=== PATIENT | female | born 1995 | race Caucasian/White ===

== ENCOUNTER 2023-08-04 14:22 | Emergency (ER) | payer BC, SELFPAY ==
[2023-08-04] VITALS (8 sets, daily range): BP systolic 110–169; BP diastolic 74–91; PULSE 83–109; RESP 14–23; TEMP 37.3; O2SAT 91–99; BMI 41.6
--- NOTE | 2023-08-04 14:41 | ECG_ITS ---
The [facility] Test Date: 2023-08-04 Pat Name: [facility] Department: Room: - Gender: Female [employer] Representative: : 1995 Requested By: Echo Conner Order Number: [id number] Reading MD: DEE GUTIERREZ Measurements Intervals [place] Rate: 95 P: 111 CA: 134 QRS: 38 QRSD: 76 T: 40 QT: 346 QTc: 398 Interpretive Statements 1100 Sinus rhythm 6220 Possible left atrial enlargement 9130 borderline ECG No previous ECG available for comparison Electronically Signed On 08-06-2023 11:28:54 EST by DEE GUTIERREZ
--- NOTE | 2023-08-04 15:31 | XR_ITS ---
The [address] [address] Patient Name: FRANKI HENRIQUEZ MRN: [id number] date: 1995 Sex: F Assigned Patient Location: ER Current Patient Location: ER Accession/Order Number: [id number] Exam Date: 08/04/2023 16:16 Report Date: 08/04/2023 17:02 At the request of: SUZY JUAN Procedure: XR chest 2V EXAM: CHEST 2 VIEWS HISTORY: pain TECHNIQUE: PA and lateral views chest. COMPARISON: None. FINDINGS: The lungs are clear. There is no focal lung consolidation, pleural effusion or pneumothorax. Pulmonary vasculature is within normal limits. The cardiomediastinal silhouette is normal. XR/XR chest 2V IMPRESSION: 1. No acute cardiopulmonary disease. Electronically authenticated by: TINY GARCIA Date: 08/04/2023 17:02
[2023-08-04 15:46] LABS: Basophils Absolute Auto 0.1 10^3/uL (0.0-0.1); Basophils Percent Auto 0.4 % (0.2-2.0); Eosinophils Absolute Auto 0.1 10^3/uL (0.0-0.7); Eosinophils Percent Auto 0.6 % (0.9-7.0); Hematocrit 43.7 % (36.0-48.0); Hemoglobin 13.9 g/dL (12.0-16.0); Immature Granulocytes Abs Auto 0.04 10^3/uL (0.00-0.03); Immature Granulocytes Pct Auto 0.3 % (0.0-0.5); Lymphocytes Absolute Auto 2.8 10^3/uL (1.2-3.8); Lymphocytes Percent Auto 20.4 % (20.5-60.0); Mean Corpuscular HGB Conc 31.8 g/dL (29.9-35.2); Mean Corpuscular Hemoglobin 30.3 pg (26.7-34.0); Mean Corpuscular Volume 95.4 fL (81.0-99.0); Mean Platelet Volume 10.1 fL (9.5-13.5); Monocytes Absolute Auto 0.9 10^3/uL (0.3-0.8); Monocytes Percent Auto 6.2 % (1.7-12.0); Neutrophils Percent Auto 72.1 % (43.0-75.0); Platelet Count 312 10^3/uL (150-450); Red Blood Count 4.58 10^6/uL (4.20-5.40); Red Cell Distribution Width 12.7 % (11.0-15.0); White Blood Count 13.9 10^3/uL (4.0-11.0)
[2023-08-04] MEDS: KETOROLAC TROMETHAMINE 30 MG/ML VIAL IVP (15:55)
[2023-08-04 15:58] LABS: Bilirubin Urine NEGATIVE (NEGATIVE); Blood Urine NEGATIVE (NEGATIVE); Clarity Urine CLEAR (CLEAR); Color Urine LT. YELLOW (YELLOW); Glucose Urine UA NEGATIVE (NEGATIVE); Ketones Urine NEGATIVE (NEGATIVE); Leukocyte Esterase Urine NEGATIVE (NEGATIVE); Nitrite Urine NEGATIVE (NEGATIVE); Protein Urine NEGATIVE (NEG/TRACE); Specific Gravity Urine <=1.005 (1.005-1.025); Urobilinogen Urine 0.2 EU/dL (0.2-1.0)
[2023-08-04 16:01] LABS: Anion Gap 12.8; Carbon Dioxide 27.4 mmol/L (21.0-32.0); Chloride 98 mmol/L (98-107); Glucose 107 mg/dL (74-106); Potassium 3.2 mmol/L (3.5-5.1); Sodium 135 mmol/L (136-145)
[2023-08-04 16:02] LABS: Alanine Aminotransferase 33 U/L (14-59); Albumin Globulin Ratio 0.8; Albumin Level 3.7 g/dL (3.4-5.0); Alkaline Phosphatase 88 U/L (46-116); Aspartate Amino Transferase 21 U/L (15-37); BUN Creatinine Ratio 13.3; Bilirubin Total 0.3 mg/dL (0.2-1.0); Estimated GFR (African America >60 (>=60); Estimated GFR (Non-African Ame >60 (>=60); Globulin 4.6 g/dL; Total Protein 8.3 g/dL (6.4-8.2); Troponin I High Sensitivity <4.0 pg/mL (4.0-51.3)
[2023-08-04] MEDS: IPRATROPIUM/ALBUTEROL SULFATE 3 ML AMPUL.NEB IH (16:02)
[2023-08-04 16:04] LABS: Bacteria Urine NONE SEEN #/HPF (NONE SEEN); Mucus Urine NONE SEEN (NONE SEEN); RBC Urine NONE SEEN #/HPF (0-2); Squamous Epithelial Cell Urine NONE SEEN #/LPF (NONE/RARE); WBC Urine NONE SEEN #/HPF (NONE SEEN)
[2023-08-04 16:05] LABS: Cast Seen? NONE SEEN #/LPF (NONE SEEN); Crystals Seen? None Seen #/HPF (None Seen)
[2023-08-04] MEDS: ONDANSETRON PF 4 MG/2 ML VIAL IV (16:05)
--- NOTE | 2023-08-04 16:48 | ED_ITS ---
Documented by User: Deb Juan 08/04/23 18:01 HPI - Chest Pain General Chief Complaint: Chest Pain Stated Complaint: CHEST PAIN Time Seen by Provider: 08/04/23 15:31 Source: patient Mode of arrival: walk-in Limitations: no limitations History of Present Illness HPI narrative: 27-year-old female presents with a chief complaint of chest pain. She states she developed chest pain with minimal radiation to left side while at work. She denies any nausea or vomiting.She denies any known history of coronary artery disease. She is generally healthy. She denies any shortness of breath. Denies any recent surgery travel or trauma. She denies any known history of [place] infection. She states she does have a history of asthma and anxiety. She states is does not feel like an anxiety attack. She describes it as a sharp stabbing pain. She denies anything making it worse or better. Related Data Home Medications Medication Instructions Recorded Confirmed albuterol sulfate 90 mcg/actuation 1 inh inhalation Q6H PRN shortness 08/04/23 08/04/23 aerosol inhaler of breath or wheezing bupropion HCl 100 mg tablet 300 mg PO BID 08/04/23 08/04/23 buspirone 15 mg tablet 15 mg PO TID 08/04/23 08/04/23 clonazepam 0.5 mg tablet 0.5 mg PO .QHS PRN sleep 08/04/23 08/04/23 phentermine 37.5 mg tablet 37.5 mg PO DAILY 08/04/23 08/04/23 prazosin 2 mg capsule 2 mg PO DAILY 08/04/23 08/04/23 sertraline 100 mg tablet (Zoloft) 200 mg PO Q24H 08/04/23 08/04/23 Previous Rx's Medication Instructions Recorded prednisone 50 mg tablet 50 mg PO DAILY 5 days #5 tabs 08/04/23 Allergies Allergy/AdvReac Type Severity Reaction Status Date / Time Sulfa (Sulfonamide AdvReac Intermediate Verified 08/04/23 14:31 Antibiotics) Review of Systems ROS Narrative All Systems are negative except as noted/marked.All systems reviewed and otherwise negative PFSH PFSH Social History Smoking status: Current every day smoker Exam Narrative Exam Narrative: Nurses note and vital signs reviewed and patient is not hypoxic. General: The patient appears well and in no apparent distress. Patient is resting comfortably on cart. Skin: Warm, dry, no pallor noted. There is no rash noted. Head: Normocephalic, atraumatic Eye: Normal conjunctiva, no drainage, EOMI. PERRL Ears, Nose, Mouth, and Throat: oral mucosa is moist. Nares patent. Mouth without vesicles. Ear canals patent. Tm's without Erythema Cardiovascular: Regular Rate and Rhythm Respiratory: Patient is in no distress, no accessory muscle use, lungs are syeda r to auscultation, no wheezing, rales or rhonchi Back: non-tender, no CVA tenderness bilaterally to percussion. GI: Normal bowel sounds, no tenderness to palpation, no masses appreciated. No rebound, guarding, or rigidity noted. Musculoskeletal: The patient has no evidence of calf tenderness, no pitting edema, symmetrical pulses noted bilaterally Neurological: A&O x4, normal speech Psychiatric: Cooperative Constitutional Vital Signs, click to edit/add: Last Vital Signs Temp 99.2 F 08/04/23 14:31 Pulse 100 H 08/04/23 17:00 Resp 23 08/04/23 17:00 BP 117/74 08/04/23 17:00 Pulse Ox 95 08/04/23 17:00 O2 Del Method Room Air 08/04/23 14:31 Course Vital Signs Vital signs: Vital Signs Temperature 99.2 F 08/04/23 14:31 Pulse Rate 109 H 08/04/23 14:31 Respiratory Rate 18 08/04/23 14:31 Blood Pressure 110/84 08/04/23 14:31 Pulse Oximetry 96 08/04/23 14:31 Oxygen Delivery Method Room Air 08/04/23 14:31 Temperature 99.2 F 08/04/23 14:31 Pulse Rate 100 H 08/04/23 17:00 Respiratory Rate 23 08/04/23 17:00 Blood Pressure 117/74 08/04/23 17:00 Pulse Oximetry 95 08/04/23 17:00 Oxygen Delivery Method Room Air 08/04/23 14:31 MDM - Chest Pain MDM Narrative Medical decision making narrative: She presents here with a chief complaint of chest pain. She states she's a sharp stabbing pain to the center chest radiates left. Denies any cardiac history. Upon arrival to the emergency room The was established and lab work was performed. CBC BMP and troponin are all negative. Patient's cardiac score is zero. Patient medicated here with Toradol and Norflex. Or flexing to help symptoms. I believe symptoms may be due to either costochondritis or stress related issues. EKG is normal here. Patient verbalized understanding agrees plan of care.. Patient does not have any cardiac history vital signs are stable. Differential Diagnosis Differential diagnosis: Likely atypical chest pain, costochondritis and chest pa in Medical Records Data Attestation: I reviewed the patient's medical records. Lab Data Attestation: I reviewed the patient's lab results. Labs: Lab Results 08/04/23 08/04/23 Range/Units 15:11 16:40 WBC 13.9 H (4.0-11.0) 10^3/uL RBC 4.58 (4.20-5.40) 10^6/uL Hgb 13.9 (12.0-16.0) g/dL Hct 43.7 (36.0-48.0) % MCV 95.4 (81.0-99.0) fL MCH 30.3 (26.7-34.0) pg MCHC 31.8 (29.9-35.2) g/dL RDW 12.7 (11.0-15.0) % Plt Count 312 (150-450) 10^3/uL MPV 10.1 (9.5-13.5) fL Neut % (Auto) 72.1 (43.0-75.0) % Lymph % (Auto) 20.4 L (20.5-60.0) % Moore % (Auto) 6.2 (1.7-12.0) % Eos % (Auto) 0.6 L (0.9-7.0) % Baso % (Auto) 0.4 (0.2-2.0) % Neut # (Auto) 10.0 H (1.4-6.5) 10^3/uL Lymph # (Auto) 2.8 (1.2-3.8) 10^3/uL Moore # (Auto) 0.9 H (0.3-0.8) 10^3/uL Eos # (Auto) 0.1 (0.0-0.7) 10^3/uL Baso # (Auto) 0.1 (0.0-0.1) 10^3/uL Abs Immat Gran (auto) 0.04 H (0.00-0.03) 10^3/uL Imm/Tot Granulo (auto) 0.3 (0.0-0.5) % Sodium 135 L (136-145) mmol/L Potassium 3.2 L (3.5-5.1) mmol/L Chloride 98 (98-107) mmol/L Carbon Dioxide 27.4 (21.0-32.0) mmol/L Anion Gap 12.8 BUN 13.0 (7.0-18.0) mg/dL Creatinine 0.98 (0.55-1.02) mg/dL Est GFR ( Amer) >60 (>=60) Est GFR (Non-Af Amer) >60 (>=60) BUN/Creatinine Ratio 13.3 Glucose 107 H (74-106) mg/dL Calcium 10.0 (8.5-10.1) mg/dL Total Bilirubin 0.3 (0.2-1.0) mg/dL AST 21 (15-37) U/L ALT 33 (14-59) U/L Alkaline Phosphatase 88 (46-116) U/L Troponin I High Sens <4.0 L (4.0-51.3) pg/mL Total Protein 8.3 H (6.4-8.2) g/dL Albumin 3.7 (3.4-5.0) g/dL Globulin 4.6 g/dL Albumin/Globulin Ratio 0.8 Urine Color Lt. yellow (YELLOW) Urine Clarity Clear (CLEAR) Urine pH 6.0 (5.0-9.0) Ur Specific [place] <=1.005 A (1.005-1.025) Urine Protein Negative (NEG/TRACE) mg/dL Urine Glucose (UA) Negative (NEGATIVE) mg/dL Urine Ketones Negative (NEGATIVE) mg/dL Urine Occult Blood Negative (NEGATIVE) Urine Nitrite Negative (NEGATIVE) Urine Bilirubin Negative (NEGATIVE) Urine Urobilinogen 0.2 (0.2-1.0) EU/dL Ur Leukocyte Esterase Negative (NEGATIVE) Urine RBC None seen (0-2) #/HPF Urine WBC None seen (NONE SEEN) #/HPF Ur Squamous Epith Cells None seen (NONE/RARE) #/LPF Urine Crystals None seen (None Seen) #/HPF Urine Bacteria None seen (NONE SEEN) #/HPF Urine Casts None seen (NONE SEEN) #/LPF Urine Mucus None seen (NONE SEEN) SARS-CoV-2 (PCR) Negative (NEGATIVE) Influenza Type A Ag Negative Influenza Type B Ag Negative Imaging Data Chest x-ray: Attestation: I have reviewed the pertinent imaging results. My impression: nad Radiologist's impression: FRANKI Womack HENRIQUEZ MRN: [facility]:[id number] date: 1995 Sex: F Assigned Patient Location: ER Current Patient Location: ER Accession/Order Number: [id number] Exam Date: 08/04/2023 16:16 Report Date: 08/04/2023 17:02 At the request of: DEB JUAN Procedure: XR chest 2V EXAM: CHEST 2 VIEWS HISTORY: pain TECHNIQUE: PA and lateral views chest. COMPARISON: None. FINDINGS: The lungs are clear. There is no focal lung consolidation, pleural effusion or pneumothorax. Pulmonary vasculature is within normal limits. The cardiomediastinal silhouette is normal. IMPRESSION: 1. No acute cardiopulmonary disease. Electronically authenticated by: TINY GARCIA Date: 08/04/2023 17:02 ECG Data Attestation: ?I have reviewed the pertinent ECG results. Interpretation: 1510 EKG shows normal sinus rhythm rate of 95 bpm, ND interval 134 ms, QR sure his 76 ms, no ST elevation or depression no STEMI Heart Score History: Slightly/Non-Suspicious ECG: Normal Age: <45 years Risk Factors: No Risk Factors Troponin: <Normal Limit Total Heart Score Recommendations & Risks:: 0 Discharge Plan Discharge Chief Complaint: Chest Pain Clinical Impression: Atypical chest pain Patient Disposition: Home, Self-Care Time of Disposition Decision: 17:18 Condition: Good Prescriptions / Home Meds: New prednisone 50 mg tablet 50 mg PO DAILY 5 Days Qty: 5 0RF No Action albuterol sulfate 90 mcg/actuation HFA aerosol inhaler 1 inh INHALATION Q6H PRN (Reason: shortness of breath or wheezing) clonazepam 0.5 mg tablet 0.5 mg PO .QHS PRN (Reason: sleep) phentermine 37.5 mg tablet 37.5 mg PO DAILY sertraline [Zoloft] 100 mg tablet 200 mg PO Q24H bupropion HCl 100 mg tablet 300 mg PO BID buspirone 15 mg tablet 15 mg PO TID prazosin 2 mg capsule 2 mg PO DAILY Instructions: Chest Wall Pain (ED) Stand Alone Forms: Portal Instructions Referrals: DINA KAUR [Primary Care Provider] - 1 week Discharge Date/Time: 08/04/23 17:31 Documented by User: David Deng MD 08/04/23 20:57 HPI - Chest Pain General Chief Complaint: Chest Pain Stated Complaint: CHEST PAIN Time Seen by Provider: 08/04/23 15:31 Related Data Home Medications Medication Instructions Recorded Confirmed albuterol sulfate 90 mcg/actuation 1 inh inhalation Q6H PRN shortness 08/04/23 08/04/23 aerosol inhaler of breath or wheezing bupropion HCl 100 mg tablet 300 mg PO BID 08/04/23 08/04/23 buspirone 15 mg tablet 15 mg PO TID 08/04/23 08/04/23 clonazepam 0.5 mg tablet 0.5 mg PO .QHS PRN sleep 08/04/23 08/04/23 phentermine 37.5 mg tablet 37.5 mg PO DAILY 08/04/23 08/04/23 prazosin 2 mg capsule 2 mg PO DAILY 08/04/23 08/04/23 sertraline 100 mg tablet (Zoloft) 200 mg PO Q24H 08/04/23 08/04/23 Previous Rx's Medication Instructions Recorded prednisone 50 mg tablet 50 mg PO DAILY 5 days #5 tabs 08/04/23 Allergies Allergy/AdvReac Type Severity Reaction Status Date / Time Sulfa (Sulfonamide AdvReac Intermediate Verified 08/04/23 14:31 Antibiotics) PFSH PFSH Social History Smoking status: Current every day smoker Exam Constitutional Vital Signs, click to edit/add: Last Vital Signs Temp 99.2 F 08/04/23 14:31 Pulse 100 H 08/04/23 17:00 Resp 23 08/04/23 17:00 BP 117/74 08/04/23 17:00 Pulse Ox 95 08/04/23 17:00 O2 Del Method Room Air 08/04/23 14:31 Course Vital Signs Vital signs: Vital Signs Temperature 99.2 F 08/04/23 14:31 Pulse Rate 109 H 08/04/23 14:31 Respiratory Rate 18 08/04/23 14:31 Blood Pressure 110/84 08/04/23 14:31 Pulse Oximetry 96 08/04/23 14:31 Oxygen Delivery Method Room Air 08/04/23 14:31 Temperature 99.2 F 08/04/23 14:31 Pulse Rate 100 H 08/04/23 17:00 Respiratory Rate 23 08/04/23 17:00 Blood Pressure 117/74 08/04/23 17:00 Pulse Oximetry 95 08/04/23 17:00 Oxygen Delivery Method Room Air 08/04/23 14:31 MDM - Chest Pain MDM Narrative Medical decision making narrative: She presents here with a chief complaint of chest pain. She states she's a sharp stabbing pain to the center chest radiates left. Denies any cardiac history. Upon arrival to the emergency room The was established and lab work was performed. CBC BMP and troponin are all negative. Patient's cardiac score is zero. Patient medicated here with Toradol and Norflex. Or flexing to help symptoms. I believe symptoms may be due to either costochondritis or stress related issues. EKG is normal here. Patient verbalized understanding agrees plan of care.. Patient does not have any cardiac history vital signs are stable. I, Dr Deng, have reviewed the above progress note and course of action in the ER; agree with the above. I have personally seen and evaluated this patient, gone over history and physical, and discussed disposition and treatment plan with the patient. Lab Data Labs: Lab Results 08/04/23 08/04/23 Range/Units 15:11 16:40 WBC 13.9 H (4.0-11.0) 10^3/uL RBC 4.58 (4.20-5.40) 10^6/uL Hgb 13.9 (12.0-16.0) g/dL Hct 43.7 (36.0-48.0) % MCV 95.4 (81.0-99.0) fL MCH 30.3 (26.7-34.0) pg MCHC 31.8 (29.9-35.2) g/dL RDW 12.7 (11.0-15.0) % Plt Count 312 (150-450) 10^3/uL MPV 10.1 (9.5-13.5) fL Neut % (Auto) 72.1 (43.0-75.0) % Lymph % (Auto) 20.4 L (20.5-60.0) % Moore % (Auto) 6.2 (1.7-12.0) % Eos % (Auto) 0.6 L (0.9-7.0) % Baso % (Auto) 0.4 (0.2-2.0) % Neut # (Auto) 10.0 H (1.4-6.5) 10^3/uL Lymph # (Auto) 2.8 (1.2-3.8) 10^3/uL Moore # (Auto) 0.9 H (0.3-0.8) 10^3/uL Eos # (Auto) 0.1 (0.0-0.7) 10^3/uL Baso # (Auto) 0.1 (0.0-0.1) 10^3/uL Abs Immat Gran (auto) 0.04 H (0.00-0.03) 10^3/uL Imm/Tot Granulo (auto) 0.3 (0.0-0.5) % Sodium 135 L (136-145) mmol/L Potassium 3.2 L (3.5-5.1) mmol/L Chloride 98 (98-107) mmol/L Carbon Dioxide 27.4 (21.0-32.0) mmol/L Anion Gap 12.8 BUN 13.0 (7.0-18.0) mg/dL Creatinine 0.98 (0.55-1.02) mg/dL Est GFR ( Amer) >60 (>=60) Est GFR (Non-Af Amer) >60 (>=60) BUN/Creatinine Ratio 13.3 Glucose 107 H (74-106) mg/dL Calcium 10.0 (8.5-10.1) mg/dL Total Bilirubin 0.3 (0.2-1.0) mg/dL AST 21 (15-37) U/L ALT 33 (14-59) U/L Alkaline Phosphatase 88 (46-116) U/L Troponin I High Sens <4.0 L (4.0-51.3) pg/mL Total Protein 8.3 H (6.4-8.2) g/dL Albumin 3.7 (3.4-5.0) g/dL Globulin 4.6 g/dL Albumin/Globulin Ratio 0.8 Urine Color Lt. yellow (YELLOW) Urine Clarity Clear (CLEAR) Urine pH 6.0 (5.0-9.0) Ur Specific [place] <=1.005 A (1.005-1.025) Urine Protein Negative (NEG/TRACE) mg/dL Urine Glucose (UA) Negative (NEGATIVE) mg/dL Urine Ketones Negative (NEGATIVE) mg/dL Urine Occult Blood Negative (NEGATIVE) Urine Nitrite Negative (NEGATIVE) Urine Bilirubin Negative (NEGATIVE) Urine Urobilinogen 0.2 (0.2-1.0) EU/dL Ur Leukocyte Esterase Negative (NEGATIVE) Urine RBC None seen (0-2) #/HPF Urine WBC None seen (NONE SEEN) #/HPF Ur Squamous Epith Cells None seen (NONE/RARE) #/LPF Urine Crystals None seen (None Seen) #/HPF Urine Bacteria None seen (NONE SEEN) #/HPF Urine Casts None seen (NONE SEEN) #/LPF Urine Mucus None seen (NONE SEEN) SARS-CoV-2 (PCR) Negative (NEGATIVE) Influenza Type A Ag Negative Influenza Type B Ag Negative Heart Score Total Heart Score Recommendations & Risks:: 0 Discharge Plan Discharge Chief Complaint: Chest Pain Clinical Impression: Atypical chest pain Patient Disposition: Home, Self-Care Time of Disposition Decision: 17:18 Condition: Good Prescriptions / Home Meds: New prednisone 50 mg tablet 50 mg PO DAILY 5 Days Qty: 5 0RF No Action albuterol sulfate 90 mcg/actuation HFA aerosol inhaler 1 inh INHALATION Q6H PRN (Reason: shortness of breath or wheezing) clonazepam 0.5 mg tablet 0.5 mg PO .QHS PRN (Reason: sleep) phentermine 37.5 mg tablet 37.5 mg PO DAILY sertraline [Zoloft] 100 mg tablet 200 mg PO Q24H bupropion HCl 100 mg tablet 300 mg PO BID buspirone 15 mg tablet 15 mg PO TID prazosin 2 mg capsule 2 mg PO DAILY Instructions: Chest Wall Pain (ED) Stand Alone Forms: Portal Instructions Referrals: DINA KAUR [Primary Care Provider] - 1 week Discharge Date/Time: 08/04/23 17:31
[2023-08-04] MEDS: ORPHENADRINE 60 MG/ 2 ML VIAL IV (16:58)
[2023-08-04 17:18] LABS: Influenza Virus A Antigen Negative; Influenza Virus B Antigen Negative; Internal Control Within Normal Limits; SARS-CoV-2 Ag NEGATIVE (NEGATIVE)
[2023-08-05 16:05] LABS: SARS-CoV-2 NAA NOT DETECTED (NOT DETECTE)
== END 2023-08-04 17:31 | disposition home or self-care (01) ==
PROVIDERS: Physician Assistant; Emergency Provider Emergency Medicine; PCP Nurse Practitioner
DX: R07.89 Other chest pain (principal); F41.9 Anxiety disorder, unspecified; J45.909 Unspecified asthma, uncomplicated; Z79.899 Other long term (current) drug therapy; F17.210 Nicotine dependence, cigarettes, uncomplicated; Z20.822 Contact with and (suspected) exposure to COVID-19
CPT/HCPCS: 36415; 71046; 80053; 81001; 84484; 85025; 87635; 87804; 87811; 93005; 94640; 96374; 96375; 99285; J1885; J2360; J2405

== ENCOUNTER 2023-10-24 08:53 | Outpatient (OUT) | payer BC, SELFPAY ==
--- NOTE | 2023-10-24 08:58 | US_ITS ---
[address] [address] Patient Name: FRANKI HENRIQUEZ MRN: [id number] date: 1995 Sex: F Assigned Patient Location: [facility] Current Patient Location: LAB Accession/Order Number: [id number] Exam Date: 10/24/2023 08:58 Report Date: 10/24/2023 10:51 At the request of: MARIA E MORALES Procedure: US pelvis transvaginal EXAMINATION: US pelvis transvaginal HISTORY: IUD POSITION COMPARISON: No relevant comparison available. FINDINGS: Transabdominal and transvaginal images The uterus is normal in size, contour and echotexture measuring 8.9 x 3.6 x 5.6 cm. No focal myometrial mass. Linear hyperechogenicity within the endometrial cavity consistent with a normally positioned IUD. The endometrium measures 6 mm, normal. The right ovary is normal measuring 4.2 x 2.4 x 2.5 cm. Normal color Doppler flow. The left ovary measures 2.9 0.6 x 2.7 cm. Normal color flow. Doppler flow could not be obtained No ascites US/US pelvis transvaginal IMPRESSION: Normal position of IUD Electronically authenticated by: FELICIANO SERRANO Date: 10/24/2023 10:51
--- OUTSIDE RECORDS SUMMARY | 2023-10-24 09:13 | XMS_ITS | CCD ---
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 [Mass/Vol] 13.2 g/dL Normal 12.0-16.0 [facility] Comment on above: Performed By: #### C BC #### [facility] [address] [place] [address] Dr. Umm Banuelos IG # 0.06 10e3/ul Critically high 0.00-0.03 [facility] Comment on above: Performed By: #### C BC #### [facility] [address] [place] [address] Dr. Umm Banuelos IG % 0.6 % Critically high 0.0-0.5 [facility] Comment on above: Performed By: #### C BC #### [facility] [address] [place] [address] Dr. Umm Banuelos LYMPH # 2.3 103/ul Normal 1.2-3.8 [facility] Comment on above: Performed By: #### C BC #### [facility] [address] [place] [address] Dr. Umm Banuelos Lymphocytes/100 WBC (Bld) 22.5 % Normal 20.5-60.0 [facility] Comment on above: Performed By: #### C BC #### [facility] [address] [place] [address] Dr. Umm Banuelos MANUAL DIFF REQ NO Normal [facility] Comment on above: Performed By: #### C BC #### [facility] [address] [place] [address] Dr. Umm Banuelos MCH (RBC) [Entitic mass] 31.1 pg Normal 26.7-34.0 [facility] Comment on above: Performed By: #### C BC #### [facility] [address] [place] [address] Dr. Umm Banuelos MCHC (RBC) [Mass/Vol] 31.9 g/dL Normal 29.9-35.2 [facility] Comment on above: Performed By: #### C BC #### [facility] [address] [place] [address] Dr. Umm Banuelos MCV (RBC) [Entitic vol] 97.6 fL Normal 81.0-99.0 [facility] Comment on above: Performed By: #### C BC #### [facility] [address] [place] [address] Dr. Umm Banuelos MONO # 0.6 103/ul Normal 0.3-0.8 [facility] Comment on above: Performed By: #### C BC #### [facility] [address] [place] [address] Dr. Umm Banuelos Monocytes/100 WBC (Bld) 5.9 % Normal 1.7-12.0 [facility] Comment on above: Performed By: #### C BC #### [facility] [address] [address] [address] Umm Banuelos NEUT # 7.2 103/ul Critically high 1.4-6.5 [facility] Comment on above: Performed By: #### C BC #### [facility] [address] [address] [address] Umm Banuelos Neutrophils/100 WBC (Bld) 69.4 % Normal 43.0-75.0 [facility] Comment on above: Performed By: #### C BC #### [facility] [address] [address] [address] Umm Banuelos Platelet mean volume (Bld) [Entitic vol] 10.0 fL Normal 9.5-13.5 [facility] Comment on above: Performed By: #### C BC #### [facility] [address] [place] [address] Dr. Umm Banuelos PLT 274 103/ul Normal 150-450 [facility] Comment on above: Performed By: #### C BC #### [facility] [address] [address] [address] Umm Banuelos RBC 4.24 106/ul Normal 4.20-5.40 [facility] Comment on above: Performed By: #### C BC #### [facility] [address] [place] [address] Dr. Umm Banuelos WBC 10.4 103/ul Normal 4.0-11.0 [facility] Comment on above: Performed By: #### C BC #### [facility] [address] [place] [address] ABD/PELVIS WO CONon 01-01 CT ABD/PELVIS WO CON EXAM: CT SCAN OF E ABDOMEN AND PELVIS WITHOUT INTRAVENOUS CONTRAST DATE OF EXAM: 01/01/2022 3:57 PM EDT HISTORY: UNSPECIFIED ABDOMINAL PAIN in a 26-year-old female. Patient is complaining of left upper quadrant pain just for today. Patient's history is a . COMPARISON: Ultrasound pelvis dated 11/12/2020 TECHNIQUE: CT examination of the abdomen and pelvis with sagittal and coronal reformations was performed without intravenous contrast. CT dose lowering techniques were used, to include: automated exposure control, adjustment for patient size, and/or use of iterative reconstruction. CONTRAST: None. Note: The exam is limited because some types of pathology may not be adequately demonstrated due to lack of contrast enhancement. FINDINGS: Lower Chest: Normal Free Air: None. Liver: Right lobe is enlarged on coronal imaging. 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 Right Ureter: Portions of the right ureter which are visualized measure within normal. Left Kidney: Normal. Left Ureter: Portions of the left ureter which are visualized measure within normal limits. GI Tract: Stomach: Normal Small Bowel: Normal Appendix: Normal on coronal image 32 Large Bowel: Normal Mesentery/Peritoneum: Subcentimeter lymph nodes are seen in the mesentery. Vasculature: Normal Lymph Nodes: Normal Abdominal Wall: Normal Bladder: Normal Reproductive: The uterus is anteflexed with an IUD. Ovaries measure upper limits of normal. Musculoskeletal: Normal Free Fluid: None. IMPRESSION: 1. Hepatosplenomegaly. Please correlate with patient's LFTs. 2. IUD demonstrated appears to be in adequate location. 3. Decompressed gallbladder. Please correlate with patient's nothing by mouth status.. 4. Mesenteric lymph nodes measure upper limits of normal. Please correlate for mesenteric adenitis. Electronically authenticated by: ALISSA JOHN Date: 2022-01-01 18:26 Normal [facility] ER URINE PROFILEon 2 Bilirubin Ql (U) Negative Normal NEGATIVE [facility] Comment on above: Performed By: #### E TH #### [facility] [address] [address] [address] Umm Banuelos Clarity (U) CLEAR Normal CLEAR [facility] Comment on above: Performed By: #### E TH #### [facility] [address] [address] [address] Umm Banuelos Color (U) YELLOW Normal YELLOW [facility] Comment on above: Performed By: #### E TH #### [facility] [address] [address] [address] Umm MUSE A micrscopic examination will be performed if indicated. Normal [facility] Comment on above: Performed By: #### E TH #### [facility] [address] [place] [address] Dr. Umm Banuelos Glucose Ql (U) Negative Normal NEGATIVE [facility] Comment on above: Performed By: #### E TH #### [facility] [address] [place] [address] Dr. Umm Banuelos Hemoglobin Ql (U) Negative Normal NEGATIVE [facility] Comment on above: Performed By: #### E #### [facility] [address] [place] [address] Dr. Umm Banuelos Ketones Ql (U) Negative Normal NEGATIVE [facility] Comment on above: Performed By: #### E #### [facility] [address] [place] [address] Dr. Umm Banuelos LEUKOCYTES Negative Normal NEGATIVE [facility] Comment on above: Performed By: #### E #### [facility] [address] [place] [address] Dr. Umm Banuelos Nitrite Ql (U) Negative Normal NEGATIVE [facility] Comment on above: Performed By: #### E #### [facility] [address] [place] [address] Dr. Umm Banuelos pH (U) 7.0 [pH] Normal 5-9 [facility] Comment on above: Performed By: #### E #### [facility] [address] [place] [address] Dr. Umm Banuelos SPEC GRAVITY 1.015 Normal 1.005-<=1.02 5 [facility] Comment on above: Performed By: #### E #### [facility] [address] [place] [address] Dr. Umm Banuelos UA PROTEIN Negative Normal NEGATIVE/ TRACE [facility] Comment on above: Performed By: #### E TH #### [facility] [address] [place] [address] Dr. Umm Banuelos UR MICRO IND NOT INDICATED Normal [facility] Comment on above: Performed By: #### E TH #### [facility] [address] [place] [address] Dr. Umm Banuelos Urobilinogen Qn (U) 0.2 {Dajuan'U}/dL Normal 0.2 - 1. 0 [facility] Comment on above: Performed By: #### E TH #### [facility] [address] [place] [address] Dr. Umm Banuelos LIPASEon 01-01-2022 Lipase [Catalytic activity/Vol] 62.0 U/L Critically low 73.0-393.0 [facility] Comment on above: Performed By: #### A LATOYA LIPA, CMP #### [facility] [address] [place] [address] Dr. Umm Banuelos URon 01-01-2022 , QUAL Negative Normal NEGATIVE [facility] Comment on above: Performed By: #### E TH #### [facility] [address] [place] [address] Dr. Umm Banuelos PROF 14(COMP METB)on 022 Albumin [Mass/Vol] 3.5 g/dL Normal 3.4-5.0 [facility] Comment on above: Performed By: #### A LATOYA LIPA, CMP #### [facility] [address] [place] [address] Dr. Umm Banuelos Albumin/Globulin [Mass ratio] 0.9 {ratio} Normal [facility] Comment on above: Performed By: #### A MY LIPA, CMP #### [facility] [address] [place] [address] Dr. Umm Banuelos ALP [Catalytic activity/Vol] 84 U/L Normal 46-116 [facility] Comment on above: Performed By: #### A MY LIPA, CMP #### [facility] [address] [place] [address] Dr. Umm Banuelos ALT [Catalytic activity/Vol] 39 U/L Normal 14-59 [facility] Comment on above: Performed By: #### A LATOYA LIPA, CMP #### [facility] [address] [address] [address] Umm Banuelos Anion gap [Moles/Vol] 12.7 mmol/L Normal [facility] Comment on above: Performed By: #### A MY LIPA, CMP #### [facility] [address] [place] [address] Dr. Umm Banuelos AST [Catalytic activity/Vol] 31 U/L Normal 15-37 [facility] Comment on above: Performed By: #### A MY LIPA, CMP #### [facility] [address] [place] [address] Dr. Umm Banuelos Calcium [Mass/Vol] 8.8 mg/dL Normal 8.5-10.1 [facility] Comment on above: Performed By: #### A MY LIPA, CMP #### [facility] [address] [place] [address] Dr. Umm Banuelos Chloride [Moles/Vol] 103 mmol/L Normal 98-107 [facility] Comment on above: Performed By: #### A MY LIPA, CMP #### [facility] [address] [place] [address] Dr. Umm Banuelos CO2 [Moles/Vol] 27.4 mmol/L Normal 21.0-32.0 [facility] Comment on above: Performed By: #### A MY LIPA, CMP #### [facility] [address] [place] [address] Dr. Umm Banuelos Creatinine [Mass/Vol] 1.02 mg/dL Normal 0.55-1.02 [facility] Comment on above: Performed By: #### A MY LIPA, CMP #### [facility] [address] [place] [address] Dr. Umm Banuelos EGFR-AF EMIRATI >60 Normal >=60 [facility] Comment on above: Performed By: #### A MY LIPA, CMP #### [facility] [address] [place] [address] Dr. Umm Banuelos EGFR-NON AF EMIRATI >60 Normal >=60 [facility] Comment on above: Performed By: #### A MY, LIPA, CMP #### [facility] [address] [address] [address] Umm Banuelos Globulin (S) [Mass/Vol] 3.9 g/dL Normal [facility] Comment on above: Performed By: #### A MY, LIPA, CMP #### [facility] [address] [address] [address] Umm Banuelos Glucose [Mass/Vol] 111 mg/dL Critically high 74-106 [facility] Comment on above: Performed By: #### A MY, LIPA, CMP #### [facility] [address] [address] [address] Umm Banuelos Potassium [Moles/Vol] 4.1 mmol/L Normal 3.5-5.1 [facility] Comment on above: Performed By: #### A MY, LIPA, CMP #### [facility] [address] [address] [address] Umm Banuelos Protein [Mass/Vol] 7.4 g/dL Normal 6.4-8.2 [facility] Comment on above: Performed By: #### A MY, LIPA, CMP #### [facility] [address] [address] [address] Umm Banuelos Sodium [Moles/Vol] 139 mmol/L Normal 136-145 [facility] [place] Comment on above: Performed By: #### A MY, LIPA, CMP #### [facility] [address] [address] [address] Umm Banuelos Urea nitrogen [Mass/Vol] 10.0 mg/dL Normal 7.0-18.0 [facility] Comment on above: Performed By: #### A MY, LIPA, CMP #### [facility] [address] [address] [address] Umm Banuelos Urea nitrogen/Creatinine [Mass ratio] 9.8 mg/mg Normal [facility] Comment on above: Performed By: #### A MY, LIPA, CMP #### [facility] [address] [address] [address] Umm Banuelos Cholesterol [Mass/volume] in Serum or PlasmaOrdered By: Hank Lerma on 11-14-2021 Cholesterol [Mass/Vol] 216 mg/dL 140-200 [facility] Comment on above: Chol less than 200 m g/dl low riskChol 201-239 mg/dl borderline riskChol 240 mg/dl and greater high risk Cholesterol in LDL Calc [Mas s/Vol]Ordered By: Hank Lerma on 11-14-2021 Cholesterol in LDL [Mass/Vol] 122 mg/dL 0-100 [facility] Comment on above: LDL ATP III CLASSIFI CATIONLDL less than 100 mg/dL OptimalLDL 100-129 mg/dL Near or above optimalLDL 130-159 mg/dL Borderline highLDL 160-189 mg/dL HighLDL greater than 189 mg/dL Very high Cholesterol in VLDL Calc [Ma ss/Vol]Ordered By: Hank Lerma on 11-14-2021 Cholesterol in VLDL [Mass/Vol] 45 mg/dL [facility] ECG 12 lead ECGon 11-14-2021 ECG 12 lead ECG [facility] [place] [address] Electrocardiograph Report Signed Patient: Franki Quiroz MR#: [id number] 7 : 1995 Acct:[id number] Age/Sex: 26 / F ADM Date: 11/13/21 Loc: Room: [address] [place] [address] Type: DIS IN Attending Dr: Dione Lerma MD Ordering Provider: Hank Lerma MD Date of Service: 11/14/21 ECG/ECG 12 lead ECG: antipsychotics Copies to: Test Reason : Blood Pressure : / mmHG Vent. Rate : 082 BPM Atrial Rate : 082 BPM P-R Int : 132 ms QRS Dur : 080 ms QT Int : 366 ms P-R-T Axes : 045 036 014 degrees QTc Int : 427 ms Normal sinus rhythm Normal ECG No previous ECGs available Confirmed by JUN BO DO ([id number]) on 11/16/2021 6:30:02 PM Referred By: Electronically Signed By:JUN BO DO Transcribed By: MUS Signed By Jun Bo DO 11/16 1830 Normal [facility] Lipid Panelon 11-14-2021 Cholesterol [Mass/Vol] 216 mg/dL High 140-200 [facility] Comment on above: Result Comment: Chol less than 200 mg/dl low risk Chol 201-239 mg/dl borderline risk Chol 240 mg/dl and greater high risk Performed By: #### L IPID, TSH3 wRFLX, [id number] #### [facility] [address] [id number] [place] Cholesterol in HDL [Mass/Vol] 48 mg/dL Normal 35-85 [facility] Comment on above: Result Comment: HDL CHOL ATP-III CLASSIFICATION Cardiovascular Risk HDL > or equal to 60 mg/dL LOW HDL < 40 mg/dL HIGH Performed By: #### L IPID, TSH3 wRFLX, [id number] #### [facility] [address] [place] [address] [place] Cholesterol.total/Cho lesterol in HDL [Mass ratio] 4.5 {ratio} Normal <5.0 [facility] Comment on above: Performed By: #### L IPID, TSH3 wRFLX, [id number] #### [facility] [address] [id number] [place] LDL Cholesterol,Calculate d 122 mg/dL High 0-100 [facility] Comment on above: Result Comment: LDL ATP III CLASSIFICATION LDL less than 100 mg/dL Optimal LDL 100-129 mg/dL Near or above optimal LDL 130-159 mg/dL Borderline high LDL 160-189 mg/dL High LDL greater than 189 mg/dL Very high Performed By: #### L IPID, TSH3 wRFLX, [id number] #### [facility] [address] [place] [address] [place] Triglyceride w/Reflex 229 mg/dL High 35-149 [facility] Comment on above: Result Comment: TRIG ATP III CLASSIFICATION TRIG less than 150 mg/dL Normal TRIG 150-199 mg/dL Borderline high TRIG 200-500 mg/dL High TRIG greater than 500 mg/dL Very high Standard traceable to the Center for Disease Conrtrol and Prevention (CDC) test method. Performed By: #### L IPID, TSH3 wRFLX, [id number] #### [facility] [address] VLDL CHOLESTEROL 45 mg/dL Normal [facility] Comment on above: Performed By: #### L IPID, TSH3 wRFLX, [id number] #### [facility] [address] No Panel InformationOrdered By: Hank Lerma on 11-14-2021 25-Hydroxy Vitamin D Total 25.8 ng/mL 30-100 [facility] Comment on above: VITAMIN D STATUS 25( [place])VITAMIN D RANGE (ng/mL) Deficient <20 Insufficient 20 to <30Sufficient 30 to 100Reference: Lakisha MF,Chuckie MAI, Malcolm WILCOX, et al. Evaluation,treatment, and prevention of vitamin D deficiency; an Endocrine Society clinical practice guideline. JCEM. 2010; 96(7):1911-30. Serum or plasma high density lipoprotein (HDL) cholesterol measurementOrdered By: Hank Lerma on 11-14-2021 Cholesterol in HDL [Mass/Vol] 48 mg/dL 35-85 [facility] Comment on above: HDL CHOL ATP-III CLA SSIFICATION Cardiovascular RiskHDL > or equal to 60 mg/dL LOWHDL < 40 mg/dL HIGH Serum or plasma total choles terol/high density lipoprotein (HDL) cholesterol mass ratOrdered By: Hank Lerma on 11-14-2021 Cholesterol.total/Cho lesterol in HDL [Mass ratio] 4.5 {ratio} [facility] TSH DL <= 0.005 mIU/L QnOrde red By: Hank Lerma on 11-14-2021 TSH Qn 0.98 m[IU]/L 0.45-5.33 [facility] Thyroid Stim Hormone w/Rflxo n 11-14-2021 Thyroid Stim Hormone w/Rflx 0.98 u[iU]/mL Normal 0.45-5.33 [facility] Comment on above: Performed By: #### L IPID, TSH3 wRFLX, [id number] #### [facility] [address] [place] [address] [facility] Triglyceride [Mass/volume] i n Serum or PlasmaOrdered By: Hank Lerma on 11-14-2021 Triglyceride [Mass/Vol] 229 mg/dL 35-149 [facility] Comment on above: TRIG ATP III CLASSIF ICATIONTRIG less than 150 mg/dL NormalTRIG 150-199 mg/dL Borderline highTRIG 200-500 mg/dL High TRIG greater than 500 mg/dL Very highStandard traceable to the Center for Disease Conrtrol and Prevention (CDC) test method. Vitamin D 25 Hydroxy Totalon 11-14-2021 Vitamin D 25 Hydroxy Total 25.8 ng/mL Low 30-100 [facility] Comment on above: Result Comment: GENE MIN D STATUS 25([place])VITAMIN D RANGE (ng/mL) Deficient <20 Insufficient 20 to <30 Sufficient 30 to 100 Reference: Lakisha MF,Chuckie NC, Malcolm WILCOX, et al. Evaluation,treatment, and prevention of vitamin D deficiency; an Endocrine Society clinical practice guideline. JCEM. 2010; 96(7):1911-30. PERFORMED BY: [place] [id number] PATHOLOGIST GUNNERY/ORDNANCE OFFICER ANA JENKINS M.D. Performed By: #### L IPID, TSH3 wRFLX, [id number] #### [id number] [facility] ACETAMINOPHENon 11-13-2021 Acetaminophen [Mass/Vol] ug/mL Normal 10.0-30.0 [facility] Comment on above: Performed By: #### E TH #### [facility] [address] [place] [address] Dr. Umm Banuelos CBC AUTO DIFFon 11-13-2021 BASO # 0.1 103/ul Normal 0.0-0.1 [facility] Comment on above: Performed By: #### C BC #### [facility] [address] [place] [address] Dr. Umm Banuelos Basophils/100 WBC (Bld) 0.3 % Normal 0.2-2.0 [facility] Comment on above: Performed By: #### C BC #### [facility] [address] [place] [address] Dr. Umm Baunelos EO # 0.1 103/ul Normal 0.0-0.7 [facility] Comment on above: Performed By: #### C BC #### [facility] [address] [place] [address] Dr. Umm Banuelos Eosinophils/100 WBC (Bld) 0.7 % Critically low 0.9-7.0 [facility] Comment on above: Performed By: #### C BC #### [facility] [address] [place] [address] Dr. Umm Banuelos Erythrocyte distribution width (RBC) [Ratio] 12.7 % Normal 11.0-15.0 [facility] Comment on above: Performed By: #### C BC #### [facility] [address] [place] [address] Dr. Umm Banuelos Hematocrit (Bld) [Volume fraction] 39.5 % Normal 36.0-48.0 [facility] Comment on above: Performed By: #### C BC #### [facility] [address] [place] [address] Dr. Umm Banuelos Hemoglobin (Bld) [Mass/Vol] 12.9 g/dL Normal 12.0-16.0 [facility] Comment on above: Performed By: #### C BC #### [facility] [address] [place] [address] Dr. Umm Banuelos IG # 0.06 10e3/ul Critically high 0.00-0.03 [facility] Comment on above: Performed By: #### C BC #### [facility] [address] [place] [address] Dr. Umm Banuelos IG % 0.4 % Normal 0.0-0.5 [facility] Comment on above: Performed By: #### C BC #### [facility] [address] [place] [address] Dr. Umm Banuelos LYMPH # 3.2 103/ul Normal 1.2-3.8 [facility] Comment on above: Performed By: #### C BC #### [facility] [address] [address] [address] Umm Banuelos Lymphocytes/100 WBC (Bld) 21.1 % Normal 20.5-60.0 [facility] Comment on above: Performed By: #### C BC #### [facility] [address] [address] [address] Umm Banuelos MANUAL DIFF REQ NO Normal [facility] Comment on above: Performed By: #### C BC #### [facility] [address] [address] [address] Umm Banuelos MCH (RBC) [Entitic mass] 31.5 pg Normal 26.7-34.0 [facility] Comment on above: Performed By: #### C BC #### [facility] [address] [place] [address] Dr. Umm Banuelos MCHC (RBC) [Mass/Vol] 32.7 g/dL Normal 29.9-35.2 [facility] Comment on above: Performed By: #### C BC #### [facility] [address] [place] [address] Dr. Umm Banuelos MCV (RBC) [Entitic vol] 96.3 fL Normal 81.0-99.0 [facility] Comment on above: Performed By: #### C BC #### [facility] [address] [place] [address] Dr. Umm Banuelos MONO # 1.0 103/ul Critically high 0.3-0.8 [facility] Comment on above: Performed By: #### C BC #### [facility] [address] [place] [address] Dr. Umm Banuelos Monocytes/100 WBC (Bld) 6.3 % Normal 1.7-12.0 [facility] Comment on above: Performed By: #### C BC #### [facility] [address] [place] [address] Dr. Umm Banuelos NEUT # 10.8 103/ul Critically high 1.4-6.5 [facility] Comment on above: Performed By: #### C BC #### [facility] [address] [address] [address] Umm Banuelos Neutrophils/100 WBC (Bld) 71.2 % Normal 43.0-75.0 [facility] Comment on above: Performed By: #### C BC #### [facility] [address] [address] [address] Umm Banuelos Platelet mean volume (Bld) [Entitic vol] 10.1 fL Normal 9.5-13.5 [facility] Comment on above: Performed By: #### C BC #### [facility] [address] [address] [address] Umm Banuelos PLT 280 103/ul Normal 150-450 [facility] Comment on above: Performed By: #### C BC #### [facility] [address] [place] [address] Dr. Umm Banuelos RBC 4.10 106/ul Critically low 4.20-5.40 [facility] Comment on above: Performed By: #### C BC #### [facility] [address] [address] [address] Umm Banuelos WBC 15.2 103/ul Critically high 4.0-11.0 [facility] Comment on above: Performed By: #### C BC #### [facility] [address] [place] [address] Dr. Umm Banuelos Covid-19 PCR ([facility])on 10-29 SARS-CoV-2 (COVID-19) RNA SANDIE+probe Ql (Unsp spec) Not detected Normal NOT DETECTED [facility] Comment on above: Result Comment: When diagnostic testing is negative, the possibility of a false negative should be considered in the context of a patient's recent exposures and the presence of clinical signs and symptoms consistent with SARS-CoV-2. This test is not yet approved or cleared by the [place] FDA. When there are no FDA-approved or cleared tests available, and other criteria are met, FDA can make tests available under an emergency access mechanism called an Emergency Use Authorization (EUA). The EUA for this test is supported by the [place] of Health and Human Service's declaration that circumstances exist to justify the emergency use of in vitro diagnostics for the detection and/or diagnosis of the virus that causes COVID-19. This EUA will remain in effect for the duration of the COVID-19 declaration justifying emergency of IVDs, unless it is terminated or revoked by the FDA (after which the test may no longer be used). Performed By: #### C VDTB #### [facility] [address] [place] [address] Dr. Umm Banuelos DRUG SCREEN RAPID (URINE)on 11-13-2021 AMP Negative Normal NEGATIVE [facility] Comment on above: Performed By: #### E TH #### [facility] [address] [place] [address] Dr. Umm Banuelos BAR Negative Normal NEGATIVE [facility] Comment on above: Performed By: #### E TH #### [facility] [address] [place] [address] Dr. Umm Banuelos BUP Negative Normal NEGATIVE [facility] Comment on above: Performed By: #### E TH #### [facility] [address] [place] [address] Dr. Umm Banuelos BZO Negative Normal NEGATIVE [facility] Comment on above: Performed By: #### E TH #### [facility] [address] [place] [address] Dr. Umm Banuelos KAYLA Negative Normal NEGATIVE [facility] Comment on above: Performed By: #### E TH #### [facility] [address] [place] [address] Dr. Umm Banuelos CUT-OFFS SEE BELOW Normal [facility] Comment on above: Result Comment: AMP (Amphetamine): 500ng/mL, BAR (Barbituates): 200 ng/mL, BZO (Benzodiazepines): 150 ng/mL, BUP (Buprenorphine): 10 ng/mL, KAYLA (Cocaine): 150 ng/mL, mAMP (Methamphetamine): 500 ng/mL, MTD (Methadone): 200 ng/mL, OPI (Opiates): 100 ng/mL, OXY (Oxycodone): 100 ng/mL, PCP (Phencyclidine): 25 ng/mL, PPX (Propoxyphene): 300 ng/mL, THC (Cannabinoids): 50 ng/mL, TCA (Trycyclic Antidepressants): 300 ng/mL Performed By: #### E #### [facility] [address] [place] [address] Dr. Umm Banuelos DRUG CUT HEADER DRUG CLASS TEST SYSTEM CUT-OFF CONCENTRATIONS ARE FOLLOWS: Normal [facility] Comment on above: Performed By: #### E #### [facility] [address] [place] [address] Dr. Umm Banuelos mAMP Negative Normal NEGATIVE [facility] Comment on above: Performed By: #### E #### [facility] [address] [place] [address] Dr. Umm Banuelos MTD Negative Normal NEGATIVE [facility] Comment on above: Performed By: #### E #### [facility] [address] [place] [address] Dr. Umm Banuelos OPI Negative Normal NEGATIVE [facility] Comment on above: Performed By: #### E #### [facility] [address] [place] [address] Dr. Umm Banuelos OXY Negative Normal NEGATIVE [facility] Comment on above: Performed By: #### E #### [facility] [address] [place] [address] Dr. Umm Banuelos PCP Negative Normal NEGATIVE [facility] Comment on above: Performed By: #### E #### [facility] [address] [place] [address] Dr. Umm Banuelos PPX Negative Normal NEGATIVE [facility] Comment on above: Performed By: #### E #### [facility] [address] [place] [address] Dr. Umm Banuelos TCA Negative Normal NEGATIVE [facility] Comment on above: Performed By: #### E #### [facility] [address] [place] [address] Dr. Umm Banuelos THC Negative Normal NEGATIVE [facility] Comment on above: Performed By: #### E #### [facility] [address] [place] [address] Dr. Umm Banuelos ETHANOL (BLD ALC)on 11-14-19 22 ALC NOTE NOTE: 80 mg/dl is th e legal limit for a blood alcohol level Normal [facility] Comment on above: Performed By: #### E TH #### [facility] [address] [place] [address] Dr. Umm Banuelos Ethanol [Mass/Vol] mg/dL Normal [facility] Comment on above: Performed By: #### E TH #### [facility] [address] [place] [address] Dr. Umm Banuelos ALC NOTE NOTE: 80 mg/dl is th e legal limit for a blood alcohol level Normal [facility] Comment on above: Performed By: #### E TH #### [facility] [address] [place] [address] Dr. Umm Banuelos Ethanol [Mass/Vol] mg/dL Normal [facility] Comment on above: Performed By: #### E TH #### [facility] [address] [place] [address] Dr. Umm Banuelos PREG HCG QUALon 11-13-2021 , QUAL Negative Normal NEGATIVE [facility] Comment on above: Performed By: #### E TH #### [facility] [address] [place] [address] Dr. Umm Banuelos URon 11-13-2021 , QUAL Negative Normal NEGATIVE [facility] Comment on above: Performed By: #### E TH #### [facility] [address] [place] [address] Dr. Umm Banuelos PROF 14(COMP METB)on 022 Albumin [Mass/Vol] 3.6 g/dL Normal 3.4-5.0 [facility] Comment on above: Performed By: #### C MP #### [facility] [address] [place] [address] Dr. Umm Banuelos Albumin/Globulin [Mass ratio] 0.9 {ratio} Normal [facility] Comment on above: Performed By: #### C MP #### [facility] [address] [place] [address] Dr. Umm Banuelos ALP [Catalytic activity/Vol] 102 U/L Normal 46-116 [facility] Comment on above: Performed By: #### C MP #### [facility] [address] [address] [address] Umm Banuelos ALT [Catalytic activity/Vol] 22 U/L Normal 14-59 [facility] Comment on above: Performed By: #### C MP #### [facility] [address] [address] [address] Umm Banuelos Anion gap [Moles/Vol] 12.5 mmol/L Normal [facility] Comment on above: Performed By: #### C MP #### [facility] [address] [address] [address] Umm Banuelos AST [Catalytic activity/Vol] 14 U/L Critically low 15-37 [facility] Comment on above: Performed By: #### C MP #### [facility] [address] [address] [address] Umm Banuelos Bilirubin [Mass/Vol] 0.1 mg/dL Critically low 0.2-1.3 [facility] Comment on above: Performed By: #### C MP #### [facility] [address] [address] [address] Umm Banuelos Calcium [Mass/Vol] 8.6 mg/dL Normal 8.5-10.1 [facility] [place] Comment on above: Performed By: #### C MP #### [facility] [address] [address] [address] Umm Banuelos Chloride [Moles/Vol] 103 mmol/L Normal 98-107 [facility] Comment on above: Performed By: #### C MP #### [facility] [address] [address] [address] Umm Banuelos CO2 [Moles/Vol] 25.2 mmol/L Normal 22.0-30.0 [facility] Comment on above: Performed By: #### C MP #### [facility] [address] [address] [address] Umm Banuelos Creatinine [Mass/Vol] 1.15 mg/dL Critically high 0.52-1.04 [facility] Comment on above: Performed By: #### C MP #### [facility] [address] [address] [address] Umm Banuelos EGFR-AF EMIRATI >60 Normal >=60 [facility] Comment on above: Performed By: #### C MP #### [facility] [address] [address] [address] Umm Banuelos EGFR-NON AF EMIRATI 57 mL/min/1.73m2 Critically low >=60 [facility] Comment on above: Performed By: #### C MP #### [facility] [address] [address] [address] Umm Banuelos Globulin (S) [Mass/Vol] 4.0 g/dL Normal [facility] Comment on above: Performed By: #### C MP #### [facility] [address] [address] [address] Umm Banuelos Glucose [Mass/Vol] 94 mg/dL Normal 74-106 [facility] Comment on above: Performed By: #### C MP #### [facility] [address] [address] [address] Umm Banuelos Potassium [Moles/Vol] 3.7 mmol/L Normal 3.4-5.0 [facility] Comment on above: Performed By: #### C MP #### [facility] [address] [address] [address] Umm Banuelos Protein [Mass/Vol] 7.6 g/dL Normal 6.1-8.2 [facility] Comment on above: Performed By: #### C MP #### [facility] [address] [address] [address] Umm Banuelos Sodium [Moles/Vol] 137 mmol/L Normal 137-145 [facility] Comment on above: Performed By: #### C MP #### [facility] [address] [address] [address] Umm Banuelos Urea nitrogen [Mass/Vol] 11.0 mg/dL Normal 7.0-18.0 [facility] Comment on above: Performed By: #### C MP #### [facility] [address] [address] [address] Umm Banuelos Urea nitrogen/Creatinine [Mass ratio] 9.6 mg/mg Normal [facility] Comment on above: Performed By: #### C MP #### [facility] [address] [address] [address] Umm Banuelos SALICYLATEon 11-13-2021 SALICYLATE 2.1 mg/dL Normal <=20.0 [facility] Comment on above: Performed By: #### S ALYC #### [facility] [address] [address] [address] Umm Banuelos Vital Signs Date Time Vital Sign Value Performing Clinician Facility 03-06-2023 17:20-0400 Body height 162.56 cm Anitha Grande Other [facility] Other 03-06-2023 17:20-0400 Body mass index (BMI) [Ratio] 49.7 kg/m2 Anitha Grande Other [facility] Other 03-06-2023 17:20-0400 Body temperature 98.4 [degF] Anitha Grande Other [facility] Other 03-06-2023 17:20-0400 Body weight 131.36 kg Anitha Grande Other [facility] Other 03-06-2023 17:20-0400 Diastolic blood pressure 65 mm[Hg] Anitha Grande Other [facility] Other 03-06-2023 17:20-0400 Respiratory rate 18 /min Anitha Grande Other [facility] Other 03-06-2023 17:20-0400 SaO2% (BldA) [Mass fraction] 98 % Anitha Grande Other [facility] Other 03-06-2023 17:20-0400 Systolic blood pressure 106 mm[Hg] Anitha Grande Other [facility] Other 09-28-2022 16:00-0500 Body height 162.56 cm Reshma Vitale Other [facility] Other 09-28-2022 16:00-0500 Body mass index (BMI) [Ratio] 47.54 kg/m2 Reshma Vitale Other [facility] Other 09-28-2022 16:00-0500 Body temperature 96.2 [degF] Reshma Guevaraault Other [facility] Other 09-28-2022 16:00-0500 Body weight 125.65 kg Reshma Vitale Other [facility] Other 09-28-2022 16:00-0500 Respiratory rate 18 /min Reshma Vitale Other [facility] Other 09-28-2022 16:00-0500 SaO2% (BldA) [Mass fraction] 95 % Reshma Vitale Other [facility] Other 07-05-2022 14:15-0500 Body height 162.56 cm Brunilda Jacky Other [facility] Other 07-05-2022 14:15-0500 Body mass index (BMI) [Ratio] 48.91 kg/m2 Brunilda Rico Other [facility] Other 07-05-2022 14:15-0500 Body temperature 97.1 [degF] Brunilda Rico Other [facility] Other 07-05-2022 14:15-0500 Body weight 129.28 kg Brunilda Rico Other [facility] Other 07-05-2022 14:15-0500 Respiratory rate 18 /min Brunilda Rico Other [facility] Other 07-05-2022 14:15-0500 SaO2% (BldA) [Mass fraction] 97 % Brunilda Rico Other [facility] Other 11-18-2021 09:03-0400 Body temperature 97.6 [degF] MD Ted Pisano Work Phone: [facility] 11-18-2021 09:03-0400 Diastolic blood pressure 84 mm[Hg] MD Ted Pisano Work Phone: [facility] 11-18-2021 09:03-0400 Heart rate 69 /min MD Ted Pisano Work Phone: [facility] 11-18-2021 09:03-0400 Respiratory rate 16 /min MD Ted Pisano Work Phone: [facility] 11-18-2021 09:03-0400 SaO2% (BldA) [Mass fraction] 98 % MD Ted Pisano Work Phone: [facility] 11-18-2021 09:03-0400 Systolic blood pressure 148 mm[Hg] MD Ted Pisano Work Phone: [facility] 11-15-2021 14:55-0400 Body height 162.56 cm MD Ted Pisano Work Phone: [facility] 11-15-2021 08:58-0400 Body weight 128.36 kg MD Ted Pisano Work Phone: [facility] 11-13-2021 07:180400 Body mass index (BMI) [Ratio] 48 kg/m2 MD Ted Pisano Work Phone: [facility] Encounters Encounter Date Encounter Type Care Provider Facility Start: 10-04-2023 End: 10-04-2023 ambulatory [facility] Start: 10-04-2023 End: 10-04-2023 [facility] OPERATOR-HEARING STENOGRAPHER Work Phone: [facility] Comment on above: COVID-19 (Primary Dx ); Nausea Start: 09-27-2023 Chart abstracting Scanning Pro vider External [facility] Start: 09-05-2023 End: 09-05-2023 ambulatory [facility] Start: 08-23-2023 End: 08-23-2023 ambulatory [facility] Start: 08-22-2023 End: 08-22-2023 ambulatory [facility] Start: 08-21-2023 Refill [facility] ALODIZE MACHINE OPERATOR-HEARING STENOGRAPHER Work Phone: [facility] Comment on above: Upper respiratory tr act infection, unspecified type Start: 07-25-2023 End: 07-25-2023 ambulatory [facility] Start: 03-06-2023 End: 03-06-2023 ambulatory Anitha Grande Other [facility] Other Start: 03-06-2023 Office outpatient vi sit 15 minutes Anitha Grande [facility] Start: 09-28-2022 End: 09-28-2022 ambulatory Reshma Vitale Other [facility] Other Start: 09-28-2022 Office outpatient vi sit 15 minutes Reshma Vitale [facility] Start: 08-12-2022 End: 08-12-2022 Emergency department patient visit QASIM PEDRO DO Facility:[id number] Start: 07-05-2022 End: 07-05-2022 ambulatory Brunilda Rico Other [place] [facility] Other Start: 07-05-2022 Office outpatient vi sit 25 minutes Brunilda Rico [facility] Start: 01-01-2022 End: 01-01-2022 ambulatory JEANNIE JIMÉNEZ Facility:[facility] Start: 11-13-2021 End: 11-18-2021 Evaluation and management of inpatient Abdelrahma Maria Guadalupe Facility:[facility] Start: 11-13-2021 End: 11-18-2021 Evaluation and management of inpatient MD Ted Pisano Work Phone: [facility] Start: 11-13-2021 End: 11-13-[address] PRICILA NELSON Facility:[facility] Start: 11-04-2021 End: 11-05-[address] TED PISANO Facility:[facility] Procedures Date Procedure Procedure Detail Performing Clinician Start: 08-22-2023 Adult depression screening assessment [facility] Start: 07-25-2023 Adult depression screening assessment Dina STEVENS Work Phone: Plan of Treatment Date Care Activity Detail Author Start: 08-24-2024 Tobacco Screening Tobacco Screening [facility] Start: 08-22-2024 Adult BMI Follow Up Plan Adult BMI Follow Up Plan [facility] Start: 08-22-2024 Adult BMI Screening Adult BMI Screening [facility] Start: 08-22-2024 Depression Screening Depression Screening [facility] Start: 07-25-2024 Adult BMI Follow Up Plan Adult BMI Follow Up Plan [facility] Start: 07-25-2024 Adult BMI Screening Adult BMI Screening [facility] Start: 07-25-2024 Depression Screening Depression Screening [facility] Start: 07-25-2024 Tobacco Screening Tobacco Screening [facility] Start: 01-02-2024 End: 01-02-2024 Patient encounter procedure 01/02/2024 10:00 AM EDT Office Visit [facility] [address] [place] [address] Dina Conner, ALODIZE MACHINE OPERATOR-HEARING STENOGRAPHER [address] [place] [address] [facility] - [facility] Start: 12-18-2023 End: 12-18-2023 Patient encounter procedure 12/18/2023 4:30 PM EDT Office Visit [facility] [address] [place] [address] Dina Conner, ALODIZE MACHINE OPERATOR-HEARING STENOGRAPHER [address] [place] [phone] [facility] - [facility] Start: 10-10-2023 End: 10-10-2023 Patient encounter procedure 10/10/2023 9:00 AM EDT Office Visit [facility] [address] [place] [address] Mary Dhillon MD [address] [place] [address] [facility] Start: 08-22-2023 End: 08-22-2023 Patient encounter procedure 08/22/2023 2:45 PM EST Office Visit [facility] - [facility] [address] [place] [address] Dina Conner, ALODIZE MACHINE OPERATOR-HEARING STENOGRAPHER [address] [place] [phone] [facility] Start: 03-31-2023 COVID-19 Vaccine ( season) COVID-19 Vaccine ( season) [facility] Start: 03-31-2023 Influenza vaccination Influenza Vaccine [facility] Start: 09-30-2019 DTaP,Tdap and Td Vaccines (7 - Td or Tdap) DTaP,Tdap and Td Vaccines (7 - Td or Tdap) [facility] Start: 2017 Screening for malignant neoplasm of cervix Pap Smear [facility] Start: 1996 Tobacco Counseling Tobacco Counseling [facility] Patient Education Depression, Ad ult (DC) [facility] [place] Instructions [facility] Work Phone: Patient referral [facility] Work Phone: Immunizations Immunization Date Immunization Notes Care Provider Fa [facility] 05-19-2022 influenza virus vacc ine, unspecified formulation Dina Conner ALODIZE MACHINE OPERATOR-HEARING STENOGRAPHER Work Phone: [facility] 07-27-2021 Hepatitis B vaccine (recombinant), CpG adjuvanted Dina Conner ALODIZE MACHINE OPERATOR-HEARING STENOGRAPHER Work Phone: [facility] 05-27-2021 influenza virus vacc ine, unspecified formulation Dina Conner ALODIZE MACHINE OPERATOR-HEARING STENOGRAPHER Work Phone: [facility] 10-07-2020 COVID-19 Vaccine, vector-nr, [id number], PF, 0.5mL Dina Conner ALODIZE MACHINE OPERATOR-HEARING STENOGRAPHER Work Phone: [facility] 08-12-2020 influenza, injectabl e, quadrivalent, preservative free Dina Conner ALODIZE MACHINE OPERATOR-HEARING STENOGRAPHER Work Phone: [facility] 04-20-2018 influenza, injectabl e, quadrivalent, preservative free Dina Conner ALODIZE MACHINE OPERATOR-HEARING STENOGRAPHER Work Phone: [facility] 04-21-2017 influenza, injectabl e, quadrivalent, preservative free Dina Conner ALODIZE MACHINE OPERATOR-HEARING STENOGRAPHER Work Phone: [facility] 01-07-2010 human papilloma viru s vaccine, quadrivalent Dina Conner ALODIZE MACHINE OPERATOR-HEARING STENOGRAPHER Work Phone: [facility] 01-07-2010 varicella virus vaccine [place] jess Conner ALODIZE MACHINE OPERATOR-[facility] Work Phone: [facility] 09-29-2009 human papilloma viru s vaccine, quadrivalent Dina Conner ALODIZE MACHINE OPERATOR-[facility] Work Phone: [facility] 09-29-2009 tetanus toxoid, redu alem diphtheria toxoid, and acellular pertussis vaccine, adsorbed Dina Ubaldo ALODIZE MACHINE OPERATOR-[facility] Work Phone: [facility] 06-24-2009 human papilloma viru s vaccine, quadrivalent Dina Conner ALODIZE MACHINE OPERATOR-[facility] Work Phone: [facility] 06-24-2009 meningococcal polysaccharide (groups A, C, Y and W-135) diphtheria toxoid conjugate vaccine (MCV4P) Dina Conner [facility] Work Phone: [facility] 09-05-2001 diphtheria, tetanus toxoids and acellular pertussis vaccine, unspecified formulation Dina Ubaldo ALODIZE MACHINE OPERATOR-[facility] Work Phone: [facility] 09-05-2001 poliovirus vaccine, inactivated Dina Conner ALODIZE MACHINE OPERATOR[facility] Work Phone: [facility] 07-18-2000 measles, mumps and rubella virus vaccine Dina Ubaldo ALODIZE MACHINE OPERATOR-[facility] Work Phone: [facility] 02-06-1998 diphtheria, tetanus toxoids and acellular pertussis vaccine, unspecified formulation Dinasaeed Conner ALODIZE MACHINE OPERATOR-[facility] Work Phone: [facility] 11-06-1997 measles, mumps and rubella virus vaccine Dina Ubaldo ALODIZE MACHINE OPERATOR-[facility] Work Phone: [facility] 11-06-1997 varicella virus vaccine Lilianasaeed Conner ALODIZE MACHINE OPERATOR[facility] Work Phone: [facility] 08-07-1997 haemophilus influenz ae type b vaccine, PRP-T conjugate Dina Conner [facility] Work Phone: [facility] 08-07-1997 poliovirus vaccine, inactivated Dina Conner ALODIZE MACHINE OPERATOR-HEARING STENOGRAPHER Work Phone: [facility] 06-03-1997 hepatitis B vaccine, pediatric or pediatric/adolescent dosage Dina Conner ALODIZE MACHINE OPERATOR-HEARING STENOGRAPHER Work Phone: [facility] 02-27-1997 diphtheria, tetanus toxoids and acellular pertussis vaccine, unspecified formulation Dina Conner ALODIZE MACHINE OPERATOR-HEARING STENOGRAPHER Work Phone: [facility] 02-27-1997 haemophilus influenz ae type b vaccine, conjugate unspecified formulation Dina Conner ALODIZE MACHINE OPERATOR-HEARING STENOGRAPHER Work Phone: [facility] 1996 diphtheria, tetanus toxoids and acellular pertussis vaccine, unspecified formulation Dina Conner ALODIZE MACHINE OPERATOR-HEARING STENOGRAPHER Work Phone: [facility] 1996 haemophilus influenz ae type b vaccine, conjugate unspecified formulation Dina Conner ALODIZE MACHINE OPERATOR-HEARING STENOGRAPHER Work Phone: [facility] 1996 poliovirus vaccine, unspecified formulation Dina Conner ALODIZE MACHINE OPERATOR-HEARING STENOGRAPHER Work Phone: [facility] 1996 diphtheria, tetanus toxoids and acellular pertussis vaccine, unspecified formulation Dina Conner ALODIZE MACHINE OPERATOR-HEARING STENOGRAPHER Work Phone: [facility] 1995 haemophilus influenz ae type b vaccine, conjugate unspecified formulation Dina Conner ALODIZE MACHINE OPERATOR-HEARING STENOGRAPHER Work Phone: [facility] 1995 poliovirus vaccine, unspecified formulation Dina Conner ALODIZE MACHINE OPERATOR-HEARING STENOGRAPHER Work Phone: [facility] 1995 hepatitis B vaccine, pediatric or pediatric/adolescent dosage Dina Conner ALODIZE MACHINE OPERATOR-HEARING STENOGRAPHER Work Phone: [facility] 1995 hepatitis B vaccine, pediatric or pediatric/adolescent dosage Dina Conner ALODIZE MACHINE OPERATOR-HEARING STENOGRAPHER Work Phone: [facility] Payers Date Payer Category Payer Unknown [id number] 2021 Self-pay [id number] 2008 Unknown 1996 Unknown [id number] 2.16.84 [id number] 1996 Unknown [id number] 2.16.84 [id number] 1996 Unknown [id number] 2.16.84 [id number] 1996 Unknown [id number] 2.16.8 [id number] 1996 Unknown [id number] 2.16.8 [id number] 1996 Unknown [id number] 2.16.8 40.1.108584.3.579.2.1286 1996 Unknown [id number] 2.16.8 [id number] 1996 Unknown [id number] 2.16.8 40.1.152881.3.579.2.1286 1996 Unknown [id number] 2.16.84 0.1.239082.3.579.2.1286 1959 Unknown [id number] 1959 Unknown [id number] 1959 Unknown [id number] Unknown Self Pay [id number] Unknown [id number] 2.16.8 [id number] Social History Date Type Detail Facility Start: 11-13-2021 Tobacco smoking stat [facility] Smoker (finding) [facility] Start: 1995 Sex Assigned At Female F [facility] Start: 08-28-2020 End: 07-25-2023 Sex Assigned At [facility] Start: 12-15-2022 Tobacco smoking stat [facility] Smokes tobacco daily [facility] History of tobacco use Cigarette Smoker P [facility] Start: 08-28-2020 End: 12-15-2022 Cigarettes smoked current (pack per day) - Reported 0.5 [facility] Start: 12-15-2022 Tobacco use and exposure Smokeless tobacco non-user [facility] Start: 07-25-2023 End: 10-04-2023 Alcohol intake Lifetime non-drinker (finding) [facility] How hard is it for y ou to pay for the very basics like food, housing, medical care, and heating Not hard at all [facility] Start: 05-10-2021 Alcohol Comment Socially. [facility] Start: 1995 Sex Assigned At Not on file P [facility] Functional Status Date Assessment Result Facility 11-18-2021 Functional status Patient at Baseline [facility] Work Phone: Mental Status Date Assessment Result Facility 11-18-2021 Cognitive function Cognitive Sta tus Patient at Baseline [facility] Work Phone: Clinical Notes 11-13-2021 to 10-04-2023 Dina Conner APRN-HEARING STENOGRAPHER - 10/04/2023 10:20 AM EST Note Date & Type Note Facility 10-04-2023 History of Present illness Narrative Images from the original note were not included. [address] [place] [address] SUBJECTIVE: Video Visit via Real-time Synchronous Audiovisual Provider Location: [facility] [address] [place] [id number] Patient Location: Patient's home Video Visit Consent Statement: I discussed risks, benefits, and alternatives of a real-time synchronous audiovisual consultation with the patient (and any accompanying persons) including the risks that the patient's personal health details and medical records will be discussed over real-time, synchronous, interactive video/audio/telecommunication technology, the visit will not be recorded without the express consent of both the provider and the patient, and that there are some limitations compared to [id number] evaluations. The patient consented to the presence of additional virtual and/or in-person participants. We elected to proceed. Patient ID: Franki Quiroz is a 28 y.o. female. States onset of symptoms started on Monday October 02, 2023. Symptoms include sore throat, cough, congestion, headache, body aches, fever, nausea. Highest fever recorded was on Monday, 101.4 oral. URI This is a new problem. The current episode started in the past 7 days. The problem has been waxing and waning. The maximum temperature recorded prior to her arrival was 100.4 - 100.9 F. The fever has been present for Less than 1 day. Associated symptoms include congestion, coughing, headaches, joint pain, nausea, rhinorrhea, sinus pain and a sore throat. She has tried sleep for the symptoms. The treatment provided mild relief. The following portions of the patient's history were reviewed and updated as appropriate: allergies, current medications, past family history, past medical history, past social history, past surgical history and problem list. Past Surgical History: Procedure Laterality Date SECTION 2014 Past Medical History: Diagnosis Date Allergy Anxiety Depression Migraines Immunization History Administered Date(s) Administered COVID-19 Vaccine, vector-nr, rS-Ad26, PF, 0.5mL 10/07/2020 DTaP, Unspecified 1996, 1996, 02/27/1997, 02/06/1998, 09/05/2001 HPV Quadrivalent 06/24/2009, 09/29/2009, 01/07/2010 Hep B, Adjuvanted 07/27/2021 Hep B, Adolescent or Pediatric 1996, 1996, 06/03/1997 HiB 1996, 1996, 02/27/1997 Hib (PRP-T) 08/07/1997 IPV 08/07/1997, 09/05/2001 Influenza, Injectable, quadrivalent (PF) 04/21/2017, 04/20/2018, 08/12/2020 Influenza, Unspecified 05/27/2021 MMR 11/06/1997, 07/18/2000 Meningococcal MCV4P 06/24/2009 Polio, Unspecified 1996, 1996 Tdap 09/29/2009 Varicella 11/06/1997, 01/07/2010 REVIEW OF SYSTEMS: Review of Systems Constitutional: Positive for activity change, appetite change and fatigue. HENT: Positive for congestion, postnasal drip, rhinorrhea, sinus pain, sore throat and voice change. Eyes: Negative. Respiratory: Positive for cough. Gastrointestinal: Positive for nausea. Endocrine: Negative. Genitourinary: Negative. Musculoskeletal: Positive for joint pain and myalgias. Skin: Negative. Allergic/Immunologic: Negative. Neurological: Positive for headaches. Hematological: Negative. Psychiatric/Behavioral: Negative. PHYSICAL EXAMINATION: There were no vitals filed for this visit. Deferred, Telehealth Video Visit Patient noted to have elevated BMI and the following intervention(s) were applied: encouragement to exercise. Physical Exam Deferred, Telehealth Video Visit ASSESSMENT/PLAN: Franki was seen today for covid 19. Diagnoses and all orders for this visit: COVID-19 - benzonatate (TESSALON PERLES) 100 mg capsule; Take 1 capsule (100 mg total) by mouth 3 (three) times a day as needed for cough. - dexAMETHasone (DECADRON) 2 mg tablet; Take 1 tablet (2 mg total) by mouth in the morning and 1 tablet (2 mg total) in the evening. Take with meals. Do all this for 4 days. Nausea - ondansetron ODT (ZOFRAN ODT) 4 mg disintegrating tablet; Dissolve 1 tablet (4 mg total) on tongue every 8 (eight) hours as needed for nausea or vomiting. Note off work through Monday. May return to work on Saturday October 07, 2023 if symptoms have improved AND no fever above 99.8 oral. CDC recommends quarantine for 5 days, may return to work with masking days 6-10 or per company policy. Cool mist humidification for congestion, warm salt water gargles as needed for sore throat. Motrin or Tylenol as needed per lead care manager guidelines for fever or pain. ALL QUESTIONS ANSWERED Total time spent was 25 minutes: Preparing to see the patient (e.g., review of tests) Obtaining and/or reviewing separately obtained history Performing a medically appropriate examination and/or evaluation Counseling and educating the patient/family/caregiver Ordering medications, tests, or procedures Follow-up: Next scheduled Sooner if needed RODNEY Mayers 10/04/23 1055 documented in this encounter [facility] 03-06-2023 Evaluation note Encounter Date Diagnosis Assessment Notes Feb, Migraine without status migrainosus, not intractable, unspecified migraine type (ICD-10 - G43.909) We will treat with IM Toradol and Phenergan in office. Discussed may resume NSAIDs tomorrow morning. May use Tylenol tonight. Push fluids. Rest in dark quiet room encouraged. Avoid use of electronics. May try ice or heat to head to help with migraine. Patient is advised to go to the ER if she has severe worsening migraine or worst migraine of her life. Discussed given she has frequent recurrent migraine she should follow-up with PCP to discuss further treatment or referral to neurology again. Was referred over a year ago but did not end up going. Patient verbalized understanding of treatment plan. [facility] 03-01-2023 Evaluation note* Encounter Date Diagnosis Assessment Notes Treatment Notes Treatment Clinical Notes Sep, Intractable migraine with aura without status migrainosus (ICD-10 - G43.119) Take medication as directed. Stay away from known triggers. Follow up with primary care provider or neurology if symptoms persist as new treatment option may need to be discussed. [facility] Other 01-13-2023 NoteED Nursing Discharge Summary Entered On: 08/12/2022 15:18 EST Performed On: 08/12/2022 15:15 EST by Marcia Moralez RN, DC Information [id number] ED IV's : No IV ED IV Site Assessment : No IV ED Vitals Completed : N/A ED Final Assessment Completed : Yes ED Progress Note Completed : Yes Complete all PRN/Pain response forms? : N/A ED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 patient. The patient verbalized understanding. Documented By: Hank Lerma MD 2 0916 Signed By: <Electronically signed by Hank Lerma MD> 11/13/21 0919 [facility] Work Phone: Evaluation note* Diagnosis Onset Date Resolution Status Major depressive disorder, recurrent, moderate acute PTSD (post-traumatic stress disorder) acute [facility] Work Phone: Evaluation note* Diagnosis Upper respiratory tract infection, unspecified type [facility] COVID-19- Primary Nausea Nausea alone [facility] - [facility]orted* Type Description Date Medical History migraines Medical History asthma Medical History depression and anxity Medical History meningitis Surgical History C section Hospitalization History meningitis [facility] Other Hospital Discharge instructions Additional Instructions Regular diet. No activity restrictions.[facility] Work Phone: InstructionsNot on filedocumented in this encounter [facility] Attachments The following attachments cannot be sent through Care Everywhere. * COVID-19 [place] [facility] [facility] Complaint and Reason for Visit Chief Complaint MDD,ORQUIDEA Reason for Visit Major depressive dis order, recurrent, moderate PTSD (post-traumatic stress disorder) Advance Directives No Advanced Directives Records Found Advance Directive Response Recorded Date/ Time Advance Directives No November 13, 2 022 5:30am Summary Purpose Family History No Family History Records FoundNo Family History Records FoundNo Family History Records FoundNo Family History Records FoundNo Family History Records FoundNo Family History Records Found Additional Source Comments Care Teams (unrecognized sec tion and content) Team Status: Inactive Member Role Status Dates Ted Pisano MD Primary Care Provider Active Dione Lerma MD Admit Provider, Attending Pr tamara Active Team Status: Active Member Role Status Dates Ted Pisano MD Primary Care Provider Active Housing Liaison Relationship Specialty Start Date End Date Dina Conner APRN-[facility] [address] [place] [phone] PCP - General Family Medicine 06/01/21 Housing Liaison Relationship Specialty Start Date End Date Dina Conner APRN-[facility] [address] [place] [phone] PCP - General Family Medicine 06/01/21 Housing Liaison Relationship Specialty Start Date End Date [facility] [address] [place] [phone] PCP - General Family Medicine 06/01/21 Goals (unrecognized section and content) Goals may be documented in a n alternate sectionNo InformationNo InformationNo InformationNot on filedocumented as of this encounterNot on filedocumented as of this encounterNot on filedocumented as of this encounter INFORMATION SOURCE (unrecogn ized section and content) DATE CREATED AUTHOR 04/27/2022 [facility] DATE CREATED AUTHOR AUTHOR'S ORGANIZ ATION 08/15/2022 [facility] DATE CREATED AUTHOR AUTHOR'S ORGANIZ ATION 09/03/2022 [facility] DATE CREATED AUTHOR AUTHOR'S ORGANIZ ATION 08/26/2023 [facility] DATE CREATED AUTHOR AUTHOR'S ORGANIZ ATION 09/10/2023 [facility] DATE CREATED AUTHOR AUTHOR'S ORGANIZ ATION 10/05/2023 [facility] REASON FOR VISIT (unrecogniz ed section and content) Reason Comments Med Refill Reason Comments covid 19 FOR RECORDS PERTAINING TO PATIENTS WHO ARE OR HAVE BEEN ENROLLED IN A CHEMICAL DEPENDENCY/SUBSTANCEABUSE PROGRAM, SOME INFORMATION MAY BE OMITTED. This clinical summary was aggregated from multiple sources. Caution should be exercised in using it in the provision of clinical care. This summary normalizes information from multiple sources, and as a consequence, information in this document may materially change the coding, format and clinical context of patient data. In addition, data may be omitted in some cases. CLINICAL DECISIONS SHOULD BE BASED ON THE PRIMARY CLINICAL RECORDS. [employer] provides no warranty or guarantee of the accuracy or completeness of information in this document.
== END 2023-10-24 08:54 | disposition home or self-care (01) ==
LOC: NOMS 08:54
PROVIDERS: PCP Nurse Practitioner; Visit Provider Obstetrics & Gynecology
DX: Z30.431 Encounter for routine checking of intrauterine contraceptive device (principal)
CPT/HCPCS: 76830

== ENCOUNTER 2023-10-24 10:16 | Outpatient (OUT) | payer BC, SELFPAY ==
--- OUTSIDE RECORDS SUMMARY | 2023-10-24 10:30 | XMS_ITS | CCD ---
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 Attending Dr: Dione Lerma [...] By Jun Bo DO 11/16 1830 Normal [facility] Lipid Panelon 11-14-2021 Cholesterol [Mass/Vol] 216 mg/dL High 140-200 [facility] Comment on above: Result Comment: Chol less than 200 mg/dl low risk Chol 201-239 mg/dl borderline risk Chol 240 mg/dl and greater high risk Performed By: #### L IPID, TSH3 wRFLX, [id number] #### [facility] [address] [id number] [place] Cholesterol in HDL [Mass/Vol] 48 mg/dL Normal 35-85 [facility] Comment on above: Result Comment: HDL CHOL ATP-III CLASSIFICATION Cardiovascular Risk HDL > or equal to 60 mg/dL LOW HDL < 40 mg/dL HIGH Performed By: #### L IPID, TSH3 wRFLX, [id number] #### [facility] [address] [place] [address] [place] Cholesterol.total/Cho lesterol in HDL [Mass ratio] 4.5 {ratio} Normal <5.0 [facility] Comment on above: Performed By: #### L IPID, TSH3 wRFLX, [id number] #### [facility] [address] [id number] [place] LDL Cholesterol,Calculate d 122 mg/dL High 0-100 [facility] Comment on above: Result Comment: LDL ATP III CLASSIFICATION LDL less than 100 mg/dL Optimal LDL 100-129 mg/dL Near or above optimal LDL 130-159 mg/dL Borderline high LDL 160-189 mg/dL High LDL greater than 189 mg/dL Very high Performed By: #### L IPID, TSH3 wRFLX, [id number] #### [facility] [address] [place] [address] [place] Triglyceride w/Reflex 229 mg/dL High 35-149 [facility] Comment on above: Result Comment: TRIG ATP III CLASSIFICATION TRIG less than 150 mg/dL Normal TRIG 150-199 mg/dL Borderline high TRIG 200-500 mg/dL High TRIG greater than 500 mg/dL Very high Standard traceable to the Center for Disease Conrtrol and Prevention (CDC) test method. Performed By: #### L IPID, TSH3 wRFLX, [id number] #### [facility] [address] VLDL CHOLESTEROL 45 mg/dL Normal [facility] Comment on above: Performed By: #### L IPID, TSH3 wRFLX, [id number] #### [facility] [address] No Panel InformationOrdered By: Hank Lerma on 11-14-2021 25-Hydroxy Vitamin D Total 25.8 ng/mL 30-100 [facility] Comment on above: VITAMIN D STATUS 25( [...] Cholesterol in HDL [Mass/Vol] 48 mg/dL 35-85 [facility] Comment on above: HDL CHOL ATP-III CLA SSIFICATION Cardiovascular RiskHDL > or equal to 60 mg/dL LOWHDL < 40 mg/dL HIGH Serum or plasma total choles terol/high density lipoprotein (HDL) cholesterol mass ratOrdered By: Hank Lerma on 11-14-2021 Cholesterol.total/Cho lesterol in HDL [Mass ratio] 4.5 {ratio} [facility] TSH DL <= 0.005 mIU/L QnOrde red By: Hank Lerma on 11-14-2021 TSH Qn 0.98 m[IU]/L 0.45-5.33 [facility] Thyroid Stim Hormone w/Rflxo n 11-14-2021 Thyroid Stim Hormone w/Rflx 0.98 u[iU]/mL Normal 0.45-5.33 [facility] Comment on above: Performed By: #### L IPID, TSH3 wRFLX, [id number] #### [facility] [address] [place] [address] [facility] Triglyceride [Mass/volume] i n Serum or PlasmaOrdered By: Hank Lerma on 11-14-2021 Triglyceride [Mass/Vol] 229 mg/dL 35-149 [facility] Comment on above: TRIG ATP III CLASSIF ICATIONTRIG less than 150 mg/dL NormalTRIG 150-199 mg/dL Borderline highTRIG 200-500 mg/dL High TRIG greater than 500 mg/dL Very highStandard traceable to the Center for Disease Conrtrol and Prevention (CDC) test method. Vitamin D 25 Hydroxy Totalon 11-14-2021 Vitamin D 25 Hydroxy Total 25.8 ng/mL Low 30-100 [facility] Comment on above: Result Comment: GENE MIN D STATUS 25(OH)VITAMIN D RANGE (ng/mL) Deficient <20 Insufficient 20 to <30 Sufficient 30 to 100 Reference: Lakisha MF,Chuckie NC, Malcolm WILCOX, et al. Evaluation,treatment, and prevention of vitamin D deficiency; an Endocrine Society clinical practice guideline. JCEM. 2010; 96(7):1911-30. PERFORMED BY: [place] [address] PATHOLOGIST [employer]ARM[employer]ICAL [employer]ANT OPERATOR ANA JENKINS M.D. Performed By: #### L IPID, TSH3 wRFLX, [id number] #### [address] [id number] [facility] ACETAMINOPHENon 11-13-2021 Acetaminophen [Mass/Vol] ug/mL Normal 10.0-30.0 [facility] Comment on above: Performed By: #### E TH #### [facility] [address] [place] [address] Dr. Umm Banuelos CBC AUTO DIFFon 11-13-2021 BASO # 0.1 103/ul Normal 0.0-0.1 [facility] Comment on above: Performed By: #### C BC #### [facility] [address] [place] [address] Dr. Umm Banuelos Basophils/100 WBC (Bld) 0.3 % Normal 0.2-2.0 [facility] Comment on above: Performed By: #### C BC #### [facility] [address] [place] [address] Dr. Umm Banuelos EO # 0.1 103/ul Normal 0.0-0.7 [facility] Comment on above: Performed By: #### C BC #### [facility] [address] [place] [address] Dr. Umm Banuelos Eosinophils/100 WBC (Bld) 0.7 % Critically low 0.9-7.0 [facility] Comment on above: Performed By: #### C BC #### [facility] [address] [place] [address] Dr. Umm Banuelos Erythrocyte distribution width (RBC) [Ratio] 12.7 % Normal 11.0-15.0 [facility] Comment on above: Performed By: #### C BC #### [facility] [address] [place] [address] Dr. Umm Banuelos Hematocrit (Bld) [Volume fraction] 39.5 % Normal 36.0-48.0 [facility] Comment on above: Performed By: #### C BC #### [facility] [address] [place] [address] Dr. Umm Banuelos Hemoglobin (Bld) [Mass/Vol] 12.9 g/dL Normal 12.0-16.0 [facility] Comment on above: Performed By: #### C BC #### [facility] [address] [place] [address] Dr. Umm Banuelos IG # 0.06 10e3/ul Critically high 0.00-0.03 [facility] Comment on above: Performed By: #### C BC #### [facility] [address] [place] [address] Dr. Umm Banuelos IG % 0.4 % Normal 0.0-0.5 [facility] Comment on above: Performed By: #### C BC #### [facility] [address] [place] [address] Dr. Umm Banuelos LYMPH # 3.2 103/ul Normal 1.2-3.8 [facility] Comment on above: Performed By: #### C BC #### [facility] [address] [address] [address] Umm Banuelos Lymphocytes/100 WBC (Bld) 21.1 % Normal 20.5-60.0 [facility] Comment on above: Performed By: #### C BC #### [facility] [address] [address] [address] Umm Banuelos MANUAL DIFF REQ NO Normal [facility] Comment on above: Performed By: #### C BC #### [facility] [address] [address] [address] Umm Banuelos MCH (RBC) [Entitic mass] 31.5 pg Normal 26.7-34.0 [facility] Comment on above: Performed By: #### C BC #### [facility] [address] [place] [address] Dr. Umm Banuelos MCHC (RBC) [Mass/Vol] 32.7 g/dL Normal 29.9-35.2 [facility] Comment on above: Performed By: #### C BC #### [facility] [address] [place] [address] Dr. Umm Banuelos MCV (RBC) [Entitic vol] 96.3 fL Normal 81.0-99.0 [facility] Comment on above: Performed By: #### C BC #### [facility] [address] [place] [address] Dr. Umm Banuelos MONO # 1.0 103/ul Critically high 0.3-0.8 [facility] Comment on above: Performed By: #### C BC #### [facility] [address] [place] [address] Dr. Umm Banuelos Monocytes/100 WBC (Bld) 6.3 % Normal 1.7-12.0 [facility] Comment on above: Performed By: #### C BC #### [facility] [address] [place] [address] Dr. Umm Banuelos NEUT # 10.8 103/ul Critically high 1.4-6.5 [facility] Comment on above: Performed By: #### C BC #### [facility] [address] [address] [address] Umm Banuelos Neutrophils/100 WBC (Bld) 71.2 % Normal 43.0-75.0 [facility] Comment on above: Performed By: #### C BC #### [facility] [address] [address] [address] Umm Banuelos Platelet mean volume (Bld) [Entitic vol] 10.1 fL Normal 9.5-13.5 [facility] Comment on above: Performed By: #### C BC #### [facility] [address] [address] [address] Umm Banuelos PLT 280 103/ul Normal 150-450 [facility] Comment on above: Performed By: #### C BC #### [facility] [address] [place] [address] Dr. Umm Banuelos RBC 4.10 106/ul Critically low 4.20-5.40 [facility] Comment on above: Performed By: #### C BC #### [facility] [address] [address] [address] Umm Banuelos WBC 15.2 103/ul Critically high 4.0-11.0 [facility] Comment on above: Performed By: #### C BC #### [facility] [address] [place] [address] Dr. Umm Banuelos [facility]29 SARS-CoV-2 (COVID-19) RNA SANDIE+probe Ql (Unsp spec) Not detected Normal NOT DETECTED [facility] Comment on above: Result Comment: When [...] for this test is supported by the [place] of Health and Human Service's declaration that [...] used). Performed By: #### C VDTB #### [facility] [address] [place] [address] Dr. Umm Banuelos DRUG SCREEN RAPID (URINE)on 11-13-2021 AMP Negative Normal NEGATIVE [facility] Comment on above: Performed By: #### E TH #### [facility] [address] [place] [address] Dr. Umm Banuelos BAR Negative Normal NEGATIVE [facility] Comment on above: Performed By: #### E TH #### [facility] [address] [place] [address] Dr. Umm Banuelos BUP Negative Normal NEGATIVE [facility] Comment on above: Performed By: #### E TH #### [facility] [address] [place] [address] Dr. Umm Banuelos BZO Negative Normal NEGATIVE [facility] Comment on above: Performed By: #### E TH #### [facility] [address] [place] [address] Dr. Umm Banuelos KAYLA Negative Normal NEGATIVE [facility] Comment on above: Performed By: #### E TH #### [facility] [address] [place] [address] Dr. Umm Banuelos CUT-OFFS SEE BELOW Normal [facility] Comment on above: Result Comment: AMP (Amphetamine): 500ng/mL, BAR (Barbituates): 200 ng/mL, BZO (Benzodiazepines): 150 ng/mL, BUP (Buprenorphine): 10 ng/mL, KAYLA (Cocaine): 150 ng/mL, mAMP (Methamphetamine): 500 ng/mL, MTD (Methadone): 200 ng/mL, OPI (Opiates): 100 ng/mL, OXY (Oxycodone): 100 ng/mL, PCP (Phencyclidine): 25 ng/mL, PPX (Propoxyphene): 300 ng/mL, THC (Cannabinoids): 50 ng/mL, TCA (Trycyclic Antidepressants): 300 ng/mL Performed By: #### E #### [facility] [address] [place] [address] Dr. Umm Banuelos DRUG CUT HEADER DRUG CLASS TEST SYSTEM CUT-OFF CONCENTRATIONS ARE FOLLOWS: Normal [facility] Comment on above: Performed By: #### E #### [facility] [address] [place] [address] Dr. Umm Banuelos mAMP Negative Normal NEGATIVE [facility] Comment on above: Performed By: #### E #### [facility] [address] [place] [address] Dr. Umm Banuelos MTD Negative Normal NEGATIVE [facility] Comment on above: Performed By: #### E #### [facility] [address] [place] [address] Dr. Umm Banuelos OPI Negative Normal NEGATIVE [facility] Comment on above: Performed By: #### E #### [facility] [address] [place] [address] Dr. Umm Banuelos OXY Negative Normal NEGATIVE [facility] Comment on above: Performed By: #### E #### [facility] [address] [place] [address] Dr. Umm Banuelos PCP Negative Normal NEGATIVE [facility] Comment on above: Performed By: #### E #### [facility] [address] [place] [address] Dr. Umm Banuelos PPX Negative Normal NEGATIVE [facility] Comment on above: Performed By: #### E #### [facility] [address] [place] [address] Dr. Umm Banuelos TCA Negative Normal NEGATIVE [facility] Comment on above: Performed By: #### E #### [facility] [address] [place] [address] Dr. Umm Banuelos THC Negative Normal NEGATIVE [facility] Comment on above: Performed By: #### E #### [facility] [address] [place] [address] Dr. Umm Banuelos ETHANOL (BLD ALC)on 11-14-19 22 ALC NOTE NOTE: 80 mg/dl is th e legal limit for a blood alcohol level Normal [facility] Comment on above: Performed By: #### E TH #### [facility] [address] [place] [address] Dr. Umm Banuelos Ethanol [Mass/Vol] mg/dL Normal [facility] Comment on above: Performed By: #### E TH #### [facility] [address] [place] [address] Dr. Umm Banuelos ALC NOTE NOTE: 80 mg/dl is th e legal limit for a blood alcohol level Normal [facility] Comment on above: Performed By: #### E TH #### [facility] [address] [place] [address] Dr. Umm Banuelos Ethanol [Mass/Vol] mg/dL Normal [facility] Comment on above: Performed By: #### E TH #### [facility] [address] [place] [address] Dr. Umm Banuelos PREG HCG QUALon 11-13-2021 , QUAL Negative Normal NEGATIVE [facility] Comment on above: Performed By: #### E TH #### [facility] [address] [place] [address] Dr. Umm Banuelos URon 11-13-2021 , QUAL Negative Normal NEGATIVE [facility] Comment on above: Performed By: #### E TH #### [facility] [address] [place] [address] Dr. Umm Banuelos PROF 14(COMP METB)on 022 Albumin [Mass/Vol] 3.6 g/dL Normal 3.4-5.0 [facility] Comment on above: Performed By: #### C MP #### [facility] [address] [place] [address] Dr. Umm Banuelos Albumin/Globulin [Mass ratio] 0.9 {ratio} Normal [facility] Comment on above: Performed By: #### C MP #### [facility] [address] [place] [address] Dr. Umm Banuelos ALP [Catalytic activity/Vol] 102 U/L Normal 46-116 [facility] Comment on above: Performed By: #### C MP #### [facility] [address] [address] [address] Umm Banuelos ALT [Catalytic activity/Vol] 22 U/L Normal 14-59 [facility] Comment on above: Performed By: #### C MP #### [facility] [address] [address] [address] Umm Banuelos Anion gap [Moles/Vol] 12.5 mmol/L Normal [facility] Comment on above: Performed By: #### C MP #### [facility] [address] [address] [address] Umm Banuelos AST [Catalytic activity/Vol] 14 U/L Critically low 15-37 [facility] Comment on above: Performed By: #### C MP #### [facility] [address] [address] [address] Umm Banuelos Bilirubin [Mass/Vol] 0.1 mg/dL Critically low 0.2-1.3 [facility] Comment on above: Performed By: #### C MP #### [facility] [address] [address] [address] Umm Banuelos Calcium [Mass/Vol] 8.6 mg/dL Normal 8.5-10.1 [facility] Comment on above: Performed By: #### C MP #### [facility] [address] [address] [address] Umm Banuelos Chloride [Moles/Vol] 103 mmol/L Normal 98-107 [facility] Comment on above: Performed By: #### C MP #### [facility] [address] [address] [address] Umm Banuelos CO2 [Moles/Vol] 25.2 mmol/L Normal 22.0-30.0 [facility] Comment on above: Performed By: #### C MP #### [facility] [address] [address] [address] Umm Banuelos Creatinine [Mass/Vol] 1.15 mg/dL Critically high 0.52-1.04 [facility] Comment on above: Performed By: #### C MP #### [facility] [address] [address] [address] Umm Banuelos EGFR-AF NORWEGIAN >60 Normal >=60 [facility] Comment on above: Performed By: #### C MP #### [facility] [address] [address] [address] Umm Banuelos EGFR-NON AF NORWEGIAN 57 mL/min/1.73m2 Critically low >=60 [facility] Comment on above: Performed By: #### C MP #### [facility] [address] [address] [address] Umm Banuelos Globulin (S) [Mass/Vol] 4.0 g/dL Normal [facility] Comment on above: Performed By: #### C MP #### [facility] [address] [address] [address] Umm Banuelos Glucose [Mass/Vol] 94 mg/dL Normal 74-106 [facility] Comment on above: Performed By: #### C MP #### [facility] [address] [address] [address] Umm Banuelos Potassium [Moles/Vol] 3.7 mmol/L Normal 3.4-5.0 [facility] Comment on above: Performed By: #### C MP #### [facility] [address] [address] [address] Umm Banuelos Protein [Mass/Vol] 7.6 g/dL Normal 6.1-8.2 [facility] Comment on above: Performed By: #### C MP #### [facility] [address] [address] [address] Umm Banuelos Sodium [Moles/Vol] 137 mmol/L Normal 137-145 [facility] Comment on above: Performed By: #### C MP #### [facility] [address] [address] [address] Umm Banuelos Urea nitrogen [Mass/Vol] 11.0 mg/dL Normal 7.0-18.0 [facility] Comment on above: Performed By: #### C MP #### [facility] [address] [address] [address] Umm Banuelos Urea nitrogen/Creatinine [Mass ratio] 9.6 mg/mg Normal [facility] Comment on above: Performed By: #### C MP #### [facility] [address] [address] [address] mUm Banuelos SALICYLATEon 11-13-2021 SALICYLATE 2.1 mg/dL Normal <=20.0 [facility] Comment on above: Performed By: #### S ALYC #### [facility] [address] [address] [address] Umm Banuelos Vital Signs Date Time Vital Sign Value Performing Clinician Facility 03-06-2023 17:20-0400 Body height 162.56 cm Anitha Grande Other [facility] Other 03-06-2023 17:20-0400 Body mass index (BMI) [Ratio] 49.7 kg/m2 Anitha Grande Other [facility] Other 03-06-2023 17:20-0400 Body temperature 98.4 [degF] Anitha Grande Other [facility] Other 03-06-2023 17:20-0400 Body weight 131.36 kg Anitha Grande Other [facility] Other 03-06-2023 17:20-0400 Diastolic blood pressure 65 mm[Hg] Anitha Grande Other [facility] Other 03-06-2023 17:20-0400 Respiratory rate 18 /min Anitha Grande Other [facility] Other 03-06-2023 17:20-0400 SaO2% (BldA) [Mass fraction] 98 % Anitha Grande Other [facility] Other 03-06-2023 17:20-0400 Systolic blood pressure 106 mm[Hg] Anitha Grande Other [facility] Other 09-28-2022 16:00-0500 Body height 162.56 cm Reshma Vitale Other [facility] Other 09-28-2022 16:00-0500 Body mass index (BMI) [Ratio] 47.54 kg/m2 Reshma Vitale Other [facility] Other 09-28-2022 16:00-0500 Body temperature 96.2 [degF] Reshma Guevaraault Other [facility] Other 09-28-2022 16:00-0500 Body weight 125.65 kg Reshma Vitale Other [facility] Other 09-28-2022 16:00-0500 Respiratory rate 18 /min Reshma Vitale Other [facility] Other 09-28-2022 16:00-0500 SaO2% (BldA) [Mass fraction] 95 % Reshma Vitale Other [facility] Other 07-05-2022 14:15-0500 Body height 162.56 cm Brunilda Jacky Other [facility] [facility] Other 07-05-2022 14:15-0500 Body mass index (BMI) [Ratio] 48.91 kg/m2 Brunilda Rico Other [employer] Other 07-05-2022 14:15-0500 Body temperature 97.1 [degF] Brunilda Rico Other [employer] Other 07-05-2022 14:15-0500 Body weight 129.28 kg Brunilda Rico Other [employer] Other 07-05-2022 14:15-0500 Respiratory rate 18 /min Brunilda Rico Other [employer] Other 07-05-2022 14:15-0500 SaO2% (BldA) [Mass fraction] 97 % Brunilda Rico Other [employer] Other 11-18-2021 09:03-0400 Body temperature 97.6 [degF] MD Ted Pisano Work Phone: [facility] 11-18-2021 09:03-0400 Diastolic blood pressure 84 mm[Hg] MD Ted Pisano Work Phone: [facility] 11-18-2021 09:03-0400 Heart rate 69 /min MD Ted Pisano Work Phone: [facility] 11-18-2021 09:03-0400 Respiratory rate 16 /min MD Ted Pisano Work Phone: [facility] 11-18-2021 09:03-0400 SaO2% (BldA) [Mass fraction] 98 % MD Ted Pisano Work Phone: [facility] 11-18-2021 09:03-0400 Systolic blood pressure 148 mm[Hg] MD Ted Pisano Work Phone: [facility] 11-15-2021 14:55-0400 Body height 162.56 cm MD Ted Pisano Work Phone: [facility] 11-15-2021 08:58-0400 Body weight 128.36 kg MD eTd Pisano Work Phone: [facility] 11-13-2021 07:180400 Body mass index (BMI) [Ratio] 48 kg/m2 MD Ted Pisano Work Phone: [facility] Encounters Encounter Date Encounter Type Care Provider Facility Start: 10-04-2023 End: 10-04-2023 ambulatory [facility] Start: 10-04-2023 End: 10-04-2023 [facility] [address]-PROFILING MACHINE SET UP OPERATOR TOOL [facility] Comment on above: COVID-19 (Primary Dx ); Nausea Start: 09-27-2023 Chart abstracting Scanning Pro vider External [facility] Start: 09-05-2023 End: 09-05-2023 ambulatory [facility] Start: 08-23-2023 End: 08-23-2023 ambulatory [facility] Start: 08-22-2023 End: 08-22-2023 ambulatory [facility] Start: 08-21-2023 Refill [facility] AIRCREWMAN-PROFILING MACHINE SET UP OPERATOR TOOL [facility] Comment on above: Upper respiratory tr act infection, unspecified type Start: 07-25-2023 End: 07-25-2023 ambulatory [facility] Start: 03-06-2023 End: 03-06-2023 ambulatory Anitha Grande Other [employer] Other Start: 03-06-2023 Office outpatient vi sit 15 minutes Anitha Grande [facility] Start: 09-28-2022 End: 09-28-2022 ambulatory Reshma Vitale Other [employer] Other Start: 09-28-2022 Office outpatient vi sit 15 minutes Reshma Vitale [facility] Start: 08-12-2022 End: 08-12-2022 Emergency department patient visit QASIM PEDRO DO Facility:[id number] Start: 07-05-2022 End: 07-05-2022 ambulatory Brunilda Rico Other [place] [employer] Other Start: 07-05-2022 Office outpatient vi sit 25 minutes Brunilda Rico [facility] Start: 01-01-2022 End: 01-01-2022 ambulatory JEANNIE JIMÉNEZ Facility:[facility] Start: 11-13-2021 End: 11-18-2021 Evaluation and management of inpatient Abdelrahma Maria Guadalupe Facility:[facility] Start: 11-13-2021 End: 11-18-2021 Evaluation and management of inpatient MD Ted Pisano Work Phone: [facility] Start: 11-13-2021 End: 11-13-[address] PRICILA NELSON Facility:[facility] Start: 11-04-2021 End: 11-05-[address] TED PISANO Facility:[facility] Procedures Date Procedure Procedure Detail Performing Clinician Start: 08-22-2023 Adult depression screening assessment Scanning External Start: 07-25-2023 Adult depression screening assessment Dina STEVENS Work Phone: Plan of Treatment Date Care Activity Detail Author Start: 08-24-2024 Tobacco Screening Tobacco Screening [facility] Start: 08-22-2024 Adult BMI Follow Up Plan Adult BMI Follow Up Plan [facility] Start: 08-22-2024 Adult BMI Screening Adult BMI Screening [facility] Start: 08-22-2024 Depression Screening Depression Screening [facility] Start: 07-25-2024 Adult BMI Follow Up Plan Adult BMI Follow Up Plan [facility] Start: 07-25-2024 Adult BMI Screening Adult BMI Screening [facility] Start: 07-25-2024 Depression Screening Depression Screening [facility] Start: 07-25-2024 Tobacco Screening Tobacco Screening [facility] Start: 01-02-2024 End: 01-02-2024 Patient encounter procedure 01/02/2024 10:00 AM EDT [facility] [address] [place] [address] Dina Conner, AIRCREWMAN-PROFILING MACHINE SET UP OPERATOR TOOL [address] [place] [address] [facility] Start: 12-18-2023 End: 12-18-2023 Patient encounter procedure 12/18/2023 4:30 PM EDT Office Visit [facility] [address] [place] [address] Dina Conner, AIRCREWMAN-PROFILING MACHINE SET UP OPERATOR TOOL [address] [place] [phone] [facility] - [facility] Start: 10-10-2023 End: 10-10-2023 Patient encounter procedure 10/10/2023 9:00 AM EDT Office Visit [facility] [address] [place] [address] Mary Dhillon MD [address] [place] [address] [facility] Start: 08-22-2023 End: 08-22-2023 Patient encounter procedure 08/22/2023 2:45 PM EST Office Visit [facility] [address] [place] [address] Dina Conner, AIRCREWMAN-PROFILING MACHINE SET UP OPERATOR TOOL [address] [place] [phone] [facility] Start: 03-31-2023 COVID-19 Vaccine ( season) COVID-19 Vaccine ( season) [facility] Start: 03-31-2023 Influenza vaccination Influenza Vaccine [facility] Start: 09-30-2019 DTaP,Tdap and Td Vaccines (7 - Td or Tdap) DTaP,Tdap and Td Vaccines (7 - Td or Tdap) [facility] Start: 2017 Screening for malignant neoplasm of cervix Pap Smear [facility] Start: 1996 Tobacco Counseling Tobacco Counseling [facility] Patient Education Depression, Ad ult (DC) [facility] DC Instructions [facility] Work Phone: Patient referral [facility] Work Phone: Immunizations Immunization Date Immunization Notes Care Provider [facility] 05-19-2022 influenza virus vacc ine, unspecified formulation Dina Conner AIRCREWMAN-PROFILING MACHINE SET UP OPERATOR TOOL Work Phone: [facility] 07-27-2021 Hepatitis B vaccine (recombinant), CpG adjuvanted Dina Conner AIRCREWMAN-PROFILING MACHINE SET UP OPERATOR TOOL Work Phone: [facility] 05-27-2021 influenza virus vacc ine, unspecified formulation Dina Conner AIRCREWMAN-PROFILING MACHINE SET UP OPERATOR TOOL Work Phone: [facility] 10-07-2020 COVID-19 Vaccine, vector-nr, rS-Ad26, PF, 0.5mL Dina Conner AIRCREWMAN-PROFILING MACHINE SET UP OPERATOR TOOL Work Phone: [facility] 08-12-2020 influenza, injectabl e, quadrivalent, preservative free Dina Conner AIRCREWMAN-PROFILING MACHINE SET UP OPERATOR TOOL Work Phone: [facility] 04-20-2018 influenza, injectabl e, quadrivalent, preservative free Dina Conner AIRCREWMAN-PROFILING MACHINE SET UP OPERATOR TOOL Work Phone: [facility] 04-21-2017 influenza, injectabl e, quadrivalent, preservative free Dina Conner AIRCREWMAN-PROFILING MACHINE SET UP OPERATOR TOOL Work Phone: [facility] 01-07-2010 human papilloma viru s vaccine, quadrivalent Dina Conner AIRCREWMAN-PROFILING MACHINE SET UP OPERATOR TOOL Work Phone: [facility] 01-07-2010 varicella virus vaccine [place] jess Conner AIRCREWMAN-[facility] Work Phone: [facility] 09-29-2009 human papilloma viru s vaccine, quadrivalent Dina Conner AIRCREWMAN-[facility] Work Phone: [facility] 09-29-2009 tetanus toxoid, redu alem diphtheria toxoid, and acellular pertussis vaccine, adsorbed Dina Ubaldo AIRCREWMAN-[facility] Work Phone: [facility] 06-24-2009 human papilloma viru s vaccine, quadrivalent Dina Conner AIRCREWMAN-[facility] Work Phone: [facility] 06-24-2009 meningococcal polysaccharide (groups A, C, Y and W-135) diphtheria toxoid conjugate vaccine (MCV4P) Dina Conner [facility] Work Phone: [facility] 09-05-2001 diphtheria, tetanus toxoids and acellular pertussis vaccine, unspecified formulation Dina Ubaldo [employer]CRE[employer]-[facility] Work Phone: [facility] 09-05-2001 poliovirus vaccine, inactivated Dina Conner [employer]CRE[employer]MAN-[facility] Work Phone: [facility] 07-18-2000 measles, mumps and rubella virus vaccine Dina Ubaldo [employer]CRE[employer]MAN-[facility] Work Phone: [facility] 02-06-1998 diphtheria, tetanus toxoids and acellular pertussis vaccine, unspecified formulation Dinasaeed Conner AIRCREWMAN-[facility] Work Phone: [facility] 11-06-1997 measles, mumps and rubella virus vaccine Dina Ubaldo [employer]CREWMAN-[facility] Work Phone: [facility] 11-06-1997 varicella virus vaccine Lilianasaeed Conner AIRCREWMAN-[facility] Work Phone: [facility] 08-07-1997 haemophilus influenz ae type b vaccine, PRP-T conjugate Dina Conner [facility] Work Phone: [facility] 08-07-1997 poliovirus vaccine, inactivated Dina Conner AIRCREWMAN-PROFILING MACHINE SET UP OPERATOR TOOL Work Phone: [facility] 06-03-1997 hepatitis B vaccine, pediatric or pediatric/adolescent dosage Dina Conner AIRCREWMAN-PROFILING MACHINE SET UP OPERATOR TOOL Work Phone: [facility] 02-27-1997 diphtheria, tetanus toxoids and acellular pertussis vaccine, unspecified formulation Dina Conner AIRCREWMAN-PROFILING MACHINE SET UP OPERATOR TOOL Work Phone: [facility] 02-27-1997 haemophilus influenz ae type b vaccine, conjugate unspecified formulation Dina Conner AIRCREWMAN-PROFILING MACHINE SET UP OPERATOR TOOL Work Phone: [facility] 1996 diphtheria, tetanus toxoids and acellular pertussis vaccine, unspecified formulation Dina Conner AIRCREWMAN-PROFILING MACHINE SET UP OPERATOR TOOL Work Phone: [facility] 1996 haemophilus influenz ae type b vaccine, conjugate unspecified formulation Dina Conner AIRCREWMAN-PROFILING MACHINE SET UP OPERATOR TOOL Work Phone: [facility] 1996 poliovirus vaccine, unspecified formulation Dina Conner AIRCREWMAN-PROFILING MACHINE SET UP OPERATOR TOOL Work Phone: [facility] 1996 diphtheria, tetanus toxoids and acellular pertussis vaccine, unspecified formulation Dina Conner AIRCREWMAN-PROFILING MACHINE SET UP OPERATOR TOOL Work Phone: [facility] 1996 haemophilus influenz ae type b vaccine, conjugate unspecified formulation Dina Conner AIRCREWMAN-PROFILING MACHINE SET UP OPERATOR TOOL Work Phone: [facility] 1996 poliovirus vaccine, unspecified formulation Dina Conner AIRCREWMAN-PROFILING MACHINE SET UP OPERATOR TOOL Work Phone: [facility] 1996 hepatitis B vaccine, pediatric or pediatric/adolescent dosage Dina Conner AIRCREWMAN-PROFILING MACHINE SET UP OPERATOR TOOL Work Phone: [facility] 1996 hepatitis B vaccine, pediatric or pediatric/adolescent dosage Dina Conner AIRCREWMAN-PROFILING MACHINE SET UP OPERATOR TOOL Work Phone: [facility] Payers Date Payer Category Payer Unknown [id number] 2021 Self-pay [id number] 2008 Unknown 1996 Unknown [id number] 2.16.84 [id number] 1996 Unknown [id number] 2.16.84 [id number] 1996 Unknown [id number] 2.16.84 [id number] 1996 Unknown [id number] 2.16.8 [id number] 1996 Unknown [id number] 2.16.8 [id number] 1996 Unknown [id number] 2.16.8 [id number] 1996 Unknown [id number] 2.16.8 [id number] 1996 Unknown [id number] 2.16.8 [id number] 1996 Unknown [id number] 2.16.84 [id number] 1959 Unknown [id number] 1959 Unknown [id number] 1959 Unknown [id number] Unknown Self Pay [id number] Unknown [id number] 2.16.8 [id number] Social History Date Type Detail Facility Start: 11-13-2021 Tobacco smoking stat [facility] Smoker (finding) [facility] Start: 1995 Sex Assigned At Female [facility] Start: 08-28-2020 End: 07-25-2023 Sex Assigned At [facility] Start: 12-15-2022 Tobacco smoking stat [facility] Smokes tobacco daily [facility] History of tobacco use Cigarette Smoker P [facility] Start: 08-28-2020 End: 12-15-2022 Cigarettes smoked current (pack per day) - Reported 0.5 [facility] Start: 12-15-2022 Tobacco use and exposure Smokeless tobacco non-user [facility] Start: 07-25-2023 End: 10-04-2023 Alcohol intake Lifetime non-drinker (finding) [facility] How hard is it for y ou to pay for the very basics like food, housing, medical care, and heating Not hard at all [facility] Start: 05-10-2021 Alcohol Comment Socially. [facility] Start: 1996 Sex Assigned At Not on file P [facility] Functional Status Date Assessment Result Facility 11-18-2021 Functional status Patient at Baseline [facility] Work Phone: Mental Status Date Assessment Result Facility 11-18-2021 Cognitive function Cognitive Sta tus Patient at Baseline [facility] Work Phone: Clinical Notes 11-13-2021 to 10-04-2023 Dina Conner APRN-PROFILING MACHINE SET UP OPERATOR TOOL - 10/04/2023 10:20 AM EST Note Date & Type Note Facility 10-04-2023 History of Present illness Narrative Images from the original note were not included. [address] [place] [address] SUBJECTIVE: Video Visit via Real-time Synchronous Audiovisual Provider Location: [facility]IC[facility] [address] [facility] [address] Patient Location: Patient's home Video Visit Consent [...] that there are some limitations compared to ahtl-fk-mdeq evaluations. The patient consented to the presence [...] throat. Motrin or Tylenol as needed per ball rolling machine operator guidelines for fever or pain. ALL QUESTIONS ANSWERED Total time spent was 25 minutes: Preparing to see the patient (e.g., review of tests) Obtaining and/or reviewing separately obtained history Performing a medically appropriate examination and/or evaluation Counseling and educating the patient/family/caregiver Ordering medications, tests, or procedures Follow-up: Next scheduled Sooner if needed RODNEY Mayers 10/04/23 1055 documented in this encounter [facility] 03-06-2023 Evaluation note Encounter Date Diagnosis Assessment [...] going. Patient verbalized understanding of treatment plan. [employer] Other 03-01-2023 Evaluation note* Encounter Date Diagnosis Assessment Notes Treatment Notes Treatment Clinical Notes Sep, Intractable migraine with aura without status migrainosus (ICD-10 - G43.119) Take medication as directed. Stay away from known triggers. Follow up with primary care provider or neurology if symptoms persist as new treatment option may need to be discussed. [employer] Other 01-13-2023 NoteED Nursing Discharge Summary Entered On: 08/12/2022 15:18 EST Performed On: 08/12/2022 15:15 EST by Marcia Moralez RN, DC Information [id number] ED IV's : No IV ED IV Site Assessment : No IV ED Vitals Completed : N/A ED Final Assessment Completed : Yes ED Progress Note Completed : Yes Complete all PRN/Pain response forms? : N/A ED Disassociate Patient from Monitor : N/A Updated Depart Time : Yes ED Belongings sent w patient [id number] : Not applicable Marcia Moralez RN - [...] Marcia Moralez RN - 08/12/2022 15:18 EST [facility]12-06-2022 Evaluation note * Encounter Date Diagnosis Assessment [...] treatment plan. Patient left in stable condition [employer] Other 04-21-2022 Discharge summary Author Hank ellison [facility] November 18, 2021 8:13am Note Date/Time November 18, 2021 8:1 1am [facility] [address] [place] [address] Discharge Summary Signed Patient: Franki Quiroz MR#: [id number] : 1995 Acct:[id number] Age/Sex: 26 / F Adm Date: 2 Loc: 1S Room: [address] [place] [address]: Dione Lerma MD Copies to: [...] She felt better than before coming to [facility] and feels hopeful regarding her future. She [...] signed by Hank Lerma MD> 11/18/21 0813 [facility] Work Phone: 1(340) 662-836504-20-2022 Progress note Author Hank ellison [facility] November 17, 2021 7:39am Note Date/Time November 17, 2021 7:3 9am [facility] [address] [place] [address] Psychiatry Progress Note Signed Patient: Franki Quiroz MR#: [id number] : 1995 Acct:[id number] Age/Sex: 26 / F Adm Date: 2 Loc: Room: [address] [place] [address] Type : ADM IN Attending Dr: Dione [...] understanding. Documented By: Hank Lerma MD 2 0788 Signed By: <Electronically signed by Hank Lerma MD> 11/17/21 0739 [facility] Work Phone: 1(545) 483-818004-19-2022 Progress note Author Hank ellison [facility] November 16, 2021 8:14am Note Date/Time November 16, 2021 8:1 4am [facility] [address] [place] [address] Psychiatry Progress Note Signed Patient: Franki Quiroz MR#: [id number] : 1995 Acct:[id number] Age/Sex: 26 / F Adm Date: 2 Loc: Room: [address] [place] [address] Type : ADM IN Attending Dr: Dione [...] signed by Hank Lerma MD> 11/16/21 0814 [facility] Work Phone: 1(874) 984-188004-18-2022 Progress note Author Hank ellison [facility] November 15, 2021 8:56am Note Date/Time November 15, 2021 8:5 6am [facility] [address] [place] [address] Psychiatry Progress Note Signed Patient: Franki Quiroz MR#: [id number] : 1995 Acct:[id number] Age/Sex: 26 / F Adm Date: 2 Loc: Room: 5Y1212-3 Type : ADM IN Attending Dr: Dione [...] understanding. Documented By: Hank Lerma MD 2 0874 Signed By: <Electronically signed by Hank Lerma MD> 11/15/21 0856 [facility] Work Phone: 1(305) 982-425704-17-2022 Progress note Author Hank ellison [facility] November 14, 2021 8:11am Note Date/Time November 14, 2021 8:1 0am [facility] [address] [place] [address] Psychiatry Progress Note Signed Patient: Franki Quiroz MR#: [id number] : 1995 Acct:[id number] Age/Sex: 26 / F Adm Date: 2 Loc: Room: [address] [place] [address] Type : ADM IN Attending Dr: Dione [...] signed by Hank Lerma MD> 11/14/21 0811 [facility] Work Phone: 1(792) 434-963804-16-2022 History and physical note Author Hank ellison [facility] November 13, 2021 9:19am Note Date/Time November 13, 2021 9:1 8am [facility] [address] [place] [address] Psychiatry H&P Signed Patient: Franki Quiroz MR#: [id number] : 1995 Acct:[id number] Age/Sex: 26 / F Adm Date: 2 Loc: Room: [address] [place] [address] Type : ADM IN Attending Dr: Dione [...] signed by Hank Lerma MD> 11/13/21 0919 [facility] Work Phone: Evaluation note* Diagnosis Onset Date Resolution Status Major depressive disorder, recurrent, moderate acute PTSD (post-traumatic stress disorder) acute [facility] Work Phone: Evaluation note* Diagnosis Upper respiratory tract infection, unspecified type [facility] Diagnosis COVID-19- Primary Nausea Nausea alone documented [facility] this [facility] - Reported* Type Description Date Medical History migraines Medical History asthma Medical History depression and anxity Medical History meningitis Surgical History C section Hospitalization History meningitis [employer] Other Hospital Discharge instructions Additional Instructions Regular diet. No activity restrictions.[facility] Work Phone: InstructionsNot on filedocumented in this encounter [facility] on filedocumented in this encounter [facility]* Attachments The following attachments cannot be sent through Care Everywhere. * COVID-19 overview (Kiswahili) [facility] Chief Complaint and Reason for Visit [...] Ted Pisano MD Primary Care Provider Active Warehouse Helper Relationship Specialty Start Date End Date Dina Conner APRN-[facility] [address] [place] [address] PCP - General Family Medicine 06/01/21 Warehouse Helper Relationship Specialty Start Date End Date Dina Conner APRN-[facility] [address] [place] [phone] PCP - General Family Medicine 06/01/21 Warehouse Helper Relationship Specialty Start Date End Date [facility] [address] [place] [phone] PCP - General Family Medicine 06/01/21 Goals (unrecognized section and content) Goals may be documented in a n alternate sectionNo InformationNo InformationNo InformationNot on filedocumented as of this encounterNot on filedocumented as of this encounterNot on filedocumented as of this encounter INFORMATION SOURCE (unrecogn ized section and content) DATE CREATED AUTHOR 04/27/2022 [facility] DATE CREATED AUTHOR AUTHOR'S ORGANIZ ATION 08/15/2022 [facility] DATE CREATED AUTHOR AUTHOR'S ORGANIZ ATION 09/03/2022 [facility] DATE CREATED AUTHOR AUTHOR'S ORGANIZ ATION 08/26/2023 [facility] DATE CREATED AUTHOR AUTHOR'S ORGANIZ ATION 09/10/2023 [facility] DATE CREATED AUTHOR AUTHOR'S ORGANIZ ATION 10/05/2023 [facility] REASON FOR VISIT (unrecogniz ed [...] BE BASED ON THE PRIMARY CLINICAL RECORDS. [employer] provides no warranty or guarantee of the accuracy or completeness of information in this document.
[2023-10-24 11:04] LABS: HCG Quantitative <1 mIU/mL; Thyroid Stimulating Hormone 1.164 uIU/mL (0.358-3.740)
[2023-10-24 11:14] LABS: Estimated Average Glucose 105 mg/dL; Glycohemoglobin A1C 5.3 % (4.5-6.2)
[2023-10-24 11:37] LABS: Free T4 0.89 ng/dL (0.76-1.46)
[2023-10-24 11:46] LABS: Basophils Absolute Auto 0.1 10^3/uL (0.0-0.1); Basophils Percent Auto 0.6 % (0.2-2.0); Eosinophils Absolute Auto 0.1 10^3/uL (0.0-0.7); Eosinophils Percent Auto 1.1 % (0.9-7.0); Hematocrit 39.5 % (36.0-48.0); Hemoglobin 12.6 g/dL (12.0-16.0); Immature Granulocytes Abs Auto 0.01 10^3/uL (0.00-0.03); Immature Granulocytes Pct Auto 0.1 % (0.0-0.5); Lymphocytes Absolute Auto 1.8 10^3/uL (1.2-3.8); Lymphocytes Percent Auto 23.1 % (20.5-60.0); Mean Corpuscular HGB Conc 31.9 g/dL (29.9-35.2); Mean Corpuscular Hemoglobin 30.4 pg (26.7-34.0); Mean Corpuscular Volume 95.4 fL (81.0-99.0); Mean Platelet Volume 10.8 fL (9.5-13.5); Monocytes Absolute Auto 0.5 10^3/uL (0.3-0.8); Monocytes Percent Auto 6.2 % (1.7-12.0); Neutrophils Absolute Auto 5.4 10^3/uL (1.4-6.5); Neutrophils Percent Auto 68.9 % (43.0-75.0); Platelet Count 282 10^3/uL (150-450); Red Blood Count 4.14 10^6/uL (4.20-5.40); Red Cell Distribution Width 12.8 % (11.0-15.0); White Blood Count 7.9 10^3/uL (4.0-11.0)
[2023-10-25 04:08] LABS: FSH 2.9 mIU/mL (.); Luteinizing Hormone(LH) 6.3 mIU/mL (.)
[2023-10-28 00:08] LABS: DHEA, Serum 812 ng/dL (31-701)
== END 2023-10-24 10:17 | disposition home or self-care (01) ==
LOC: LAB 10:18
PROVIDERS: PCP Nurse Practitioner; Visit Provider Obstetrics & Gynecology
DX: Z30.431 Encounter for routine checking of intrauterine contraceptive device (principal); E28.2 Polycystic ovarian syndrome
CPT/HCPCS: 36415; 76830; 82626; 82627; 83001; 83002; 83036; 84439; 84443; 84702; 85025

== ENCOUNTER 2023-12-05 20:29 | Outpatient (REF) | payer BC, SELFPAY ==
--- OUTSIDE RECORDS SUMMARY | 2023-12-05 20:41 | XMS_ITS | CCD ---
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 {Dajuan'U}/dL Normal 0.2 - 1. 0 [facility] Comment on above: Performed By: #### E TH #### [facility] [address] [place] [address] Dr. Umm Banuelos LIPASEon 01-01-2022 Lipase [Catalytic activity/Vol] 62.0 U/L Critically low 73.0-393.0 [facility] Comment on above: Performed By: #### A MY, LIPA, CMP #### [facility] [address] [place] [address] Dr. Umm Banuelos URon 01-01-2022 , QUAL Negative Normal NEGATIVE [facility] Comment on above: Performed By: #### E TH #### [facility] [address] [place] [address] Dr. Umm Banuelos PROF 14(COMP METB)on 022 Albumin [Mass/Vol] 3.5 g/dL Normal 3.4-5.0 [facility] Comment on above: Performed By: #### A MY, LIPA, CMP #### [facility] [address] [place] [address] Dr. Umm Banuelos Albumin/Globulin [Mass ratio] 0.9 {ratio} Normal [facility] Comment on above: Performed By: #### A MY LIPA, CMP #### [facility] [address] [place] [address] Dr. Umm Banuelos ALP [Catalytic activity/Vol] 84 U/L Normal 46-116 [facility] Comment on above: Performed By: #### A MY, LIPA, CMP #### [facility] [address] [address] [address] Umm Banuelos ALT [Catalytic activity/Vol] 39 U/L Normal 14-59 [facility] Comment on above: Performed By: #### A MY, LIPA, CMP #### [facility] [address] [place] [address] Dr. Umm Banuelos Anion gap [Moles/Vol] 12.7 mmol/L Normal [facility] Comment on above: Performed By: #### A MY, LIPA, CMP #### [facility] [address] [place] [address] Dr. Umm Banuelos AST [Catalytic activity/Vol] 31 U/L Normal 15-37 [facility] Comment on above: Performed By: #### A MY, LIPA, CMP #### [facility] [address] [place] [address] Dr. Umm Banuelos Calcium [Mass/Vol] 8.8 mg/dL Normal 8.5-10.1 [facility] Comment on above: Performed By: #### A MY, LIPA, CMP #### [facility] [address] [place] [address] Dr. Umm Banuelos Chloride [Moles/Vol] 103 mmol/L Normal 98-107 [facility] Comment on above: Performed By: #### A MY, LIPA, CMP #### [facility] [address] [place] [address] Dr. Umm Banuelos CO2 [Moles/Vol] 27.4 mmol/L Normal 21.0-32.0 [facility] Comment on above: Performed By: #### A MY, LIPA, CMP #### [facility] [address] [place] [address] Dr. Umm Banuelos Creatinine [Mass/Vol] 1.02 mg/dL Normal 0.55-1.02 [facility] Comment on above: Performed By: #### A MY, LIPA, CMP #### [facility] [address] [place], [place] [id number] Dr. Umm Banuelos EGFR-AF CYMRAES >60 Normal >=60 [facility] Comment on above: Performed By: #### A MARCELLUS KLEIN, CMP #### [facility] [address] [address] [address] Umm Banuelos EGFR-NON AF CYMRAES >60 Normal >=60 [facility] Comment on above: Performed By: #### A MARCELLUS KLEIN, CMP #### [facility] [address] [address] [address] Umm Banuelos Globulin (S) [Mass/Vol] 3.9 g/dL Normal [facility] Comment on above: Performed By: #### A MARCELLUS KLEIN, CMP #### [facility] [address] [place] [address] Dr. Umm Banuelos Glucose [Mass/Vol] 111 mg/dL Critically high 74-106 [facility] Comment on above: Performed By: #### A MARCELLUS KLEIN, CMP #### [facility] [address] [place] [address] Dr. Umm Banuelos Potassium [Moles/Vol] 4.1 mmol/L Normal 3.5-5.1 [facility] Comment on above: Performed By: #### A MARCELLUS KLEIN, CMP #### [facility] [address] [place] [address] Dr. Umm Banuelos Protein [Mass/Vol] 7.4 g/dL Normal 6.4-8.2 [facility] Comment on above: Performed By: #### A MARCELLUS KLEIN, CMP #### [facility] [address] [place] [address] Dr. Umm Banuelos Sodium [Moles/Vol] 139 mmol/L Normal 136-145 [facility] Comment on above: Performed By: #### A MARCELLUS KLEIN, CMP #### [facility] [address] [place] [address] Dr. Umm Banuelos Urea nitrogen [Mass/Vol] 10.0 mg/dL Normal 7.0-18.0 [facility] Comment on above: Performed By: #### A MARCELLUS KLEIN, CMP #### [facility] [address] [address] [address] Umm Banuelos Urea nitrogen/Creatinine [Mass ratio] 9.8 mg/mg Normal [facility] Comment on above: Performed By: #### A MY, LIPA, CMP #### [facility] [address] [address] [address] Umm Banuelos Cholesterol [Mass/volume] in Serum or PlasmaOrdered By: Hank Lerma on 11-14-2021 Cholesterol [Mass/Vol] 216 mg/dL 140-200 [facility] Comment on above: Chol less than 200 m g/dl low riskChol 201-239 mg/dl borderline riskChol 240 mg/dl and greater high risk Cholesterol in LDL Calc [Mas s/Vol]Ordered By: Hank Lerma on 11-14-2021 Cholesterol in LDL [Mass/Vol] 122 mg/dL 0-100 [facility] Comment on above: LDL ATP III CLASSIFI CATIONLDL less than 100 mg/dL OptimalLDL 100-129 mg/dL Near or above optimalLDL 130-159 mg/dL Borderline highLDL 160-189 mg/dL HighLDL greater than 189 mg/dL Very high Cholesterol in VLDL Calc [Ma ss/Vol]Ordered By: Hank Lerma on 11-14-2021 Cholesterol in VLDL [Mass/Vol] 45 mg/dL [facility] ECG 12 lead ECGon 11-14-2021 ECG 12 lead ECG [facility] [address] Electrocardiograph Report Signed Patient: Franki Quiroz MR#: [id number] 7 : 1995 Acct:[id number] Age/Sex: 26 / F ADM Date: 11/13/21 Loc: Room: [address] [place] [address] Type: DIS IN Attending Dr: Dione Lerma MD Ordering Provider: Hank Lemra MD Date of Service: 11/14/21 ECG/ECG 12 [...] By Jun Bo DO 11/16 1830 Normal [facility] Lipid Panelon 11-14-2021 Cholesterol [Mass/Vol] 216 mg/dL High 140-200 [facility] Comment on above: Result Comment: Chol less than 200 mg/dl low risk Chol 201-239 mg/dl borderline risk Chol 240 mg/dl and greater high risk Performed By: #### L IPID, TSH3 wRFLX, [id number] #### [facility] [address] [id number] [place] Cholesterol in HDL [Mass/Vol] 48 mg/dL Normal 35-85 [facility] Comment on above: Result Comment: HDL CHOL ATP-III CLASSIFICATION Cardiovascular Risk HDL > or equal to 60 mg/dL LOW HDL < 40 mg/dL HIGH Performed By: #### L IPID, TSH3 wRFLX, [id number] #### [facility] [address] [place] [address] [place] Cholesterol.total/Cho lesterol in HDL [Mass ratio] 4.5 {ratio} Normal <5.0 [facility] Comment on above: Performed By: #### L IPID, TSH3 wRFLX, [id number] #### [facility] [address] [place] [address] [place] LDL Cholesterol,Calculate d 122 mg/dL High 0-100 [facility] Comment on above: Result Comment: LDL ATP III CLASSIFICATION LDL less than 100 mg/dL Optimal LDL 100-129 mg/dL Near or above optimal LDL 130-159 mg/dL Borderline high LDL 160-189 mg/dL High LDL greater than 189 mg/dL Very high Performed By: #### L IPID, TSH3 wRFLX, [id number] #### [facility] [address] Triglyceride w/Reflex 229 mg/dL High 35-149 [facility] Comment on above: Result Comment: TRIG ATP III CLASSIFICATION TRIG less than 150 mg/dL Normal TRIG 150-199 mg/dL Borderline high TRIG 200-500 mg/dL High TRIG greater than 500 mg/dL Very high Standard traceable to the Center for Disease Conrtrol and Prevention (CDC) test method. Performed By: #### L IPID, TSH3 wRFLX, [id number] #### [facility] [address] VLDL CHOLESTEROL 45 mg/dL Normal [facility] Comment on above: Performed By: #### L IPID, TSH3 wRFLX, [id number] #### [facility] [address] No Panel InformationOrdered By: Hank Lerma on 11-14-2021 25-Hydroxy Vitamin D Total 25.8 ng/mL 30-100 [facility] Comment on above: VITAMIN D STATUS 25( [place])VITAMIN D RANGE (ng/mL) Deficient <20 Insufficient 20 to <30Sufficient 30 to 100Reference: Lakisha MF,Chuckie NC, Malcolm WILCOX, et al. Evaluation,treatment, and prevention of vitamin D deficiency; an Endocrine Society clinical practice guideline. JCEM. 2010; 96(7):1911-30. Serum or plasma high density lipoprotein (HDL) cholesterol measurementOrdered By: Hank Lerma on 11-14-2021 Cholesterol in HDL [Mass/Vol] 48 mg/dL 35-85 [facility] Comment on above: HDL CHOL ATP-III CLA SSIFICATION Cardiovascular RiskHDL > or equal to 60 mg/dL LOWHDL < 40 mg/dL HIGH Serum or plasma total choles terol/high density lipoprotein (HDL) cholesterol mass ratOrdered By: Hank Lerma on 11-14-2021 Cholesterol.total/Cho lesterol in HDL [Mass ratio] 4.5 {ratio} [facility] TSH DL <= 0.005 mIU/L QnOrde red By: Hank Lerma on 11-14-2021 TSH Qn 0.98 m[IU]/L 0.45-5.33 [facility] Thyroid Stim Hormone w/Rflxo n 11-14-2021 Thyroid Stim Hormone w/Rflx 0.98 u[iU]/mL Normal 0.45-5.33 [facility] Comment on above: Performed By: #### L IPID, TSH3 wRFLX, [id number] #### [facility] [address] [id number] [place] Triglyceride [Mass/volume] i n Serum or PlasmaOrdered By: Hank Lerma on 11-14-2021 Triglyceride [Mass/Vol] 229 mg/dL 35-149 [facility] Comment on above: TRIG ATP III CLASSIF ICATIONTRIG less than 150 mg/dL NormalTRIG 150-199 mg/dL Borderline highTRIG 200-500 mg/dL High TRIG greater than 500 mg/dL Very highStandard traceable to the Center for Disease Conrtrol and Prevention (CDC) test method. Vitamin D 25 Hydroxy Totalon 11-14-2021 Vitamin D 25 Hydroxy Total 25.8 ng/mL Low 30-100 [facility] Comment on above: Result Comment: GENE MIN D STATUS 25([place])VITAMIN D RANGE (ng/mL) Deficient <20 Insufficient 20 to <30 Sufficient 30 to 100 Reference: Lakisha MF,Chuckie NC, Malcolm WILCOX, et al. Evaluation,treatment, and prevention of vitamin D deficiency; an Endocrine Society clinical practice guideline. JCEM. 2010; 96(7):1911-30. PERFORMED BY: [address] [id number] PATHOLOGIST [employer] ANA JENKINS M.D. Performed By: #### L IPID, TSH3 wRFLX, [id number] #### [facility] [address] [id number] [place] ACETAMINOPHENon 11-13-2021 Acetaminophen [Mass/Vol] ug/mL Normal 10.0-30.0 [facility] Comment on above: Performed By: #### E #### [facility] [address] [place] [address] Dr. Umm Banuelos CBC AUTO DIFFon 11-13-2021 BASO # 0.1 103/ul Normal 0.0-0.1 [facility] Comment on above: Performed By: #### C BC #### [facility] [address] [address] [address] Umm Banuelos Basophils/100 WBC (Bld) 0.3 % Normal 0.2-2.0 [facility] Comment on above: Performed By: #### C BC #### [facility] [address] [address] [address] Umm Banuelos EO # 0.1 103/ul Normal 0.0-0.7 [facility] Comment on above: Performed By: #### C BC #### [facility] [address] [place] [address] Dr. Umm Banuelos Eosinophils/100 WBC (Bld) 0.7 % Critically low 0.9-7.0 [facility] Comment on above: Performed By: #### C BC #### [facility] [address] [place] [address] Dr. Umm Banuelos Erythrocyte distribution width (RBC) [Ratio] 12.7 % Normal 11.0-15.0 [facility] Comment on above: Performed By: #### C BC #### [facility] [address] [place] [address] Dr. Umm Banuelos Hematocrit (Bld) [Volume fraction] 39.5 % Normal 36.0-48.0 [facility] Comment on above: Performed By: #### C BC #### [facility] [address] [place] [address] Dr. Umm Banuelos Hemoglobin (Bld) [Mass/Vol] 12.9 g/dL Normal 12.0-16.0 [facility] Comment on above: Performed By: #### C BC #### [facility] [address] [place] [address] Dr. Umm Banuelos IG # 0.06 10e3/ul Critically high 0.00-0.03 [facility] Comment on above: Performed By: #### C BC #### [facility] [address] [place] [address] Dr. Umm Banuelos IG % 0.4 % Normal 0.0-0.5 [facility] Comment on above: Performed By: #### C BC #### [facility] [address] [place] [address] Dr. Umm Banuelos LYMPH # 3.2 103/ul Normal 1.2-3.8 [facility] Comment on above: Performed By: #### C BC #### [facility] [address] [place] [address] Dr. Umm Banuelos Lymphocytes/100 WBC (Bld) 21.1 % Normal 20.5-60.0 [facility] Comment on above: Performed By: #### C BC #### [facility] [address] [place] [address] Dr. Umm Banuelos MANUAL DIFF REQ NO Normal [facility] Comment on above: Performed By: #### C BC #### [facility] [address] [place] [address] Dr. Umm Banuelos MCH (RBC) [Entitic mass] 31.5 pg Normal 26.7-34.0 [facility] Comment on above: Performed By: #### C BC #### [facility] [address] [place] [address] Dr. Umm Banuelos MCHC (RBC) [Mass/Vol] 32.7 g/dL Normal 29.9-35.2 [facility] Comment on above: Performed By: #### C BC #### [facility] [address] [place] [address] Dr. Umm Banuelos MCV (RBC) [Entitic vol] 96.3 fL Normal 81.0-99.0 [facility] Comment on above: Performed By: #### C BC #### [facility] [address] [place] [address] Dr. Umm Banuelos MONO # 1.0 103/ul Critically high 0.3-0.8 [facility] Comment on above: Performed By: #### C BC #### [facility] [address] [place] [address] Dr. Umm Banuelos Monocytes/100 WBC (Bld) 6.3 % Normal 1.7-12.0 [facility] Comment on above: Performed By: #### C BC #### [facility] [address] [place] [address] Dr. Umm Baunelos NEUT # 10.8 103/ul Critically high 1.4-6.5 [facility] Comment on above: Performed By: #### C BC #### [facility] [address] [place] [address] Dr. Umm Banuelos Neutrophils/100 WBC (Bld) 71.2 % Normal 43.0-75.0 [facility] Comment on above: Performed By: #### C BC #### [facility] [address] [place] [address] Dr. Umm Banuelos Platelet mean volume (Bld) [Entitic vol] 10.1 fL Normal 9.5-13.5 [facility] Comment on above: Performed By: #### C BC #### [facility] [address] [place] [address] Dr. Umm Banuelos PLT 280 103/ul Normal 150-450 [facility] Comment on above: Performed By: #### C BC #### [facility] [address] [place] [address] Dr. Umm Banuelos RBC 4.10 106/ul Critically low 4.20-5.40 [facility] Comment on above: Performed By: #### C BC #### [facility] [address] [place] [address] Dr. Umm Banuelos WBC 15.2 103/ul Critically high 4.0-11.0 [facility] Comment on above: Performed By: #### C BC #### [facility] [address] [place] [address] Dr. Umm Banuelos Covid-19 PCR ([facility])on 10-29 SARS-CoV-2 (COVID-19) RNA SANDIE+probe Ql (Unsp spec) Not detected Normal NOT DETECTED [facility] Comment on above: Result Comment: When diagnostic [...] for this test is supported by the Card Player of Health and Human Service's declaration that [...] used). Performed By: #### C VDTB #### [facility] [address] [place] [address] Dr. Umm Banuelos DRUG SCREEN RAPID (URINE)on 11-13-2021 AMP Negative Normal NEGATIVE [facility] Comment on above: Performed By: #### E TH #### [facility] [address] [place] [address] Dr. Umm Banuelos BAR Negative Normal NEGATIVE [facility] Comment on above: Performed By: #### E TH #### [facility] [address] [place] [address] Dr. Umm Banuelos BUP Negative Normal NEGATIVE [facility] Comment on above: Performed By: #### E TH #### [facility] [address] [place] [address] Dr. Umm Banuelos BZO Negative Normal NEGATIVE [facility] Comment on above: Performed By: #### E TH #### [facility] [address] [place] [address] Dr. Umm Banuelos KAYLA Negative Normal NEGATIVE [facility] Comment on above: Performed By: #### E TH #### [facility] [address] [place] [address] Dr. Umm Banuelos CUT-OFFS SEE BELOW Normal [facility] Comment on above: Result Comment: AMP (Amphetamine): 500ng/mL, BAR (Barbituates): 200 ng/mL, BZO (Benzodiazepines): 150 ng/mL, BUP (Buprenorphine): 10 ng/mL, KAYLA (Cocaine): 150 ng/mL, mAMP (Methamphetamine): 500 ng/mL, MTD (Methadone): 200 ng/mL, OPI (Opiates): 100 ng/mL, OXY (Oxycodone): 100 ng/mL, PCP (Phencyclidine): 25 ng/mL, PPX (Propoxyphene): 300 ng/mL, THC (Cannabinoids): 50 ng/mL, TCA (Trycyclic Antidepressants): 300 ng/mL Performed By: #### E TH #### [facility] [address] [place] [address] Dr. Umm Banuelos DRUG CUT HEADER DRUG CLASS TEST SYSTEM CUT-OFF CONCENTRATIONS ARE FOLLOWS: Normal [facility] Comment on above: Performed By: #### E #### [facility] [address] [place] [address] Dr. Umm Banuelos mAMP Negative Normal NEGATIVE [facility] Comment on above: Performed By: #### E #### [facility] [address] [place] [address] Dr. Umm Banuelos MTD Negative Normal NEGATIVE [facility] Comment on above: Performed By: #### E #### [facility] [address] [place] [address] Dr. Umm Banuelos OPI Negative Normal NEGATIVE [facility] Comment on above: Performed By: #### E #### [facility] [address] [place] [address] Dr. Umm Banuelos OXY Negative Normal NEGATIVE [facility] Comment on above: Performed By: #### E #### [facility] [address] [place] [address] Dr. Umm Banuelos PCP Negative Normal NEGATIVE [facility] Comment on above: Performed By: #### E #### [facility] [address] [place] [address] Dr. Umm Banuelos PPX Negative Normal NEGATIVE [facility] Comment on above: Performed By: #### E #### [facility] [address] [place] [address] Dr. Umm Banuelos TCA Negative Normal NEGATIVE [facility] Comment on above: Performed By: #### E TH #### [facility] [address] [address] [address] Umm Banuelos THC Negative Normal NEGATIVE [facility] Comment on above: Performed By: #### E TH #### [facility] [address] [place] [address] Dr. Umm Banuelos ETHANOL (BLD ALC)on 11-14-19 22 ALC NOTE NOTE: 80 mg/dl is th e legal limit for a blood alcohol level Normal [facility] Comment on above: Performed By: #### E TH #### [facility] [address] [place] [address] Dr. Umm Banuelos Ethanol [Mass/Vol] mg/dL Normal [facility] Comment on above: Performed By: #### E TH #### [facility] [address] [place] [address] Dr. Umm Banuelos ALC NOTE NOTE: 80 mg/dl is th e legal limit for a blood alcohol level Normal [facility] Comment on above: Performed By: #### E TH #### [facility] [address] [place] [address] Dr. Umm Banuelos Ethanol [Mass/Vol] mg/dL Normal [facility] Comment on above: Performed By: #### E TH #### [facility] [address] [place] [address] Dr. Umm Banuelos PREG HCG QUALon 11-13-2021 , QUAL Negative Normal NEGATIVE [facility] Comment on above: Performed By: #### E TH #### [facility] [address] [place] [address] Dr. Umm Banuelos URon 11-13-2021 , QUAL Negative Normal NEGATIVE [facility] Comment on above: Performed By: #### E TH #### [facility] [address] [place] [address] Dr. Umm Banuelos PROF 14(COMP METB)on 022 Albumin [Mass/Vol] 3.6 g/dL Normal 3.4-5.0 [facility] Comment on above: Performed By: #### C MP #### [facility] [address] [place] [address] Dr. Umm Banuelos Albumin/Globulin [Mass ratio] 0.9 {ratio} Normal [facility] Comment on above: Performed By: #### C MP #### [facility] [address] [address] [address] Umm Banuelos ALP [Catalytic activity/Vol] 102 U/L Normal 46-116 [facility] Comment on above: Performed By: #### C MP #### [facility] [address] [place] [address] Dr. Umm Banuelos ALT [Catalytic activity/Vol] 22 U/L Normal 14-59 [facility] Comment on above: Performed By: #### C MP #### [facility] [address] [place] [address] Dr. Umm Banuelos Anion gap [Moles/Vol] 12.5 mmol/L Normal [facility] Comment on above: Performed By: #### C MP #### [facility] [address] [place] [address] Dr. Umm Banuelos AST [Catalytic activity/Vol] 14 U/L Critically low 15-37 [facility] Comment on above: Performed By: #### C MP #### [facility] [address] [place] [address] Dr. Umm Banuelos Bilirubin [Mass/Vol] 0.1 mg/dL Critically low 0.2-1.3 [facility] Comment on above: Performed By: #### C MP #### [facility] [address] [place] [address] Dr. Umm Banuelos Calcium [Mass/Vol] 8.6 mg/dL Normal 8.5-10.1 [facility] Comment on above: Performed By: #### C MP #### [facility] [address] [place] [address] Dr. Umm Banuelos Chloride [Moles/Vol] 103 mmol/L Normal 98-107 [facility] Comment on above: Performed By: #### C MP #### [facility] [address] [place] [address] Dr. Umm Banuelos CO2 [Moles/Vol] 25.2 mmol/L Normal 22.0-30.0 [facility] Comment on above: Performed By: #### C MP #### [facility] [address] [address] [address] Umm Banuelos Creatinine [Mass/Vol] 1.15 mg/dL Critically high 0.52-1.04 [facility] Comment on above: Performed By: #### C MP #### [facility] [address] [address] [address] Umm Banuelos EGFR-AF CYMRAES >60 Normal >=60 [facility] Comment on above: Performed By: #### C MP #### [facility] [address] [address] [address] Umm Banuelos EGFR-NON AF CYMRAES 57 mL/min/1.73m2 Critically low >=60 [facility] Comment on above: Performed By: #### C MP #### [facility] [address] [address] [address] Umm Banuelos Globulin (S) [Mass/Vol] 4.0 g/dL Normal [facility] Comment on above: Performed By: #### C MP #### [facility] [address] [address] [address] Umm Banuelos Glucose [Mass/Vol] 94 mg/dL Normal 74-106 [facility] Comment on above: Performed By: #### C MP #### [facility] [address] [address] [address] Umm Banuelos Potassium [Moles/Vol] 3.7 mmol/L Normal 3.4-5.0 [facility] Comment on above: Performed By: #### C MP #### [facility] [address] [address] [address] Umm Banuelos Protein [Mass/Vol] 7.6 g/dL Normal 6.1-8.2 [facility] Comment on above: Performed By: #### C MP #### [facility] [address] [address] [address] Umm Banuelos Sodium [Moles/Vol] 137 mmol/L Normal 137-145 [facility] Comment on above: Performed By: #### C MP #### [facility] [address] [address] [address] Umm Banuelos Urea nitrogen [Mass/Vol] 11.0 mg/dL Normal 7.0-18.0 [facility] Comment on above: Performed By: #### C MP #### [facility] [address] [address] [address] Umm Banuelos Urea nitrogen/Creatinine [Mass ratio] 9.6 mg/mg Normal [facility] Comment on above: Performed By: #### C MP #### [facility] [address] [place] [address] Dr. Umm Banuelos SALICYLATEon 11-13-2021 SALICYLATE 2.1 mg/dL Normal <=20.0 [facility] Comment on above: Performed By: #### S ALYC #### [facility] [address] [place] [address] Dr. Umm Banuelos Vital Signs Date Time Vital Sign Value Performing Clinician Facility 03-06-2023 17:20-0400 Body height 162.56 cm Anitha Grande Other [email or web address] Other 03-06-2023 17:20-0400 Body mass index (BMI) [Ratio] 49.7 kg/m2 Anitha Grande Other [facility] Other 03-06-2023 17:20-0400 Body temperature 98.4 [degF] Anitha Grande Other [facility] Other 03-06-2023 17:20-0400 Body weight 131.36 kg Anitha Grande Other [facility] Other 03-06-2023 17:20-0400 Diastolic blood pressure 65 mm[Hg] Anitha Grande Other [facility] Other 03-06-2023 17:20-0400 Respiratory rate 18 /min Anitha Grande Other [facility] Other 03-06-2023 17:20-0400 SaO2% (BldA) [Mass fraction] 98 % Anitha Grande Other [facility] Other 03-06-2023 17:20-0400 Systolic blood pressure 106 mm[Hg] Anitha Grande Other [facility] Other 09-28-2022 16:00-0500 Body height 162.56 cm Reshma Guevaraault Other [facility] Other 09-28-2022 16:00-0500 Body mass index (BMI) [Ratio] 47.54 kg/m2 Reshma Guevaraault Other [facility] Other 09-28-2022 16:00-0500 Body temperature 96.2 [degF] Reshma Winifred Other [facility] Other 09-28-2022 16:00-0500 Body weight 125.65 kg Reshma Winifred Other [facility] Other 09-28-2022 16:00-0500 Respiratory rate 18 /min Reshma Guevaraault Other [facility] Other 09-28-2022 16:00-0500 SaO2% (BldA) [Mass fraction] 95 % Reshma Winifred Other [facility] Other 07-05-2022 14:15-0500 Body height 162.56 cm Brunilda Rico Other [facility] Other 07-05-2022 14:15-0500 Body mass index (BMI) [Ratio] 48.91 kg/m2 Brunilda Rico Other [facility] Other 07-05-2022 14:15-0500 Body temperature 97.1 [degF] Brunilda Rioc Other [facility] Other 07-05-2022 14:15-0500 Body weight 129.28 kg Brunilda Rico Other [facility] Other 07-05-2022 14:15-0500 Respiratory rate 18 /min Brunilda Rico Other [facility] Other 07-05-2022 14:15-0500 SaO2% (BldA) [Mass fraction] 97 % Brunilda Rico Other [facility] Other 11-18-2021 09:03-0400 Body temperature 97.6 [degF] MD Ted Pisano Work Phone: [facility] 11-18-2021 09:03-0400 Diastolic blood pressure 84 mm[Hg] MD Ted Pisano Work Phone: [facility] 11-18-2021 09:03-0400 Heart rate 69 /min MD Ted Pisano Work Phone: [facility] 11-18-2021 09:03-0400 Respiratory rate 16 /min MD Ted Pisano Work Phone: [facility] 11-18-2021 09:03-0400 SaO2% (BldA) [Mass fraction] 98 % MD Ted Pisano Work Phone: [facility] 11-18-2021 09:03-0400 Systolic blood pressure 148 mm[Hg] MD Ted Pisano Work Phone: [facility] 11-15-2021 14:55-0400 Body height 162.56 cm MD Ted Pisano Work Phone: [facility] 11-15-2021 08:58-0400 Body weight 128.36 kg MD Ted Pisano Work Phone: [facility] 11-13-2021 07:18-0400 Body mass index (BMI) [Ratio] 48 kg/m2 MD Ted Pisano Work Phone: [facility] Encounters Encounter Date Encounter Type Care Provider Facility Start: 12-04-2023 End: 12-04-2023 [facility] Start: 12-01-2023 ambulatory [facility] Start: 10-24-2023 End: 10-24-2023 ambulatory MARIA E PHAMO Not Available Start: 10-04-2023 End: 10-04-[address] [facility] Start: 10-04-2023 End: 10-04-2023 Office outpatient visit 15 minutes Dinasaeed Conner POCKET SETTER LOCKSTITCH-SCREENING NURSE [facility] Comment on above: COVID-19 (Primary Dx ); Nausea Start: 09-27-2023 Chart abstracting Scanning Pro vider External [facility] Start: 09-05-2023 End: 09-05-2023 ambulatory [facility] Start: 08-23-2023 End: 08-23-2023 ambulatory [facility] Start: 08-22-2023 End: 08-22-[address] [facility] Start: 08-21-2023 Refill Dina miller POCKET SETTER LOCKSTITCH-SCREENING NURSE Work Phone: [facility] Comment on above: Upper respiratory tr act infection, unspecified type Start: 07-25-2023 End: 07-25-2023 ambulatory DINA CONNER [facility] Start: 03-06-2023 End: 03-06-2023 ambulatory Anitha Grande Other [email or web address] Other Start: 03-06-2023 Office outpatient vi sit 15 minutes Anitha Sandi [facility] Start: 09-28-2022 End: 09-28-2022 ambulatory Reshma Winifred Other [email or web address] Other Start: 09-28-2022 Office outpatient vi sit 15 minutes Reshma Winifred [facility] Start: 08-12-2022 End: 08-12-2022 Emergency department patient visit QASIM PEDRO DO Facility:[id number] Start: 07-05-2022 End: 07-05-2022 ambulatory Brunilda Rico Other [facility] Other Start: 07-05-2022 Office outpatient vi sit 25 minutes Brunilda Rico [facility] Start: 01-01-2022 End: 01-01-2022 ambulatory JEANNIE JIMÉNEZ Facility:[facility] Start: 11-13-2021 End: 11-18-2021 Evaluation and management of inpatient Dione Lerma Facility:[facility] Start: 11-13-2021 End: 11-18-2021 Evaluation and management of inpatient MD Ted Pisano Work Phone: [facility] Start: 11-13-2021 End: 11-13-[address] PRICILA NELSON Facility:[facility] Start: 11-04-2021 End: 11-05-[address] TED PISANO Facility:[facility] Procedures Date Procedure Procedure Detail Performing Clinician Start: 08-22-2023 Adult depression screening assessment [facility] External Start: 07-25-2023 Adult depression screening assessment Dina Conner POCKET SETTER LOCKSTITCH-SCREENING NURSE Work Phone: Plan of Treatment Date Care Activity Detail Author Start: 08-24-2024 Tobacco Screening Tobacco Screening [facility] Start: 08-22-2024 Adult BMI Follow Up Plan Adult BMI Follow Up Plan [facility] Start: 08-22-2024 Adult BMI Screening Adult BMI Screening [facility] Start: 08-22-2024 Depression Screening Depression Screening [facility] Start: 07-25-2024 Adult BMI Follow Up Plan Adult BMI Follow Up Plan [facility] Start: 07-25-2024 Adult BMI Screening Adult BMI Screening [facility] Start: 07-25-2024 Depression Screening Depression Screening [facility] Start: 07-25-2024 Tobacco Screening Tobacco Screening [facility] Start: 01-02-2024 End: 01-02-2024 Patient encounter procedure 01/02/2024 10:00 AM EDT Office Visit [facility] [address] [place] [address] Dina Conner, POCKET SETTER LOCKSTITCH-SCREENING NURSE [address] [place] [address] [facility] Start: 12-18-2023 End: 12-18-2023 Patient encounter procedure 12/18/2023 4:30 PM EDT Office Visit [facility] [address] [place] [address] Dina Conner, POCKET SETTER LOCKSTITCH-SCREENING NURSE [address] [place] [address] [facility] Start: 10-10-2023 End: 10-10-2023 Patient encounter procedure 10/10/2023 9:00 AM EDT [facility] [address] [place] [id number] Mary Dhillon MD [address] [place] [address] [facility] Start: 08-22-2023 End: 08-22-2023 Patient encounter procedure 08/22/2023 2:45 PM EST Office Visit [facility] [address] [place] [address] Dina Conner POCKET SETTER LOCKSTITCH-SCREENING NURSE [address] [place] [address] [facility] Start: 03-31-2023 COVID-19 Vaccine ( season) COVID-19 Vaccine () [facility] Start: 03-31-2023 Influenza vaccination Influenza Vaccine [facility] Start: 09-30-2019 DTaP,Tdap and Td Vaccines (7 - Td or Tdap) DTaP,Tdap and Td Vaccines (7 - Td or Tdap) [facility] Start: 2017 Screening for malignant neoplasm of cervix Pap Smear [facility] Start: 1996 Tobacco Counseling Tobacco Counseling [facility] Patient Education Depression, Ad ult (DC) [facility] [place] Instructions [facility] Work Phone: Patient referral [facility] Work Phone: Immunizations Immunization Date Immunization Notes Care Provider Fa cility 05-19-2022 influenza virus vacc ine, unspecified formulation Dina Conner POCKET SETTER LOCKSTITCH-SCREENING NURSE Work Phone: [facility] 07-27-2021 Hepatitis B vaccine (recombinant), CpG adjuvanted Dina Conner POCK[employer]TER LOCKSTITCH-SCREENING NURSE Work Phone: [facility] 05-27-2021 influenza virus vacc ine, unspecified formulation Dina Conner POCKET SETTER LOCKSTITCH-SCREENING NURSE Work Phone: [facility] 10-07-2020 COVID-19 Vaccine, vector-nr, rS-Ad26, PF, 0.5mL Dina Conner POCKET [employer]TER LOCKSTITCH-SCREENING NURSE Work Phone: [facility] 08-12-2020 influenza, injectabl e, quadrivalent, preservative free Dina Ubaldo [facility] Work Phone: [facility] 04-20-2018 influenza, injectabl e, quadrivalent, preservative free Dina Conner [facility] Work Phone: [facility] 04-21-2017 influenza, injectabl e, quadrivalent, preservative free Dina Conner [employer] Work Phone: [facility] 01-07-2010 human papilloma viru s vaccine, quadrivalent Dina Conner [employer] Work Phone: [facility] 01-07-2010 varicella virus vaccine Liliana Conner [employer] Work Phone: [facility] 09-29-2009 human papilloma viru s vaccine, quadrivalent Dina Conner [employer] Work Phone: [facility] 09-29-2009 tetanus toxoid, redu alem diphtheria toxoid, and acellular pertussis vaccine, adsorbed Dina Conner [facility] Work Phone: [facility] 06-24-2009 human papilloma viru s vaccine, quadrivalent Dina Conner [employer] Work Phone: [facility] 06-24-2009 meningococcal polysaccharide (groups A, C, Y and W-135) diphtheria toxoid conjugate vaccine (MCV4P) Dina Conner [employer] Work Phone: [facility] 09-05-2001 diphtheria, tetanus toxoids and acellular pertussis vaccine, unspecified formulation Dina Conner [employer] Work Phone: [facility] 09-05-2001 poliovirus vaccine, inactivated Dina Conner [employer] Work Phone: [facility] 07-18-2000 measles, mumps and rubella virus vaccine Dina Ubaldo [employer] Work Phone: [facility] 02-06-1998 diphtheria, tetanus toxoids and acellular pertussis vaccine, unspecified formulation Dina Conner [employer] Work Phone: [facility] 11-06-1997 measles, mumps and rubella virus vaccine Dina Conner [employer] Work Phone: [facility] 11-06-1997 varicella virus vaccine Liliana Conner [facility] Work Phone: [facility] 08-07-1997 haemophilus influenz ae type b vaccine, PRP-T conjugate Dina Conner [facility] Work Phone: [facility] 08-07-1997 poliovirus vaccine, inactivated Dina Conner [facility] Work Phone: [facility] 06-03-1997 hepatitis B vaccine, pediatric or pediatric/adolescent dosage [facility] Work [facility]: [facility] 02-27-1997 diphtheria, tetanus toxoids and acellular pertussis vaccine, unspecified formulation Dina Conner [facility] Work Phone: [facility] 02-27-1997 haemophilus influenz ae type b vaccine, conjugate unspecified formulation Dina Conner [facility] Work Phone: [facility] 1996 diphtheria, tetanus toxoids and acellular pertussis vaccine, unspecified formulation Dina Conner [facility] Work Phone: [facility] 1996 haemophilus influenz ae type b vaccine, conjugate unspecified formulation Dina Conner [facility] Work Phone: [facility] 1996 poliovirus vaccine, unspecified formulation Dina Conner [facility] Work Phone: [facility] 1996 diphtheria, tetanus toxoids and acellular pertussis vaccine, unspecified formulation [facility] Work Phone: [facility] 1996 haemophilus influenz ae type b vaccine, conjugate unspecified formulation [facility] Work Phone: [facility] 1996 poliovirus vaccine, unspecified formulation [facility]ed [facility] Work Phone: [facility] 1996 hepatitis B vaccine, pediatric or pediatric/adolescent dosage [facility] Work Phone: [facility] 1996 hepatitis B vaccine, pediatric or pediatric/adolescent dosage [facility] Work Phone: [facility] Payers Date Payer Category Payer Unknown [id number] 2021 Self-pay [id number] 2008 Unknown 1996 Unknown [id number] 2.16.84 [id number] 1996 Unknown [id number] 2.16.84 [id number] 1996 Unknown [id number] 2.16.84 [id number] 1996 Unknown [id number] 2.16.8 [id number] 1996 Unknown [id number] 2.16.8 [id number] 1996 Unknown [id number] 2.16.8 [id number] 1996 Unknown [id number] 2.16.84 [id number] 1996 Unknown [id number] 2.16.8 [id number] 1996 Unknown [id number] 2.16.8 [id number] 1996 Unknown [id number] 2.16.8 [id number] 1996 Unknown [id number] 2.16.8 [id number] 1996 Unknown [id number] 2.16.84 [id number] 1959 Unknown [id number] 1959 Unknown [id number] 1959 [id number] Unknown Self Pay [id number] Unknown [id number] 2.16.8 [id number] Social History Date Type Detail Facility Start: 11-13-2021 Tobacco smoking stat [facility] Smoker (finding) [facility] Start: 1995 Sex Assigned At Female [facility] Start: 08-28-2020 End: 07-25-2023 Sex Assigned At [facility] Start: 12-15-2022 Tobacco smoking stat [facility] Smokes tobacco daily [facility] History of tobacco use Cigarette Smoker P [facility] Start: 08-28-2020 End: 12-15-2022 Cigarettes smoked current (pack per day) - Reported 0.5 [facility] Start: 12-15-2022 Tobacco use and exposure Smokeless tobacco non-user [facility] Start: 07-25-2023 End: 10-04-2023 Alcohol intake Lifetime non-drinker (finding) [facility] How hard is it for y ou to pay for the very basics like food, housing, medical care, and heating Not hard at all [facility] Start: 05-10-2021 Alcohol Comment Socially. [facility] Start: 1996 Sex Assigned At Not on file P [facility] Functional Status Date Assessment Result Facility 11-18-2021 Functional status Patient at Baseline [facility] Work Phone: Mental Status Date Assessment Result Facility 11-18-2021 Cognitive function Cognitive Sta tus Patient at Baseline [facility] Work Phone: Clinical Notes 11-13-2021 to 10-04-2023 Dina Conner[facility] 10/04/2023 10:20 AM EST Note Date & Type Note Facility 10-04-2023 History of Present illness Narrative Images from the original note were not included. [address] [place] [address] SUBJECTIVE: Video Visit via Real-time Synchronous Audiovisual Provider Location: [facility] [address] [place] [address] Patient Location: Patient's home Video Visit Consent [...] that there are some limitations compared to [id number] evaluations. The patient consented to the presence [...] throat. Motrin or Tylenol as needed per plastic extruding machine operator guidelines for fever or pain. ALL QUESTIONS ANSWERED Total time spent was 25 minutes: Preparing to see the patient (e.g., review of tests) Obtaining and/or reviewing separately obtained history Performing a medically appropriate examination and/or evaluation Counseling and educating the patient/family/caregiver Ordering medications, tests, or procedures Follow-up: Next scheduled Sooner if needed RODNEY Mayers 10/04/23 1055 documented in this encounter [facility] 03-06-2023 Evaluation note Encounter Date Diagnosis Assessment [...] going. Patient verbalized understanding of treatment plan. [email or web address] Other 03-01-2023 Evaluation note* Encounter Date Diagnosis Assessment Notes Treatment Notes Treatment Clinical Notes Sep, Intractable migraine with aura without status migrainosus (ICD-10 - G43.119) Take medication as directed. Stay away from known triggers. Follow up with primary care provider or neurology if symptoms persist as new treatment option may need to be discussed. [email or web address] Other 01-13-2023 NoteED Nursing Discharge Summary Entered On: 08/12/2022 15:18 EST Performed On: 08/12/2022 15:15 EST by Marcia Moralez RN [place] Information [id number] ED IV's : No IV ED IV Site Assessment : No IV ED Vitals Completed : N/A ED Final Assessment Completed : Yes ED Progress Note Completed : Yes Complete all PRN/Pain response forms? : N/A ED Disassociate Patient from Monitor : N/A Updated Depart Time : Yes ED Belongings sent w patient [id number] : Not applicable Marcia Moralez RN - [...] RN - 08/12/2022 15:18 EST [facility]12-06-2022 Evaluation note * Encounter Date Diagnosis [...] treatment plan. Patient left in stable condition [email or web address] Other 04-21-2022 Discharge summary Author Hank ellison [facility] November 18, 2021 8:13am Note Date/Time November 18, 2021 8:1 1am [facility] [address] [place] [address] Discharge Summary Signed Patient: Franki Quiroz MR#: [id number] : 1995 Acct:[id number] Age/Sex: 26 / F Adm Date: 2 Loc: Room: [address] [place] [address]: Dione Lerma MD Copies to: [...] She felt better than before coming to [facility] and feels hopeful regarding her future. She [...] <Electronically signed by Hank Lerma MD> 11/18/21 08 [facility] Work Phone: 1(194) 969-374804-20-2022 Progress note Author Hank ellison [facility] November 17, 2021 7:39am Note Date/Time November 17, 2021 7:3 9am [facility] [address] [place] [address] Psychiatry Progress Note Signed Patient: Franki Quiroz MR#: [id number] : 1995 Acct:[id number] Age/Sex: 26 / F Adm Date: 2 Loc: Room: [address] [place] [address] Type : ADM IN Attending Dr: Dione [...] understanding. Documented By: Hank Lerma MD 2 0737 Signed By: <Electronically signed by Hank Lerma MD> 11/17/21 0739 [facility] Work Phone: 1(482) 821-143804-19-2022 Progress note Author Hank ellison [facility] November 16, 2021 8:14am Note Date/Time November 16, 2021 8:1 4am [facility] [address] [place] [address] Psychiatry Progress Note Signed Patient: Franki Quiroz MR#: [id number] : 1995 Acct:[id number] Age/Sex: 26 / F Adm Date: 2 Loc: Room: [address] [place] [address] Type : ADM IN Attending Dr: Dione [...] verbalized understanding. Documented By: Hank Lerma MD 0813 Signed By: <Electronically signed by Hnak Lerma MD> 11/16/21 0814 [facility] Work Phone: 1(784) 761-545004-18-2022 Progress note Author Hank ellison [facility] November 15, 2021 8:56am Note Date/Time November 15, 2021 8:5 6am [facility] [address] [place] [address] Psychiatry Progress Note Signed Patient: Franki Quiroz MR#: [id number] : 1995 Acct:[id number] Age/Sex: 26 / F Adm Date: 2 Loc: Room: [address] [place] [address] Type : ADM IN Attending Dr: Dione [...] understanding. Documented By: Hank Lerma MD 2 0855 Signed By: <Electronically signed by Hank Lerma MD> 11/15/21 0856 [facility] Work Phone: 1(941) 146-186404-17-2022 Progress note Author Hank ellison [facility] November 14, 2021 8:11am Note Date/Time November 14, 2021 8:1 0am [facility] [address] [place] [address] Psychiatry Progress Note Signed Patient: Franki Quiroz MR#: [id number] : 1995 Acct:[id number] Age/Sex: 26 / F Adm Date: 2 Loc: Room: 8O4995-3 Type : ADM IN Attending Dr: Dione [...] signed by Hank Lerma MD> 11/14/21 0811 [facility] Work Phone: 1(107) 771-840004-16-2022 History and physical note Author Hank ellison [facility] November 13, 2021 9:19am Note Date/Time November 13, 2021 9:1 8am [facility] [address] [place] [address] Psychiatry H&P Signed Patient: Franki Quiroz MR#: [id number] : 1995 Acct:[id number] Age/Sex: 26 / F Adm Date: 2 Loc: 1S Room: [address] [place] [address] Type : ADM IN Attending Dr: Dione [...] or mental status exam at this [facility]. [facility] Vacc[facility] for [facility]-19?: Yes Medical History (Updated [...] signed by Hank Lerma MD> 11/13/21 0919 [facility] Work Phone: Evaluation note* Diagnosis Onset Date Resolution Status Major depressive disorder, recurrent, moderate acute PTSD (post-traumatic stress disorder) acute [facility] Work Phone: Evaluation note* Diagnosis Upper respiratory tract infection, unspecified type documented in this encounter [facility] [employer] SystemEvaluation note* Diagnosis COVID-19- Primary Nausea Nausea alone documented in this encounter [facility] [employer] SystemHistory general Narrative - Reported* Type Description Date Medical History migraines Medical History asthma Medical History depression and anxity Medical History meningitis Surgical History C section Hospitalization History meningitis [facility] Other Hospital Discharge instructions Additional Instructions Regular diet. No activity restrictions.[facility] Work Phone: InstructionsNot on filedocumented in this encounter [employer] SystemInstructionsNot on filedocumented in this encounter [facility] SystemInstructions* Attachments The following attachments cannot be sent through Care Everywhere. * COVID-19 overview (Turkish) [facility] Chief Complaint and Reason for [...] Ted Pisano MD Primary Care Provider Active Director Of Content Marketing Relationship Specialty Start Date End Date Dina Conner, [facility] [address] [place] [address] PCP - General Family Medicine 06/01/21 Director Of Content Marketing Relationship Specialty Start Date End Date Dina Conner [facility] [address] [place] [address] PCP - General Family Medicine 06/01/21 Director Of Content Marketing Relationship Specialty Start Date End Date Dina Conner [facility] [address] [place] [address] PCP - General Family Medicine 06/01/21 Goals (unrecognized section and content) Goals may be documented in a n alternate sectionNo InformationNo InformationNo InformationNot on filedocumented as of this encounterNot on filedocumented as of this encounterNot on filedocumented as of this encounter INFORMATION SOURCE (unrecogn ized section and content) DATE CREATED AUTHOR 04/27/2022 [facility] DATE CREATED AUTHOR AUTHOR'S ORGANIZ ATION 08/15/2022 [facility] DATE CREATED AUTHOR AUTHOR'S ORGANIZ ATION 09/03/2022 [facility] DATE CREATED AUTHOR AUTHOR'S ORGANIZ ATION 08/26/2023 [facility] DATE CREATED AUTHOR AUTHOR'S ORGANIZ ATION 09/10/2023 [facility] DATE CREATED AUTHOR AUTHOR'S ORGANIZ ATION 10/25/2023 [facility] EPIC DATE CREATED AUTHOR AUTHOR'S ORGANIZ ATION 12/05/2023 [facility] REASON FOR VISIT (unrecogniz ed [...] BE BASED ON THE PRIMARY CLINICAL RECORDS. [facility]. provides no warranty or guarantee of the accuracy or completeness of information in this document.
== END 2023-12-05 20:30 | disposition home or self-care (01) ==
LOC: LAB 20:29
PROVIDERS: PCP Nurse Practitioner; Visit Provider Obstetrics & Gynecology
DX: Z01.419 Encounter for gynecological examination (general) (routine) without abnormal findings (principal)
CPT/HCPCS: G0145

== ENCOUNTER 2023-12-09 11:37 | Emergency (ER) | payer BC, SELFPAY ==
[2023-12-09 11:43] VITALS: BP 142/88; PULSE 84; TEMP 36.7; O2SAT 97; BMI 48.1
[2023-12-09 12:01] LABS: Basophils Absolute Auto 0.1 10^3/uL (0.0-0.1); Basophils Percent Auto 0.6 % (0.2-2.0); Eosinophils Absolute Auto 0.1 10^3/uL (0.0-0.7); Eosinophils Percent Auto 0.9 % (0.9-7.0); Hematocrit 39.6 % (36.0-48.0); Hemoglobin 12.6 g/dL (12.0-16.0); Immature Granulocytes Abs Auto 0.05 10^3/uL (0.00-0.03); Immature Granulocytes Pct Auto 0.5 % (0.0-0.5); Lymphocytes Absolute Auto 2.8 10^3/uL (1.2-3.8); Lymphocytes Percent Auto 25.6 % (20.5-60.0); Mean Corpuscular HGB Conc 31.8 g/dL (29.9-35.2); Mean Corpuscular Hemoglobin 30.1 pg (26.7-34.0); Mean Corpuscular Volume 94.5 fL (81.0-99.0); Mean Platelet Volume 9.7 fL (9.5-13.5); Monocytes Absolute Auto 0.7 10^3/uL (0.3-0.8); Monocytes Percent Auto 6.3 % (1.7-12.0); Neutrophils Absolute Auto 7.2 10^3/uL (1.4-6.5); Neutrophils Percent Auto 66.1 % (43.0-75.0); Platelet Count 305 10^3/uL (150-450); Red Blood Count 4.19 10^6/uL (4.20-5.40); Red Cell Distribution Width 12.5 % (11.0-15.0); White Blood Count 10.9 10^3/uL (4.0-11.0)
--- NOTE | 2023-12-09 12:08 | CT_ITS ---
[address] [address] Patient Name: FRANKI HENRIQUEZ MRN: [id number] date: 1995 Sex: F Assigned Patient Location: ER Current Patient Location: ER Accession/Order Number: [id number] Exam Date: 12/09/2023 13:15 Report Date: 12/09/2023 13:59 At the request of: MINERVA LAGOS Procedure: CT abdomen pelvis w con CT ABDOMEN AND PELVIS WITH CONTRAST: INDICATION: Lower abdominal pain. COMPARISON: 01/01/2022. TECHNIQUE: Helical CT images of the abdomen and pelvis were obtained after the administration of intravenous contrast. Dose reduction techniques were achieved by using automated exposure control and/or adjustment of mA and/or kV according to patient size and/or use of iterative reconstruction technique. FINDINGS: LOWER CHEST: There is a 3 mm pulmonary nodule in the left lower lobe (series 3, image 7). This appears unchanged since the prior study and likely benign. LIVER: Unremarkable. GALLBLADDER AND BILIARY SYSTEM: Unremarkable. SPLEEN: The spleen is mildly enlarged measuring 13.2 cm in craniocaudal dimension. PANCREAS: Unremarkable. ADRENAL GLANDS: Unremarkable. KIDNEYS AND URETERS: The kidneys enhance symmetrically. There is no hydronephrosis. No focal renal lesions. Duplicated right renal collecting system. BLADDER: Unremarkable. GASTROINTESTINAL TRACT: No evidence of bowel obstruction or colitis. Normal appendix. VASCULATURE: Unremarkable. RETROPERITONEUM AND LYMPH NODES: No lymphadenopathy or mass. PERITONEUM/MESENTERY: No abdominal ascites. No free air. PELVIS: There is an intrauterine device noted within the endometrial canal, in expected location. No pelvic ascites or lymphadenopathy. BODY WALL: Tiny fat-containing umbilical hernia. BONES: No acute abnormality. CT/CT abdomen pelvis w con IMPRESSION: 1. No acute process in the abdomen or pelvis. 2. Mild splenomegaly. 3. IUD in place. Electronically authenticated by: KENDAL DUDLEY Date: 12/09/2023 13:59
[2023-12-09] MEDS: KETOROLAC TROMETHAMINE 30 MG/ML VIAL 15 MG IVP (12:18)
[2023-12-09] MEDS: ONDANSETRON PF 4 MG/2 ML VIAL IV (12:18)
[2023-12-09 12:23] LABS: Alanine Aminotransferase 35 U/L (14-59); Albumin Globulin Ratio 0.8; Albumin Level 3.6 g/dL (3.4-5.0); Alkaline Phosphatase 111 U/L (46-116); Anion Gap 14.6; Aspartate Amino Transferase 16 U/L (15-37); BUN Creatinine Ratio 12.4; Bilirubin Total 0.2 mg/dL (0.2-1.0); Calcium 9.7 mg/dL (8.5-10.1); Carbon Dioxide 24.6 mmol/L (21.0-32.0); Chloride 103 mmol/L (98-107); Estimated GFR (African America >60 (>=60); Estimated GFR (Non-African Ame >60 (>=60); Globulin 4.3 g/dL; Glucose 100 mg/dL (74-106); Potassium 4.2 mmol/L (3.5-5.1); Sodium 138 mmol/L (136-145); Total Protein 7.9 g/dL (6.4-8.2)
--- OUTSIDE RECORDS SUMMARY | 2023-12-09 12:23 | XMS_ITS | CCD ---
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 riskChol 201-239 mg/dl borderline riskChol 240 mg/dl and greater high risk Cholesterol in LDL Calc [Mas s/Vol]Ordered By: Hank Lerma on 11-14-2021 Cholesterol in LDL [Mass/Vol] 122 mg/dL 0-100 [facility] Comment on above: LDL ATP III CLASSIFI CATIONLDL less than 100 mg/dL OptimalLDL 100-129 mg/dL Near or above optimalLDL 130-159 mg/dL Borderline highLDL 160-189 mg/dL HighLDL greater than 189 mg/dL Very high Cholesterol in VLDL Calc [Ma ss/Vol]Ordered By: Hank Lerma on 11-14-2021 Cholesterol in VLDL [Mass/Vol] 45 mg/dL [facility] ECG 12 lead ECGon 11-14-2021 ECG 12 lead ECG [facility] [place] [address] Electrocardiograph Report Signed Patient: Franki Quiroz MR#: [id number] 7 : 1995 Acct:[id number] Age/Sex: 26 / F ADM Date: 11/13/21 Loc: Room: [address] [place] [address] Type: DIS IN Attending Dr: Dione Lerma [...] By Jun Bo DO 11/16 1830 Normal [facility] Lipid Panelon 11-14-2021 Cholesterol [Mass/Vol] 216 mg/dL High 140-200 [facility] Comment on above: Result Comment: Chol less than 200 mg/dl low risk Chol 201-239 mg/dl borderline risk Chol 240 mg/dl and greater high risk Performed By: #### L IPID, TSH3 wRFLX, [id number] #### [facility] [address] Cholesterol in HDL [Mass/Vol] 48 mg/dL Normal 35-85 [facility] Comment on above: Result Comment: HDL CHOL ATP-III CLASSIFICATION Cardiovascular Risk HDL > or equal to 60 mg/dL LOW HDL < 40 mg/dL HIGH Performed By: #### L IPID, TSH3 wRFLX, [id number] #### [facility] [address] [place] [address] [place] Cholesterol.total/Cho lesterol in HDL [Mass ratio] 4.5 {ratio} Normal <5.0 [facility] Comment on above: Performed By: #### L IPID, TSH3 wRFLX, [id number] #### [facility] [address] [place] [address] [place] LDL Cholesterol,Calculate d 122 mg/dL High 0-100 [facility] Comment on above: Result Comment: LDL ATP III CLASSIFICATION LDL less than 100 mg/dL Optimal LDL 100-129 mg/dL Near or above optimal LDL 130-159 mg/dL Borderline high LDL 160-189 mg/dL High LDL greater than 189 mg/dL Very high Performed By: #### L IPID, TSH3 wRFLX, [id number] #### [facility] [address] Triglyceride w/Reflex 229 mg/dL High 35-149 [facility] Comment on above: Result Comment: TRIG ATP III CLASSIFICATION TRIG less than 150 mg/dL Normal TRIG 150-199 mg/dL Borderline high TRIG 200-500 mg/dL High TRIG greater than 500 mg/dL Very high Standard traceable to the Center for Disease Conrtrol and Prevention (CDC) test method. Performed By: #### L IPID, TSH3 wRFLX, [id number] #### [facility] [address] VLDL CHOLESTEROL 45 mg/dL Normal [facility] Comment on above: Performed By: #### L IPID, TSH3 wRFLX, [id number] #### [facility] [address] No Panel InformationOrdered By: Hank Lerma on 11-14-2021 25-Hydroxy Vitamin D Total 25.8 ng/mL 30-100 [facility] Comment on above: VITAMIN D [...] Cholesterol in HDL [Mass/Vol] 48 mg/dL 35-85 [facility] Comment on above: HDL CHOL ATP-III CLA SSIFICATION Cardiovascular RiskHDL > or equal to 60 mg/dL LOWHDL < 40 mg/dL HIGH Serum or plasma total choles terol/high density lipoprotein (HDL) cholesterol mass ratOrdered By: Hank Lerma on 11-14-2021 Cholesterol.total/Cho lesterol in HDL [Mass ratio] 4.5 {ratio} [facility] TSH DL <= 0.005 mIU/L QnOrde red By: Hank Lerma on 11-14-2021 TSH Qn 0.98 m[IU]/L 0.45-5.33 [facility] Thyroid Stim Hormone w/Rflxo n 11-14-2021 Thyroid Stim Hormone w/Rflx 0.98 u[iU]/mL Normal 0.45-5.33 [facility] Comment on above: Performed By: #### L IPID, TSH3 wRFLX, [id number] #### [facility] [address] [id number] [facility] Triglyceride [Mass/volume] i n Serum or PlasmaOrdered By: Hank Lerma on 11-14-2021 Triglyceride [Mass/Vol] 229 mg/dL 35-149 [facility] Comment on above: TRIG ATP III CLASSIF ICATIONTRIG less than 150 mg/dL NormalTRIG 150-199 mg/dL Borderline highTRIG 200-500 mg/dL High TRIG greater than 500 mg/dL Very highStandard traceable to the Center for Disease Conrtrol and Prevention (CDC) test method. Vitamin D 25 Hydroxy Totalon 11-14-2021 Vitamin D 25 Hydroxy Total 25.8 ng/mL Low 30-100 [facility] Comment on above: Result Comment: GENE MIN D STATUS 25(OH)VITAMIN D RANGE (ng/mL) Deficient <20 Insufficient 20 to <30 Sufficient 30 to 100 Reference: Lakisha MF,Chuckie NC, Malcolm WILCOX, et al. Evaluation,treatment, and prevention of vitamin D deficiency; an Endocrine Society clinical practice guideline. JCEM. 2010; 96(7):1911-30. PERFORMED BY: [place] [id number] PATHOLOGIST NUCLEAR STATION OPERATOR ANA JENKINS M.D. Performed By: #### L IPID, TSH3 wRFLX, [id number] #### [facility] [address] [id number] [facility] ACETAMINOPHENon 11-13-2021 Acetaminophen [Mass/Vol] ug/mL Normal 10.0-30.0 [facility] Comment on above: Performed By: #### E TH #### [facility] [address] [place] [address] Dr. Umm Banuelos CBC AUTO DIFFon 11-13-2021 BASO # 0.1 103/ul Normal 0.0-0.1 [facility] Comment on above: Performed By: #### C BC #### [facility] [address] [address] [address] Umm Banuelos Basophils/100 WBC (Bld) 0.3 % Normal 0.2-2.0 [facility] Comment on above: Performed By: #### C BC #### [facility] [address] [address] [address] Umm Banuelos EO # 0.1 103/ul Normal 0.0-0.7 [facility] Comment on above: Performed By: #### C BC #### [facility] [address] [place] [address] Dr. Umm Banuelos Eosinophils/100 WBC (Bld) 0.7 % Critically low 0.9-7.0 [facility] Comment on above: Performed By: #### C BC #### [facility] [address] [place] [address] Dr. Umm Banuelos Erythrocyte distribution width (RBC) [Ratio] 12.7 % Normal 11.0-15.0 [facility] Comment on above: Performed By: #### C BC #### [facility] [address] [place] [address] Dr. Umm Banuelos Hematocrit (Bld) [Volume fraction] 39.5 % Normal 36.0-48.0 [facility] Comment on above: Performed By: #### C BC #### [facility] [address] [place] [address] Dr. Umm Banuelos Hemoglobin (Bld) [Mass/Vol] 12.9 g/dL Normal 12.0-16.0 [facility] Comment on above: Performed By: #### C BC #### [facility] [address] [place] [address] Dr. Umm Banuelos IG # 0.06 10e3/ul Critically high 0.00-0.03 [facility] Comment on above: Performed By: #### C BC #### [facility] [address] [place] [address] Dr. Umm Banuelos IG % 0.4 % Normal 0.0-0.5 [facility] Comment on above: Performed By: #### C BC #### [facility] [address] [place] [address] Dr. Umm Banuelos LYMPH # 3.2 103/ul Normal 1.2-3.8 [facility] Comment on above: Performed By: #### C BC #### [facility] [address] [place] [address] Dr. Umm Banuelos Lymphocytes/100 WBC (Bld) 21.1 % Normal 20.5-60.0 [facility] Comment on above: Performed By: #### C BC #### [facility] [address] [place] [address] Dr. Umm Banuelos MANUAL DIFF REQ NO Normal [facility] Comment on above: Performed By: #### C BC #### [facility] [address] [place] [address] Dr. Umm Banuelos MCH (RBC) [Entitic mass] 31.5 pg Normal 26.7-34.0 [facility] Comment on above: Performed By: #### C BC #### [facility] [address] [place] [address] Dr. Umm Banuelos MCHC (RBC) [Mass/Vol] 32.7 g/dL Normal 29.9-35.2 [facility] Comment on above: Performed By: #### C BC #### [facility] [address] [place] [address] Dr. Umm Banuelos MCV (RBC) [Entitic vol] 96.3 fL Normal 81.0-99.0 [facility] Comment on above: Performed By: #### C BC #### [facility] [address] [place] [address] Dr. Umm Banuelos MONO # 1.0 103/ul Critically high 0.3-0.8 [facility] Comment on above: Performed By: #### C BC #### [facility] [address] [place] [address] Dr. Umm Banuelos Monocytes/100 WBC (Bld) 6.3 % Normal 1.7-12.0 [facility] Comment on above: Performed By: #### C BC #### [facility] [address] [place] [address] Dr. Umm Banuelos NEUT # 10.8 103/ul Critically high 1.4-6.5 [facility] Comment on above: Performed By: #### C BC #### [facility] [address] [place] [address] Dr. Umm Banuelos Neutrophils/100 WBC (Bld) 71.2 % Normal 43.0-75.0 [facility] Comment on above: Performed By: #### C BC #### [facility] [address] [place] [address] Dr. Umm Banuelos Platelet mean volume (Bld) [Entitic vol] 10.1 fL Normal 9.5-13.5 [facility] Comment on above: Performed By: #### C BC #### [facility] [address] [place] [address] Dr. Umm Banuelos PLT 280 103/ul Normal 150-450 [facility] Comment on above: Performed By: #### C BC #### [facility] [address] [place] [address] Dr. Umm Banuelos RBC 4.10 106/ul Critically low 4.20-5.40 [facility] Comment on above: Performed By: #### C BC #### [facility] [address] [place] [address] Dr. Umm Banuelos WBC 15.2 103/ul Critically high 4.0-11.0 [facility] Comment on above: Performed By: #### C BC #### [facility] [address] [place] [address] Dr. Umm Banuelos [facility] SARS-CoV-2 (COVID-19) RNA SANDIE+probe Ql (Unsp spec) Not detected Normal NOT DETECTED [facility] Comment on above: Result Comment: When [...] for this test is supported by the [place] of [employer] and Human Service's declaration that [...] used). Performed By: #### C VDTB #### [facility] [address] [place] [address] Dr. Umm Banuelos DRUG SCREEN RAPID (URINE)on 11-13-2021 AMP Negative Normal NEGATIVE [facility] Comment on above: Performed By: #### E TH #### [facility] [address] [place] [address] Dr. Umm Banuelos BAR Negative Normal NEGATIVE [facility] Comment on above: Performed By: #### E TH #### [facility] [address] [place] [address] Dr. Umm Banuelos BUP Negative Normal NEGATIVE [facility] Comment on above: Performed By: #### E TH #### [facility] [address] [place] [address] Dr. Umm Banuelos BZO Negative Normal NEGATIVE [facility] Comment on above: Performed By: #### E TH #### [facility] [address] [place] [address] Dr. Umm Banuelos KAYLA Negative Normal NEGATIVE [facility] Comment on above: Performed By: #### E TH #### [facility] [address] [place] [address] Dr. Umm Banuelos CUT-OFFS SEE BELOW Normal [facility] Comment on above: Result Comment: AMP (Amphetamine): 500ng/mL, BAR (Barbituates): 200 ng/mL, BZO (Benzodiazepines): 150 ng/mL, BUP (Buprenorphine): 10 ng/mL, KAYLA (Cocaine): 150 ng/mL, mAMP (Methamphetamine): 500 ng/mL, MTD (Methadone): 200 ng/mL, OPI (Opiates): 100 ng/mL, OXY (Oxycodone): 100 ng/mL, PCP (Phencyclidine): 25 ng/mL, PPX (Propoxyphene): 300 ng/mL, THC (Cannabinoids): 50 ng/mL, TCA (Trycyclic Antidepressants): 300 ng/mL Performed By: #### E #### [facility] [address] [place] [address] Dr. Umm Banuelos DRUG CUT HEADER DRUG CLASS TEST SYSTEM CUT-OFF CONCENTRATIONS ARE FOLLOWS: Normal [facility] Comment on above: Performed By: #### E #### [facility] [address] [place] [address] Dr. Umm Banuelos mAMP Negative Normal NEGATIVE [facility] Comment on above: Performed By: #### E #### [facility] [address] [place] [address] Dr. Umm Banuelos MTD Negative Normal NEGATIVE [facility] Comment on above: Performed By: #### E #### [facility] [address] [place] [address] Dr. Umm Banuelos OPI Negative Normal NEGATIVE [facility] Comment on above: Performed By: #### E #### [facility] [address] [place] [address] Dr. Umm Banuelos OXY Negative Normal NEGATIVE [facility] Comment on above: Performed By: #### E #### [facility] [address] [place] [address] Dr. Umm Banuelos PCP Negative Normal NEGATIVE [facility] Comment on above: Performed By: #### E #### [facility] [address] [place] [address] Dr. Umm Banuelos PPX Negative Normal NEGATIVE [facility] Comment on above: Performed By: #### E #### [facility] [address] [place] [address] Dr. Umm Banuelos TCA Negative Normal NEGATIVE [facility] Comment on above: Performed By: #### E TH #### [facility] [address] [address] [address] Umm Banuelos THC Negative Normal NEGATIVE [facility] Comment on above: Performed By: #### E TH #### [facility] [address] [place] [address] Dr. Umm Banuelos ETHANOL (BLD ALC)on 11-14-19 22 ALC NOTE NOTE: 80 mg/dl is th e legal limit for a blood alcohol level Normal [facility] Comment on above: Performed By: #### E TH #### [facility] [address] [place] [address] Dr. Umm Banuelos Ethanol [Mass/Vol] mg/dL Normal [facility] Comment on above: Performed By: #### E TH #### [facility] [address] [place] [address] Dr. Umm Banuelos ALC NOTE NOTE: 80 mg/dl is th e legal limit for a blood alcohol level Normal [facility] Comment on above: Performed By: #### E #### [facility] [address] [place] [address] Dr. Umm Banuelos Ethanol [Mass/Vol] mg/dL Normal [facility] Comment on above: Performed By: #### E #### [facility] [address] [place] [address] Dr. Umm Banuelos PREG HCG QUALon 11-13-2021 , QUAL Negative Normal NEGATIVE [facility] Comment on above: Performed By: #### E #### [facility] [address] [place] [address] Dr. Umm Banuelos URon 11-13-2021 , QUAL Negative Normal NEGATIVE [facility] Comment on above: Performed By: #### E TH #### [facility] [address] [place] [address] Dr. Umm Banuelos PROF 14(COMP METB)on 022 Albumin [Mass/Vol] 3.6 g/dL Normal 3.4-5.0 [facility] Comment on above: Performed By: #### C MP #### [facility] [address] [address] [address] Umm Banuelos Albumin/Globulin [Mass ratio] 0.9 {ratio} Normal [facility] Comment on above: Performed By: #### C MP #### [facility] [address] [address] [address] Umm Banuelos ALP [Catalytic activity/Vol] 102 U/L Normal 46-116 [facility] Comment on above: Performed By: #### C MP #### [facility] [address] [address] [address] Umm Banuelos ALT [Catalytic activity/Vol] 22 U/L Normal 14-59 [facility] Comment on above: Performed By: #### C MP #### [facility] [address] [place] [address] Dr. Umm Banuelos Anion gap [Moles/Vol] 12.5 mmol/L Normal [facility] Comment on above: Performed By: #### C MP #### [facility] [address] [place] [address] Dr. Umm Banuelos AST [Catalytic activity/Vol] 14 U/L Critically low 15-37 [facility] Comment on above: Performed By: #### C MP #### [facility] [address] [place] [address] Dr. Umm Banuelos Bilirubin [Mass/Vol] 0.1 mg/dL Critically low 0.2-1.3 [facility] Comment on above: Performed By: #### C MP #### [facility] [address] [place] [address] Dr. Umm Banuelos Calcium [Mass/Vol] 8.6 mg/dL Normal 8.5-10.1 [facility] Comment on above: Performed By: #### C MP #### [facility] [address] [place] [address] Dr. Umm Banuelos Chloride [Moles/Vol] 103 mmol/L Normal 98-107 [facility] Comment on above: Performed By: #### C MP #### [facility] [address] [address] [address] Umm Banuelos CO2 [Moles/Vol] 25.2 mmol/L Normal 22.0-30.0 [facility] Comment on above: Performed By: #### C MP #### [facility] [address] [address] [address] Umm Banuelos Creatinine [Mass/Vol] 1.15 mg/dL Critically high 0.52-1.04 [facility] Comment on above: Performed By: #### C MP #### [facility] [address] [address] [address] Umm Banuelos EGFR-AF FILIPINO >60 Normal >=60 [facility] Comment on above: Performed By: #### C MP #### [facility] [address] [address] [address] Umm Banuelos EGFR-NON AF FILIPINO 57 mL/min/1.73m2 Critically low >=60 [facility] Comment on above: Performed By: #### C MP #### [facility] [address] [address] [address] Umm Banuelos Globulin (S) [Mass/Vol] 4.0 g/dL Normal [facility] Comment on above: Performed By: #### C MP #### [facility] [address] [address] [address] Umm Banuelos Glucose [Mass/Vol] 94 mg/dL Normal 74-106 [facility] Comment on above: Performed By: #### C MP #### [facility] [address] [address] [address] Umm Banuelos Potassium [Moles/Vol] 3.7 mmol/L Normal 3.4-5.0 [facility] Comment on above: Performed By: #### C MP #### [facility] [address] [address] [address] Umm Banuelos Protein [Mass/Vol] 7.6 g/dL Normal 6.1-8.2 [facility] Comment on above: Performed By: #### C MP #### [facility] [address] [address] [address] Umm Banuelos Sodium [Moles/Vol] 137 mmol/L Normal 137-145 [facility] Comment on above: Performed By: #### C MP #### [facility] [address] [address] [address] Umm Banuelos Urea nitrogen [Mass/Vol] 11.0 mg/dL Normal 7.0-18.0 [facility] Comment on above: Performed By: #### C MP #### [facility] [address] [address] [address] Umm Banuelos Urea nitrogen/Creatinine [Mass ratio] 9.6 mg/mg Normal [facility] Comment on above: Performed By: #### C MP #### [facility] [address] [address] [address] Umm Banuelos SALICYLATEon 11-13-2021 SALICYLATE 2.1 mg/dL Normal <=20.0 [facility] Comment on above: Performed By: #### S ALYC #### [facility] [address] [address] [address] Umm Banuelos Vital Signs Date Time Vital Sign Value Performing Clinician Facility 03-06-2023 17:20-0400 Body height 162.56 cm Anitha Grande Other [facility] Other 03-06-2023 17:20-0400 Body mass index (BMI) [Ratio] 49.7 kg/m2 Anitha Grande Other [facility] Other 03-06-2023 17:20-0400 Body temperature 98.4 [degF] Anitha Grande Other [facility] Other 03-06-2023 17:20-0400 Body weight 131.36 kg Anitha Grande Other [facility] Other 03-06-2023 17:20-0400 Diastolic blood pressure 65 mm[Hg] Anitha Grande Other [facility] Other 03-06-2023 17:20-0400 Respiratory rate 18 /min Anitha Grande Other [facility] Other 03-06-2023 17:20-0400 SaO2% (BldA) [Mass fraction] 98 % Anitha Grande Other [facility] Other 03-06-2023 17:20-0400 Systolic blood pressure 106 mm[Hg] Anitha Grande Other [facility] Other 09-28-2022 16:00-0500 Body height 162.56 cm Reshma Winifred Other [facility] Other 09-28-2022 16:00-0500 Body mass index (BMI) [Ratio] 47.54 kg/m2 Reshma Winifred Other [facility] Other 09-28-2022 16:00-0500 Body temperature 96.2 [degF] Reshma Winifred Other [facility] Other 09-28-2022 16:00-0500 Body weight 125.65 kg Reshma Winifred Other [facility] Other 09-28-2022 16:00-0500 Respiratory rate 18 /min Reshma Winifred Other [facility] Other 09-28-2022 16:00-0500 SaO2% (BldA) [Mass fraction] 95 % Reshma Winifred Other [facility] Other 07-05-2022 14:15-0500 Body height 162.56 cm Brunilda Rico Other [facility] Other 07-05-2022 14:15-0500 Body mass index (BMI) [Ratio] 48.91 kg/m2 Brunilda Rico Other [facility] Other 07-05-2022 14:15-0500 Body temperature 97.1 [degF] Brunilda Rico Other [facility] Other 07-05-2022 14:15-0500 Body weight 129.28 kg Brunilda Rico Other [facility] Other 07-05-2022 14:15-0500 Respiratory rate 18 /min Brunilda Rico Other [facility] Other 07-05-2022 14:15-0500 SaO2% (BldA) [Mass fraction] 97 % Brunilda Rico Other [facility] Other 11-18-2021 09:03-0400 Body temperature 97.6 [degF] MD Ted Pisano Work Phone: [facility] 11-18-2021 09:03-0400 Diastolic blood pressure 84 mm[Hg] MD Ted Pisano Work Phone: [facility] 11-18-2021 09:03-0400 Heart rate 69 /min MD Ted Pisano Work Phone: [facility] 11-18-2021 09:03-0400 Respiratory rate 16 /min MD Ted Pisano Work Phone: [facility] 11-18-2021 09:03-0400 SaO2% (BldA) [Mass fraction] 98 % MD Ted Pisano Work Phone: [facility] 11-18-2021 09:03-0400 Systolic blood pressure 148 mm[Hg] MD Ted Pisano Work Phone: [facility] 11-15-2021 14:55-0400 Body height 162.56 cm MD Ted Pisano Work Phone: [facility] 11-15-2021 08:58-0400 Body weight 128.36 kg MD Ted Pisano Work Phone: [facility] 11-13-2021 07:18-0400 Body mass index (BMI) [Ratio] 48 kg/m2 MD Ted Pisano Work Phone: [facility] Encounters Encounter Date Encounter Type Care Provider Facility Start: 12-05-2023 End: 12-05-2023 ambulatory MARIA E CARMEN Not Available Start: 12-04-2023 End: 12-04-2023 ambulatory [facility] Start: 12-01-2023 ambulatory [facility]note 3[facility] Start: 10-24-2023 End: 10-24-2023 ambulatory MARIA E CARMEN Not Available Start: 10-04-2023 End: 10-04-2023 ambulatory [facility] Start: 10-04-2023 End: 10-04-2023 Office outpatient visit 15 minutes Dina Conner [employer] Work Phone: [facility] Comment on above: COVID-19 (Primary Dx ); Nausea Start: 09-27-2023 Chart abstracting Scanning Pro vider External [facility] Start: 09-05-2023 End: 09-05-2023 ambulatory [facility] Start: 08-23-2023 End: 08-23-2023 ambulatory [facility] Start: 08-22-2023 End: 08-22-2023 ambulatory [facility] Start: 08-21-2023 Refill Dina miller [employer] Work Phone: [facility] Comment on above: Upper respiratory tr act infection, unspecified type Start: 07-25-2023 End: 07-25-2023 ambulatory DINA CONNER [facility] Start: 03-06-2023 End: 03-06-2023 ambulatory Anitha Grande Other [facility] Other Start: 03-06-2023 Office outpatient vi sit 15 minutes Anitha Grande [facility] Start: 09-28-2022 End: 09-28-2022 ambulatory Reshma Winifred Other [facility] Other Start: 09-28-2022 Office outpatient vi sit 15 minutes Reshma Vitale [facility] Start: 08-12-2022 End: 08-12-2022 Emergency department patient visit QASIM PEDRO Facility:[id number] Start: 07-05-2022 End: 07-05-2022 ambulatory Brunilda Rico Other [facility] Other Start: 07-05-2022 Office outpatient vi sit 25 minutes Brunilda Rico [facility] Start: 01-01-2022 End: 01-01-2022 ambulatory JEANNIE JIMÉNEZ Facility:[facility] Start: 11-13-2021 End: 11-18-2021 Evaluation and management of inpatient Dione Lerma Facility:[facility] Start: 11-13-2021 End: 11-18-2021 Evaluation and management of inpatient MD Ted Pisano Work Phone: [facility] Start: 11-13-2021 End: 11-13-[address] PRICILA NELSON Facility:[facility] Start: 11-04-2021 End: 11-05-[address] TED PISANO Facility:[facility] Procedures Date Procedure Procedure Detail Performing Clinician Start: 08-22-2023 Adult depression screening assessment Scanning External Start: 07-25-2023 Adult depression screening assessment Dina Conner [employer] Work Phone: Plan of Treatment Date Care Activity Detail Author Start: 08-24-2024 Tobacco Screening Tobacco Screening [facility] Start: 08-22-2024 Adult BMI Follow Up Plan Adult BMI Follow Up Plan [facility] Start: 08-22-2024 Adult BMI Screening Adult BMI Screening [facility] Start: 08-22-2024 Depression Screening Depression Screening [facility] Start: 07-25-2024 Adult BMI Follow Up Plan Adult BMI Follow Up Plan [facility] Start: 07-25-2024 Adult BMI Screening Adult BMI Screening [facility] Start: 07-25-2024 Depression Screening Depression Screening [facility] Start: 07-25-2024 Tobacco Screening Tobacco Screening [facility] Start: 01-02-2024 End: 01-02-2024 Patient encounter procedure 01/02/2024 10:00 AM EDT Office Visit [facility] [address] [place] [address] Dina Conner, [employer] [address] [place] [address] [facility] Start: 12-18-2023 End: 12-18-2023 Patient encounter procedure 12/18/2023 4:30 PM EDT Office Visit [facility] [address] [place] [address] Dina Conner, [employer] [address] [place] [address] [facility] Start: 10-10-2023 End: 10-10-2023 Patient encounter procedure 10/10/2023 9:00 AM EDT Office Visit [facility] [address] [place] [id number] Mary Dhillon MD [address] [place] [address] [facility] Start: 08-22-2023 End: 08-22-2023 Patient encounter procedure 08/22/2023 2:45 PM EST Office Visit [facility] [address] [place] [address] Dina Conner [employer] [address] [place] [address] [facility] Start: 03-31-2023 COVID-19 Vaccine ( season) COVID-19 Vaccine () [facility] Start: 03-31-2023 Influenza vaccination Influenza Vaccine [facility] Start: 09-30-2019 DTaP,Tdap and Td Vaccines (7 - Td or Tdap) DTaP,Tdap and Td Vaccines (7 - Td or Tdap) [facility] Start: 2017 Screening for malignant neoplasm of cervix Pap Smear [facility] Start: 1996 Tobacco Counseling Tobacco Counseling [facility] Patient Education Depression, Ad ult (DC) [facility] DC Instructions [facility] Work Phone: Patient referral [facility] Work Phone: Immunizations Immunization Date Immunization Notes Care Provider Fa cili 05-19-2022 influenza virus vacc ine, unspecified formulation Dina Conner [employer] Work Phone: [facility] 07-27-2021 Hepatitis B vaccine (recombinant), CpG adjuvanted Dina Conner [employer] Work Phone: [facility] 05-27-2021 influenza virus vacc ine, unspecified formulation Dina Conner [employer] Work Phone: [facility] 10-07-2020 COVID-19 Vaccine, vector-nr, rS-Ad26, PF, 0.5mL Dina Conner [employer] Work Phone: [facility] 08-12-2020 influenza, injectabl e, quadrivalent, preservative free Dina Conner [employer] Work Phone: [facility] 04-20-2018 influenza, injectabl e, quadrivalent, preservative free Dina Conner [employer] Work Phone: [facility] 04-21-2017 influenza, injectabl e, quadrivalent, preservative free Dina Conner [employer] Work Phone: [facility] 01-07-2010 human papilloma viru s vaccine, quadrivalent Dina Conner [facility] [facility] [employer]-[facility] Work Phone: [facility] 01-07-2010 varicella virus vaccine [place] jess Conner [employer]-[facility] Work Phone: [facility] 09-29-2009 human papilloma viru s vaccine, quadrivalent Dina Conner [employer]-[facility] Work Phone: [facility] 09-29-2009 tetanus toxoid, redu alem diphtheria toxoid, and acellular pertussis vaccine, adsorbed Dina Conner [employer]-[facility] Work Phone: [facility] 06-24-2009 human papilloma viru s vaccine, quadrivalent Dina Conner [employer]-[facility] Work Phone: [facility] 06-24-2009 meningococcal polysaccharide (groups A, C, Y and W-135) diphtheria toxoid conjugate vaccine (MCV4P) Dina Conner [employer]-[facility] Work Phone: [facility] 09-05-2001 diphtheria, tetanus toxoids and acellular pertussis vaccine, unspecified formulation Dina Conner [employer]-[facility] Work Phone: [facility] 09-05-2001 poliovirus vaccine, inactivated Dina Conner [employer] Work Phone: [facility] 07-18-2000 measles, mumps and rubella virus vaccine Dina Ubaldo [employer]-[facility] Work Phone: [facility] 02-06-1998 diphtheria, tetanus toxoids and acellular pertussis vaccine, unspecified formulation Dina Conner [employer] Work Phone: [facility] 11-06-1997 measles, mumps and rubella virus vaccine Dina Ubaldo [employer]-[facility] Work Phone: [facility] 11-06-1997 varicella virus vaccine [place] jess Conner [employer]-[facility] Work Phone: [facility] 08-07-1997 haemophilus influenz ae type b vaccine, PRP-T conjugate Dina Conner [employer]-[facility] Work Phone: [facility] 08-07-1997 poliovirus vaccine, inactivated Dina Conner [employer] Work Phone: [facility] 06-03-1997 hepatitis B vaccine, pediatric or pediatric/adolescent dosage Dina Conner [employer]-[facility] Work Phone: [facility] 02-27-1997 diphtheria, tetanus toxoids and acellular pertussis vaccine, unspecified formulation Dina Conner [employer] Work Phone: [facility] 02-27-1997 haemophilus influenz ae type b vaccine, conjugate unspecified formulation Dina Conner [employer] Work Phone: [facility] 1996 diphtheria, tetanus toxoids and acellular pertussis vaccine, unspecified formulation Dina Conner [employer] Work Phone: [facility] 1996 haemophilus influenz ae type b vaccine, conjugate unspecified formulation Dina Conner [employer] Work Phone: [facility] 1996 poliovirus vaccine, unspecified formulation Dina Conner [employer] Work Phone: [facility] 1996 diphtheria, tetanus toxoids and acellular pertussis vaccine, unspecified formulation Dina Ubaldo [employer] Work Phone: [facility] 1996 haemophilus influenz ae type b vaccine, conjugate unspecified formulation Dina Ubaldo [employer] Work Phone: [facility] 1996 poliovirus vaccine, unspecified formulation Dina Conner [employer] Work Phone: [facility] 1996 hepatitis B vaccine, pediatric or pediatric/adolescent dosage Dina Conner [employer] Work Phone: [facility] 1996 hepatitis B vaccine, pediatric or pediatric/adolescent dosage Dina Conner [employer] Work Phone: [facility] Payers Date Payer Category Payer Unknown [id number] 2021 Self-pay [id number] 2008 Unknown 1996 Unknown [id number] 2.16.84 [id number] 1996 Unknown [id number] 2.16.84 [id number] 1996 Unknown [id number] 2.16.84 [id number] 1996 Unknown [id number] 2.16.8 [id number] 1996 Unknown [id number] 2.16.8 [id number] 1996 Unknown [id number] 2.16.8 [id number] 1996 Unknown [id number] 2.16.8 [id number] 1996 Unknown [id number] 2.16.8 [id number] 1996 Unknown [id number] 2.16.8 [id number] 1996 Unknown [id number] 2.16.8 40.1.838483.3.579.2.1286 1996 Unknown [id number] 2.16.84 0.1.924279.3.579.2.1286 1996 Unknown [id number] 2.16.84 0.1.275172.3.579.2.1259 1996 Unknown [id number] 2.16.84 [id number] 1959 Unknown [id number] 1959 Unknown [id number] 1959 Unknown [id number] Unknown Self Pay [id number] Unknown [id number] 2.16.8 [id number] Social History Date Type Detail Facility Start: 11-13-[address] [facility] Smoker (finding) [facility] Start: 1995 Sex Assigned At Female F [facility] Start: 08-28-2020 End: 07-25-2023 Sex Assigned At [facility] Start: 12-15-[address] [facility] Smokes tobacco daily [facility] History of tobacco use Cigarette Smoker P [facility] Start: 08-28-2020 End: 12-15-2022 Cigarettes smoked current (pack per day) - Reported 0.5 [facility] Start: 12-15-2022 Tobacco use and exposure Smokeless tobacco non-user [facility] Start: 07-25-2023 End: 10-04-2023 Alcohol intake Lifetime non-drinker (finding) [facility] How hard is it for y ou to pay for the very basics like food, housing, medical care, and heating Not hard at all [facility] Start: 05-10-2021 Alcohol Comment Socially. [facility] Start: 1996 Sex Assigned At Not on file P [facility] Functional Status Date Assessment Result Facility 11-18-2021 Functional status Patient at [facility] Work Phone: Mental Status Date Assessment Result Facility 11-18-2021 Cognitive function Cognitive Sta tus Patient at Baseline [facility] Work Phone: Clinical Notes 11-13-2021 to 10-04-2023 [facility] 10/04/2023 10:20 AM EST Note Date & Type Note Facility 10-04-2023 History of Present illness Narrative Images from the original note were not included. [address] [facility] [address] SUBJECTIVE: Video Visit via Real-time Synchronous Audiovisual Provider Location: [facility] [address] [facility] [address] Patient Location: Patient's home Video Visit Consent [...] that there are some limitations compared to [id number]-on-wqfu evaluations. The patient consented to the presence [...] throat. Motrin or Tylenol as needed per boat patcher plastic guidelines for fever or pain. ALL QUESTIONS ANSWERED Total time spent was 25 minutes: Preparing to see the patient (e.g., review of tests) Obtaining and/or reviewing separately obtained history Performing a medically appropriate examination and/or evaluation Counseling and educating the patient/family/caregiver Ordering medications, tests, or procedures Follow-up: Next scheduled Sooner if needed RODNEY Mayers 10/04/23 1055 documented in this encounter [facility] 03-06-2023 Evaluation note Encounter Date Diagnosis Assessment [...] going. Patient verbalized understanding of treatment plan. [facility] Other 03-01-2023 Evaluation note* Encounter Date Diagnosis Assessment Notes Treatment Notes Treatment Clinical Notes Sep, Intractable migraine with aura without status migrainosus (ICD-10 - G43.119) Take medication as directed. Stay away from known triggers. Follow up with primary care provider or neurology if symptoms persist as new treatment option may need to be discussed. [facility] Other 01-13-2023 NoteED Nursing Discharge Summary Entered On: 08/12/2022 15:18 EST Performed On: 08/12/2022 15:15 EST by Marcia Moralez RN [place] Information [id number] ED IV's : No IV ED IV Site Assessment : No IV ED Vitals Completed : N/A ED Final Assessment Completed : Yes ED Progress Note Completed : Yes Complete all PRN/Pain response forms? : N/A ED Disassociate Patient from Monitor : N/A Updated Depart Time : Yes ED Belongings sent w patient [id number] : Not applicable Marcia Moralez RN - [...] Marcia Moralez RN - 08/12/2022 15:18 EST [facility]12-06-2022 Evaluation note * Encounter Date Diagnosis Assessment [...] treatment plan. Patient left in stable condition [facility] Other 04-21-2022 Discharge summary Author Hank ellison [facility] November 18, 2021 8:13am Note Date/Time November 18, 2021 8:1 1am [facility] ENTER [address] [place] [address] Discharge Summary Signed Patient: Franki Quiroz MR#: [id number] : 1995 Acct:[id number] Age/Sex: 26 / F Adm Date: 2 Loc: Room: [address] [place] [address]: Dione Lerma MD Copies to: [...] felt better than before coming to [facility] and feels hopeful regarding her future. She [...] signed by Hank Lerma MD> 11/18/21 08 [facility] Work Phone: 1(960) 744-459604-20-2022 Progress note Author Hank ellison [facility] November 17, 2021 7:39am Note Date/Time November 17, 2021 7:3 9am [facility] ENTER [address] [place] [address] Psychiatry Progress Note Signed Patient: Franki Quiroz MR#: [id number] : 1995 Acct:[id number] Age/Sex: 26 / F Adm Date: 2 Loc: Room: [address] [place] [address] Type : ADM IN Attending Dr: Dione [...] signed by Hank Lerma MD> 11/17/21 0739 [facility] Work Phone: 1(120) 701-815004-19-2022 Progress note Author Hank ellison [facility] November 16, 2021 8:14am Note Date/Time November 16, 2021 8:1 4am [facility] ENTER [address] [place] [address] Psychiatry Progress Note Signed Patient: Franki Quiroz MR#: [id number] : 1995 Acct:[id number] Age/Sex: 26 / F Adm Date: 2 Loc: Room: [address] [place] [address] Type : ADM IN Attending Dr: Dione [...] signed by Hank Lerma MD> 11/16/[address] [facility] Work Phone: 1(421) 287-722304-18-2022 Progress note Author Hank ellison [facility] November 15, 2021 8:56am Note Date/Time November 15, 2021 8:5 6am [facility] ENTER [address] [place] [address] Psychiatry Progress Note Signed Patient: Franki Quiroz MR#: [id number] : 1995 Acct:[id number] Age/Sex: 26 / F Adm Date: 2 Loc: Room: [address] [place] [address] Type : ADM IN Attending Dr: Dione [...] signed by Hank Lerma MD> 11/15/[address] [facility] Work Phone: 1(145) 260-353304-17-2022 Progress note Author Hank ellison [facility] November 14, 2021 8:11am Note Date/Time November 14, 2021 8:1 0am [facility] ENTER [address] [place] [address] Psychiatry Progress Note Signed Patient: Franki Quiroz MR#: [id number] : 1995 Acct:[id number] Age/Sex: 26 / F Adm Date: 2 Loc: Room: [address] [place] [address] Type : ADM IN Attending Dr: Dione [...] signed by Hank Lerma MD> 11/14/21 0811 [facility] Work Phone: 1(401) 311-912604-16-2022 History and physical note Author Hank ellison [facility] November 13, 2021 9:19am Note Date/Time November 13, 2021 9:1 8am [facility] ENTER [address] [place] [address] Psychiatry H&P Signed Patient: Franki Quiroz MR#: [id number] : 1995 Acct:[id number] Age/Sex: 26 / F Adm Date: 2 Loc: Room: [address] [place] [address] Type : ADM IN Attending Dr: Dione [...] or mental status exam at this time. [facility] Vaccinated for COVID-19?: Yes Medical History (Updated [...] signed by Hank Lerma MD> 11/13/[address] [facility] Work Phone: Evaluation note* Diagnosis Onset Date Resolution Status Major depressive disorder, recurrent, moderate acute PTSD (post-traumatic stress disorder) acute [facility] Work Phone: Evaluation note* Diagnosis Upper respiratory tract infection, unspecified type [facility] Diagnosis COVID-19- Primary Nausea Nausea alone documented in this encounter [facility] N[facility] - Reported* Type Description Date Medical History migraines Medical History asthma Medical History depression and anxity Medical History meningitis Surgical History C section Hospitalization History meningitis [facility] Other Hospital Discharge instructions Additional Instructions Regular diet. No activity restrictions.[facility] Work Phone: InstructionsNot on filedocumented in this encounter [facility] System[facility]ructionsNot on filedocumented in this encounter [facility]* Attachments The following attachments cannot be sent through Care Everywhere. 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 Relationship Specialty Start Date End Date Dina Con[facility] [address] [place] [address] PCP - General Family Medicine 06/01/21 Loader Unloader Relationship Specialty Start Date End Date Dina Con[facility] [address] [place] [address] PCP - General Family Medicine 06/01/21 Goals (unrecognized section and content) Goals may be documented in a n alternate sectionNo InformationNo InformationNo InformationNot on filedocumented as of this encounterNot on filedocumented as of this encounterNot on filedocumented as of this encounter INFORMATION SOURCE (unrecogn ized section and content) DATE CREATED AUTHOR 04/27/2022 Alecia girard DATE CREATED AUTHOR AUTHOR'S ORGANIZ ATION 08/15/2022 [facility] DATE CREATED AUTHOR AUTHOR'S ORGANIZ ATION 09/03/2022 [facility] DATE CREATED AUTHOR AUTHOR'S ORGANIZ ATION 08/26/2023 [facility] DATE CREATED AUTHOR AUTHOR'S ORGANIZ ATION 09/10/2023 [facility] DATE CREATED AUTHOR AUTHOR'S ORGANIZ ATION 12/05/2023 [facility] DATE CREATED AUTHOR AUTHOR'S ORGANIZ ATION 12/07/2023 [facility] dical [facility] EPIC REASON FOR VISIT (unrecogniz ed section and [...] BE BASED ON THE PRIMARY CLINICAL RECORDS. [facility]. provides no warranty or guarantee of the accuracy or completeness of information in this document.
[2023-12-09 12:26] LABS: Bilirubin Urine NEGATIVE (NEGATIVE); Blood Urine NEGATIVE (NEGATIVE); Clarity Urine CLEAR (CLEAR); Color Urine LT. YELLOW (YELLOW); Glucose Urine UA NEGATIVE (NEGATIVE); Ketones Urine NEGATIVE (NEGATIVE); Leukocyte Esterase Urine NEGATIVE (NEGATIVE); Nitrite Urine NEGATIVE (NEGATIVE); Protein Urine NEGATIVE (NEG/TRACE); Specific Gravity Urine <=1.005 (1.005-1.025); Urobilinogen Urine 0.2 EU/dL (0.2-1.0)
[2023-12-09 12:29] LABS: HCG Qualitative Urine* NEGATIVE (NEGATIVE)
[2023-12-09 12:30] LABS: Urine Microscopic Indicated NO
[2023-12-09] MEDS: MORPHINE SULFATE 4 MG/ML VIAL IV ×2 (12:52→14:58)
[2023-12-09] MEDS: DICYCLOMINE HCL 20 MG/2 ML VIAL IM (12:53)
[2023-12-09 12:59] VITALS: BP 117/70; PULSE 76; O2SAT 96
--- NOTE | 2023-12-09 14:48 | US_ITS ---
[address] [address] Patient Name: FRANKI HENRIQUEZ MRN: [id number] date: 1995 Sex: F Assigned Patient Location: ER Current Patient Location: ER Accession/Order Number: [id number] Exam Date: 12/09/2023 15:40 Report Date: 12/09/2023 16:39 At the request of: MINERVA LAGOS Procedure: US pelvis transvaginal EXAM: US pelvis transvaginal HISTORY: pelvic pain, r/o torsion COMPARISON: CT scan 12/09/2023. Pelvic ultrasound 10/24/2023. TECHNIQUE: Pelvic ultrasound with internal transvaginal imaging grayscale and color Doppler FINDINGS: Anterior flow flexed uterus containing an IUD in appropriate position. No uterine mass, endometrial thickening or fluid noted. Uterus 8.4 x 3.3 x 4.7 cm. Endometrial 5 mm thickness. Prominent right ovary containing a hypoechoic area with internal echoes probable cyst with internal debris. Right ovary measures 4.6 x 2.4 x 3.5 cm, volume 20 mL. Normal blood flow. Hypoechoic area measures approximately 2 cm . Probable follicle or cyst with debris. Left ovary unremarkable with normal blood flow and no focal lesion or mass. Measures 2.2 x 1.7 x 1.7 cm, 5.4 mL. No free fluid the adnexa or cul-de-sac area. US/US pelvis transvaginal IMPRESSION: 1. Normal-appearing uterus containing an appropriately positioned IUD. No endometrial thickening or fluid. 2. Right ovary is prominent with a hypoechoic area with internal debris probable small cyst or follicle. Measures 2.0 cm. Not seen previously on ultrasound. No evidence of torsion. 3. Left adnexa unremarkable. No free fluid. Electronically authenticated by: CICI DAMON Date: 12/09/2023 16:39
[2023-12-09 14:58] VITALS: BP 128/84; PULSE 73; O2SAT 98
[2023-12-09 16:16] VITALS: BP 104/65; PULSE 68; O2SAT 99
--- NOTE | 2023-12-09 16:34 | ED_ITS ---
HPI HPI - General Adult General Chief complaint: Abdominal Pain Stated complaint: ABDOMINAL PAIN/NAUSEA Time Seen by Provider: 12/09/23 11:45 Source: patient Mode of arrival: walk-in Limitations: no limitations History of Present Illness HPI narrative: 28-year-old female to the emergency department to complain of lower abdominal pain. Patient reports that for several months she's had intermittent abdominal pain. She seen her [employer] for this and ultrasound which was unremarkable. She reports the most severe of the pain she is experiencing today. Dislocated across her lower abdomen. She cannot localize it. She denies any vaginal bleeding or discharge. She denies . She denies any diarrhea, nausea, vomiting. No aggravating or alleviating factors. He has been constant since onset. Related Data Home Medications ?Medication ?Instructions ?Recorded ?Confirmed albuterol sulfate 90 mcg/actuation 1 inh inhalation Q6H PRN shortness 08/04/23 08/04/23 aerosol inhaler of breath or wheezing bupropion HCl 100 mg tablet 300 mg PO BID 08/04/23 08/04/23 buspirone 15 mg tablet 15 mg PO TID 08/04/23 08/04/23 clonazepam 0.5 mg tablet 0.5 mg PO .QHS PRN sleep 08/04/23 08/04/23 phentermine 37.5 mg tablet 37.5 mg PO DAILY 08/04/23 08/04/23 prazosin 2 mg capsule 2 mg PO DAILY 08/04/23 08/04/23 sertraline 100 mg tablet (Zoloft) 200 mg PO Q24H 08/04/23 08/04/23 amoxicillin 500 mg capsule 500 mg PO BID 12/09/23 12/09/23 Previous Rx's ?Medication ?Instructions ?Recorded prednisone 50 mg tablet 50 mg PO DAILY 5 days #5 tabs 08/04/23 dicyclomine 10 mg capsule 10 mg PO QID PRN abdominal pain 12/09/23 #12 caps hydrocodone 5 mg-acetaminophen 325 1 tab PO Q6H PRN pain #4 tabs 12/09/23 mg tablet ondansetron 4 mg disintegrating 4 mg PO Q8H PRN nausea and 12/09/23 tablet vomiting 3 days #9 tabs Allergies Allergy/AdvReac Type Severity Reaction Status Date / Time Sulfa (Sulfonamide AdvReac Intermediate Verified 08/04/23 14:31 Antibiotics) Opioid HPI Opioid Management Most Recent Opioid Data: Last Pain Scale 6 12/09/23 16:57 Last ED Pain Assessment 12/09/23 15:50 Last MAR Pain Assessment 12/09/23 16:57 Review of Systems ROS Status of ROS 10 or more systems reviewed and unremark able except as noted in history and below [facility] Social History Smoking status: Current every day smoker Exam Narrative Exam Narrative: VITALS: I have reviewed the triage vital signs. GENERAL: Well developed, well appearing adult in no acute distress. NEURO: Alert and oriented. Moves all extremities. Face is symmetric and expressive. EYES: PERRL. No scleral icterus or conjunctival injection. No discharge. HENT: Normocephalic, atraumatic. Hearing is grossly intact. Nares grossly patent and without discharge. Mucous membranes moist. NECK: No JVD. Patient moves neck without restriction. CARDIO: Rhythm regular. Normal rate. No murmur, rub, or gallop. Pulses equal bilaterally in the upper and lower extremity. No lower extremity edema. PULM: Lungs clear to auscultation in all veras. No wheezes, rales, or rhonchi. No conversational dyspnea. No splinting, stridor, or accessory muscle use. GI/: Abdomen is soft and non-tender. Normoactive bowel sounds. EXTREMITIES: Symmetric muscle bulk. No joint swelling. No clubbing, cyanosis, or deformity. SKIN: Warm and dry. Normal turgor. No rash or lesions appreciated. PSYCH: Mood, affect, and interaction is appropriate to the setting. Constitutional Vital Signs, click to edit/add: Last Vital Signs Temp 98.1 F 12/09/23 11:43 Pulse 68 12/09/23 16:16 Resp 18 12/09/23 16:16 BP 104/65 12/09/23 16:16 Pulse Ox 99 12/09/23 16:16 O2 Del Method Room Air 12/09/23 16:16 Course Vital Signs Vital signs: Vital Signs Temperature 98.1 F 12/09/23 11:43 Pulse Rate 84 12/09/23 11:43 Respiratory Rate 20 12/09/23 11:43 Blood Pressure 142/88 H 12/09/23 11:43 Pulse Oximetry 97 12/09/23 11:43 Oxygen Delivery Method Room Air 12/09/23 11:43 Temperature 98.1 F 12/09/23 11:43 Pulse Rate 68 12/09/23 16:16 Respiratory Rate 18 12/09/23 16:16 Blood Pressure 104/65 12/09/23 16:16 Pulse Oximetry 99 12/09/23 16:16 Oxygen Delivery Method Room Air 12/09/23 16:16 Medical Decision Making MDM Narrative Medical decision making narrative: 28-year-old female with abdominal pain. Vital stable, patient is afebrile. Mild lower tenderness. She reports 10/10 pain, Medications were ordered. We'll obtain a CT scan and basic labs. Patient agrees with this plan. Reviewed and noted. There are no major abnormalities. HCG negative. Her urinalysis is negative.CT without acute findings. Patient reexamined. She reports the pain is worsening. I discussed reassuring results of CT imaging and labs. A pelvic ultrasound will be ordered to rule out torsion. Pelvic ultrasound is unremarkable except for a small cyst. Likely physiologic. Findings were discussed with the patient. Pain control for home. Follow up with her [employer]. Return precautions were discussed. All questions were answered. Patient was discharged home. Medical Records Medical records reviewed: Yes I reviewed the patient's medical records Lab Data Lab results reviewed: Yes I reviewed the patient's lab results Labs: Lab Results 12/09/23 12/09/23 Range/Units 11:50 12:10 WBC 10.9 (4.0-11.0) 10^3/uL RBC 4.19 L (4.20-5.40) 10^6/uL Hgb 12.6 (12.0-16.0) g/dL Hct 39.6 (36.0-48.0) % MCV 94.5 (81.0-99.0) fL MCH 30.1 (26.7-34.0) pg MCHC 31.8 (29.9-35.2) g/dL RDW 12.5 (11.0-15.0) % Plt Count 305 (150-450) 10^3/uL MPV 9.7 (9.5-13.5) fL Neut % (Auto) 66.1 (43.0-75.0) % Lymph % (Auto) 25.6 (20.5-60.0) % [place] % (Auto) 6.3 (1.7-12.0) % Eos % (Auto) 0.9 (0.9-7.0) % Baso % (Auto) 0.6 (0.2-2.0) % Neut # (Auto) 7.2 H (1.4-6.5) 10^3/uL Lymph # (Auto) 2.8 (1.2-3.8) 10^3/uL [place] # (Auto) 0.7 (0.3-0.8) 10^3/uL Eos # (Auto) 0.1 (0.0-0.7) 10^3/uL Baso # (Auto) 0.1 (0.0-0.1) 10^3/uL Abs Immat Gran (auto) 0.05 H (0.00-0.03) 10^3/uL Imm/Tot Granulo (auto) 0.5 (0.0-0.5) % Sodium 138 (136-145) mmol/L Potassium 4.2 (3.5-5.1) mmol/L Chloride 103 (98-107) mmol/L Carbon Dioxide 24.6 (21.0-32.0) mmol/L Anion Gap 14.6 BUN 12.0 (7.0-18.0) mg/dL Creatinine 0.97 (0.55-1.02) mg/dL Est GFR ( Amer) >60 (>=60) Est GFR (Non-Af Amer) >60 (>=60) BUN/Creatinine Ratio 12.4 Glucose 100 (74-106) mg/dL Calcium 9.7 (8.5-10.1) mg/dL Total Bilirubin 0.2 (0.2-1.0) mg/dL AST 16 (15-37) U/L ALT 35 (14-59) U/L Alkaline Phosphatase 111 (46-116) U/L Total Protein 7.9 (6.4-8.2) g/dL Albumin 3.6 (3.4-5.0) g/dL Globulin 4.3 g/dL Albumin/Globulin Ratio 0.8 Lipase 29.0 (16.0-77.0) U/L Urine Color Lt. yellow (YELLOW) Urine Clarity Clear (CLEAR) Urine pH 6.0 (5.0-9.0) Ur Specific [place] <=1.005 A (1.005-1.025) Urine Protein Negative (NEG/TRACE) mg/dL Urine Glucose (UA) Negative (NEGATIVE) mg/dL Urine Ketones Negative (NEGATIVE) mg/dL Urine Occult Blood Negative (NEGATIVE) Urine Nitrite Negative (NEGATIVE) Urine Bilirubin Negative (NEGATIVE) Urine Urobilinogen 0.2 (0.2-1.0) EU/dL Ur Leukocyte Esterase Negative (NEGATIVE) Urine HCG, Qual Negative (NEGATIVE) Imaging Data CT scan - abdomen: Radiologist's impression: ITS Impressions Abdomen/Pelvis CT 12/09/23 12:08 IMPRESSION: 1. No acute process in the abdomen or pelvis. 2. Mild splenomegaly. 3. IUD in place. Electronically authenticated by: KENDAL DUDLEY Date: 12/09/2023 13:59 Transvaginal US 12/09/23 14:48 IMPRESSION: 1. Normal-appearing uterus containing an appropriately positioned IUD. No endometrial thickening or fluid. 2. Right ovary is prominent with a hypoechoic area with internal debris probable small cyst or follicle. Measures 2.0 cm. Not seen previously on ultrasound. No evidence of torsion. 3. Left adnexa unremarkable. No free fluid. Electronically authenticated by: CICI DAMON Date: 12/09/2023 16:39 Discharge Plan Discharge Stand Alone Forms: Portal Instructions Chief Complaint: Abdominal Pain Clinical Impression: Abdominal pain Patient Disposition: Home, Self-Care Time of Disposition Decision: 16:49 Condition: Good Mode of Transportation: Private Vehicle Prescriptions / Home Meds: New hydrocodone-acetaminophen 5-325 mg tablet 1 tab PO Q6H PRN (Reason: pain) Qty: 4 0RF ondansetron 4 mg tablet,disintegrating 4 mg PO Q8H PRN (Reason: nausea and vomiting) 3 Days Qty: 9 0RF dicyclomine 10 mg capsule 10 mg PO QID PRN (Reason: abdominal pain) Qty: 12 0RF No Action albuterol sulfate 90 mcg/actuation HFA aerosol inhaler 1 inh INHALATION Q6H PRN (Reason: shortness of breath or wheezing) clonazepam 0.5 mg tablet 0.5 mg PO .QHS PRN (Reason: sleep) phentermine 37.5 mg tablet 37.5 mg PO DAILY sertraline [Zoloft] 100 mg tablet 200 mg PO Q24H bupropion HCl 100 mg tablet 300 mg PO BID buspirone 15 mg tablet 15 mg PO TID prazosin 2 mg capsule 2 mg PO DAILY prednisone 50 mg tablet 50 mg PO DAILY 5 Days Qty: 5 0RF amoxicillin 500 mg capsule 500 mg PO BID Print Language: German Instructions: Abdominal Pain (ED) Referrals: Edward Mendez DO [Physician] - 1 week DINA KAUR [Primary Care Provider] - 1 week Discharge Date/Time: 12/09/23 17:06
[2023-12-09] MEDS: HYDROCODONE/ACET 5-325 MG TABLET 1 TAB PO (16:57)
== END 2023-12-09 17:06 | disposition home or self-care (01) ==
PROVIDERS: Emergency Provider Student in an Organized Health Care Education/Training Program; PCP Nurse Practitioner
DX: R10.30 Lower abdominal pain, unspecified (principal); F17.200 Nicotine dependence, unspecified, uncomplicated
CPT/HCPCS: 36415; 74177; 76830; 80053; 81003; 83690; 84703; 85025; 96372; 96374; 96375; 96376; 99285; J0500; Q9967

== ENCOUNTER 2024-10-18 18:41 | Emergency (ER) | payer BC, SELFPAY ==
--- OUTSIDE RECORDS SUMMARY | 2024-10-18 18:56 | XMS_ITS | CCD ---
Author Organization [facility] Inform ion Partnership [facility] Care Team Providers Care Shellfish Checker Name Role Phone MD Ted Pisano Primary Care Provider [phone] MD Dione Lerma Admit Provider [phone] MD Dione Lerma Attending Provider [phone] JEANNIE JIMÉNEZ Admitting Unavailable NORRIS, DR TED [...] Unavailable QASIM PEDRO DO Attending Unavailable NO FAMILY PHYSICIAN, 837 Primary Care Unavail able Dione Lerma Attending UnavailDione Johnson Admitting UnavailTed Munoz Primary Care Unavailable Reshma Vitale Unavailable Anitha Grande Unavailable MARIA E MORALES Attending Unavailable MARIA E MORALES Attending Unavailable Pricila Ott MD Primary Care Provider ANTONIO JONES Attending Unavailable PRICILA OTT Primary Care Unavailable Dina Allen Primary Care Provid er ALEX LORA Attending Unavailable DINA CONNER Referring Unavailable DNIA CONNER Primary Care Unavailable ALEX LORA Attending Unavailable CONNER, DINA J Referring Unavailable CONNER, DINA J Primary Care Unavailable ALEX LORA Attending Unavailable CONNER, DINA J Referring Unavailable CONNER, DINA J Primary Care Unavailable ALEX LORA Attending Unavailable CONNER, DINA J Referring Unavailable CONNER, DINA J Primary Care Unavailable ALEX LORA Attending Unavailable CONNER, DINA J Referring Unavailable CONNER, DINA J Primary Care Unavailable CONNER, DINA J Referring Unavailable CONNER, DINA J Primary Care Unavailable SINDHU HANSEN Attending Unavailable CONNER, DINA J Attending Unavailable CONNER, DINA J Referring Unavailable CONNER, DINA J Primary Care Unavailable CONNER, DINA J Referring Unavailable CONNER, DINA J Primary Care Unavailable ALISON NELSON Attending Unavailable CONNER, DINA J Attending Unavailable CONNER, DINA J Referring Unavailable CONNER, DINA J Primary Care Unavailable CONNER, DINA J Primary Care Unavailable CONNER, DINA J Referring Unavailable CONNER, DINA J Primary Care Unavailable Allergies Allergy Classification Reported Allergen(s) Allergy Type Date of Onset Reaction(s) Facility (1 source) Sulfonamides (Antibiotic) Drug allergy (disorder) 12-04-[address] [facility] Repository (3 sources) Sulfonamides (Antibiotic) Propensity to adverse reactions swelling in hands/feet [place] Other (4 sources) Sulfonamides (Antibiotic); Translations: [SULFA (SULFONAMIDE ANTIBIOTICS)] Drug allergy (disorder) 02-07-20 17 [facility] Repository (9 sources) Sulfonamides (Antibiotic) Propensity to adverse reactions to drug 02-07-20 17 [facility] (3 sources) Aspirin; Translations: [ASPIRIN] Drug Allergy 09-14-19 25 Anxiety, Palpitations, Shortness Of Breath, Swelling [facility] Medications Current Medications Medication Drug Class(es) Dates Sig (Normalized) Sig (Original) amoxicillin 500 mg oral capsule (2 sources) Penicillin-class Antibacterial Start: 12-01-2023 End: 12-11-2023 take 1 capsule by mouth in the morning, then take 1 capsule by mouth at bedtime amoxicillin (AMOXIL) 500 mg capsule Indications: Pharyngitis, unspecified etiology Take 1 capsule (500 mg total) by mouth in the morning and 1 capsule (500 mg total) before bedtime. Do all this for 10 days. 20 capsule 12/01/2023 12/11/2023 Active ARIPiprazole 5 mg oral tablet (10 sources) Atypical Antipsychotic Start: 06-20-2024 take 1.5 tablets by mouth in the morning ARIPiprazole (ABILIFY) 5 mg tablet Indications: Major depressive disorder, recurrent episode, moderate (CMS-HCC) Take 1.5 tablets (7.5 mg total) by mouth in the morning. 45 tablet 5 06/20/2024 Active Start: 08-29-2023 take 1 tablet by femi th in [...] Every evening 15 November 18, 2021 8:09am azithromycin 250 mg oral tablet (1 source) Macrolide Antimicrobial Start: 07-25-2023 End: 07-30-2023 take 1 tablet by mouth in the morning, then take 2 tablets by mouth once daily, then take 1 tablet by mouth once daily azithromycin (ZITHROMAX) 250 mg tablet Indications: Upper respiratory tract infection, unspecified type Take 1 tablet (250 mg total) by mouth in the morning for 5 days. Take 2 tablets the first day, then 1 tablet daily for 4 days.. 6 tablet 0 07/25/2023 07/30/2023 Active brexpiprazole (1 source) Atypical Antipsychotic Rexulti Active brompheniramine maleate 0.4 mg/ml / dextromethorphan hydrobromide 2 mg/ml / pseudoephedrine hydrochloride 6 mg/ml oral solution (1 source) alpha-Adrenergic Agonist, Uncompetitive M-bsgjim-R-aspartat e Receptor Antagonist, Sigma-1 Agonist Start: 07-05-2022 take 10 mL by mouth every six hours Pseudoeph-Bromphe n-DM 30-2-10 MG/5ML 10 mL Orally every 6 hours for 5 days Jun, Active 24 hr buPROPion hydrochloride 300 mg extended release oral tablet (9 sources) Aminoketone Start: 08-25-2023 End: 10-15-2024 take 1 tablet by mouth once daily in the morning buPROPion XL (WELLBUTRIN XL) 300 mg 24 hr tablet Take 1 tablet (300 mg total) by mouth every morning. 90 tablet 3 08/23/2024 10/15/2024 Discontinued (Therapy completed) Start: 11-13-2021 take 1 tablet by femi th once daily Bupropion Hcl (Wellbutrin Xl) 300 mg Tablet Extended Release 24 Hr Active 300 MG PO Daily November 13, 2021 12:44pm Wellbutrin Activ e busPIRone hydrochloride 15 mg oral tablet (13 sources) Start: 08-23-2024 take 1 tablet by mouth three times daily busPIRone (BUSPAR) 15 mg tablet TAKE 1 TABLET BY MOUTH 3 TIMES DAILY 270 tablet 3 08/23/2024 Active Start: 08-25-2023 take 1 tablet by femi th three [...] BuSpar Active clonazePAM 0.5 mg oral tablet (8 sources) Benzodiazepine Start: 09-17-2024 End: 10-15-2024 take 1 tablet by mouth once daily as needed for anxiety clonazePAM (KlonoPIN) 0.5 mg tablet Indications: Generalized anxiety disorder Take 1 tablet (0.5 mg total) by mouth daily as needed for anxiety. TRANSITION TO HYDROXYZINE WHEN REFILL NEEDED. RT 09/17/24. 09/17/2024 10/15/2024 Discontinued (Therapy completed) Start: 08-29-2023 take 1 tablet by femi th once daily as needed for anxiety clonazePAM (KlonoPIN) 0.5 mg tablet Indications: Generalized anxiety disorder Take 1 tablet (0.5 mg total) by mouth daily as needed for anxiety. 90 tablet 08/29/2023 Active Start: 01-19-2023 take 1 tablet by femi th once daily as needed for anxiety clonazePAM (KlonoPIN) 0.5 mg tablet Indications: Generalized anxiety disorder Take 1 tablet (0.5 mg total) by mouth daily as needed for anxiety. 90 tablet 0 01/19/2023 Active cyclobenzaprine hydrochloride 10 mg oral tablet (3 sources) Muscle Relaxant Start: 09-04-2024 End: 09-14-2024 take 1 tablet by mouth three times daily as needed for muscle spasms cyclobenzaprine (FLEXERIL) 10 MG tablet Take 1 tablet by mouth 3 times daily as needed for Muscle spasms 21 tablet 09/04/2024 09/14/2024 Active Flexeril Not-Tim ing Flexeril Active dexamethasone 2 mg oral tablet (3 sources) Corticosteroid Start: 12-04-2023 End: 10-15-2024 take 1 tablet by mouth once daily at breakfast dexAMETHasone (DECADRON) 2 mg tablet Indications: Sore throat , Acute pharyngitis, unspecified etiology Take 1 tablet (2 mg total) by mouth daily with breakfast. 3 tablet 12/04/2023 10/15/2024 Discontinued (Therapy completed) Start: 10-04-2023 End: 10-08-2023 take 1 tablet [...] a day for 14 day(s) Jun, Active levonorgestrel 0.289762 mg/hr intrauterine system (5 sources) Progestin, Progestin-containin g Intrauterine Device levonorgestreL (MIRENA) 21 mcg/24 hours (8 yrs) 52 mg IUD 52 mcg by intrauterine route. Active Mirena 20 MCG/24 HR Intrauterine Active OLANZapine 2.5 mg oral tablet (1 source) Atypical Antipsychotic Start: 11-18-2021 take 2.5 mg by mouth every eight hours Olanzapine Active 2.5 MG PO Every 8 hours 45 15 November 18, 2021 8:09am ondansetron 4 mg disintegrating oral tablet (6 sources) Serotonin-3 Receptor Antagonist Start: 09-04-2024 take 1 tablet by mouth three times daily as needed for nausea ondansetron (ZOFRAN-ODT) 4 MG disintegrating tablet Take 1 tablet by mouth 3 times daily as needed for Nausea or Vomiting 21 tablet 09/04/2024 Active Start: 09-04-2024 End: 09-04-2024 take 1 dose by mouth once 4 mg, Oral, ONCE, 1 dose, On Mon09/04/24 at 0845 Start: 10-04-2023 take 1 tablet by femi th every eight hours as needed for nausea and vomiting and nausea and nausea ondansetron ODT (ZOFRAN ODT) 4 mg disintegrating tablet Indications: Nausea Dissolve 1 tablet (4 mg total) on tongue every 8 (eight) hours as needed for nausea or vomiting. 10 tablet 10/04/2023 Active prazosin 1 mg oral capsule (9 sources) alpha-Adrenergic Santy Start: 08-23-2024 take 1 capsule by mouth once daily prazosin (MINIPRESS) 1 mg capsule Indications: Major depressive disorder, recurrent episode, moderate (CMS-HCC) Take 1 capsule (1 mg total) by mouth nightly. 90 capsule 3 08/23/2024 Active Start: 08-29-2023 take 1 capsule by mo uth once daily prazosin (MINIPRESS) 1 mg capsule Indications: Major depressive disorder, recurrent episode, moderate (CMS-HCC) Take 1 capsule (1 mg total) by mouth nightly. 90 capsule 3 08/29/2023 Active Start: 03-30-2023 take 1 capsule by mo uth once daily prazosin (MINIPRESS) 1 mg capsule Indications: Major depressive disorder, recurrent episode, moderate (CMS-HCC) Take 1 capsule (1 mg total) by mouth nightly. 90 capsule 3 03/30/2023 Active Start: 11-18-2021 take 1 mg by mouth o nce daily at bedtime Prazosin Active 1 MG PO Daily at bedtime November 18, 2021 8:09am semaglutide, weight loss, (WEGOVY) 0.25 mg/0.5 mL pen injector (1 source) Start: 08-22-2023 semaglutide, w eight loss, (WEGOVY) 0.25 mg/0.5 mL pen injector Indications: Class 3 drug-induced obesity without serious comorbidity with body mass index (BMI) of 45.0 to 49.9 in adult (CMS-HCC) Inject 0.5 mL (0.25 mg total) under the skin every 7 days. 2 mL 0 08/22/2023 Active sertraline 100 mg oral tablet (13 sources) Serotonin Reuptake Inhibitor Start: 08-15-2024 take 2 tablets by mouth in the morning sertraline (ZOLOFT) 100 mg tablet Take 2 tablets (200 mg total) by mouth in the morning. 60 tablet 3 08/15/2024 Active Start: 08-25-2023 take 2 tablets by mo uth in [...] MG PO Daily November 13, 2021 12:44pm Sertraline HCl ( ZOLOFT PO) Take by mouth Active Zoloft 100 MG Or ally Active varenicline (1 source) Partial Cholinergic Nicotinic Agonist Start: 04-22-2024 End: 10-15-2024 varenicline (CHANTIX STARTING MONTH BOX) 0.5 mg (11)- 1 mg (42) tablet Indications: Encounter for smoking cessation counseling Take 0.5 mg one daily on days 1-3 and 0.5 mg twice daily on days 4-7. Then 1 mg twice daily for a total of 12 weeks. 53 tablet 04/22/2024 10/15/2024 Discontinued (Therapy completed) Completed/Discontinued Medications Medication Drug Class(es) Dates Sig (Normalized) Sig (Original) [id number] 200 actuat albuterol 0.09 mg/actuat metered dose inhaler (3 sources) beta2-Adrenergic Agonist Start: 07-25-2023 End: 08-24-2023 take 2 puff(s) by inhalation every six hours as needed for wheezing albuterol (PROVENTIL HFA;VENTOLIN HFA) 90 mcg/actuation inhaler Indications: Upper respiratory tract infection, unspecified type Inhale 2 puffs every 6 (six) hours as needed for wheezing for up to 30 days. 18 g 0 07/25/2023 08/22/2023 Discontinued (Therapy completed) benzonatate 100 mg oral capsule (2 sources) Non-narcotic Antitussive Start: 10-04-2023 End: 12-01-2023 take 1 capsule by mouth three times daily as needed for cough benzonatate (TESSALON PERLES) 100 mg capsule Indications: COVID-19 Take 1 capsule (100 mg total) by mouth 3 (three) times a day as needed for cough. 20 capsule 10/04/2023 12/01/2023 Discontinued (Therapy completed) ergocalciferol 1.25 mg oral capsule (6 sources) Provitamin D2 Compound Start: 11-18-2021 End: 10-04-2023 ergocalciferol (DRISDOL) 1,250 mcg (50,000 unit) capsule Start: 11-18-2021 take 1250 ug by mouth once Erg ocalciferol (Vitamin D2) Active 1250 MCG PO Mo@0900 5 30 November 182 8:09am Ketorolac (6 sources) Nonsteroidal Anti-inflammatory Drug, Cyclooxygenase Inhibitor Start: 12-08-2013 Toradol p er 15 mg November, 60 mg Start: 10-25-2013 Toradol per 15 mg Sep, 1 mg methylPREDNISolone (3 sources) Corticosteroid Start: 07-25-2023 End: 08-22-2023 methylPREDNISolone (MEDROL, ANILA,) 4 mg tablet Indications: Upper respiratory tract infection, unspecified type , Irritant contact dermatitis due to other chemical products follow package directions 21 tablet 0 07/25/2023 08/22/2023 Discontinued (Therapy completed) Start: 07-25-2023 methylPREDNISo lone (MEDROL, ANILA,) 4 mg tablet Indications: Upper respiratory tract infection, unspecified type , Irritant contact dermatitis due to other chemical products follow package directions 21 tablet 0 07/25/2023 Active phentermine hydrochloride 37.5 mg oral tablet (4 sources) Sympathomimetic Amine Anorectic Start: 06-30-2023 End: 08-22-2023 take 45-49.9 tablets by mouth once daily before breakfast phentermine (ADIPEX-P) 37.5 mg tablet Indications: Class 3 drug-induced obesity without serious comorbidity with body mass index (BMI) of 45.0 to 49.9 in adult ([facility]) Take 1 tablet (37.5 mg total) by mouth every morning before breakfast. 30 tablet 0 07/25/2023 08/22/2023 Discontinued (Therapy completed) 1 ml promethazine hydrochloride 25 mg/ml injection (6 sources) Phenothiazine Start: 03-06-2023 Promethazine HCl Feb, 25 mg Start: 09-28-2022 take 1 tablet by [facility] every eight hours Promethazine HCl 12.5 MG [...] Problem Classification Problem Date Documented Date Episodic/Chronic Abdominal pain (5 sources) Unspecified abdominal pain; Translations: [Pain in pelvis] Onset: 01-01-2022 Episodic Anxiety disorders (18 sources) Posttraumatic stress disorder; Translations: [Post-traumatic stress [...] exposure to other viral communicable diseases] Episodic Intracranial injury (2 sources) Concussion with no loss of consciousness; Translations: [Concussion without loss of consciousness, initial encounter] Onset: 09-04-2024 09-04-2024 Episodic Miscellaneous mental health disorders (9 sources) Primary insomnia; Translations: [Primary insomnia] Onset: 11-06-2019 11-06-2019 Chronic Mood disorders (14 sources) Recurrent major depressive episodes, moderate ; Translations: [Major depressive disorder, recurrent, moderate] Onset: 02-17-2017 11-13-2021 Chronic Other nutritional; endocrine; and metabolic disorders (2 sources) Drug-induced obesity; Translations: [Drug-induced obesity] 07-25-2023 Chronic Other nutritional; endocrine; and metabolic disorders (5 sources) Body mass index 40+ - severely obese; Translations: [Morbid (severe) obesity due to excess calories] Onset: 09-06-2023 09-06-2023 Chronic Sprains and strains (2 sources) Strain of neck muscle; Translations: [Strain of muscle, fascia and tendon at neck level, initial encounter] Onset: 09-04-2024 09-04-2024 Episodic Substance-related disorders (1 source) Nicotine dependence, cigarettes, uncomplicated; Translations: [NICOTINE DEPEND CIGARETTES UNCOMP] Onset: 01-04-2022 Chronic Unclassified (1 source) CONTACT W/AND (SUSP) EXPOS COVID-19; Translations: [CONTACT W/AND (SUSP) EXPOS COVID-19] Onset: 11-16-2021 Unclassified (1 source) Annual Exam Onset: 10-15-2024 Unclassified (1 source) Error Onset: 10-14-2024 Unclassified (1 source) sore throat 11/30 Onset: 12-04-2023 Past or Other Problems Problem Classification Problem Date Documented Da te Episodic/Chronic Allergic reactions (1 source) Irritant contact dermatitis caused by chemical; Translations: [Irritant contact dermatitis due to other chemical products] 07-25-2023 Episodic Fluid and electrolyte disorders (1 source) Hypokalemia; Translations: [Hypokalemia] 08-22-2023 Episodic Lymphadenitis (1 source) Nonspecific mesenteric lymphadenitis; Translations: [NONSPEC MESENTERIC LYMPHADENITIS] Onset: 01-04-2022 Episodic Mood disorders (8 sources) Mood disorders Onset: 07-25-2023 Resolved: 12-04-2023 07-25-2023 Nausea and vomiting (2 sources) Nausea; Translations: [Nausea] Onset: 11-08-2021 10-04-2023 Episodic Other aftercare (1 source) Other prison (current) drug therapy; Translations: [OTH HALF-WAY CURRENT DRUG THERAPY] Onset: 11-16-2021 Episodic Other upper respiratory disease (1 source) Pain in throat Onset: 12-01-2023 Episodic Other upper respiratory infections (8 sources) Acute upper respiratory infection, unspecified; Translations: [Sore throat symptom] Onset: 12-01-2023 Episodic Unclassified (8 sources) Onset: 07-25-2023 Resolved: 10-15-2024 07-25-2023 Viral infection (1 source) Disease caused by 2019-nCoV; Translations: [COVID-19] 10-04-2023 Episodic Results Test Name Value Interpretation Reference Range Facility CBC AND AUTO DIFFon 10-16-19 ABSOLUTE BASOPHIL 0.0 X10E9/L Normal 0.0-0.2 [facility] Comment on above: Performed By: #### Kristen JIM 97340-6, CBCA, HA1C #### [facility] ([id number]) [address], [address] [place] [address] ABSOLUTE NEUTROPHIL 4.3 X10E9/L Normal 1.5-6.6 [facility] Comment on above: Performed By: #### Kristen JIM 75945-4, CBCA, HA1C #### [facility] ([id number]) [address], [address] [place] [address] Basophils/100 WBC (Bld) 0.6 % Normal [facility] Comment on above: Performed By: #### Kristen JIM, 84899-0, CBCA, HA1C #### [facility] ([id number]) [address], [address] [place] [address] Eosinophils (Bld) [#/Vol] 0.1 10*3/uL Normal 0.0-0.4 [facility] Comment on above: Performed By: #### Kristen JIM 52541-1, CBCA, HA1C #### [facility] ([id number]) [address], [address] [place] [address] Eosinophils/100 WBC (Bld) 1.2 % Normal [facility] Comment on above: Performed By: #### Kristen JIM, 61002-7, CBCA, HA1C #### [facility] ([id number]) [address] [address] [place] [address] Erythrocyte distribution width (RBC) [Ratio] 13.3 % Normal 11.5-15.0 [facility] Comment on above: Performed By: #### C HERNÁN, 27890-4, CBCA, HA1C #### [facility] ([id number]) [address] [address] [place] [address] Hematocrit (Bld) [Volume fraction] 38.8 % Normal 35-47 [facility] Comment on above: Performed By: #### C HERNÁN, 23159-9, CBCA, HA1C #### [facility] ([id number]) [address] [address] [place] [address] Hemoglobin (Bld) [Mass/Vol] 13.1 g/dL Normal 11.7-15.5 [facility] Comment on above: Performed By: #### C HERNÁN, 99004-1, CBCA, HA1C #### [facility] ([id number]) [address] [address] Lymphocytes (Bld) [#/Vol] 1.9 10*3/uL Normal 1.0-3.5 [facility] Comment on above: Performed By: #### C HERNÁN, 07634-4, CBCA, HA1C #### [facility] ([id number]) [address] [address] Lymphocytes/100 WBC (Bld) 28.9 % Normal [facility] Comment on above: Performed By: #### C HERNÁN, 80553-7, CBCA, HA1C #### [facility] ([id number]) [address] [address] [place] [address] MCH (RBC) [Entitic mass] 31.5 pg Normal 27-34 [facility] Comment on above: Performed By: #### C HERNÁN, 78958-7, CBCA, HA1C #### [facility] ([id number]) [address], [address] [place] [address] MCHC (RBC) [Mass/Vol] 33.8 g/dL Normal 32-36 [facility] Comment on above: Performed By: #### C HERNÁN, 82149-7, CBCA, HA1C #### [facility] ([id number]) [address], [address] [place] [address] MCV (RBC) [Entitic vol] 93 fL Normal 80-100 [facility] Comment on above: Performed By: #### C HERNÁN, 90220-0, CBCA, HA1C #### [facility] ([id number]) [address], [address] [place] [address] Monocytes (Bld) [#/Vol] 0.3 10*3/uL Normal 0-0.9 [facility] Comment on above: Performed By: #### C HERNÁN, 16512-4, CBCA, HA1C #### [facility] ([id number]) [address], [address] [place] [address] Monocytes/100 WBC (Bld) 4.8 % Normal [facility] Comment on above: Performed By: #### C HERNÁN, 17882-4, CBCA, HA1C #### [facility] ([id number]) [address], [address] [place] [address] Neutrophils/100 WBC (Bld) 64.5 % Normal [facility] Comment on above: Performed By: #### C HERNÁN, 12856-9, CBCA, HA1C #### [facility] ([id number]) [address], [address] [place] [address] Platelet mean volume (Bld) [Entitic vol] 8.6 fL Normal 7-12 [facility] Comment on above: Performed By: #### C HERNÁN, 77561-6, CBCA, HA1C #### [facility] ([id number]) [address], [address] [place] [address] Platelets (Bld) [#/Vol] 247 10*3/uL Normal 150-450 [facility] Comment on above: Performed By: #### C HERNÁN, 39459-4, CBCA, HA1C #### [facility] ([id number]) [address] [place] [address] RBC COUNT 4.16 X10E12/L Normal 3.80-5.20 [facility] Comment on above: Performed By: #### C HERNÁN, 58034-7, CBCA, HA1C #### [facility] ([id number]) [address] [place] [address] WBC (Bld) [#/Vol] 6.7 10*3/uL Normal 4.0-11.0 [facility] Comment on above: Performed By: #### Kristen JIM, 09350-6, CBCA, HA1C #### [facility] ([id number]) [address], [address] [place] [address] COMPREHENSIVE METABOLIC PANE Sekou 10-15-2024 Albumin [Mass/Vol] 4.2 g/dL Normal 3.2-5.3 [facility] Comment on above: Performed By: #### C HERNÁN, 06306-0, CBCA, HA1C #### [facility] ([id number]) [address] [place] [address] ALP [Catalytic activity/Vol] 68 U/L Normal 39-130 [facility] Comment on above: Performed By: #### Kristen JIM, 93766-1, CBCA, HA1C #### [facility] ([id number]) [address] [place] [address] ALT [Catalytic activity/Vol] 23 U/L Normal 0-31 [facility] Comment on above: Performed By: #### C HERNÁN, 83321-5, CBCA, HA1C #### [facility] ([id number]) [address], [address] [place] [address] Anion gap [Moles/Vol] 7 mmol/L Normal 5-15 [facility] Comment on above: Performed By: #### C HERNÁN, 33931-4, CBCA, HA1C #### [facility] ([id number]) [address], [address] [place] [address] AST [Catalytic activity/Vol] 21 U/L Normal 0-41 [facility] Comment on above: Performed By: #### C HERNÁN, 45116-4, CBCA, HA1C #### [facility] ([id number]) [address], [address] [place] [address] Bilirubin [Mass/Vol] 0.2 mg/dL Low 0.3-1.2 [facility] Comment on above: Performed By: #### C HERNÁN, 00884-7, CBCA, HA1C #### [facility] ([id number]) [address] [place] [address] Calcium [Mass/Vol] 9.8 mg/dL Normal 8.5-10.5 [facility] Comment on above: Performed By: #### C HERNÁN, 05280-1, CBCA, HA1C #### [facility] ([id number]) [address] [place] [address] Chloride [Moles/Vol] 103 mmol/L Normal 98-109 [facility] Comment on above: Performed By: #### C HERNÁN, 11523-5, CBCA, HA1C #### [facility] ([id number]) [address] [place] [address] CO2 [Moles/Vol] 27 mmol/L Normal 22-32 [facility] [facility] Comment on above: Performed By: #### C HERNÁN, 39261-9, CBCA, HA1C #### [facility] ([id number]) [address] [address] [place] [address] Creatinine [Mass/Vol] 0.94 mg/dL Normal 0.40-1.00 [facility] Comment on above: Result Comment: METH OD TRACEABLE TO IDMS STANDARD Performed By: #### C HERNÁN, 22973-2, CBCPeyton, HA1C #### [facility] ([id number]) [address] [address] [place] [address] GFR/1.73 sq M.predicted among non-blacks MDRD (S/P/Bld) [Vol rate/Area] 85 mL/min/{1.73_m2} Normal >59 [facility] Comment on above: Result Comment: Reported eGFR is based on the CKD-EPI 2020 equation that does not use a race coefficient. Performed By: #### C HERNÁN, 89576-1, CBCPeyton, HA1C #### [facility] ([id number]) [address] [address] [place] [address] Glucose [Mass/Vol] 101 mg/dL High 65-99 [facility] Comment on above: Performed By: #### C HERNÁN, 28661-5, CBCPeyton, HA1C #### [facility] ([id number]) [address] [address] [place] [address] Potassium [Moles/Vol] 4.2 mmol/L Normal 3.5-5.0 [facility] Comment on above: Performed By: #### C HERNÁN, 65681-4, CBCA, HA1C #### [facility] ([id number]) [address] [address] [place] [address] Protein [Mass/Vol] 7.3 g/dL Normal 6.0-8.0 [facility] Comment on above: Performed By: #### C HERNÁN, 47001-0, CBCA, HA1C #### [facility] ([id number]) [address] [address] [place] [address] Sodium [Moles/Vol] 137 mmol/L Normal 134-146 [facility] Comment on above: Performed By: #### C HERNÁN, 96905-6, CBCA, HA1C #### [facility] ([id number]) [address] [address] Urea nitrogen [Mass/Vol] 9 mg/dL Normal 5-23 [facility] Comment on above: Performed By: #### Kristen JIM, 41907-3, CBCA, HA1C #### [facility] ([id number]) [address] [address] HGB A1C (GLYCO-HGB)on 2024 Glucose [Mass/Vol] 103 mg/dL Normal [facility] Comment on above: Performed By: #### Kristen JIM, 22348-0, CBCA, HA1C #### [facility] ([id number]) [address] [address] HbA1c (Bld) [Mass fraction] 5.2 % Normal 4.4-5.6 [facility] Comment on above: Result Comment: NOTE ADA Guidelines Result HgbA1c Normal : less than 5.7 % Prediabetes : 5.7 % to 6.4 % Diabetes : > 6.4 % Use with caution in patients with abnormal hemoglobin variants as the half-life of red blood cells and in vivo glycation rates are affected. Performed By: #### Kristen JIM, 85843-4, CBCA, HA1C #### [facility] ([id number]) [address] [address]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 10.0 fL Normal 9.5-13.[address] [facility] Comment on above: Performed By: #### C BC #### [facility] [address] [place] [address] Dr. Umm Banuelos PLT 274 103/ul Normal 150-450 [facility] Comment on above: Performed By: #### C BC #### [facility] [address] [place] [address] Dr. Umm Banuelos RBC 4.24 106/ul Normal 4.20-5.40 [facility] Comment on above: Performed By: #### C BC #### [facility] [address] [place] [address] Dr. Umm Banuelos WBC 10.4 103/ul Normal 4.0-11.0 [facility] Comment on above: Performed By: #### C BC #### [facility] [address] [place] [address] ABD/PELVIS WO CONon [...] ALISSA JOHN Date: 2022-01-01 18:26 Normal [facility] ER URINE PROFILEon 2 Bilirubin Ql (U) Negative Normal NEGATIVE [facility] Comment on above: Performed By: #### E TH #### [facility] [address] [address] [address] Umm Banuelos Clarity (U) CLEAR Normal CLEAR [facility] Comment on above: Performed By: #### E TH #### [facility] [address] [place] [address] Dr. Umm Banuelos Color (U) YELLOW Normal YELLOW [facility] Comment on above: Performed By: #### E #### [facility] [address] [place] [address] Dr. Umm MUSE A micrscopic examination will be performed if indicated. Normal [facility] Comment on above: Performed By: #### E #### [facility] [address] [place] [address] Dr. Umm Banuelos Glucose Ql (U) Negative Normal NEGATIVE [facility] Comment on above: Performed By: #### E #### [facility] [address] [place] [address] Dr. Umm Banuelos Hemoglobin Ql (U) Negative Normal NEGATIVE [facility] Comment on above: Performed By: #### E #### [facility] [address] [place] [address] Dr. Umm Banuelos Ketones Ql (U) Negative Normal NEGATIVE [facility] Comment on above: Performed By: #### E #### [facility] [address] [place] [address] Dr. Umm Banuelos LEUKOCYTES Negative Normal NEGATIVE [facility] Comment on above: Performed By: #### E #### [facility] [address] [place] [address] Dr. Umm Banuelos Nitrite Ql (U) Negative Normal NEGATIVE [facility] Comment on above: Performed By: #### E #### [facility] [address] [place] [address] Dr. Umm Banuelos pH (U) 7.0 [pH] Normal 5-[address] [facility] Comment on above: Performed By: #### E #### [facility] [address] [place] [address] Dr. Umm Banuelos SPEC GRAVITY 1.015 Normal 1.005-<=1.[address] [facility] Comment on above: Performed By: #### E #### [facility] [address] [place] [address] Dr. Umm Banuelos UA PROTEIN Negative Normal NEGATIVE/ TRACE [facility] Comment on above: Performed By: #### E TH #### [facility] [address] [place] [address] Dr. Umm Banuelos UR MICRO IND NOT INDICATED Normal [facility] Comment on above: Performed By: #### E TH #### [facility] [address] [place] [address] Dr. Umm Banuelos Urobilinogen Qn (U) 0.2 {Dajuan'U}/dL Normal 0.2 - 1. [address] [facility] Comment on above: Performed By: #### E TH #### [facility] [address] [place] [address] Dr. mUm Banuelos LIPASEon 01-01-2022 Lipase [Catalytic activity/Vol] 62.0 U/L Critically low 73.0-393.[address] [facility] Comment on above: Performed By: #### A LATOYA LIPA, CMP #### [facility] [address] [place] [address] Dr. Umm Banuelos URon 01-01-2022 , QUAL Negative Normal NEGATIVE [facility] Comment on above: Performed By: #### E TH #### [facility] [address] [place] [address] Dr. Umm Banuelos PROF 14(COMP METB)on 022 Albumin [Mass/Vol] 3.5 g/dL Normal 3.4-5.0 [facility] Comment on above: Performed By: #### A MY LIPA, CMP #### [facility] [address] [place] [address] Dr. Umm Banuelos Albumin/Globulin [Mass ratio] 0.9 {ratio} Normal [facility] Comment on above: Performed By: #### A MY LIPA, CMP #### [facility] [address] [place] [address] Dr. Umm Banuelos ALP [Catalytic activity/Vol] 84 U/L Normal 46-116 [facility] Comment on above: Performed By: #### A MY LIPA, CMP #### [facility] [address] [address] [address] Umm Banuelos ALT [Catalytic activity/Vol] 39 U/L Normal 14-[address] [facility] Comment on above: Performed By: #### A MY LIPA, CMP #### [facility] [address] [address] [address] Umm Banuelos Anion gap [Moles/Vol] 12.7 mmol/L Normal [facility] Comment on above: Performed By: #### A MY LIPA, CMP #### [facility] [address] [place] [address] Dr. Umm Banuelos AST [Catalytic activity/Vol] 31 U/L Normal 15-[address] [facility] Comment on above: Performed By: #### A MY LIPA, CMP #### [facility] [address] [place] [address] Dr. Umm Banuelos Calcium [Mass/Vol] 8.8 mg/dL Normal 8.5-10.1 [facility] Comment on above: Performed By: #### A MY, LIPA, CMP #### [facility] [address] [place] [address] Dr. Umm Banuelos Chloride [Moles/Vol] 103 mmol/L Normal 98-[address] [facility] Comment on above: Performed By: #### A MY LIPA, CMP #### [facility] [address] [place] [address] Dr. Umm Banuelos CO2 [Moles/Vol] 27.4 mmol/L Normal 21.0-32.0 [facility] Comment on above: Performed By: #### A MY, LIPA, CMP #### [facility] [address] [place] [address] Dr. Umm Banuelos Creatinine [Mass/Vol] 1.02 mg/dL Normal 0.55-1.[address] [facility] Comment on above: Performed By: #### A MY, LIPA, CMP #### [facility] [address] [place] [address] Dr. Umm Banuelos EGFR-AF WALLISIAN >60 Normal >=60 [facility] Comment on above: Performed By: #### A MY, LIPA, CMP #### [facility] [address] [address] [address] Umm Banuelos EGFR-NON AF WALLISIAN >60 Normal >=[address] [facility] Comment on above: Performed By: #### A MY, LIPA, CMP #### [facility] [address] [address] [address] Umm Banuelos Globulin (S) [Mass/Vol] 3.9 g/dL Normal [facility] Comment on above: Performed By: #### A MY, LIPA, CMP #### [facility] [address] [address] [address] Umm Banuelos Glucose [Mass/Vol] 111 mg/dL Critically high 74-106 [facility] Comment on above: Performed By: #### A MY, LIPA, CMP #### [facility] [address] [place] [address] Dr. Umm Banuelos Potassium [Moles/Vol] 4.1 mmol/L Normal 3.5-5.[address] [facility] Comment on above: Performed By: #### A MY, LIPA, CMP #### [facility] [address] [address] [address] Umm Banuelos Protein [Mass/Vol] 7.4 g/dL Normal 6.4-8.[address] [facility] Comment on above: Performed By: #### A MY, LIPA, CMP #### [facility] [address] [address] [address] Umm Banuelos Sodium [Moles/Vol] 139 mmol/L Normal 136-145 [facility] Comment on above: Performed By: #### A MY, LIPA, CMP #### [facility] [address] [address] [address] Umm Banuelos Urea nitrogen [Mass/Vol] 10.0 mg/dL Normal 7.0-18.[address] [facility] Comment on above: Performed By: #### A MY, LIPA, CMP #### [facility] [address] [address] [address] Umm Banuelos Urea nitrogen/Creatinine [Mass ratio] 9.8 mg/mg Normal [facility] Comment on above: Performed By: #### A MY, LIPA, CMP #### [facility] [address] [address] [address] Umm Banuelos Cholesterol [Mass/volume] in Serum or PlasmaOrdered By: Hank Lerma on 11-14-2021 Cholesterol [Mass/Vol] 216 mg/dL 140-200 [facility] Comment on above: Chol less than 200 m g/dl low riskChol 201-239 mg/dl borderline riskChol 240 mg/dl and greater high risk Cholesterol in LDL Calc [Mas s/Vol]Ordered By: Hank Lerma on 11-14-2021 Cholesterol in LDL [Mass/Vol] 122 mg/dL 0-100 [facility] Comment on above: LDL ATP III CLASSIFI CATIONLDL less than 100 mg/dL OptimalLDL 100-129 mg/dL Near or above optimalLDL 130-159 mg/dL Borderline highLDL 160-189 mg/dL HighLDL greater than 189 mg/dL Very high Cholesterol in VLDL Calc [Ma ss/Vol]Ordered By: Hank Lerma on 11-14-2021 Cholesterol in VLDL [Mass/Vol] 45 mg/dL [facility] ECG 12 lead ECGon 11-14-2021 ECG 12 lead ECG [facility] [place] [address] Electrocardiograph Report Signed Patient: Franki Quiroz MR#: [id number] 7 : 1995 Acct:[id number] Age/Sex: 26 / F ADM Date: 11/13/21 Loc: Room: [address] [place] [address] Type: DIS IN Attending Dr: Dione Lerma [...] By Jun Bo DO 11/16 1830 Normal [facility] Lipid Panelon 11-14-2021 Cholesterol [Mass/Vol] 216 mg/dL High 140-200 [facility] Comment on above: Result Comment: Chol less than 200 mg/dl low risk Chol 201-239 mg/dl borderline risk Chol 240 mg/dl and greater high risk Performed By: #### L IPID, TSH3 wRFLX, [id number] #### [facility] [address] Cholesterol in HDL [Mass/Vol] 48 mg/dL Normal 35-85 [facility] Comment on above: Result Comment: HDL CHOL ATP-III CLASSIFICATION Cardiovascular Risk HDL > or equal to 60 mg/dL LOW HDL < 40 mg/dL HIGH Performed By: #### L IPID, TSH3 wRFLX, [id number] #### [facility] [address] [place] [address] [place] Cholesterol.total/Cho lesterol in HDL [Mass ratio] 4.5 {ratio} Normal <5.0 [facility] Comment on above: Performed By: #### L IPID, TSH3 wRFLX, [id number] #### [facility] [address] [place] [address] [place] LDL Cholesterol,Calculate d 122 mg/dL High 0-100 [facility] Comment on above: Result Comment: LDL ATP III CLASSIFICATION LDL less than 100 mg/dL Optimal LDL 100-129 mg/dL Near or above optimal LDL 130-159 mg/dL Borderline high LDL 160-189 mg/dL High LDL greater than 189 mg/dL Very high Performed By: #### L IPID, TSH3 wRFLX, [id number] #### [facility] [address] [place] [address] [place] Triglyceride w/Reflex 229 mg/dL High 35-149 [facility] Comment on above: Result Comment: TRIG ATP III CLASSIFICATION TRIG less than 150 mg/dL Normal TRIG 150-199 mg/dL Borderline high TRIG 200-500 mg/dL High TRIG greater than 500 mg/dL Very high Standard traceable to the Center for Disease Conrtrol and Prevention (CDC) test method. Performed By: #### L IPID, TSH3 wRFLX, [id number] #### [facility] [address] [place] [address] [place] VLDL CHOLESTEROL 45 mg/dL Normal [facility] Comment on above: Performed By: #### L IPID, TSH3 wRFLX, [id number] #### [facility] [address] No Panel InformationOrdered By: Hank Lerma on 11-14-2021 25-Hydroxy Vitamin D Total 25.8 ng/mL 30-100 [facility] Comment on above: VITAMIN D STATUS 25( [...] Cholesterol in HDL [Mass/Vol] 48 mg/dL 35-85 [facility] Comment on above: HDL CHOL ATP-III CLA SSIFICATION Cardiovascular RiskHDL > or equal to 60 mg/dL LOWHDL < 40 mg/dL HIGH Serum or plasma total choles terol/high density lipoprotein (HDL) cholesterol mass ratOrdered By: Hank Lerma on 11-14-2021 Cholesterol.total/Cho lesterol in HDL [Mass ratio] 4.5 {ratio} [facility] TSH DL <= 0.005 mIU/L QnOrde red By: Hank Lerma on 11-14-2021 TSH Qn 0.98 m[IU]/L 0.45-5.33 [facility] Thyroid Stim Hormone w/Rflxo n 11-14-2021 Thyroid Stim Hormone w/Rflx 0.98 u[iU]/mL Normal 0.45-5.33 [facility] Comment on above: Performed By: #### L IPID, TSH3 wRFLX, [id number] #### [facility] [address] [id number] [facility] Triglyceride [Mass/volume] i n Serum or PlasmaOrdered By: Hank Lerma on 11-14-2021 Triglyceride [Mass/Vol] 229 mg/dL 35-149 [facility] Comment on above: TRIG ATP III CLASSIF ICATIONTRIG less than 150 mg/dL NormalTRIG 150-199 mg/dL Borderline highTRIG 200-500 mg/dL High TRIG greater than 500 mg/dL Very highStandard traceable to the Center for Disease Conrtrol and Prevention (CDC) test method. Vitamin D 25 Hydroxy Totalon 11-14-2021 Vitamin D 25 Hydroxy Total 25.8 ng/mL Low 30-100 [facility] Comment on above: Result Comment: GENE MIN D STATUS 25(OH)VITAMIN D RANGE (ng/mL) Deficient <20 Insufficient 20 to <30 Sufficient 30 to 100 Reference: Lakisha MF,Chuckie NC, Olga Lidia-Mando WILCOX, et al. Evaluation,treatment, and prevention of vitamin D deficiency; an Endocrine Society clinical practice guideline. JCEM. 2010; 96(7):1911-30. PERFORMED BY: [place] [address] PATHOLOGIST TRANSFORMATION LEAD ANA JENKINS M.D. Performed By: #### L IPID, TSH3 wRFLX, [id number] #### [facility] [address] [id number] [facility] ACETAMINOPHENon 11-13-2021 Acetaminophen [Mass/Vol] ug/mL Normal 10.0-30.[address] [facility] Comment on above: Performed By: #### E TH #### [facility] [address] [address] [address] Umm Banuelos CBC AUTO DIFFon 11-13-2021 BASO # 0.1 103/ul Normal 0.0-0.[address] [facility] Comment on above: Performed By: #### C BC #### [facility] [address] [address] [address] Umm Banuelos Basophils/100 WBC (Bld) 0.3 % Normal 0.2-2.[address] [facility] Comment on above: Performed By: #### C BC #### [facility] [address] [address] [address] Umm Banuelos EO # 0.1 103/ul Normal 0.0-0.7 [facility] Comment on above: Performed By: #### C BC #### [facility] [address] [address] [address] Umm Banuelos Eosinophils/100 WBC (Bld) 0.7 % Critically low 0.9-7.[address] [facility] Comment on above: Performed By: #### C BC #### [facility] [address] [place] [address] Dr. Umm Banuelos Erythrocyte distribution width (RBC) [Ratio] 12.7 % Normal 11.0-15.[address] [facility] Comment on above: Performed By: #### C BC #### [facility] [address] [address] [address] Umm Banuelos Hematocrit (Bld) [Volume fraction] 39.5 % Normal 36.0-48.[address] [facility] Comment on above: Performed By: #### C BC #### [facility] [address] [address] [address] Umm Banuelos Hemoglobin (Bld) [Mass/Vol] 12.9 g/dL Normal 12.0-16.[address] [facility] Comment on above: Performed By: #### C BC #### [facility] [address] [address] [address] Umm Banuelos IG # 0.06 10e3/ul Critically high 0.00-0.03 [facility] Comment on above: Performed By: #### C BC #### [facility] [address] [address] [address] Umm Banuelos IG % 0.4 % Normal 0.0-0.5 [facility] Comment on above: Performed By: #### C BC #### [facility] [address] [address] [address] Umm Banuelos LYMPH # 3.2 103/ul Normal 1.2-3.8 [facility] Comment on above: Performed By: #### C BC #### [facility] [address] [place] [address] Dr. Umm Banuelos Lymphocytes/100 WBC (Bld) 21.1 % Normal 20.5-60.[address] [facility] Comment on above: Performed By: #### C BC #### [facility] [address] [place] [address] Dr. Umm Banuelos MANUAL DIFF REQ NO Normal [facility] Comment on above: Performed By: #### C BC #### [facility] [address] [place] [address] Dr. Umm Banuelos MCH (RBC) [Entitic mass] 31.5 pg Normal 26.7-34.0 [facility] Comment on above: Performed By: #### C BC #### [facility] [address] [place] [address] Dr. Umm Banuelos MCHC (RBC) [Mass/Vol] 32.7 g/dL Normal 29.9-35.2 [facility] Comment on above: Performed By: #### C BC #### [facility] [address] [place] [address] Dr. Umm Banuelos MCV (RBC) [Entitic vol] 96.3 fL Normal 81.0-99.0 [facility] Comment on above: Performed By: #### C BC #### [facility] [address] [place] [address] Dr. Umm Banuelos MONO # 1.0 103/ul Critically high 0.3-0.8 [facility] Comment on above: Performed By: #### C BC #### [facility] [address] [place] [address] Dr. Umm Banuelos Monocytes/100 WBC (Bld) 6.3 % Normal 1.7-12.0 [facility] Comment on above: Performed By: #### C BC #### [facility] [address] [place] [address] Dr. Umm Banuelos NEUT # 10.8 103/ul Critically high 1.4-6.5 [facility] Comment on above: Performed By: #### C BC #### [facility] [address] [place] [address] Dr. Umm Banuelos Neutrophils/100 WBC (Bld) 71.2 % Normal 43.0-75.0 [facility] Comment on above: Performed By: #### C BC #### [facility] [address] [place] [address] Dr. Umm Banuelos Platelet mean volume (Bld) [Entitic vol] 10.1 fL Normal 9.5-13.[address] [facility] Comment on above: Performed By: #### C BC #### [facility] [address] [place] [address] Dr. Umm Banuelos PLT 280 103/ul Normal 150-450 [facility] Comment on above: Performed By: #### C BC #### [facility] [address] [place] [address] Dr. Umm Banuelos RBC 4.10 106/ul Critically low 4.20-5.40 [facility] Comment on above: Performed By: #### C BC #### [facility] [address] [place] [address] Dr. Umm Banuelos WBC 15.2 103/ul Critically high 4.0-11.0 [facility] Comment on above: Performed By: #### C BC #### [facility] [address] [place] [address] Dr. Umm Banuelos Covid-19 PCR ([facility])on 10-29 SARS-CoV-2 (COVID-19) RNA SANDIE+probe Ql (Unsp spec) Not detected Normal NOT DETECTED [facility] Comment on above: Result Comment: When diagnostic [...] for this test is supported by the [place] of Health and Human Service's declaration that [...] used). Performed By: #### C VDTB #### [facility] [address] [place] [address] Dr. Umm Banuelos DRUG SCREEN RAPID (URINE)on 11-13-2021 AMP Negative Normal NEGATIVE [facility] Comment on above: Performed By: #### E TH #### [facility] [address] [place] [address] Dr. Umm Banuelos BAR Negative Normal NEGATIVE [facility] Comment on above: Performed By: #### E TH #### [facility] [address] [place] [address] Dr. Umm Banuelos BUP Negative Normal NEGATIVE [facility] Comment on above: Performed By: #### E TH #### [facility] [address] [place] [address] Dr. Umm Banuelos BZO Negative Normal NEGATIVE [facility] Comment on above: Performed By: #### E TH #### [facility] [address] [place] [address] Dr. Umm Banuelos KAYLA Negative Normal NEGATIVE [facility] Comment on above: Performed By: #### E TH #### [facility] [address] [place] [address] Dr. Umm Banuelos CUT-OFFS SEE BELOW Normal [facility] Comment on above: Result Comment: AMP (Amphetamine): 500ng/mL, BAR (Barbituates): 200 ng/mL, BZO (Benzodiazepines): 150 ng/mL, BUP (Buprenorphine): 10 ng/mL, KAYLA (Cocaine): 150 ng/mL, mAMP (Methamphetamine): 500 ng/mL, MTD (Methadone): 200 ng/mL, OPI (Opiates): 100 ng/mL, OXY (Oxycodone): 100 ng/mL, PCP (Phencyclidine): 25 ng/mL, PPX (Propoxyphene): 300 ng/mL, THC (Cannabinoids): 50 ng/mL, TCA (Trycyclic Antidepressants): 300 ng/mL Performed By: #### E #### [facility] [address] [place] [address] Dr. Umm Banuelos DRUG CUT HEADER DRUG CLASS TEST SYSTEM CUT-OFF CONCENTRATIONS ARE FOLLOWS: Normal [facility] Comment on above: Performed By: #### E #### [facility] [address] [place] [address] Dr. Umm Banuelos mAMP Negative Normal NEGATIVE [facility] Comment on above: Performed By: #### E #### [facility] [address] [place] [address] Dr. Umm Banuelos MTD Negative Normal NEGATIVE [facility] Comment on above: Performed By: #### E #### [facility] [address] [place] [address] Dr. Umm Banuelos OPI Negative Normal NEGATIVE [facility] Comment on above: Performed By: #### E #### [facility] [address] [place] [address] Dr. Umm Banuelos OXY Negative Normal NEGATIVE [facility] Comment on above: Performed By: #### E #### [facility] [address] [place] [address] Dr. Umm Banuelos PCP Negative Normal NEGATIVE [facility] Comment on above: Performed By: #### E #### [facility] [address] [place] [address] Dr. Umm Banuelos PPX Negative Normal NEGATIVE [facility] Comment on above: Performed By: #### E #### [facility] [address] [place] [address] Dr. Umm Banuelos TCA Negative Normal NEGATIVE [facility] Comment on above: Performed By: #### E #### [facility] [address] [place] [address] Dr. Umm Banuelos THC Negative Normal NEGATIVE [facility] Comment on above: Performed By: #### E TH #### [facility] [address] [place] [address] Dr. Umm Banuelos ETHANOL (BLD ALC)on 11-14-19 22 ALC NOTE NOTE: 80 mg/dl is th e legal limit for a blood alcohol level Normal [facility] Comment on above: Performed By: #### E TH #### [facility] [address] [place] [address] Dr. Umm Banuelos Ethanol [Mass/Vol] mg/dL Normal [facility] Comment on above: Performed By: #### E TH #### [facility] [address] [place] [address] Dr. Umm Banuelos ALC NOTE NOTE: 80 mg/dl is th e legal limit for a blood alcohol level Normal [facility] Comment on above: Performed By: #### E TH #### [facility] [address] [place] [address] Dr. Umm Banuelos Ethanol [Mass/Vol] mg/dL Normal [facility] Comment on above: Performed By: #### E TH #### [facility] [address] [place] [address] Dr. Umm Banuelos PREG HCG QUALon 11-13-2021 , QUAL Negative Normal NEGATIVE [facility] Comment on above: Performed By: #### E TH #### [facility] [address] [place] [address] Dr. Umm Banuelos URon 11-13-2021 , QUAL Negative Normal NEGATIVE [facility] Comment on above: Performed By: #### E TH #### [facility] [address] [place] [address] Dr. Umm Banuelos PROF 14(COMP METB)on 022 Albumin [Mass/Vol] 3.6 g/dL Normal 3.4-5.0 [facility] Comment on above: Performed By: #### C MP #### [facility] [address] [place] [address] Dr. Umm Banuelos Albumin/Globulin [Mass ratio] 0.9 {ratio} Normal [facility] Comment on above: Performed By: #### C MP #### [facility] [address] [address] [address] Umm Banuelos ALP [Catalytic activity/Vol] 102 U/L Normal 46-[address] [facility] Comment on above: Performed By: #### C MP #### [facility] [address] [address] [address] Umm Banuelos ALT [Catalytic activity/Vol] 22 U/L Normal 14-[address] [facility] Comment on above: Performed By: #### C MP #### [facility] [address] [address] [address] Umm Banuelos Anion gap [Moles/Vol] 12.5 mmol/L Normal [facility] Comment on above: Performed By: #### C MP #### [facility] [address] [address] [address] Umm Banuelos AST [Catalytic activity/Vol] 14 U/L Critically low 15-[address] [facility] Comment on above: Performed By: #### C MP #### [facility] [address] [address] [address] Umm Banuelos Bilirubin [Mass/Vol] 0.1 mg/dL Critically low 0.2-1.[address] [facility] Comment on above: Performed By: #### C MP #### [facility] [address] [address] [address] Umm Banuelos Calcium [Mass/Vol] 8.6 mg/dL Normal 8.5-10.1 [facility] Comment on above: Performed By: #### C MP #### [facility] [address] [address] [address] Umm Banuelos Chloride [Moles/Vol] 103 mmol/L Normal 98-[address] [facility] Comment on above: Performed By: #### C MP #### [facility] [address] [address] [address] Umm Banuelos CO2 [Moles/Vol] 25.2 mmol/L Normal 22.0-30.0 [facility] Comment on above: Performed By: #### C MP #### [facility] [address] [address] [address] Umm Banuelos Creatinine [Mass/Vol] 1.15 mg/dL Critically high 0.52-1.[address] [facility] Comment on above: Performed By: #### C MP #### [facility] [address] [address] [address] Umm Banuelos EGFR-AF WALLISIAN >60 Normal >=60 [facility] Comment on above: Performed By: #### C MP #### [facility] [address] [address] [address] Umm Banuelos EGFR-NON AF WALLISIAN 57 mL/min/1.73m2 Critically low >=[address] [facility] Comment on above: Performed By: #### C MP #### [facility] [address] [address] [address] Umm Banuelos Globulin (S) [Mass/Vol] 4.0 g/dL Normal [facility] Comment on above: Performed By: #### C MP #### [facility] [address] [address] [address] Umm Banuelos Glucose [Mass/Vol] 94 mg/dL Normal 74-[address] [facility] Comment on above: Performed By: #### C MP #### [facility] [address] [address] [address] Umm Banuelos Potassium [Moles/Vol] 3.7 mmol/L Normal 3.4-5.0 [facility] Comment on above: Performed By: #### C MP #### [facility] [address] [address] [address] Umm Banuelos Protein [Mass/Vol] 7.6 g/dL Normal 6.1-8.[address] [facility] Comment on above: Performed By: #### C MP #### [facility] [address] [address] [address] Umm Banuelos Sodium [Moles/Vol] 137 mmol/L Normal 137-[address] [facility] Comment on above: Performed By: #### C MP #### [facility] [address] [address] [address] Umm Banuelos Urea nitrogen [Mass/Vol] 11.0 mg/dL Normal 7.0-18.[address] [facility] Comment on above: Performed By: #### C MP #### [facility] [address] [address] [address] Umm Banuelos Urea nitrogen/Creatinine [Mass ratio] 9.6 mg/mg Normal [facility] Comment on above: Performed By: #### C MP #### [facility] [address] [address] [address] Umm Banuelos SALICYLATEon 11-13-2021 SALICYLATE 2.1 mg/dL Normal <=20.[address] [facility] Comment on above: Performed By: #### S ALYC #### [facility] [address] [address] [address] Umm Banuelos Vital Signs Date Time Vital Sign Value Performing Clinician Facility 10-15-2024 07:31-0400 Body height 162.6 cm Dina STEVENS Work Phone: [facility] 10-15-2024 07:31-0400 Body mass index (BMI) [Ratio] 41.16 kg/m2 Dina Conner APRN-FAMILY NURSE PRACTITIONER Work Phone: [facility] 10-15-2024 07:31-0400 Body temperature 97 [degF] Dina STEVENS Work Phone: [facility] 10-15-2024 07:31-0400 Body weight 108.77 kg Dina Conner APRN-FAMILY NURSE PRACTITIONER Work Phone: [facility] 10-15-2024 07:31-0400 Diastolic blood pressure 70 mm[Hg] Dina Conner APRN-FAMILY NURSE PRACTITIONER Work Phone: [facility] 10-15-2024 07:31-0400 Heart rate 83 /min Dina STEVENS Work Phone: [facility] 10-15-2024 07:31-0400 Respiratory rate 16 /min Dina Conner APRN-FAMILY NURSE PRACTITIONER Work Phone: [facility] 10-15-2024 07:31-0400 SaO2% (BldA) [Mass fraction] 98 % Dina Conner APRN-FAMILY NURSE PRACTITIONER Work Phone: [facility] 10-15-2024 07:31-0400 Systolic blood pressure 110 mm[Hg] [facility] Work Phone: [facility] 09-04-2024 10:01-0500 Diastolic blood pressure 52 mm[Hg] Antonio Jones MD Work Phone: [facility] [employer] 09-04-2024 10:01-0500 Heart rate 78 /min Antonio Jones MD Work Phone: [facility] [employer] 09-04-2024 10:01-0500 Respiratory rate 18 /min Antonio Jones MD Work Phone: [facility] [employer] 09-04-2024 10:01-0500 SaO2% (BldA) [Mass fraction] 98 % Antonio Jones MD Work Phone: [facility] [employer] 09-04-2024 10:01-0500 Systolic blood pressure 102 mm[Hg] Antonio Jones MD Work Phone: [facility] [employer] 09-04-2024 08:25-0500 Body temperature 98.49 [degF] Antonio Jones MD Work Phone: [facility] [employer] 09-04-2024 08:25-0500 Body weight 107.05 kg Antonio Jones MD Work Phone: [facility] [employer] 12-04-2023 11:03-0400 Body height 162.6 cm Dinahermelindo Jaureguiillo MARKETING BUDGET [facility] Work Phone: [facility] 12-04-2023 11:03-0400 Body mass index (BMI) [Ratio] 49.23 kg/m2 Dina Conner APRN-FAMILY NURSE PRACTITIONER Work Phone: [facility] [employer] [facility] 12-04-2023 11:03-0400 Body temperature 98.29 [degF] Dina Conner APRN-FAMILY NURSE PRACTITIONER Work Phone: [facility] 12-04-2023 11:03-0400 Body weight 130.09 kg Dina Conner APRN-FAMILY NURSE PRACTITIONER Work Phone: [facility] 12-04-2023 11:03-0400 Diastolic blood pressure 80 mm[Hg] Dina Conner APRN-FAMILY NURSE PRACTITIONER Work Phone: [facility] 12-04-2023 11:03-0400 Heart rate 73 /min Dina Conner APRN-FAMILY NURSE PRACTITIONER Work Phone: [facility] 12-04-2023 11:03-0400 Respiratory rate 20 /min Dina Conner APRN-DAVID Work Phone: [facility] 12-04-2023 11:03-0400 SaO2% (BldA) [Mass fraction] 98 % Dina Conner APRN-DAVID Work Phone: [facility] 12-04-2023 11:03-0400 Systolic blood pressure 118 mm[Hg] Dina Conner APRN-FAMILY NURSE PRACTITIONER Work Phone: [facility] 08-22-2023 14:51-0500 Body height 162.6 cm Dina Conner APRN-FAMILY NURSE PRACTITIONER Work Phone: [facility] 08-22-2023 14:51-0500 Body mass index (BMI) [Ratio] 50.29 kg/m2 Dina Conner APRN-FAMILY NURSE PRACTITIONER Work Phone: [facility] [employer] [facility] 08-22-2023 14:51-0500 Body temperature 99.1 [degF] Dina Conner APRN-FAMILY NURSE PRACTITIONER Work Phone: [facility] 08-22-2023 14:51-0500 Body weight 132.9 kg Dina Conner APRN-FAMILY NURSE PRACTITIONER Work Phone: [facility] 08-22-2023 14:51-0500 Diastolic blood pressure 80 mm[Hg] Dina Conner APRN-FAMILY NURSE PRACTITIONER Work Phone: [facility] [employer] [facility] 08-22-2023 14:51-0500 Heart rate 96 /min Dina Conner APRN-FAMILY NURSE PRACTITIONER Work Phone: [facility] 08-22-2023 14:51-0500 SaO2% (BldA) [Mass fraction] 97 % Dina Conner APRN-FAMILY NURSE PRACTITIONER Work Phone: [facility] 08-22-2023 14:51-0500 Systolic blood pressure 118 mm[Hg] Dina Conner MARKETING BUDGET ANALYST-FAMILY NURSE PRACTITIONER Work Phone: [facility] 07-25-2023 09:48-0500 Body height 162.6 cm Dina Conner APRN-FAMILY NURSE PRACTITIONER Work Phone: [facility] 07-25-2023 09:48-0500 Body mass index (BMI) [Ratio] 48.51 kg/m2 Dina Conner APRN-FAMILY NURSE PRACTITIONER Work Phone: [facility] 07-25-2023 09:48-0500 Body temperature 98.4 [degF] Dina Conner APRN-FAMILY NURSE PRACTITIONER Work Phone: [facility] 07-25-2023 09:48-0500 Body weight 128.19 kg Dina Conner MARKETING BUDGET ANALYST-FAMILY NURSE PRACTITIONER Work Phone: [facility] 07-25-2023 09:48-0500 Diastolic blood pressure 78 mm[Hg] Dina Conner MARKETING BUDGET ANALYST-FAMILY NURSE PRACTITIONER Work Phone: [facility] 07-25-2023 09:48-0500 Heart rate 101 /min Dina Conner MARKETING BUDGET ANALYST-FAMILY NURSE PRACTITIONER Work Phone: [employer] 07-25-2023 09:48-0500 Respiratory rate 20 /min Dina Conner APRNTapomatDAVID Work Phone: [employer] 07-25-2023 09:48-0500 SaO2% (BldA) [Mass fraction] 97 % Dina Conner APRNTapomatFAMILY NURSE PRACTITIONER Work Phone: [employer] 07-25-2023 09:48-0500 Systolic blood pressure 112 mm[Hg] Dina Conner APRNTapomatFAMILY NURSE PRACTITIONER Work Phone: [employer] 03-06-2023 17:20-0400 Body height 162.56 cm Anitha Grande Other [employer] Other 03-06-2023 17:20-0400 Body mass index (BMI) [Ratio] 49.7 kg/m2 Anitha Grande Other [employer] Other 03-06-2023 17:20-0400 Body temperature 98.4 [degF] Anitha Grande Other [employer] Other 03-06-2023 17:20-0400 Body weight 131.36 kg Anitha Grande Other [employer] Other 03-06-2023 17:20-0400 Diastolic blood pressure 65 mm[Hg] Anitha Grande Other [employer] Other 03-06-2023 17:20-0400 Respiratory rate 18 /min Anitha Grande Other [employer] Other 03-06-2023 17:20-0400 SaO2% (BldA) [Mass fraction] 98 % Anitha Grande Other [employer] Other 03-06-2023 17:20-0400 Systolic blood pressure 106 mm[Hg] Anitha Grande Other [employer] Other 09-28-2022 16:00-0500 Body height 162.56 cm Reshma Vitale Other [employer] Other 09-28-2022 16:00-0500 Body mass index (BMI) [Ratio] 47.54 kg/m2 Reshma Vitale Other [employer] Other 09-28-2022 16:00-0500 Body temperature 96.2 [degF] Reshma Vitale Other [employer] Other 09-28-2022 16:00-0500 Body weight 125.65 kg Reshma Vitale Other [employer] Other 09-28-2022 16:00-0500 Respiratory rate 18 /min Reshma Vitale Other [employer] Other 09-28-2022 16:00-0500 SaO2% (BldA) [Mass fraction] 95 % Reshma Vitale Other [employer] Other 07-05-2022 14:15-0500 Body height 162.56 cm Brunilda Jacky Other [employer] Other 07-05-2022 14:15-0500 Body mass index (BMI) [Ratio] 48.91 kg/m2 Brunilda Rico Other [employer] Other 07-05-2022 14:15-0500 Body temperature 97.1 [degF] Brunilda Jacky Other [employer] Other 07-05-2022 14:15-0500 Body weight 129.28 kg Brunilda Rico Other [employer] Other 07-05-2022 14:15-0500 Respiratory rate 18 /min Brunilda Rico Other [employer] Other 07-05-2022 14:15-0500 SaO2% (BldA) [Mass fraction] 97 % Brunilda Rico Other [employer] Other 11-18-2021 09:03-0400 Body temperature 97.6 [degF] MD Ted Pisano Work Phone: [facility] 11-18-2021 09:03-0400 Diastolic blood pressure 84 mm[Hg] MD Ted Pisano Work Phone: [facility] 11-18-2021 09:03-0400 Heart rate 69 /min MD Ted Pisano Work Phone: [facility] 11-18-2021 09:03-0400 Respiratory rate 16 /min MD Ted Pisano Work Phone: [facility] 11-18-2021 09:03-0400 SaO2% (BldA) [Mass fraction] 98 % MD Ted Pisano Work Phone: [facility] 11-18-2021 09:03-0400 Systolic blood pressure 148 mm[Hg] MD Ted Pisano Work Phone: [facility] 11-15-2021 14:55-0400 Body height 162.56 cm MD Ted Pisano Work Phone: [facility] 11-15-2021 08:58-0400 Body weight 128.36 kg MD Ted Pisano Work Phone: [facility] 11-13-2021 07: Body mass index (BMI) [Ratio] 48 kg/m2 MD Ted Pisano Work Phone: [facility] Encounters Encounter Date Encounter Type Care Provider Facility Start: 10-15-2024 End: 10-15-2024 ambulatory [facility] Start: 10-15-2024 Encounter for genera l adult medical examination without abnormal findings [facility] Start: 10-15-2024 End: 10-15-2024 Patient encounter procedure [facility] MARKETING BUDGET ANALYST-FAMILY NURSE PRACTITIONER Work Phone: [facility] [email or web address] Work Phone: Start: 10-15-2024 End: 10-15-2024 Periodic preventive med est patient 18-39 yrs [facility] MARKETING BUDGET ANALYST-FAMILY NURSE PRACTITIONER Work Phone: [facility] Comment on above: Annual physical exam (Primary Dx); Blood tests for routine general physical examination Start: 10-15-2024 End: 10-15-2024 [facility] Work Phone: [facility] Start: 10-15-2024 End: 10-15-2024 ambulatory [facility] Start: 10-15-2024 Encounter for genera l adult medical examination without abnormal findings [facility] Start: 10-14-2024 End: 10-14-2024 Emergency department patient visit [facility] Start: 10-14-2024 ambulatory [facility] Start: 09-17-2024 End: 09-17-2024 ambulatory [facility] Start: 09-04-2024 End: 09-04-2024 Emergency department patient visit Antonio Jones MD Work Phone: [facility] Comment on above: Concussion without l oss of consciousness, initial encounter (Primary Dx); Strain of neck muscle, initial encounter Start: 06-20-2024 End: 06-20-2024 ambulatory [facility] Start: 05-01-2024 End: 05-01-2024 ambulatory [facility] Start: 02-13-2024 End: 02-13-2024 ambulatory [facility] Start: 01-16-2024 End: 01-16-2024 ambulatory [facility] Start: 12-05-2023 End: 12-05-2023 ambulatory MARIA E CARMEN Not Available Start: 12-04-2023 End: 12-04-2023 Office outpatient visit 15 minutes Dina Conner MARKETING BUDGET ANALYST-FAMILY NURSE PRACTITIONER [facility] Comment on above: Acute pharyngitis, u nspecified etiology (Primary Dx); Sore throat Start: 12-04-2023 End: 12-04-2023 ambulatory [facility] Start: 12-01-2023 End: 12-01-2023 Office outpatient visit 15 minutes Sindhu Hansen MARKETING BUDGET ANALYST-FAMILY NURSE PRACTITIONER Work Phone: [facility] Comment on above: Pharyngitis, unspeci fied etiology (Primary Dx) Start: 12-01-2023 ambulatory [facility] Start: 10-24-2023 End: 10-24-2023 ambulatory MARIA E CARMEN Not Available Start: 10-04-2023 End: 10-04-2023 Office outpatient visit 15 minutes Dina Conner MARKETING BUDGET ANALYST-FAMILY NURSE PRACTITIONER Work Phone: [facility] Comment on above: COVID-19 (Primary Dx ); Nausea Start: 09-27-2023 Chart abstracting Scanning Pro vider External [facility] Start: 08-22-2023 End: 08-22-2023 Office outpatient visit 15 minutes Dina Conner MARKETING BUDGET ANALYST-FAMILY NURSE PRACTITIONER Work Phone: [facility] Comment on above: Hypokalemia (Primary Dx); 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); Sore throat; Irritant contact dermatitis due to other chemical products Start: 03-06-2023 End: 03-06-2023 ambulatory Anitha Grande Other [facility] Other Start: 03-06-2023 Office outpatient vi sit 15 minutes Anitha Grande [facility] Start: 09-28-2022 End: 09-28-2022 ambulatory Reshma Vitale Other [facility] Other Start: 09-28-2022 Office outpatient vi sit 15 minutes Reshma Vitale [facility] Start: 08-12-2022 End: 08-12-2022 Emergency department patient visit QASIMELI PEDRO Facility:[id number] Start: 07-05-2022 End: 07-05-2022 ambulatory Brunilda Rico Other [facility] Other Start: 07-05-2022 Office outpatient vi sit 25 minutes Brunilda Rico [facility] Start: 01-01-2022 End: 01-01-2022 ambulatory JEANNIE JIMÉNEZ Facility:[facility]1 Start: 11-13-2021 End: 11-18-2021 Evaluation and management of inpatient Dione Lerma Facility:[facility] Start: 11-13-2021 End: 11-18-2021 Evaluation and management of inpatient MD Ted Pisano Work Phone: [facility] Start: 11-13-2021 End: 11-13-[address] PRICILA NELSON Facility: Start: 11-04-2021 End: 11-05-[address] TED PISANO Facility: Procedures Date Procedure Procedure Detail Performing Clinician Start: 09-04-2024 Ct cervical spine w/ o contrast material Antonio Jones MD Work Phone: Start: 09-04-2024 Ct head/brain w/o co ntrast material Antonio Jones MD Work Phone: Start: 12-05-2023 Microscopic observat ion [Identifier] in Cervix by Cyto stain Dina Conner MARKETING BUDGET ANALYSTNeXplore Work Phone: Start: 12-04-2023 Iaadiadoo streptococ cus group a Dina Mariano Conner MARKETING BUDGET ANALYST-FAMILY NURSE PRACTITIONER Work Phone: Start: 12-04-2023 Adult depression scr eening assessment Dina Conner MARKETING BUDGET ANALYST-FAMILY NURSE PRACTITIONER Work Phone: Start: 08-22-2023 Adult depression scr eening assessment Dinahermelindo Conner MARKETING BUDGET ANALYST-FAMILY NURSE PRACTITIONER Work Phone: Start: 07-25-2023 Iaadiadoo streptococ cus group a Dina Mariano Conner MARKETING BUDGET ANALYST-FAMILY NURSE PRACTITIONER Work Phone: Start: 07-25-2023 Adult depression scr eening assessment Dina Conner MARKETING BUDGET ANALYST-FAMILY NURSE PRACTITIONER Work Phone: Plan of Treatment Date Care Activity Detail Author Start: 12-04-2026 Screening for malign ant neoplasm of cervix Pap Smear [facility] Start: 10-15-2025 Adult BMI Screening Adult BMI Screen ing [facility] Start: 10-15-2025 Tobacco Screening Tobacco Screening [facility] Start: 12-03-2024 Adult BMI Follow Up Plan Adult BMI Follow Up Plan [facility] Start: 12-03-2024 Adult BMI Screening Adult BMI Screen ing [facility] Start: 12-03-2024 Depression Screening Depression Scre ening [facility] Start: 12-03-2024 Tobacco Screening Tobacco Screening [facility] Start: 10-03-2024 Adult BMI Follow Up Plan Adult BMI Follow Up Plan [facility] Start: 10-03-2024 Tobacco Screening Tobacco Screening [facility] Start: 08-24-2024 Tobacco Screening Tobacco Screening [facility] Start: 08-22-2024 Adult BMI Follow Up Plan Adult BMI Follow Up Plan [facility] Start: 08-22-2024 Adult BMI Screening Adult BMI Screen ing [facility] Start: 08-22-2024 Depression Screening Depression Scre ening [facility] Start: 08-22-2024 Tobacco Screening Tobacco Screening [facility] Start: 07-25-2024 Adult BMI Follow Up Plan Adult BMI Follow Up Plan [facility] Start: 07-25-2024 Adult BMI Screening Adult BMI Screen ing [facility] Start: 07-25-2024 Depression Screening Depression Scre ening [facility] Start: 07-25-2024 Tobacco Screening Tobacco Screening [facility] Start: 06-30-2024 Adult BMI Follow Up Plan Adult BMI Follow Up Plan [facility] Start: 03-31-2024 COVID-19 Vaccine ( season) COVID-19 Vaccine ( season) [facility] Start: 03-31-2024 COVID-19 Vaccine ( season) COVID-19 Vaccine ( season) [facility] Start: 03-31-2024 Influenza vaccination Influenza Vacc ine [facility] Start: 02-29-2024 Influenza vaccination Flu vaccine (# 1) [facility] Start: 01-02-2024 End: 01-02-2024 Patient encounter procedure 01/02/2024 10:00 AM EDT Office Visit [facility] [address] [place] [address] Dina Conner, MARKETING BUDGET ANALYST-FAMILY NURSE PRACTITIONER [address] [place] [address] [facility] Start: 12-18-2023 End: 12-18-2023 Patient encounter procedure 12/18/2023 4:30 PM EDT Office Visit [facility] [address] [place] [address] Dina Cnoner, MARKETING BUDGET ANALYST-FAMILY NURSE PRACTITIONER [address] [place] [address] [facility] Start: 12-18-2023 End: 12-18-2023 Patient encounter procedure 12/18/2023 3:20 PM EDT Office Visit [facility] [address] [place] [address] Dina Conner, MARKETING BUDGET ANALYST-FAMILY NURSE PRACTITIONER [address] [place] [address] [facility] Start: 10-10-2023 End: 10-10-2023 Patient encounter procedure 10/10/2023 9:00 AM EDT Office Visit [facility] [address] [place] [id number] Mary Dhillon MD [address] [place] [address] [facility] Start: 08-22-2023 End: 08-22-2023 Patient encounter procedure 08/22/2023 2:45 PM EST Office Visit [facility] - Family [facility] [address] [place] [address] Dina Conner, MARKETING BUDGET ANALYST-FAMILY NURSE PRACTITIONER [address] [place] [address] [facility] Start: 03-31-2023 COVID-19 Vaccine ( season) COVID-19 Vaccine ( season) [facility] Start: 03-31-2023 Influenza vaccination Influenza Vacc ine [facility] Start: 09-30-2019 DTaP,Tdap and Td Vaccines (7 - Td or Tdap) DTaP,Tdap and Td Vaccines (7 - Td or Tdap) [facility] Start: 09-30-2019 DTaP/Tdap/Td vaccine (7 - Td or Tdap) DTaP/Tdap/Td vaccine (7 - Td or Tdap) [facility] Start: 2017 Screening for malign ant neoplasm of cervix Pap smear [facility] Start: 2014 Hepatitis C screening Hepatitis C sc reen [facility] Start: 2011 HIV screening HIV screen [facility] Start: 2008 Depression Screen Depression Screen [facility] Start: 1996 Tobacco Counseling Tobacco Counselin g [facility] End: 10-15-2025 CBC W Auto Differential panel - Blood CBC auto differential Lab Routine Blood tests for routine general physical examination 1 Occurrences starting 10/15/2024 until 10/15/[address] [facility] Comment on above: 1 Occurrences starti ng 10/15/2024 until 10/15/2025 End: 10-15-2025 Comprehensive metabolic 2000 panel - Serum or Plasma Comprehensive metabolic panel Lab Routine Blood tests for routine general physical examination 1 Occurrences starting 10/15/2024 until 10/15/2025 [facility] Work Phone: Comment on above: 1 Occurrences starti ng 10/15/2024 until 10/15/2025 End: 10-15-2025 Hemoglobin A1c/Hemoglobin.total in Blood Hemoglobin A1c Lab Routine Blood tests for routine general physical examination 1 Occurrences starting 10/15/2024 until 10/15/[address] [facility] Comment on above: 1 Occurrences starti ng 10/15/2024 until 10/15/2025 End: 10-15-2025 Lipid 1996 panel - Serum or Plasma Lipid profile Lab Routine Blood tests for routine general physical examination 1 Occurrences starting 10/15/2024 until 10/15/[address] [facility] Comment on above: 1 Occurrences starti ng 10/15/2024 until 10/15/2025 Patient Education Depression, Ad ult (DC) [facility] DC Instructions [facility] Work Phone: Patient referral [facility] Work Phone: Immunizations Immunization Date Immunization Notes Care Provider Fa [facility] 05-19-2022 influenza virus vacc ine, unspecified formulation Dina Conner MARKETING BUDGET ANALYST-FAMILY NURSE PRACTITIONER Work Phone: [facility] 07-27-2021 Hepatitis B vaccine (recombinant), CpG adjuvanted Dina Conner MARKETING BUDGET ANALYST-FAMILY NURSE PRACTITIONER Work Phone: [facility] 05-27-2021 influenza virus vacc ine, unspecified formulation Dina Conner MARKETING BUDGET ANALYST-FAMILY NURSE PRACTITIONER Work Phone: [facility] 10-07-2020 COVID-19 Vaccine, vector-nr, [id number], PF, 0.5mL Dina Conner MARKETING BUDGET ANALYST-FAMILY NURSE PRACTITIONER Work Phone: [facility] 08-12-2020 influenza, injectabl e, quadrivalent, preservative free Dina Conner MARKETING BUDGET ANALYST-FAMILY NURSE PRACTITIONER Work Phone: [facility] 04-20-2018 influenza, injectabl e, quadrivalent, preservative free Dina Conner MARKETING BUDGET ANALYST-FAMILY NURSE PRACTITIONER Work Phone: [facility] 04-21-2017 influenza, injectabl e, quadrivalent, preservative free Dina Conner MARKETING BUDGET ANALYST-FAMILY NURSE PRACTITIONER Work Phone: [facility] 01-07-2010 human papilloma viru s vaccine, quadrivalent Dina Conner MARKETING BUDGET ANALYST-FAMILY NURSE PRACTITIONER Work Phone: [facility] 01-07-2010 varicella virus vaccine Liliana jess Conner MARKETING BUDGET ANALYST-FAMILY NURSE PRACTITIONER Work Phone: [facility] 09-29-2009 human papilloma viru s vaccine, quadrivalent Dinasaeed Conner MARKETING BUDGET ANALYST-[facility] Work Phone: [facility] 09-29-2009 tetanus toxoid, redu alem diphtheria toxoid, and acellular pertussis vaccine, adsorbed Dina Ubaldo MARKETING BUDGET ANALYST-[facility] Work Phone: [facility] 06-24-2009 human papilloma viru s vaccine, quadrivalent Dinasaeed Conner MARKETING BUDGET ANALYST-[facility] Work Phone: [facility] 06-24-2009 meningococcal polysaccharide (groups A, C, Y and W-135) diphtheria toxoid conjugate vaccine (MCV4P) Dina Conner [facility]ING [facility]UDGET [facility] Work Phone: [facility] 09-05-2001 diphtheria, tetanus toxoids and acellular pertussis vaccine, unspecified formulation Dina Conner MARKETING BUDGET ANALYST[facility] Work Phone: [facility] 09-05-2001 poliovirus vaccine, inactivated Dina Conner MARKETING BUDGET ANALYST-[facility] Work Phone: [facility] 07-18-2000 measles, mumps and rubella virus vaccine Dina Ubaldo MARKETING BUDGET ANALYST-[facility] Work Phone: [facility] 02-06-1998 diphtheria, tetanus toxoids and acellular pertussis vaccine, unspecified formulation Dina Conner MARKETING BUDGET ANALYST-[facility] Work Phone: [facility] 11-06-1997 measles, mumps and rubella virus vaccine Dian Conner MARKETING BUDGET ANALYST-[facility] Work Phone: [facility] 11-06-1997 varicella virus vaccine Fallentimber jess Conner MARKETING BUDGET ANALYST-[facility] Work Phone: [facility] 08-07-1997 haemophilus influenz ae type b vaccine, PRP-T conjugate Dina Conner [facility] Work Phone: [facility] 08-07-1997 poliovirus vaccine, inactivated Dina Conner MARKETING BUDGET ANALYST-FAMILY NURSE PRACTITIONER Work Phone: [facility] 06-03-1997 hepatitis B vaccine, pediatric or pediatric/adolescent dosage Dina Conner MARKETING BUDGET ANALYST-FAMILY NURSE PRACTITIONER Work Phone: [facility] 02-27-1997 diphtheria, tetanus toxoids and acellular pertussis vaccine, unspecified formulation Dina Conner MARKETING BUDGET ANALYST-FAMILY NURSE PRACTITIONER Work Phone: [facility] 02-27-1997 haemophilus influenz ae type b vaccine, conjugate unspecified formulation Dina Conner MARKETING BUDGET ANALYST-FAMILY NURSE PRACTITIONER Work Phone: [facility] 1996 diphtheria, tetanus toxoids and acellular pertussis vaccine, unspecified formulation Dina Conner MARKETING BUDGET ANALYST-FAMILY NURSE PRACTITIONER Work Phone: [facility] 1996 haemophilus influenz ae type b vaccine, conjugate unspecified formulation Dina Conner MARKETING BUDGET ANALYST-FAMILY NURSE PRACTITIONER Work Phone: [facility] 1996 poliovirus vaccine, unspecified formulation Dina Conner MARKETING BUDGET ANALYST-FAMILY NURSE PRACTITIONER Work Phone: [facility] 1996 diphtheria, tetanus toxoids and acellular pertussis vaccine, unspecified formulation Dina Conner MARKETING BUDGET ANALYST-FAMILY NURSE PRACTITIONER Work Phone: [facility] 1996 haemophilus influenz ae type b vaccine, conjugate unspecified formulation Dina Conner MARKETING BUDGET ANALYST-FAMILY NURSE PRACTITIONER Work Phone: [facility] 1996 poliovirus vaccine, unspecified formulation Dina Conner MARKETING BUDGET ANALYST-FAMILY NURSE PRACTITIONER Work Phone: [facility] 1996 hepatitis B vaccine, pediatric or pediatric/adolescent dosage Dina Conner MARKETING BUDGET ANALYST-FAMILY NURSE PRACTITIONER Work Phone: [facility] 1996 hepatitis B vaccine, pediatric or pediatric/adolescent dosage Dina Conner MARKETING BUDGET ANALYST-FAMILY NURSE PRACTITIONER Work Phone: [facility] Payers Date Payer Category Payer [employer] - PPO ANTHEM [id number] 2023 Unknown [id number] 2021 Self-pay [id number] 2008 Unknown 1996 Unknown [id number] 2.16.840.1.091625.3.579.2. 593 1996 Unknown [id number] 2.16.840.1.781913.3.579.2. 593 1996 Unknown [id number] 2.16.840.1.824697.3.579.2. 593 1996 Unknown [id number] 2.16.840.1.146548.3.579.2. 159 1996 Unknown [id number] 2.16.840.1.027846.3.579.2. 1259 1996 Unknown [id number] 2.16.840.1.401581.3.579.2. 1259 1996 Unknown [id number] 2.16.840.1.915148.3.579.2. 173 1996 Unknown [id number] 2.16.840.1.392013.3.579.2. 1286 1996 Unknown [id number] 2.16.840.1.414018.3.579.2. 1286 1996 Unknown [id number] 2.16.840.1.072940.3.579.2. 1286 1996 Unknown [id number] 2.16.840.1.696466.3.579.2. 1285 1996 Unknown [id number] 2.16.840.1.060657.3.579.2. 1285 1996 Unknown [id number] 2.16.840.1.987181.3.579.2. 1285 1996 Unknown [id number] 2.16.840.1.370019.3.579.2. 1285 1996 Unknown [id number] 2.16.840.1.299025.3.579.2. 1285 1996 Unknown [id number] 2.16.840.1.189255.3.579.2. 1285 1996 Unknown [id number] 2.16.840.1.039846.3.579.2. 1285 1996 Unknown [id number] 2.16.840.1.773102.3.579.2. [facility] 1959 Unknown [id number] 1958 Unknown [id number] 1958 Unknown [id number] Unknown Self Pay [id number] Unknown [id number] 2.16.840.1.983266.3.579.2. 531 Social History Date Type Detail Facility Start: 11[facility]13-[facility] Start: 1995 Sex Assigned At Female [facility] Start: 08-28-2020 End: 09-04-2024 Sex Assigned At [facility] [employer] Other Start: 09-04-2024 [facility] Start: 09-04-2024 End: 10-15-2024 Tobacco use and exposure Smokeless tobacco non-user [facility] Start: 09-04-2024 End: 10-15-2024 Alcoholic beverage intake Lifetime non-drinker (finding) [facility] Start: 08-28-2020 End: 09-04-2024 History of Social function [facility] How often to you hav e a drink containing alcohol? Never [facility] [employer] [facility] How many standard drinks containing alcohol do you have on a typical day? Patient does not drink [facility] Start: 1995 Sex assigned at Not on file P [facility] Start: 12-15-2022 End: 12-04-2023 Tobacco smoking status MNIS Smokes tobacco daily [facility] History of tobacco use Cigarette Smoker P [facility] Start: 05-10-2021 Alcohol Comment Socially. [facility] Start: 10-15-2024 Tobacco smoking stat [facility] Ex-smoker [facility] Start: 03-03-2015 Sex Female (finding) [facility] Functional Status Date Assessment Result Facility 11-18-2021 Functional status Patient at Baseline [facility] Work Phone: Mental Status Date Assessment Result Facility 11-18-2021 Cognitive function Cognitive Sta tus Patient at Baseline [facility] Work Phone: Clinical Notes 11-13-2021 to 10-15-2024 [facility] - 10/15/2024 7:40 AM EDWAN Ayala CNP - 12/04/2023 11:00 AM Jhon Hansen [facility] - 12/01/2023 3:30 PM EDTPatient InstructionsAttachmentsAttachments Note Date & Type Note Facility 10-15-2024 History of Present illness Narrative Images from the original note were not included. [address] [place] [address] SUBJECTIVE: Patient ID: Franki Funez is a 29 y.o. female. Chief Complaint Patient presents with Annual Exam Patient presents for annual physical. She is monitored by psychiatry routinely for depression. States she recently and is planning on having a baby after her IUD is removed next month She is currently trying to quit smoking. Is on day two of no smoking. She has previously taking Chantix without success. 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 Annual Exam Pertinent negatives include no chest pain, chills or fever. The following portions of the patient's history [...] REVIEW OF SYSTEMS: Review of Systems Constitutional: Negative for chills and fever. HENT: Negative. Eyes: Negative for visual disturbance. Respiratory: Negative for chest tightness and shortness of breath. Cardiovascular: Negative for chest pain and palpitations. Gastrointestinal: Negative. Endocrine: Negative. Genitourinary: Negative for menstrual problem and pelvic pain. Musculoskeletal: Negative. Skin: Negative. Allergic/Immunologic: Negative. Neurological: Negative for syncope and facial asymmetry. Hematological: Does not bruise/bleed easily. Psychiatric/Behavioral: Negative. PHYSICAL EXAMINATION: Vitals: 10/15/24 0731 BP: 110/70 BP Site: Left Arm BP Postition: Sitting Pulse: 83 Resp: 16 Temp: 36.1 C (97 F) TempSrc: Tympanic SpO2: 98% Weight: 108.8 kg (239 lb 12.8 oz) Height: 162.6 cm (5' 4 ) Patient noted to have elevated BMI and the following intervention(s) were applied: encouragement to exercise. Physical Exam Vitals and nursing note reviewed. Constitutional: General: She is not in acute distress. Appearance: She is well-developed. She is not diaphoretic. HENT: Head: Normocephalic and atraumatic. Right Ear: Tympanic membrane and external ear normal. Left Ear: Tympanic membrane and external ear normal. Nose: Nose normal. Mouth/Throat: Mouth: Mucous membranes are moist. Pharynx: No oropharyngeal exudate. Eyes: General: Right eye: No discharge. Left eye: No discharge. Conjunctiva/sclera: Conjunctivae normal. Pupils: Pupils are equal, round, and reactive to light. Neck: Thyroid: No thyromegaly. Vascular: No JVD. Cardiovascular: Rate and Rhythm: Normal rate and regular rhythm. Heart sounds: Normal heart sounds. No murmur heard. No friction rub. No gallop. Pulmonary: Effort: Pulmonary effort is normal. Breath sounds: Normal breath sounds. Abdominal: General: Bowel sounds are normal. There is no distension. Palpations: Abdomen is soft. There is no mass. Tenderness: There is no abdominal tenderness. Musculoskeletal: General: Normal range of motion. Cervical back: Normal range of motion and neck supple. Lymphadenopathy: Cervical: No cervical adenopathy. Skin: General: Skin is warm and dry. Capillary Refill: Capillary refill takes less than 2 seconds. Neurological: Mental Status: She is alert and oriented to person, place, and time. Deep Tendon Reflexes: Reflexes are normal and symmetric. Psychiatric: Mood and Affect: Mood normal. Behavior: Behavior normal. Thought Content: Thought content normal. Judgment: Judgment normal. ASSESSMENT/PLAN: Franki was seen today for annual exam. Diagnoses and all orders for this visit: Annual physical exam Blood tests for routine general physical examination - Comprehensive metabolic panel; Future - CBC auto differential; Future - Lipid profile; Future - Hemoglobin A1c; Future Body mass index is 41.16 kg/m . Patient noted to have elevated BMI and the following intervention(s) were applied: Discussed current weight today. Consider healthy food choices, portion control. Avoid sugary beverages and high concentrated sweets. Routine exercise regimen encouraged. Lab draw for wellness today Patient is a current smoker, smoking cessation discussed today in office. He/She is not interested at this time ALL QUESTIONS ANSWERED Follow-up: RODNEY Mayers 10/15/24 0816 documented in this encounter [facility] [employer] 12-04-2023 History of Present illness Narrative Images from the original note were not included. [address] [facility] [id number] SUBJECTIVE: Patient ID: Franki Quiroz is a 28 y.o. female. Chief Complaint Patient presents with sore throat 11/30 Left ear bothering her also Onset of illness started on Monday. She was seen by urgent care telehealth. Was diagnosed with strep throat, started on amoxicillin. States initially she felt better but this morning pain got worse and is losing her voice. In addition, states her left ear is also painful. Sore Throat This is a new problem. The current episode started in the past 7 days. The problem has been gradually worsening. Neither side of throat is experiencing more pain than the other. There has been no fever. The pain is moderate. Associated symptoms include ear pain and a hoarse voice. Pertinent negatives include no shortness of breath. Treatments tried: antibotics. The treatment provided mild relief. The following [...] REVIEW OF SYSTEMS: Review of Systems Constitutional: Negative for chills and fever. HENT: Positive for ear pain, hoarse voice and sore throat. Eyes: Negative for visual disturbance. Respiratory: Negative for chest tightness and shortness of breath. Cardiovascular: Negative for chest pain and palpitations. Gastrointestinal: Negative. Endocrine: Negative. Genitourinary: Negative for menstrual problem and pelvic pain. Musculoskeletal: Negative. Skin: Negative. Allergic/Immunologic: Negative. Neurological: Negative for syncope and facial asymmetry. Hematological: Does not bruise/bleed easily. Psychiatric/Behavioral: Negative. PHYSICAL EXAMINATION: Vitals: 12/04/23 1103 BP: 118/80 BP Site: Left Arm BP Postition: Sitting Pulse: 73 Resp: 20 Temp: 36.8 C (98.3 F) TempSrc: Oral SpO2: 98% Weight: 130.1 kg (286 lb 12.8 oz) Height: 162.6 cm (5' 4 ) Patient noted to have elevated BMI and the following intervention(s) were applied: encouragement to exercise. Physical Exam Vitals and nursing note reviewed. Constitutional: General: She is not in acute distress. Appearance: She is well-developed. She is not diaphoretic. HENT: Head: Normocephalic and atraumatic. Right Ear: External ear normal. Tympanic membrane is bulging. Left Ear: Tympanic membrane and external ear normal. Nose: Nose normal. Mouth/Throat: Mouth: Mucous membranes are moist. Pharynx: No oropharyngeal exudate. Comments: Erythema. 2+ enlarged tonsils. Eyes: General: Right eye: No discharge. Left eye: No discharge. Conjunctiva/sclera: Conjunctivae normal. Pupils: Pupils are equal, round, and reactive to light. Neck: Thyroid: No thyromegaly. Vascular: No JVD. Cardiovascular: Rate and Rhythm: Normal rate and regular rhythm. Heart sounds: Normal heart sounds. No murmur heard. No friction rub. No gallop. Pulmonary: Effort: Pulmonary effort is normal. Breath sounds: Normal breath sounds. Abdominal: General: Bowel sounds are normal. There is no distension. Palpations: Abdomen is soft. There is no mass. Tenderness: There is no abdominal tenderness. Musculoskeletal: General: Normal range of motion. Cervical back: Normal range of motion and neck supple. Lymphadenopathy: Cervical: No cervical adenopathy. Skin: General: Skin is warm and dry. Capillary Refill: Capillary refill takes less than 2 seconds. Neurological: Mental Status: She is alert and oriented to person, place, and time. Deep Tendon Reflexes: Reflexes are normal and symmetric. Psychiatric: Mood and Affect: Mood normal. Behavior: Behavior normal. Thought Content: Thought content normal. Judgment: Judgment normal. ASSESSMENT/PLAN: Franki was seen today for sore throat 11/30. Diagnoses and all orders for this visit: Acute pharyngitis, unspecified etiology - dexAMETHasone (DECADRON) 2 mg tablet; Take 1 tablet (2 mg total) by mouth daily with breakfast. Sore throat - POCT rapid strep A - dexAMETHasone (DECADRON) 2 mg tablet; Take 1 tablet (2 mg total) by mouth daily with breakfast. Continue amoxicillin until gone (ordered by urgent care) Start dexamethasone 2 mg oral daily x3 days POCT rapid strep negative. Has been on antibiotics since Monday Warm salt water gargles as needed for sore throat. Motrin or Tylenol as needed per assembled wood products repairer guidelines for fever or pain. ALL QUESTIONS ANSWERED Total time spent was 25 minutes: Preparing to see the patient (e.g., review of tests) Obtaining and/or reviewing separately obtained history Performing a medically appropriate examination and/or evaluation Counseling and educating the patient/family/caregiver Ordering medications, tests, or procedures Follow-up: Next scheduled Sooner if symptoms persist RODNEY Mayers 12/04/23 1123 documented in this encounter [facility] 12-01-2023 History of Present illness Narrative Video Visit via Real-time Synchronous Audiovisual Provider Location: [facility] [address] [place] [id number] Patient Location: [facility] Video Visit Consent Statement: I discussed risks, [...] that there are some limitations compared to [id number] evaluations. The patient consented to the presence of additional virtual and/or in-person participants. We elected to proceed. The patient's call-back number if disconnected is [phone] Subjective: Patient ID: Franki Quiroz is a 28 y.o. female. Chief Complaint Patient presents with Sore Throat Current smoker/vaper Still has tonsils, no history of recurrent strep throat Sore Throat This is a new problem. The current episode started yesterday. The problem has been rapidly worsening. The pain is worse on the left side. There has been no fever. The fever has been present for Less than 1 day. The pain is at a severity of 8/10. The pain is severe. Associated symptoms include congestion, drooling (during sleeping), ear pain, headaches, a hoarse voice, a plugged ear sensation, neck pain, swollen glands, trouble swallowing (feels swollen, able to drink fluids) and vomiting (this morning). Pertinent negatives include no abdominal pain, coughing, diarrhea, ear discharge, shortness of breath or stridor. She has had no exposure to strep. She has tried acetaminophen, NSAIDs and gargles (zofran) for the symptoms. The treatment provided mild relief. The following portions of the patient's history were reviewed and updated as appropriate: allergies, current medications, past family history, past medical history, past social history, past surgical history and problem list. Review of Systems Constitutional: Positive for chills, diaphoresis, fatigue and fever (subjective). HENT: Positive for congestion, drooling (during sleeping), ear pain, hoarse voice, sore throat and trouble swallowing (feels swollen, able to drink fluids). Negative for ear discharge. Respiratory: Negative for cough, shortness of breath and stridor. Gastrointestinal: Positive for vomiting (this morning). Negative for abdominal pain and diarrhea. Musculoskeletal: Positive for neck pain. Neurological: Positive for headaches. Past Medical History: Diagnosis Date Allergy Anxiety Depression Migraines Past Surgical History: Procedure Laterality Date SECTION 2014 Current Outpatient Medications on File Prior to Visit Medication Sig Dispense Refill ARIPiprazole (ABILIFY) 5 mg tablet Take 1 tablet (5 mg total) by mouth in the morning. 90 tablet 3 buPROPion XL (WELLBUTRIN XL) 300 mg 24 hr tablet Take 1 tablet (300 mg total) by mouth every morning. 90 tablet 3 busPIRone (BUSPAR) 15 mg tablet Take 1 tablet (15 mg total) by mouth 3 (three) times a day. 270 tablet 3 clonazePAM (KlonoPIN) 0.5 mg tablet Take 1 tablet (0.5 mg total) by mouth daily as needed for anxiety. 90 tablet 0 ondansetron ODT (ZOFRAN ODT) 4 mg disintegrating tablet Dissolve 1 tablet (4 mg total) on tongue every 8 (eight) hours as needed for nausea or vomiting. 10 tablet 0 prazosin (MINIPRESS) 1 mg capsule Take 1 capsule (1 mg total) by mouth nightly. 90 capsule 3 sertraline (ZOLOFT) 100 mg tablet Take 2 tablets (200 mg total) by mouth in the morning. 180 tablet 3 No current facility-administered medications on file prior to visit. Social History Tobacco Use Smoking status: Every Day Current packs/day: 0.50 Types: Cigarettes Smokeless tobacco: Never Vaping Use Vaping status: Some Days Substances: Nicotine, Flavoring Devices: Disposable Substance Use Topics Alcohol use: Never Comment: Socially. Drug use: Never Types: Marijuana Allergies Allergen Reactions Sulfa (Sulfonamide Antibiotics) The patient is not currently . No LMP recorded. (Menstrual status: IUD). Objective: Physical Exam Constitutional: Comments: Patient is willing and able to perform provider guided self-exam HENT: Head: Normocephalic. Right Ear: Hearing normal. Left Ear: Hearing normal. Nose: Nose normal. Mouth/Throat: Lips: Ney. Mouth: Mucous membranes are moist. Pharynx: Uvula midline. Posterior oropharyngeal erythema present. Tonsils: Tonsillar exudate present. 2+ on the right. 2+ on the left. Comments: No hot potato voice, no drooling or trismus. Speaks in complete sentences. Is not sitting in sniffing position. Pulmonary: Effort: Pulmonary effort is normal. Lymphadenopathy: Head: Right side of head: Submandibular and tonsillar adenopathy present. Left side of head: Submandibular and tonsillar adenopathy present. Cervical: Cervical adenopathy present. Right cervical: Superficial cervical adenopathy present. Left cervical: Superficial cervical adenopathy present. Neurological: Mental Status: She is alert. Assessment/Plan: Labs for this visit: No visits with results within 1 Day(s) from this visit. Latest known visit with results is: Hospital Outpatient Visit on 08/22/2023 Component Date Value Potassium, Bld 08/22/2023 4.2 Franki was seen today for sore throat. Diagnoses and all orders for this visit: Pharyngitis, unspecified etiology - amoxicillin (AMOXIL) 500 mg capsule; Take 1 capsule (500 mg total) by mouth in the morning and 1 capsule (500 mg total) before bedtime. Do all this for 10 days. -pt in outlying area from [facility], unable to obtain strep testing. Centor criteria 4, 51-53% likelihood of strep. Shared medical decision-making with pt, pt preference is for treatment, discussed antibiotic stewardship and risks/benefits of empiric treatment, verbalized understanding. Am amenable to treat based on clinical exam findings and Centor scoring. Continue Tylenol or ibuprofen [id number] as directed for discomfort or fever. Recommend close follow up with PCP. ER if any severe or worsening symptoms develop. Discard toothbrush in 48 hours and replace. Must be on antibiotic for 24 hours and fever free for 24 hours without the use of fever reducing medications prior to return to school/work or public activity. AVS per Miles. 15-44 y/o 0, Exudate or swelling on tonsils +1, Tender/ Swollen anterior cervical lymph nodes +1, Temp > 38 degrees C (100.4 degrees F) +1, and Cough Absent +1 Centor criteria score 4: 51-53% likelihood of strep Orders Placed or Reconciled This Encounter Medications amoxicillin (AMOXIL) 500 mg capsule Sig: Take 1 capsule (500 mg total) by mouth in the morning and 1 capsule (500 mg total) before bedtime. Do all this for 10 days. Dispense: 20 capsule Refill: 0 Total time spent was 12 minutes: Patient Instructions Discard toothbrush in 48 hours and replace. Must be on antibiotic for 24 hours and fever free for 24 hours without the use of fever reducing medications prior to return to school/work or public activity. Counseling The patient was counseled regarding prognosis, risks and benefits of treatment options, impressions, instructions for management, importance of compliance with treatment, risk factor reductions and patient and family education If you develop any new, worsening, or concerning symptoms of illness, and are unable to follow up with a private physician, please call here for advice or to the nearest Emergency Department for further care immediately. RODNEY Sorto 12/01/23 1547 documented in this encounter [facility] 12-01-2023 Instructions RODNEY Sorto - 12/01/2023 3:30 PM EDT Discard toothbrush in 48 hours and replace. Must be on antibiotic for 24 hours and fever free for 24 hours without the use of fever reducing medications prior to return to school/work or public activity. The following attachments cannot be sent through Care Everywhere.Sore Throat Discharge Instructions, Adult (British)documented in this encounter [facility] 10-04-2023 History of Present illness Narrative Images from the original note were not included. [address] [facility] [address] SUBJECTIVE: Video Visit via Real-time Synchronous Audiovisual Provider Location: [facility] [address] [facility] [id number] Patient Location: Patient's home Video Visit Consent [...] that there are some limitations compared to [id number] evaluations. The patient consented to the presence [...] throat. Motrin or Tylenol as needed per assembled wood products repairer guidelines for fever or pain. ALL QUESTIONS ANSWERED Total time spent was 25 minutes: Preparing to see the patient (e.g., review of tests) Obtaining and/or reviewing separately obtained history Performing a medically appropriate examination and/or evaluation Counseling and educating the patient/family/caregiver Ordering medications, tests, or procedures Follow-up: Next scheduled Sooner if needed RODNEY Mayers 10/04/23 1055 documented in this encounter [facility] [employer] [facility] 08-22-2023 History of Present illness Narrative Images from the original note were not included. [address] [facility] [address] SUBJECTIVE: Patient ID: Franki Quiroz is a 28 y.o. female. Chief Complaint Patient presents with weight loss Presents for follow up Was on month two of three of phentermine. Stopped medication over 2 weeks ago due to palpitations. She was seen at [place] [facility] on 08/04/23 for chest pain. Cardiac workup and EKG normal. Chest xray normal. Potassium was 3.2. Last visit on 07/25/23, was seen for URI. Relates cough has finally resolved. Has history of anxiety and depression, she does not feel her moods are related to chest palpitations. Feels the sensation is still present at times. The following portions of the patient's history [...] REVIEW OF SYSTEMS: Review of Systems Constitutional: Negative for chills and fever. HENT: Negative. Eyes: Negative for visual disturbance. Respiratory: Negative for chest tightness and shortness of breath. Cardiovascular: Positive for palpitations. Negative for chest pain. Gastrointestinal: Negative. Endocrine: Negative. Genitourinary: Negative for menstrual problem and pelvic pain. Musculoskeletal: Negative. Skin: Negative. Allergic/Immunologic: Negative. Neurological: Negative for syncope and facial asymmetry. Hematological: Does not bruise/bleed easily. Psychiatric/Behavioral: Negative. PHYSICAL EXAMINATION: Vitals: 08/22/23 1451 BP: 118/80 BP Site: Left Arm BP Postition: Sitting Pulse: 96 Temp: 37.3 C (99.1 F) TempSrc: Tympanic SpO2: 97% Weight: 132.9 kg (293 lb) Height: 162.6 cm (5' 4 ) Patient noted to have elevated BMI and the following intervention(s) were applied: encouragement to exercise. Physical Exam Vitals and nursing note reviewed. Constitutional: General: She is not in acute distress. Appearance: She is well-developed. She is not diaphoretic. HENT: Head: Normocephalic and atraumatic. Right Ear: Tympanic membrane and external ear normal. Left Ear: Tympanic membrane and external ear normal. Nose: Nose normal. Mouth/Throat: Mouth: Mucous membranes are moist. Pharynx: No oropharyngeal exudate. Eyes: General: Right eye: No discharge. Left eye: No discharge. Conjunctiva/sclera: Conjunctivae normal. Pupils: Pupils are equal, round, and reactive to light. Neck: Thyroid: No thyromegaly. Vascular: No JVD. Cardiovascular: Rate and Rhythm: Normal rate and regular rhythm. Heart sounds: Normal heart sounds. No murmur heard. No friction rub. No gallop. Pulmonary: Effort: Pulmonary effort is normal. Breath sounds: Normal breath sounds. Abdominal: General: Bowel sounds are normal. There is no distension. Palpations: Abdomen is soft. There is no mass. Tenderness: There is no abdominal tenderness. Musculoskeletal: General: Normal range of motion. Cervical back: Normal range of motion and neck supple. Lymphadenopathy: Cervical: No cervical adenopathy. Skin: General: Skin is warm and dry. Capillary Refill: Capillary refill takes less than 2 seconds. Neurological: Mental Status: She is alert and oriented to person, place, and time. Deep Tendon Reflexes: Reflexes are normal and symmetric. Psychiatric: Mood and Affect: Mood normal. Behavior: Behavior normal. Thought Content: Thought content normal. Judgment: Judgment normal. ASSESSMENT/PLAN: Franki was seen today for weight loss. 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 Stopped phentermine due to palpitation side effects. Reviewed ER notes seen at [facility] on 08/04/23. Cardiac labs normal. EKG NSR. Chest xray showed no acute cardiopulmonary. Potassium 3.2, recheck potassium today Pending insurance coverage, start semaglutide. Education regarding medication action and side effects discussed. She is aware there is a national shortage, may have difficulties obtaining medication. ALL QUESTIONS ANSWERED Total time spent was 25 minutes: Preparing to see the patient (e.g., review of tests) Obtaining and/or reviewing separately obtained history Performing a medically appropriate examination and/or evaluation Counseling and educating the patient/family/caregiver Ordering medications, tests, or procedures Follow-up: Annual physical RODNEY Mayers 08/24/23 0822 documented in this encounter [facility] 08-22-2023 Instructions RODNEY Mayers - 08/22/2023 2:45 PM EST Are You Ready To Kick The Habit? Free Tobacco Cessation Resources [facility] provide all employees with free tobacco cessation services that include: Counseling to understand nicotine addiction Education about medications that can help you successfully quit Assistance with developing a plan to quit Call to set up an individual appointment or find out when group classes will be held: [facility]: [phone] [facility]: [phone] [facility]: [phone] [facility]: [phone] Quit Smoking Action Plan and Resources [facility] offers an eight-week, online smoking cessation plan to all [facility] employees, regardless of whether [employer] is your medical insurance provider. Go to www.mypromedica.org/employeewelln ess and click the Health Risk Assessment and Resources link to get started. In the Ixqpr[employer]Xxjqjb menu, click Action Plans instead of Health Risk Assessment to access the Quit Smoking Action Plan. Additional smoking cessation resources are also available to all [facility] employees on the [employer] web page at www.iCopyright/quits [place]. [employer] Tobacco Cessation Program If [employer] is your medical insurance provider, there are more free resources available to you, including: No copays or deductibles on local tobacco cessation counseling services to help you quit Prescription assistance for tobacco cessation medications to help you quit For details about the tobacco cessation program available to [employer] members, go to www.[facility].com (Search: Tobacco Cessation Program). [place] Tobacco Quit Line 5-690-XJGX-NOW ( ) is a toll-free, telephonic service that helps [place] residents quit smoking and using tobacco. It is staffed by experts who tailor a quit plan for you and provide you with advice. [place] Tobacco Quit Line 8-364-PUWP-NOW ( ) is a toll-free, telephonic service that helps [place] residents quit smoking and using tobacco. It is staffed by experts who tailor a quit plan for you and provide you with advice. Two weeks of nicotine replacement therapy may be provided at no charge, if needed. Additional Resources These national organizations also offer free information and resources to help you quit tobacco: [place] [employer]--www.cancer.org/healthy/s tayawayfromtobacco [place] [employer]--www.heart.org (Search: Quit Smoking) Centers for Disease Control and Prevention--www.cdc.gov/tobacco [place] [employer]--www.lungusa.org The following attachments cannot be sent through Care Everywhere.Hypokalemia (British)documented in this encounter [facility] [employer] 07-25-2023 History of Present illness Narrative Images from the original note were not included. [address] [place] [address] SUBJECTIVE: Patient ID: Franki Quiroz is a 27 y.o. female. Chief Complaint Patient presents with Weight Check Presents today for weight loss follow up. 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 Has lost 11 pounds. She would like to continue medication Additional concerns today is sinus symptoms with coughing. She is asthmatic. In addition, she has had a rash on her chest for several weeks Sinus Problem This is a new problem. The current episode started 1 to 4 weeks ago. The problem has been gradually worsening since onset. There has been no fever. Her pain is at a severity of 6/10. Associated symptoms include congestion, coughing, headaches, a hoarse voice, neck pain, sinus pressure, a sore throat and swollen glands. Pertinent negatives include no chills or shortness of breath. Treatments tried: Dayquil. The treatment provided mild relief. Rash The current episode started 1 to 4 weeks ago. Location: chest. The rash is characterized by redness and itchiness. It is unknown if there was an exposure to a precipitant. Associated symptoms include congestion, coughing, fatigue and a sore throat. Pertinent negatives include no fever or shortness of breath. Past treatments include nothing. The treatment provided no relief. The following portions of the patient's [...] SYSTEMS: Review of Systems Constitutional: Positive for fatigue. Negative for chills and fever. HENT: Positive for congestion, hoarse voice, postnasal drip, sinus pressure, sinus pain, sore throat and voice change. Eyes: Negative for visual disturbance. Respiratory: Positive for cough and chest tightness. Negative for shortness of breath. Cardiovascular: Negative for palpitations. Gastrointestinal: Negative. Endocrine: Negative. Genitourinary: Negative for menstrual problem and pelvic pain. Musculoskeletal: Positive for neck pain. Skin: Positive for rash. Allergic/Immunologic: Negative. Neurological: Positive for headaches. Negative for syncope and facial asymmetry. Hematological: Does not bruise/bleed easily. Psychiatric/Behavioral: Negative. PHYSICAL EXAMINATION: Vitals: 07/25/23 0948 BP: 112/78 BP Site: Left Arm BP Postition: Sitting Pulse: 101 Resp: 20 Temp: 36.9 C (98.4 F) TempSrc: Oral SpO2: 97% Weight: 128.2 kg (282 lb 9.6 oz) Height: 162.6 cm (5' 4 ) Patient noted to have elevated BMI and the following intervention(s) were applied: encouragement to exercise. Physical Exam Vitals and nursing note reviewed. Constitutional: General: She is not in acute distress. Appearance: She is well-developed. She is not diaphoretic. HENT: Head: Normocephalic and atraumatic. Right Ear: External ear normal. Tympanic membrane is erythematous and bulging. Left Ear: Tympanic membrane and external ear normal. Nose: Nasal tenderness and congestion present. Right Sinus: Maxillary sinus tenderness and frontal sinus tenderness present. Left Sinus: Maxillary sinus tenderness and frontal sinus tenderness present. Mouth/Throat: Mouth: Mucous membranes are moist. Pharynx: No oropharyngeal exudate. Tonsils: 2+ on the right. 2+ on the left. Comments: Erythema. Post nasal drainage. 2+ tonsillar hypertrophy Eyes: General: Right eye: No discharge. Left eye: No discharge. Conjunctiva/sclera: Conjunctivae normal. Pupils: Pupils are equal, round, and reactive to light. Neck: Thyroid: No thyromegaly. Vascular: No JVD. Cardiovascular: Rate and Rhythm: Normal rate and regular rhythm. Heart sounds: Normal heart sounds. No murmur heard. No friction rub. No gallop. Pulmonary: Effort: Pulmonary effort is normal. Comments: Scattered expiratory wheezing. Harsh cough present. Abdominal: General: Bowel sounds are normal. There is no distension. Palpations: Abdomen is soft. There is no mass. Tenderness: There is no abdominal tenderness. Musculoskeletal: General: Normal range of motion. Cervical back: Normal range of motion and neck supple. Lymphadenopathy: Cervical: No cervical adenopathy. Skin: General: Skin is warm and dry. Capillary Refill: Capillary refill takes less than 2 seconds. Findings: Rash present. Comments: Non raised scattered erythema on upper chest Neurological: Mental Status: She is alert and oriented to person, place, and time. Deep Tendon Reflexes: Reflexes are normal and symmetric. Psychiatric: Mood and Affect: Mood normal. Behavior: Behavior normal. Thought Content: Thought content normal. Judgment: Judgment normal. ASSESSMENT/PLAN: Franki was seen today for weight check. Diagnoses and all orders for this visit: Upper respiratory tract infection, unspecified type - albuterol (PROVENTIL HFA;VENTOLIN HFA) 90 mcg/actuation inhaler; Inhale 2 puffs every 6 (six) hours as needed for wheezing for up to 30 days. - methylPREDNISolone (MEDROL, ANILA,) 4 mg tablet; follow package directions - azithromycin (ZITHROMAX) 250 mg tablet; Take 1 tablet (250 mg total) by mouth in the morning for 5 days. Take 2 tablets the first day, then 1 tablet daily for 4 days.. 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 Sore throat - POCT rapid strep A Irritant contact dermatitis due to other chemical products - methylPREDNISolone (MEDROL, ANILA,) 4 mg tablet; follow package directions POCT strep is negative. The OARRS/MAPPS database was reviewed today and found to be appropriate. No indication of medication diversion, or non compliance. Body mass index is 48.51 kg/m . Patient noted to have elevated BMI and the following intervention(s) were applied: Discussed current weight today. Consider healthy food choices, portion control. Avoid sugary beverages and high concentrated sweets. Routine exercise regimen encouraged. Start Zpak as directed Medrol dose pack Albuterol MDI as directed PRN shortness of breath and wheezing ALL QUESTIONS ANSWERED Total time spent was 35 minutes: Preparing to see the patient (e.g., review of tests) Obtaining and/or reviewing separately obtained history Performing a medically appropriate examination and/or evaluation Counseling and educating the patient/family/caregiver Ordering medications, tests, or procedures Follow-up: One month RODNEY Mayers 07/25/23 1157 [facility] Encounter Date Diagnosis Assessment [...] going. Patient verbalized understanding of treatment plan. Kateeva Other 03-01-2023 Evaluation note* Encounter Date Diagnosis Assessment Notes Treatment Notes Treatment Clinical Notes Sep, Intractable migraine with aura without status migrainosus (ICD-10 - G43.119) Take medication as directed. Stay away from known triggers. Follow up with primary care provider or neurology if symptoms persist as new treatment option may need to be discussed. Kateeva Other 01-13-2023 NoteED Nursing Discharge Summary Entered On: 08/12/2022 15:18 EST Performed On: 08/12/2022 15:15 EST by Marcia Moralez RN, DC Information [id number] ED IV's : No IV ED IV Site Assessment : No IV ED Vitals Completed : N/A ED Final Assessment Completed : Yes ED Progress Note Completed : Yes Complete all PRN/Pain response forms? : N/A ED Disassociate Patient from Monitor : N/A Updated Depart Time : Yes ED Belongings sent w patient [id number] : Not applicable Marcia Moralez RN - [...] Marcia Moralez RN - 08/12/2022 15:18 EST [facility]12-06-2022 Evaluation note * Encounter Date Diagnosis Assessment [...] treatment plan. Patient left in stable condition Kateeva Other 04-21-2022 Discharge summary Author Hank ellison [facility] November 18, 2021 8:13am Note Date/Time November 18, 2021 8:1 1am [facility] [address] [place] [address] Discharge Summary Signed Patient: Franki Quiroz MR#: [id number] : 1995 Acct:[id number] Age/Sex: 26 / F Adm Date: 2 Loc: 1S Room: 5O2265-[address]: iDone Lerma MD Copies to: MD Ted Allison [...] She felt better than before coming to [facility] and feels hopeful regarding her future. [...] Up: [facility] [Other] (Dr. Alex Lora) [facility] [Other] Documented By: Hnak Lerma MD 2 0811 Signed By: <Electronically signed by Hank Lerma MD> 11/18/[address] [facility] Work Phone: 1(418) 578-629104-20-2022 Progress note Author Hank ellison [facility] November 17, 2021 7:39am Note Date/Time November 17, 2021 7:3 9am [facility] [address] [place] [address] Psychiatry Progress Note Signed Patient: Franki Quiroz MR#: [id number] : 1995 Acct:[id number] Age/Sex: 26 / F Adm Date: 2 Loc: Room: [address] [place] [address] Type : ADM IN Attending Dr: Dione [...] signed by Hank Lerma MD> 11/17/[address] [facility] Work Phone: 1(350) 775-373104-19-2022 Progress note Author Hank ellison [facility] November 16, 2021 8:14am Note Date/Time November 16, 2021 8:1 4am [facility] [address] [place] [address] Psychiatry Progress Note Signed Patient: Franki Quiroz MR#: [id number] : 1995 Acct:[id number] Age/Sex: 26 / F Adm Date: 2 Loc: Room: [address] [place] [address] Type : ADM IN Attending Dr: Dione [...] verbalized understanding. Documented By: Hank Lerma MD 812 Signed By: <Electronically signed by Hank Lerma MD> 11/16/21 0814 [facility] Work Phone: 1(379) 160-190304-18-2022 Progress note Author Hank ellison [facility] November 15, 2021 8:56am Note Date/Time November 15, 2021 8:5 6am [facility] [address] [place] [address] Psychiatry Progress Note Signed Patient: Franki Quiroz MR#: [id number] : 1995 Acct:[id number] Age/Sex: 26 / F Adm Date: 2 Loc: Room: [address] [place] [address] Type : ADM IN Attending Dr: Dione [...] signed by Hank Lerma MD> 11/15/21 0856 [facility] Work Phone: 1(986) 138-241404-17-2022 Progress note Author Hank ellison [facility] November 14, 2021 8:11am Note Date/Time November 14, 2021 8:1 0am [facility] [address] [place] [address] Psychiatry Progress Note Signed Patient: Franki Quiroz MR#: [id number] : 1995 Acct:[id number] Age/Sex: 26 / F Adm Date: 2 Loc: Room: [address] [place] [address] Type : ADM IN Attending Dr: Dione [...] signed by Hank Lerma MD> 11/14/[address] [facility] Work Phone: 1(257) 259-667804-16-2022 History and physical note Author Hank ellison [facility] November 13, 2021 9:19am Note Date/Time November 13, 2021 9:1 8am [facility] [address] [place] [address] Psychiatry H&P Signed Patient: Franki Quiroz MR#: [id number] : 1995 Acct:[id number] Age/Sex: 26 / F Adm Date: 2 Loc: Room: [address] [place] [address] Type : ADM IN Attending Dr: Dione [...] signed by Hank Lerma MD> 11/13/21 0919 [facility] Work Phone: Evaluation note* Diagnosis Onset Date Resolution Status Major depressive disorder, recurrent, moderate acute PTSD (post-traumatic stress disorder) acute [facility] Work Phone: Evaluation note* Diagnosis Concussion without loss of consciousness, initial encounter- Primary Strain of neck muscle, initial encounter [facility] Diagnosis Upper respiratory tract infection, unspecified type- Primary 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 Diagnosis Upper respiratory tract infection, unspecified type 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 Diagnosis COVID-19- Primary Nausea Nausea alone documented [facility] Diagnosis Annual physical exam- Primary Routine general medical examination at a health care facility Blood tests for routine general physical examination Laboratory examination ordered as part of a routine general medical examination documented in this [facility] N[facility]ative - Reported* Type Description Date Medical History migraines Medical History asthma Medical History depression and anxity Medical History meningitis Surgical History C section Hospitalization History meningitis Kateeva Other Hospital Discharge instructions Additional Instructions Regular diet. No activity restrictions.[facility] Work Phone: Hospital Discharge instructions* Attachments The following attachments cannot be sent through Care Everywhere. * Cervical Strain (British) * Acute Concussion (British) documented in [facility]* Attachments The following attachments cannot be sent through Care Everywhere. * Health risks of obesity (British) * Bacterial Upper Respiratory Infection Discharge Instructions, Adult (British) [facility] Attachments The following attachments cannot be sent through Care Everywhere. * Sore Throat Discharge Instructions, Adult (British) [facility]ructionsNot on file documented in this encounterBar[facility] SystemInstructionsNot on file documented in [facility]* Attachments The following attachments cannot be sent through Care Everywhere. * COVID-19 overview (British) 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 49.9 in adult ([facility]) Dina Conner MARKETING BUDGET ANALYST[facility] [address] [place] [address] Referral ID Status Reason Start Date Expiration Date V isits Requested Visits Authorized [id number] Pending Review 1 1 Additional Source Comments Care Teams (unrecognized sec tion and content) Team Status: Inactive Member Role Status Dates Ted Pisano MD Primary Care Provider Active Dione Lerma MD Admit Provider, Attending Pr ovider Active Team Status: Active Member Role Status Dates Ted Pisano MD Primary Care Provider Active Shellfish Checker Relationship Specialty Start Date End Date Pricila Ott MD PCP - General 04/15/13 Shellfish Checker Relationship Specialty Start Date End Date Dina Conner APRN[facility] [address] [place] [address] PCP - General Family Medicine 06/01/21 Shellfish Checker Relationship Specialty Start Date End Date Dina Conner APRNFAMILY NURSE PRACTITIONER [address] [place] [address] PCP - General Family Medicine 06/01/21 Shellfish Checker Relationship Specialty Start Date End Date [facility] [address] [place] [address] PCP - General Family Medicine 06/01/21 Shellfish Checker Relationship Specialty Start Date End Date Dina Conner [facility] [address] [place] [address] PCP - General Family Medicine 06/01/21 Shellfish Checker Relationship Specialty Start Date End Date Dina Conner [facility] [address] [place] [address] PCP - [facility] 06/01/21 Shellfish Checker Relationship Specialty Start Date End Date Dina Conner [facility] [address] [place] [address] PCP - General Family Medicine 06/01/21 Shellfish Checker Relationship Specialty Start Date End Date Dina Conner [facility] [address] [place] [address] PCP - General Family Medicine 06/01/21 Goals [...] content) DATE CREATED AUTHOR 04/27/2022 [facility] DATE CREATED AUTHOR 'S ORGANIZ ATION 08/15/2022 [facility] DATE CREATED AUTHOR AUTHOR'S ORGANIZ ATION 09/03/2022 [facility] DATE CREATED AUTHOR AUTHOR'S ORGANIZ ATION 12/07/2023 [facility] EPIC DATE CREATED AUTHOR AUTHOR'S ORGANIZ ATION 09/06/2024 [facility] DATE CREATED AUTHOR AUTHOR'S ORGANIZ ATION 09/18/2024 [facility] DATE CREATED AUTHOR AUTHOR'S ORGANIZ ATION 10/16/2024 [facility] DATE CREATED AUTHOR AUTHOR'S ORGANIZ ATION 10/16/2024 [facility] REASON FOR VISIT (unrecogniz ed section and content) Reason Comments Fall Pt was walking down the stairs, missed the first step and fell backwards hitting back of head. No LOC. States she became nauseated and vomited right after. Complaint of throbbing pain to head and base of neck. Reason Comments Weight Check Reason Comments sore throat 11/30 Left ear bothering h er also Reason Comments Sore Throat Reason Comments Med Refill Reason Comments weight loss Reason Comments covid 19 Reason Comments Annual Exam Ordered Prescriptions (unrec ognized section and content) Prescription Sig Dispensed Refills Start Date End Da te ondansetron (ZOFRAN-ODT) 4 MG disintegrating tablet Take 1 tablet by mouth 3 times daily as needed for Nausea or Vomiting 21 tablet 09/04/2024 cyclobenzaprine (FLEXERIL) 10 MG tablet Take 1 tablet by mouth 3 times daily as needed for Muscle spasms 21 tablet 09/04/2024 09/14/2024 Scheduled Active and Recently Administ ered Medications (unrecognized section and content) Medication Order 09/02/2024 09/03/2024 09/04/2024 ondansetron (ZOFRAN-ODT) disintegrating tablet 4 mg (COMPLETED) 4 mg, Oral, ONCE, 1 dose, On Mon09/04/24 at 0845 0837 (Given - Provid er: Cherelle Nolan RN) FOR RECORDS PERTAINING TO PATIENTS WHO ARE [...] BE BASED ON THE PRIMARY CLINICAL RECORDS. [facility] [employer] [facility]. provides no warranty or guarantee of the accuracy or completeness of information in this document.
[2024-10-18 19:02] VITALS: BP 128/88; PULSE 95; TEMP 36.7; O2SAT 99; BMI 39.5
[2024-10-18 19:25] LABS: Bilirubin Urine NEGATIVE (NEGATIVE); Blood Urine NEGATIVE (NEGATIVE); Clarity Urine CLEAR (CLEAR); Color Urine LT. YELLOW (YELLOW); Glucose Urine UA NEGATIVE (NEGATIVE); Ketones Urine NEGATIVE (NEGATIVE); Leukocyte Esterase Urine NEGATIVE (NEGATIVE); Nitrite Urine NEGATIVE (NEGATIVE); Protein Urine NEGATIVE (NEG/TRACE); Specific Gravity Urine <=1.005 (1.005-1.025); Urobilinogen Urine 0.2 EU/dL (0.2-1.0); pH Urine 6.5 (5.0-9.0)
[2024-10-18 19:26] LABS: HCG Qualitative Urine* NEGATIVE (NEGATIVE); Internal Control Within Normal Limits
[2024-10-18 19:31] LABS: Bacteria Urine TRACE #/HPF (NONE SEEN); Cast Seen? NONE SEEN #/LPF (NONE SEEN); Crystals Seen? None Seen #/HPF (None Seen); Mucus Urine NONE SEEN (NONE SEEN); RBC Urine NONE SEEN #/HPF (0-2); Squamous Epithelial Cell Urine FEW #/LPF (NONE/RARE); Urine Culture Indicated NO; WBC Urine 0-2 #/HPF (NONE SEEN)
[2024-10-18] MEDS: 0.9 % SODIUM CHLORIDE 1,000 ML 999 ML IV (19:31)
[2024-10-18] MEDS: ONDANSETRON PF 4 MG/2 ML VIAL IV (19:32)
[2024-10-18 19:33] LABS: Basophils Absolute Auto 0.1 10^3/uL (0.0-0.1); Basophils Percent Auto 0.5 % (0.2-2.0); Eosinophils Absolute Auto 0.1 10^3/uL (0.0-0.7); Eosinophils Percent Auto 0.8 % (0.9-7.0); Hematocrit 39.5 % (36.0-48.0); Hemoglobin 13.1 g/dL (12.0-16.0); Immature Granulocytes Abs Auto 0.03 10^3/uL (0.00-0.03); Immature Granulocytes Pct Auto 0.2 % (0.0-0.5); Lymphocytes Absolute Auto 3.4 10^3/uL (1.2-3.8); Lymphocytes Percent Auto 25.8 % (20.5-60.0); Mean Corpuscular HGB Conc 33.2 g/dL (29.9-35.2); Mean Corpuscular Volume 93.6 fL (81.0-99.0); Monocytes Absolute Auto 0.7 10^3/uL (0.3-0.8); Neutrophils Absolute Auto 8.9 10^3/uL (1.4-6.5); Neutrophils Percent Auto 67.7 % (43.0-75.0); Platelet Count 296 10^3/uL (150-450); Red Blood Count 4.22 10^6/uL (4.20-5.40); Red Cell Distribution Width 12.4 % (11.0-15.0); White Blood Count 13.1 10^3/uL (4.0-11.0)
[2024-10-18] MEDS: KETOROLAC TROMETHAMINE 30 MG/ML VIAL IVP (19:33)
[2024-10-18 19:47] LABS: Alanine Aminotransferase 34 U/L (14-59); Albumin Level 3.9 g/dL (3.4-5.0); Alkaline Phosphatase 98 U/L (46-116); Anion Gap 6.9; Aspartate Amino Transferase 16 U/L (15-37); BUN Creatinine Ratio 8.6; Bilirubin Total 0.2 mg/dL (0.2-1.0); Calcium 9.2 mg/dL (8.5-10.1); Carbon Dioxide 32.6 mmol/L (21.0-32.0); Chloride 103 mmol/L (98-107); Estimated GFR (African America >60 (>=60 mL/min/1.73m^2); Estimated GFR (Non-African Ame 56 (>=60 mL/min/1.73m^2); Glucose 73 mg/dL (74-106); Potassium 3.5 mmol/L (3.5-5.1); Sodium 139 mmol/L (136-145); Total Protein 7.9 g/dL (6.4-8.2)
[2024-10-18] MEDS: MORPHINE SULFATE 2 MG/ML SYRINGE IV (20:10)
[2024-10-18 20:42] VITALS: BP 93/55; PULSE 78; O2SAT 98
--- NOTE | 2024-10-18 20:51 | ED.ABDPAIN1 ---
Documented by User: Deb Boggs 10/19/24 15:19 HPI - Abdominal Pain General Chief Complaint: Abdominal Pain Stated Complaint: ABDOMINAL PAIN Time Seen by Provider: 10/18/24 18:42 Source: patient Mode of arrival: walk-in Limitations: no limitations History of Present Illness HPI narrative: 29-year-old female presents here with chief complaint of lower abdominal tenderness. She said she had a sudden onset of pain and tenderness just prior to arrival with mild nausea. Denies any flank pain. Denies known history of kidney stones. She states she is having her IUD removed by her PROPERTY PRESERVATION SPECIALIST later this next week. She denies any dysuria or vaginal bleeding at this time. She is crying and tearful due to pain. denies Known history of . Related Data Home Medications ?Medication ?Instructions ?Recorded ?Confirmed albuterol sulfate 90 mcg/actuation 1 inh inhalation Q6H PRN shortness 08/04/23 10/18/24 aerosol inhaler of breath or wheezing bupropion HCl 100 mg tablet 300 mg PO BID 08/04/23 08/04/23 buspirone 15 mg tablet 15 mg PO TID 08/04/23 10/18/24 clonazepam 0.5 mg tablet 0.5 mg PO .QHS PRN sleep 08/04/23 08/04/23 phentermine 37.5 mg tablet 37.5 mg PO DAILY 08/04/23 08/04/23 prazosin 2 mg capsule 1 mg PO DAILY 08/04/23 10/18/24 sertraline 100 mg tablet (Zoloft) 200 mg PO Q24H 08/04/23 10/18/24 amoxicillin 500 mg capsule 500 mg PO BID 12/09/23 12/09/23 Previous Rx's ?Medication ?Instructions ?Recorded prednisone 50 mg tablet 50 mg PO DAILY 5 days #5 tabs 08/04/23 dicyclomine 10 mg capsule 10 mg PO QID PRN abdominal pain 12/09/23 #12 caps hydrocodone 5 mg-acetaminophen 325 1 tab PO Q6H PRN pain #4 tabs 12/09/23 mg tablet ondansetron 4 mg disintegrating 4 mg PO Q8H PRN nausea and 12/09/23 tablet vomiting 3 days #9 tabs Allergies Allergy/AdvReac Type Severity Reaction Status Date / Time aspirin Allergy Anaphylaxis Verified 10/18/24 19:08 Sulfa (Sulfonamide AdvReac Intermediate swelling Verified 10/18/24 19:08 Antibiotics) Review of Systems ROS Narrative All Systems are negative except as noted/marked.All systems reviewed and otherwise negative PFSH PFSH Social History Smoking status: Current every day smoker Little interest or pleasure in doing things: not at all Feeling down, depressed, or hopeless: not at all Exam Narrative Exam Narrative: All Systems are negative except as noted/marked.All systems reviewed and otherwise negative Nurses note and vital signs reviewed and patient is not hypoxic. General: The patient appears well and in no apparent distress. Patient is resting comfortably on cart. Skin: Warm, dry, no pallor noted. There is no rash noted. Head: Normocephalic, atraumatic Eye: Normal conjunctiva, no drainage, EOMI. PERRL Ears, Nose, Mouth, and Throat: oral mucosa is moist. Nares patent. Mouth without vesicles. Ear canals patent. Tm's without Erythema Cardiovascular: Regular Rate and Rhythm Respiratory: Patient is in no distress, no accessory muscle use, lungs are clear to auscultation, no wheezing, rales or rhonchi Back: non-tender, no CVA tenderness bilaterally to percussion. GI: Normal bowel sounds, no tenderness to palpation, no masses appreciated. No rebound, guarding, or rigidity noted. Musculoskeletal: The patient has no evidence of calf tenderness, no pitting edema, symmetrical pulses noted bilaterally Neurological: A&O x4, normal speech Psychiatric: Cooperative Constitutional Vital Signs, click to edit/add: Last Vital Signs Temp 98.1 F 10/18/24 19:02 Pulse 87 10/18/24 21:41 Resp 16 10/18/24 21:41 BP 99/62 10/18/24 21:41 Pulse Ox 16 L 10/18/24 21:41 O2 Del Method Room Air 10/18/24 21:41 Course Vital Signs Vital signs: Vital Signs Temperature 98.1 F 10/18/24 19:02 Pulse Rate 95 H 10/18/24 19:02 Respiratory Rate 16 10/18/24 19:02 Blood Pressure 128/88 10/18/24 19:02 Pulse Oximetry 99 10/18/24 19:02 Oxygen Delivery Method Room Air 10/18/24 19:02 Temperature 98.1 F 10/18/24 19:02 Pulse Rate 87 10/18/24 21:41 Respiratory Rate 16 10/18/24 21:41 Blood Pressure 99/62 10/18/24 21:41 Pulse Oximetry 16 L 10/18/24 21:41 Oxygen Delivery Method Room Air 10/18/24 21:41 MDM - Abdominal Pain MDM Narrative Medical decision making narrative: 29-year-old female presents here with chief complaint of lower abdominal tenderness. She said she had a sudden onset of pain and tenderness just prior to arrival with mild nausea. Denies any flank pain. Denies known history of kidney stones. She states she is having her IUD removed by her PROPERTY PRESERVATION SPECIALIST later this next week. She denies any dysuria or vaginal bleeding at this time. She is crying and tearful due to pain. denies Known history of . Emergency room IV was established blood work was drawn. Ultrasound and CT scan were ordered. Patient was medicated with Toradol Zofran IV fluids. She continued to have pain was given 2 mg of morphine. Patient was taken over for ultrasound central service technician states the IUD is in place patient appears to have a 1 cm left ovarian cyst. Patient's pain was suprapubic mid abdominal region. Denies a known history of stones. CT scan abdomen pelvis is currently pending. Transition of care to Dr. theodore. She is back return showed a mildly elevated blood cell count of 13.1. Analysis and hCG qualitative is negative. pain has subsided and Currently under control. Differential Diagnosis Differential diagnosis: Likely abdominal pain, calculus of kidney, constipation and other (iud placement) Medical Records Attestation: I reviewed the patient's medical records. Lab Data Attestation: I reviewed the patient's lab results. Labs: Lab Results 10/18/24 10/18/24 Range/Units 19:10 19:18 WBC 13.1 H (4.0-11.0) 10^3/uL RBC 4.22 (4.20-5.40) 10^6/uL Hgb 13.1 (12.0-16.0) g/dL Hct 39.5 (36.0-48.0) % MCV 93.6 (81.0-99.0) fL MCH 31.0 (26.7-34.0) pg MCHC 33.2 (29.9-35.2) g/dL RDW 12.4 (11.0-15.0) % Plt Count 296 (150-450) 10^3/uL MPV 10.0 (9.5-13.5) fL Neut % (Auto) 67.7 (43.0-75.0) % Lymph % (Auto) 25.8 (20.5-60.0) % [place] % (Auto) 5.0 (1.7-12.0) % Eos % (Auto) 0.8 L (0.9-7.0) % Baso % (Auto) 0.5 (0.2-2.0) % Neut # (Auto) 8.9 H (1.4-6.5) 10^3/uL Lymph # (Auto) 3.4 (1.2-3.8) 10^3/uL [place] # (Auto) 0.7 (0.3-0.8) 10^3/uL Eos # (Auto) 0.1 (0.0-0.7) 10^3/uL Baso # (Auto) 0.1 (0.0-0.1) 10^3/uL Abs Immat Gran (auto) 0.03 (0.00-0.03) 10^3/uL Imm/Tot Granulo (auto) 0.2 (0.0-0.5) % Sodium 139 (136-145) mmol/L Potassium 3.5 (3.5-5.1) mmol/L Chloride 103 (98-107) mmol/L Carbon Dioxide 32.6 H (21.0-32.0) mmol/L Anion Gap 6.9 BUN 10.0 (7.0-18.0) mg/dL Creatinine 1.16 H (0.55-1.02) mg/dL Est GFR ( Amer) >60 (>=60 mL/min/1.73m^2) Est GFR (Non-Af Amer) 56 L (>=60 mL/min/1.73m^2) BUN/Creatinine Ratio 8.6 Glucose 73 L (74-106) mg/dL Calcium 9.2 (8.5-10.1) mg/dL Total Bilirubin 0.2 (0.2-1.0) mg/dL AST 16 (15-37) U/L ALT 34 (14-59) U/L Alkaline Phosphatase 98 (46-116) U/L Total Protein 7.9 (6.4-8.2) g/dL Albumin 3.9 (3.4-5.0) g/dL Globulin 4.0 g/dL Albumin/Globulin Ratio 1.0 Urine Color Lt. yellow (YELLOW) Urine Clarity Clear (CLEAR) Urine pH 6.5 (5.0-9.0) Ur Specific [place] <=1.005 A (1.005-1.025) Urine Protein Negative (NEG/TRACE) mg/dL Urine Glucose (UA) Negative (NEGATIVE) mg/dL Urine Ketones Negative (NEGATIVE) mg/dL Urine Occult Blood Negative (NEGATIVE) Urine Nitrite Negative (NEGATIVE) Urine Bilirubin Negative (NEGATIVE) Urine Urobilinogen 0.2 (0.2-1.0) EU/dL Ur Leukocyte Esterase Negative (NEGATIVE) Urine RBC None seen (0-2) #/HPF Urine WBC 0-2 A (NONE SEEN) #/HPF Ur Squamous Epith Cells Few A (NONE/RARE) #/LPF Urine Crystals None seen (None Seen) #/HPF Urine Bacteria Trace A (NONE SEEN) #/HPF Urine Casts None seen (NONE SEEN) #/LPF Urine Mucus None seen (NONE SEEN) Ur Culture Indicated? No Urine HCG, Qual Negative (NEGATIVE) Discharge Plan Discharge Chief Complaint: Abdominal Pain Clinical Impression: Constipation, Abdominal pain Patient Disposition: Home, Self-Care Time of Disposition Decision: 21:22 Condition: Good Mode of Transportation: Private Vehicle Prescriptions / Home Meds: No Action albuterol sulfate 90 mcg/actuation HFA aerosol inhaler 1 inh INHALATION Q6H PRN (Reason: shortness of breath or wheezing) clonazepam 0.5 mg tablet 0.5 mg PO .QHS PRN (Reason: sleep) phentermine 37.5 mg tablet 37.5 mg PO DAILY sertraline [Zoloft] 100 mg tablet 200 mg PO Q24H bupropion HCl 100 mg tablet 300 mg PO BID buspirone 15 mg tablet 15 mg PO TID prazosin 2 mg capsule 1 mg PO DAILY prednisone 50 mg tablet 50 mg PO DAILY 5 Days Qty: 5 0RF amoxicillin 500 mg capsule 500 mg PO BID hydrocodone-acetaminophen 5-325 mg tablet 1 tab PO Q6H PRN (Reason: pain) Qty: 4 0RF ondansetron 4 mg tablet,disintegrating 4 mg PO Q8H PRN (Reason: nausea and vomiting) 3 Days Qty: 9 0RF dicyclomine 10 mg capsule 10 mg PO QID PRN (Reason: abdominal pain) Qty: 12 0RF Print Language: Bermudian Instructions: Constipation (ED), Abdominal Pain (ED) Additional Instructions: See Dr. Mendez at your appointment on Monday. Referrals: DINA KAUR [Primary Care Provider] - 1 week Discharge Date/Time: 10/18/24 21:45 Documented by User: Louis Theodore MD 10/18/24 21:24 HPI - Abdominal Pain General Chief Complaint: Abdominal Pain Stated Complaint: ABDOMINAL PAIN Time Seen by Provider: 10/18/24 18:42 Related Data Home Medications ?Medication ?Instructions ?Recorded ?Confirmed albuterol sulfate 90 mcg/actuation 1 inh inhalation Q6H PRN shortness 08/04/23 10/18/24 aerosol inhaler of breath or wheezing bupropion HCl 100 mg tablet 300 mg PO BID 08/04/23 08/04/23 buspirone 15 mg tablet 15 mg PO TID 08/04/23 10/18/24 clonazepam 0.5 mg tablet 0.5 mg PO .QHS PRN sleep 08/04/23 08/04/23 phentermine 37.5 mg tablet 37.5 mg PO DAILY 08/04/23 08/04/23 prazosin 2 mg capsule 1 mg PO DAILY 08/04/23 10/18/24 sertraline 100 mg tablet (Zoloft) 200 mg PO Q24H 08/04/23 10/18/24 amoxicillin 500 mg capsule 500 mg PO BID 12/09/23 12/09/23 Previous Rx's ?Medication ?Instructions ?Recorded prednisone 50 mg tablet 50 mg PO DAILY 5 days #5 tabs 08/04/23 dicyclomine 10 mg capsule 10 mg PO QID PRN abdominal pain 12/09/23 #12 caps hydrocodone 5 mg-acetaminophen 325 1 tab PO Q6H PRN pain #4 tabs 12/09/23 mg tablet ondansetron 4 mg disintegrating 4 mg PO Q8H PRN nausea and 12/09/23 tablet vomiting 3 days #9 tabs Allergies Allergy/AdvReac Type Severity Reaction Status Date / Time aspirin Allergy Anaphylaxis Verified 10/18/24 19:08 Sulfa (Sulfonamide AdvReac Intermediate swelling Verified 10/18/24 19:08 Antibiotics) PFSH PFSH Social History Smoking status: Current every day smoker Little interest or pleasure in doing things: not at all Feeling down, depressed, or hopeless: not at all Exam Constitutional Vital Signs, click to edit/add: Last Vital Signs Temp 98.1 F 10/18/24 19:02 Pulse 87 10/18/24 21:41 Resp 16 10/18/24 21:41 BP 99/62 10/18/24 21:41 Pulse Ox 16 L 10/18/24 21:41 O2 Del Method Room Air 10/18/24 21:41 Course Vital Signs Vital signs: Vital Signs Temperature 98.1 F 10/18/24 19:02 Pulse Rate 95 H 10/18/24 19:02 Respiratory Rate 16 10/18/24 19:02 Blood Pressure 128/88 10/18/24 19:02 Pulse Oximetry 99 10/18/24 19:02 Oxygen Delivery Method Room Air 10/18/24 19:02 Temperature 98.1 F 10/18/24 19:02 Pulse Rate 87 10/18/24 21:41 Respiratory Rate 16 10/18/24 21:41 Blood Pressure 99/62 10/18/24 21:41 Pulse Oximetry 16 L 10/18/24 21:41 Oxygen Delivery Method Room Air 10/18/24 21:41 MDM - Abdominal Pain MDM Narrative Medical decision making narrative: 29-year-old female presents here with chief complaint of lower abdominal tenderness. She said she had a sudden onset of pain and tenderness just prior to arrival with mild nausea. Denies any flank pain. Denies known history of kidney stones. She states she is having her IUD removed by her PROPERTY PRESERVATION SPECIALIST later this next week. She denies any dysuria or vaginal bleeding at this time. She is crying and tearful due to pain. denies Known history of . Emergency room IV was established blood work was drawn. Ultrasound and CT scan were ordered. Patient was medicated with Toradol Zofran IV fluids. She continued to have pain was given 2 mg of morphine. Patient was taken over for ultrasound central service technician states the IUD is in place patient appears to have a 1 cm left ovarian cyst. Patient's pain was suprapubic mid abdominal region. Denies a known history of stones. CT scan abdomen pelvis is currently pending. Transition of care to Dr. theodore. She is back return showed a mildly elevated blood cell count of 13.1. Analysis and hCG qualitative is negative. pain has subsided and Currently under control. JK 9:25 pm CAT scan shows IUD in place and possible mild enteritis and a normal appendix. It also shows mild constipation throughout the colon. Findings are discussed with the patient and she was recommended MiraLAX. She has an appointment with Dr. Mendez in a few days to have her IUD taken out. Treatment diagnosis and follow-up were discussed with the patient. Lab Data Labs: Lab Results 10/18/24 10/18/24 Range/Units 19:10 19:18 WBC 13.1 H (4.0-11.0) 10^3/uL RBC 4.22 (4.20-5.40) 10^6/uL Hgb 13.1 (12.0-16.0) g/dL Hct 39.5 (36.0-48.0) % MCV 93.6 (81.0-99.0) fL MCH 31.0 (26.7-34.0) pg MCHC 33.2 (29.9-35.2) g/dL RDW 12.4 (11.0-15.0) % Plt Count 296 (150-450) 10^3/uL MPV 10.0 (9.5-13.5) fL Neut % (Auto) 67.7 (43.0-75.0) % Lymph % (Auto) 25.8 (20.5-60.0) % [place] % (Auto) 5.0 (1.7-12.0) % Eos % (Auto) 0.8 L (0.9-7.0) % Baso % (Auto) 0.5 (0.2-2.0) % Neut # (Auto) 8.9 H (1.4-6.5) 10^3/uL Lymph # (Auto) 3.4 (1.2-3.8) 10^3/uL [place] # (Auto) 0.7 (0.3-0.8) 10^3/uL Eos # (Auto) 0.1 (0.0-0.7) 10^3/uL Baso # (Auto) 0.1 (0.0-0.1) 10^3/uL Abs Immat Gran (auto) 0.03 (0.00-0.03) 10^3/uL Imm/Tot Granulo (auto) 0.2 (0.0-0.5) % Sodium 139 (136-145) mmol/L Potassium 3.5 (3.5-5.1) mmol/L Chloride 103 (98-107) mmol/L Carbon Dioxide 32.6 H (21.0-32.0) mmol/L Anion Gap 6.9 BUN 10.0 (7.0-18.0) mg/dL Creatinine 1.16 H (0.55-1.02) mg/dL Est GFR ( Amer) >60 (>=60 mL/min/1.73m^2) Est GFR (Non-Af Amer) 56 L (>=60 mL/min/1.73m^2) BUN/Creatinine Ratio 8.6 Glucose 73 L (74-106) mg/dL Calcium 9.2 (8.5-10.1) mg/dL Total Bilirubin 0.2 (0.2-1.0) mg/dL AST 16 (15-37) U/L ALT 34 (14-59) U/L Alkaline Phosphatase 98 (46-116) U/L Total Protein 7.9 (6.4-8.2) g/dL Albumin 3.9 (3.4-5.0) g/dL Globulin 4.0 g/dL Albumin/Globulin Ratio 1.0 Urine Color Lt. yellow (YELLOW) Urine Clarity Clear (CLEAR) Urine pH 6.5 (5.0-9.0) Ur Specific [place] <=1.005 A (1.005-1.025) Urine Protein Negative (NEG/TRACE) mg/dL Urine Glucose (UA) Negative (NEGATIVE) mg/dL Urine Ketones Negative (NEGATIVE) mg/dL Urine Occult Blood Negative (NEGATIVE) Urine Nitrite Negative (NEGATIVE) Urine Bilirubin Negative (NEGATIVE) Urine Urobilinogen 0.2 (0.2-1.0) EU/dL Ur Leukocyte Esterase Negative (NEGATIVE) Urine RBC None seen (0-2) #/HPF Urine WBC 0-2 A (NONE SEEN) #/HPF Ur Squamous Epith Cells Few A (NONE/RARE) #/LPF Urine Crystals None seen (None Seen) #/HPF Urine Bacteria Trace A (NONE SEEN) #/HPF Urine Casts None seen (NONE SEEN) #/LPF Urine Mucus None seen (NONE SEEN) Ur Culture Indicated? No Urine HCG, Qual Negative (NEGATIVE) Imaging Data CT scan - abdomen: Radiologist's impression: IUD in place, possible mild enteritis, normal appendix, mild constipation throughout the colon Discharge Plan Discharge Chief Complaint: Abdominal Pain Clinical Impression: Constipation, Abdominal pain Patient Disposition: Home, Self-Care Time of Disposition Decision: 21:22 Condition: Good Mode of Transportation: Private Vehicle Prescriptions / Home Meds: No Action albuterol sulfate 90 mcg/actuation HFA aerosol inhaler 1 inh INHALATION Q6H PRN (Reason: shortness of breath or wheezing) clonazepam 0.5 mg tablet 0.5 mg PO .QHS PRN (Reason: sleep) phentermine 37.5 mg tablet 37.5 mg PO DAILY sertraline [Zoloft] 100 mg tablet 200 mg PO Q24H bupropion HCl 100 mg tablet 300 mg PO BID buspirone 15 mg tablet 15 mg PO TID prazosin 2 mg capsule 1 mg PO DAILY prednisone 50 mg tablet 50 mg PO DAILY 5 Days Qty: 5 0RF amoxicillin 500 mg capsule 500 mg PO BID hydrocodone-acetaminophen 5-325 mg tablet 1 tab PO Q6H PRN (Reason: pain) Qty: 4 0RF ondansetron 4 mg tablet,disintegrating 4 mg PO Q8H PRN (Reason: nausea and vomiting) 3 Days Qty: 9 0RF dicyclomine 10 mg capsule 10 mg PO QID PRN (Reason: abdominal pain) Qty: 12 0RF Print Language: Bermudian Instructions: Constipation (ED), Abdominal Pain (ED) Additional Instructions: See Dr. Mendez at your appointment on Monday. Referrals: DINA KAUR [Primary Care Provider] - 1 week Discharge Date/Time: 10/18/24 21:45
[2024-10-18 21:41] VITALS: BP 99/62; PULSE 87; O2SAT 16
== END 2024-10-18 21:45 | disposition home or self-care (01) ==
PROVIDERS: Physician Assistant; Emergency Provider Emergency Medicine; PCP Nurse Practitioner
DX: R10.30 Lower abdominal pain, unspecified (principal); K59.00 Constipation, unspecified; N83.202 Unspecified ovarian cyst, left side; Z97.5 Presence of (intrauterine) contraceptive device; F17.200 Nicotine dependence, unspecified, uncomplicated
CPT/HCPCS: 36415; 74176; 76830; 80053; 81001; 84703; 85025; 96374; 96375; 99285; J1885; J2270; J2405

== ENCOUNTER 2024-11-30 08:06 | Outpatient (OUT) | payer BC, SELFPAY ==
[2024-11-30 08:47] LABS: HCG Quantitative 72 mIU/mL
== END 2024-11-30 08:07 | disposition home or self-care (01) ==
PROVIDERS: PCP Nurse Practitioner; Visit Provider Obstetrics & Gynecology
DX: N92.6 Irregular menstruation, unspecified (principal)
CPT/HCPCS: 36415; 84702

== ENCOUNTER 2024-12-02 09:08 | Outpatient (OUT) | payer BC, SELFPAY ==
[2024-12-02 10:42] LABS: HCG Quantitative 110 mIU/mL
== END 2024-12-02 09:09 | disposition home or self-care (01) ==
LOC: LAB 12-09 14:46
PROVIDERS: PCP Nurse Practitioner; Visit Provider Obstetrics & Gynecology
DX: N92.6 Irregular menstruation, unspecified (principal)
CPT/HCPCS: 36415; 84702

== ENCOUNTER 2024-12-04 07:03 | Outpatient (RCR) | payer BC, SELFPAY ==
[2024-12-04 08:11] LABS: HCG Quantitative 171 mIU/mL
[2024-12-09 15:39] LABS: HCG Quantitative 324 mIU/mL
[2024-12-16 07:54] LABS: HCG Quantitative 46 mIU/mL
== END 2024-12-30 10:52 | disposition home health service (06) ==
LOC: LAB 07:03
PROVIDERS: PCP Nurse Practitioner; Visit Provider Obstetrics & Gynecology
DX: N92.6 Irregular menstruation, unspecified (principal)
CPT/HCPCS: 36415; 84702

== ENCOUNTER 2024-12-10 12:33 | Outpatient (OUT) | payer BC, SELFPAY ==
--- NOTE | 2024-12-10 12:37 | US_ITS ---
The [address] [address] Patient Name: FRANKI FUNEZ MRN: [id number] date: 1995 Sex: F Assigned Patient Location: [place] Current Patient Location: Accession/Order Number: [id number] Exam Date: 12/10/2024 13:39 Report Date: 12/10/2024 13:43 At the request of: MARIA E MORALES DO Procedure: US OB transvaginal EXAMINATION TYPE: US OB transvaginal Grayscale, color scale Doppler, vascular duplex analysis of the bilateral ovaries DATE OF EXAM ORDERED: 12/10/2024 1:13 PM HISTORY: Bleeding Early , cramping COMPARISON: NONE TECHNIQUE: Realtime Transvaginal imaging was performed. Transvaginal imaging was utilized to better evaluate the ovaries and the endometrial stripe. Grayscale, color scale Doppler, vascular duplex analysis of the bilateral ovaries was performed to assess blood flow. FINDINGS: The uterus is anteverted is normal in echogenicity. The cervix measures 4.3 cm in length. Endometrium: No evidence of intrauterine . The endometrium is heterogeneous in appearance. Ovaries: The visualized ovaries are within normal limits for songraphic evaluation. Right Ovary measurements: 3.3 x 1.9 x 2.3 cm Left Ovary measurements: 2.4 x 2.5 x 1.5 cm No abnormal adnexal mass is seen. No free fluid in the pelvic cul-de-sac. Vascular duplex analysis of the bilateral ovaries demonstrates normal blood flow without evidence of ovarian ischemia. US/US OB transvaginal IMPRESSION: No intrauterine . No evidence of ovarian ischemia. No adnexal mass. Impression dictated by: René Martinez M.D. 12/10/2024 1:43 PM Dictation Location: [place] [address] Electronically authenticated by: [id number] Y Date: 12/10/2024 13:43
== END 2024-12-10 12:34 | disposition home or self-care (01) ==
LOC: US 12:33
PROVIDERS: PCP Nurse Practitioner; Visit Provider Obstetrics & Gynecology
DX: O20.9 Hemorrhage in early pregnancy, unspecified (principal)
CPT/HCPCS: 76817

== ENCOUNTER 2024-12-10 21:46 | Emergency (ER) | payer BC, SELFPAY ==
[2024-12-10 21:52] VITALS: BP 145/86; PULSE 105; O2SAT 98; BMI 42.9
--- NOTE | 2024-12-10 23:05 | ED_ITS ---
HPI HPI - General Adult General Chief complaint: OB/Uterine Contractions Stated complaint: MISCARRIAGE, PAIN Time Seen by Provider: 12/10/24 22:25 History of Present Illness HPI narrative: 7 weeks miscarriage. Had ultrasound today and told she no longer has a fetus in her uterus. She presents complaining of pain right flank and groin. vaginal bleeding has slowed down. No urinary symptoms Related Data Home Medications ?Medication ?Instructions ?Recorded ?Confirmed albuterol sulfate 90 mcg/actuation 1 inh inhalation Q6 H PRN shortness 08/04/23 12/10/24 aerosol inhaler of breath or wheezing buspirone 15 mg tablet 15 mg PO TID 08/04/23 sertraline 100 mg tablet (Zoloft) 200 mg PO Q24H 08/0412/10/24 aripiprazole 5 mg tablet mg 12/10/24 bupropion HCl 300 mg 24 hr tablet, mg PO 12/10/24 extended release prazosin 1 mg capsule mg 12/10/24 Allergies Allergy/AdvReac Type Severity Reaction Status Date / Time aspirin Allergy Anaphylaxis Verified 12/10/24 21:57 Sulfa (Sulfonamide AdvReac Intermediate swelling Verified 12/10/24 21:57 Antibiotics) Opioid HPI Opioid Management Most Recent Opioid Data: Last Pain Scale 7 12/10/24, 21:52 Review of Systems ROS Status of ROS 10 or more systems reviewed and unremark able except as noted in history and below PFSH PFSH Social History Smoking status: Current every day smoker Little interest or pleasure in doing things: not at all Feeling down, depressed, or hopeless: not at all Exam Constitutional Vital Signs, click to edit/add: Last Vital Signs Pulse 105 H 12/10/24 21:52 Resp 24 H 12/10/24 21:52 BP 145/86 H 12/10/24 21:52 Pulse Ox 98 12/10/24 21:52 Common normals: no apparent distress, average body habitus, oriented x3, no limitations, healthy appearing, alert and well nourished [facility] Common normals: normocephalic and head/scalp atraumatic Respiratory Common normals: normal respiratory effort, no retractions, no use of accessory muscles and clear to auscultation bilaterally Cardio Common normals: regular rate, regular rhythm, S1 normal heart sound and S2 normal heart sound GI Other: right flank and RLQ tenderness. no guarding Extremity Common normals: normal to inspection and full ROM Neuro Common normals: oriented x3, CN's II-XII intact bilaterally, moves all extremit ies and no focal motor deficits Psych Appearance: grossly normal Course Vital Signs Vital signs: Vital Signs Pulse Rate 105 H 12/10/24 21:52 Respiratory Rate 24 H 12/10/24 21:52 Blood Pressure 145/86 H 12/10/24 21:52 Pulse Oximetry 98 12/10/24 21:52 Pulse Rate 105 H 12/10/24 21:52 Respiratory Rate 24 H 12/10/24 21:52 Blood Pressure 145/86 H 12/10/24 21:52 Pulse Oximetry 98 12/10/24 21:52 Medical Decision Making MDM Narrative Medical decision making narrative: patient with recent miscarriage. Presents with pain RLQ and flank. Has tenderness without guarding. also has nausea and vomiting. CT with finding of enteritis and adenitis. Patient feeling better after zofran and morphine for pain. Informed of the working diagnosis and discharged home Lab Data Labs: Lab Results 12/10/24 Range/Units 23:22 WBC 9.2 (4.0-11.0) 10^3/uL RBC 3.87 L (4.20-5.40) 10^6/uL Hgb 12.1 (12.0-16.0) g/dL Hct 37.0 (36.0-48.0) % MCV 95.6 (81.0-99.0) fL MCH 31.3 (26.7-34.0) pg MCHC 32.7 (29.9-35.2) g/dL RDW 13.0 (11.0-15.0) % Plt Count 275 (150-450) 10^3/uL MPV 9.8 (9.5-13.5) fL Neut % (Auto) 57.3 (43.0-75.0) % Lymph % (Auto) 33.5 (20.5-60.0) % [place] % (Auto) 6.9 (1.7-12.0) % Eos % (Auto) 1.3 (0.9-7.0) % Baso % (Auto) 0.7 (0.2-2.0) % Neut # (Auto) 5.3 (1.4-6.5) 10^3/uL Lymph # (Auto) 3.1 (1.2-3.8) 10^3/uL [place] # (Auto) 0.6 (0.3-0.8) 10^3/uL Eos # (Auto) 0.1 (0.0-0.7) 10^3/uL Baso # (Auto) 0.1 (0.0-0.1) 10^3/uL Abs Immat Gran (auto) 0.03 (0.00-0.03) 10^3/uL Imm/Tot Granulo (auto) 0.3 (0.0-0.5) % Sodium 137 (136-145) mmol/L Potassium 3.7 (3.5-5.1) mmol/L Chloride 102 (98-107) mmol/L Carbon Dioxide 30.7 (21.0-32.0) mmol/L Anion Gap 8.0 BUN 16.0 (7.0-18.0) mg/dL Creatinine 1.19 H (0.55-1.02) mg/dL Est GFR ( Amer) >60 (>=60 mL/min/1.73m^2) Est GFR (Non-Af Amer) 54 L (>=60 mL/min/1.73m^2) BUN/Creatinine Ratio 13.4 Glucose 97 (74-106) mg/dL Calcium 8.9 (8.5-10.1) mg/dL Total Bilirubin 0.1 L (0.2-1.0) mg/dL AST 33 (15-37) U/L ALT 60 H (14-59) U/L Alkaline Phosphatase 74 (46-116) U/L Total Protein 6.9 (6.4-8.2) g/dL Albumin 3.3 L (3.4-5.0) g/dL Globulin 3.6 g/dL Albumin/Globulin Ratio 0.9 Urine Color Yellow (YELLOW) Urine Clarity Clear (CLEAR) Urine pH 6.0 (5.0-9.0) Ur Specific [place] 1.020 (1.005-1.025) Urine Protein Negative (NEG/TRACE) mg/dL Urine Glucose (UA) Negative (NEGATIVE) mg/dL Urine Ketones Trace A (NEGATIVE) mg/dL Urine Occult Blood Large A (NEGATIVE) Urine Nitrite Negative (NEGATIVE) Urine Bilirubin Negative (NEGATIVE) Urine Urobilinogen 0.2 (0.2-1.0) EU/dL Ur Leukocyte Esterase Negative (NEGATIVE) Urine RBC 2-5 A (0-2) #/HPF Urine WBC 0-2 A (NONE SEEN) #/HPF Ur Squamous Epith Cells Few A (NONE/RARE) #/LPF Urine Crystals None seen (None Seen) #/HPF Urine Bacteria Small A (NONE SEEN) #/HPF Urine Casts None seen (NONE SEEN) #/LPF Urine Mucus None seen (NONE SEEN) Ur Culture Indicated? Yes-[facility] [place] Discharge Plan Discharge Chief Complaint: OB/Uterine Contractions Clinical Impression: Mesenteric adenitis, Enteritis Patient Disposition: Home, Self-Care Prescriptions / Home Meds: No Action albuterol sulfate 90 mcg/actuation HFA aerosol inhaler 1 inh INHALATION Q6H PRN (Reason: shortness of breath or wheezing) sertraline [Zoloft] 100 mg tablet 200 mg PO Q24H buspirone 15 mg tablet 15 mg PO TID prazosin 1 mg capsule aripiprazole 5 mg tablet bupropion HCl 300 mg tablet extended release 24 hr PO Print Language: Romansh Instructions: Adenitis (ED), Enteritis (ED) Additional Instructions: follow up with your family doctor this week for recheck Referrals: DINA KAUR [Primary Care Provider, Unknown] - 1 week
[2024-12-10] MEDS: MORPHINE SULFATE 4 MG/ML VIAL IM (23:16)
[2024-12-10 23:26] LABS: Basophils Absolute Auto 0.1 10^3/uL (0.0-0.1); Basophils Percent Auto 0.7 % (0.2-2.0); Eosinophils Absolute Auto 0.1 10^3/uL (0.0-0.7); Eosinophils Percent Auto 1.3 % (0.9-7.0); Hemoglobin 12.1 g/dL (12.0-16.0); Immature Granulocytes Abs Auto 0.03 10^3/uL (0.00-0.03); Immature Granulocytes Pct Auto 0.3 % (0.0-0.5); Lymphocytes Absolute Auto 3.1 10^3/uL (1.2-3.8); Lymphocytes Percent Auto 33.5 % (20.5-60.0); Mean Corpuscular HGB Conc 32.7 g/dL (29.9-35.2); Mean Corpuscular Hemoglobin 31.3 pg (26.7-34.0); Mean Corpuscular Volume 95.6 fL (81.0-99.0); Mean Platelet Volume 9.8 fL (9.5-13.5); Monocytes Absolute Auto 0.6 10^3/uL (0.3-0.8); Monocytes Percent Auto 6.9 % (1.7-12.0); Neutrophils Absolute Auto 5.3 10^3/uL (1.4-6.5); Neutrophils Percent Auto 57.3 % (43.0-75.0); Platelet Count 275 10^3/uL (150-450); Red Blood Count 3.87 10^6/uL (4.20-5.40); White Blood Count 9.2 10^3/uL (4.0-11.0)
[2024-12-10 23:30] LABS: Bilirubin Urine NEGATIVE (NEGATIVE); Blood Urine LARGE (NEGATIVE); Clarity Urine CLEAR (CLEAR); Color Urine YELLOW (YELLOW); Glucose Urine UA NEGATIVE (NEGATIVE); Ketones Urine TRACE mg/dL (NEGATIVE); Leukocyte Esterase Urine NEGATIVE (NEGATIVE); Nitrite Urine NEGATIVE (NEGATIVE); Protein Urine NEGATIVE (NEG/TRACE); Urobilinogen Urine 0.2 EU/dL (0.2-1.0)
[2024-12-10 23:38] LABS: WBC Urine 0-2 #/HPF (NONE SEEN)
[2024-12-10 23:39] LABS: Bacteria Urine SMALL #/HPF (NONE SEEN); Cast Seen? NONE SEEN #/LPF (NONE SEEN); Crystals Seen? None Seen #/HPF (None Seen); Mucus Urine NONE SEEN (NONE SEEN); Squamous Epithelial Cell Urine FEW #/LPF (NONE/RARE); Urine Culture Indicated YES-FRMC
[2024-12-10 23:42] LABS: Alanine Aminotransferase 60 U/L (14-59); Albumin Globulin Ratio 0.9; Albumin Level 3.3 g/dL (3.4-5.0); Alkaline Phosphatase 74 U/L (46-116); Aspartate Amino Transferase 33 U/L (15-37); BUN Creatinine Ratio 13.4; Bilirubin Total 0.1 mg/dL (0.2-1.0); Calcium 8.9 mg/dL (8.5-10.1); Carbon Dioxide 30.7 mmol/L (21.0-32.0); Chloride 102 mmol/L (98-107); Estimated GFR (African America >60 (>=60 mL/min/1.73m^2); Estimated GFR (Non-African Ame 54 (>=60 mL/min/1.73m^2); Globulin 3.6 g/dL; Glucose 97 mg/dL (74-106); Potassium 3.7 mmol/L (3.5-5.1); Sodium 137 mmol/L (136-145); Total Protein 6.9 g/dL (6.4-8.2)
[2024-12-11] MEDS: MORPHINE SULFATE 4 MG/ML VIAL IM (00:11)
[2024-12-11 01:53] VITALS: BP 98/64; PULSE 86; O2SAT 99
== END 2024-12-11 01:54 | disposition home or self-care (01) ==
PROVIDERS: Emergency Provider Internal Medicine; PCP Nurse Practitioner
DX: I88.0 Nonspecific mesenteric lymphadenitis (principal); K52.9 Noninfective gastroenteritis and colitis, unspecified; O03.9 Complete or unspecified spontaneous abortion without complication; F17.200 Nicotine dependence, unspecified, uncomplicated; Z3A.01 Less than 8 weeks gestation of pregnancy
CPT/HCPCS: 36415; 74176; 76817; 80053; 81001; 85025; 87086; 96372; 99284; J2270

== ENCOUNTER 2024-12-20 10:41 | Day surgery (SDC) | payer BC, SELFPAY ==
--- OUTSIDE RECORDS SUMMARY | 2024-12-14 07:53 | XMS_ITS | Continuity of Care Document ---
Author Organization [facility] Address [address] [place] [address] Phone Care Team Providers Care Vault Worker Name Role Phone Jesse Franklin MD Attending Provider Care Teams Visit Care Team Team Status: Inactive Member Role Status Dates Margoth Murdock APRN Attending Provider Active S tart: October 28, 2024 End: October 28, 2024 MOISES Mayers Primary Care Provider Active Start: October 28, 2024 End: October 28, 2024 Patient Care Team Team Status: Inactive Member Role Status Dates Jesse Franklin MD Attending Provider Active St art: December 10, 2024 End: December 10, 2024 Chief Complaint and Reason for Visit Chief Complaint Admit Date cough, sore throat, chills October 28 1:18pm Unknown December 10, 2024 11:22 pm Reason for Visit Admit Date Viral URI with cough October 28, 2024 1: 18pm Allergies, Adverse Reactions, Alerts Allergen Type Severity Reaction Last Updated Verified Status Comments Sulfa (Sulfonamide Antibiotics) Allergy Moderate Swelling October 28, 2024 1:19pm Yes Active hands and feet aspirin Allergy Unknown Chest Pain October 28, 2024 1:27pm Yes Active Social History Smoking Status Status Start Date End Date Date of Observa tion Current some day smoker Ted delgado 2024 1:31pm Observation Status Observation Response Date of Response Patient Sex Female December 12, 2024 1 2:06am Assigned Sex Female 1995 Family History Relationship Condition Age at Onset Recorded Date/T prudence father Heart disease Unknown Hypertension Unknown mother Hypothyroidism Unknown Problems Active Problems Medical Problem Onset Date Status Comments Viral URI with cough Active Migraines Active Wheezing Active Anxiety and depression Active Asthma Active Inactive/Resolved Problems Medical Problem Onset Date Status Comments PTSD (post-traumatic stress disorder) Resolved Problem List clean-u p per request of Phys. EHR Cmte Major depressive disorder, recurrent, moderate Resolved Problem List clean-u p per request of Phys. EHR Cmte Medications Medication Status Dose Units Route Directions Qty Days St art Date Stop Date End Date Instructions Sertraline (Zoloft) 100 mg Tablet Active 200 MG PO Daily November 13, 2021 12:00a m Buspirone (Buspar) 10 mg Tablet Discont inued 10 MG PO Three times daily November 13, 2021 12:00a m November 18, 2021 8:41a m Bupropion Hcl (Wellbutrin Xl) 300 mg Tablet Extended Release 24 Hr Discont inued 300 MG PO Daily November 13, 2021 12:00a m October 28, 2024 1:29p m Atorvastatin 10 mg Tablet Discont inued 10 MG PO Every evening 15 November 18, 2021 12:00a m October 28, 2024 1:29p m Prazosin 1 mg Capsule Active 1 MG PO Daily at bedtime 15 November 18, 2021 12:00a m Olanzapine 2.5 mg Tablet Discont inued 2.5 MG PO Every 8 hours as needed for Agitation 45 November 18, 2021 12:00a m October 28, 2024 1:29p m Ergocalcifer ol (Vitamin D2) 1,250 mcg (50,000 unit) Capsule Active 1250 MCG PO Mo@0900 5 November 18, 2021 12:00a m Buspirone 15 mg Tablet Active 15 MG PO Three times daily 45 November 18, 2021 12:00a m Aripiprazole 5 mg tablet Active 5 MG PO Daily October 28, 2024 12:00a m Methylpredni solone (Medrol (José)) 4 mg tablets,dose pack Active 0 PO per package directions 21 October 28, 2024 12:00a m PO PER PKG DIR Albuterol Sulfate 90 mcg/actuatio n HFA aerosol inhaler Active 2 INH INHALA TION EVERY 4-6 HOURS as needed for shortness of breath or wheezing 6.7 October 28, 2024 12:00a m Procedures Procedure Date Performed Status Urine Culture December 10, 2024 active Quick Strep (POC) October 28, 2024 completed Relevant Diagnostic Tests and/or Laboratory Data Laboratory Results Test Date/Time Result Interpretation Reference Range Result Comment Performing Site POC SARS-CoV-2 RNA (PCR) October 28, 2024 1:35pm Negative POC Influenza A (PCR) October 28, 2024 1:35pm Negative POC Influenza B (PCR) October 28, 2024 1:35pm Negative POC RSV (SANDIE) October 28, 2024 1:35pm Negative Microbiology Results Procedure Source Result Collection Date/Time Result Date/Time Result Comment Performing Site Quick Strep (POC) Throat October 28, 2024 1:53pm October 28, 2024 1:54pm Vital Signs Vital Reading Result Reference Range Collection Date/Time Height 64 [in_i] October 28 1:33pm Weight 114.30 kg October 28 1:33pm Body Temperature 98.3 [degF] 97.6-99.0 October 28, 2024 1:33pm Heart Rate 103 /min 60-100 October 28 1:33pm Respiratory rate 16 /min 12-24 October 28, 2024 1:33pm Oxygen saturation by Pulse oximetry 97 % 95-100 October 28, 2024 1:3 3pm BP Systolic 127 mm[Hg] 100-140 October 28 1:33pm BP Diastolic 76 mm[Hg] 60-100 October 28 1:33pm BMI (Body Mass Index) 43.2 kg/m2 October 28, 2024 1:33pm Advance Directives Advance Directive Response Recorded Date/ Time Advance Directives No November 13 5:30am Insurance Providers Guarantor Vu Aguilar Address [address] [address] Contact Info. Home Phone: Payer Policy Id Coverage Id Subscriber's Name Subscriber Id Effective Date Expiration Date [facility] [id number] Jeremy [place] [id number] Nat[place] /BS [id number] Vu Aguilar [id number] [place] [id number] Deon Ruiz [id number] [place] Ad[employer] [id number] Vu Aguilar [id number] Insurance No Card [id number] Vu Aguilar [id number] [place] [id number] Vu Aguilar [id number] Encounters Encounter Location(s) Arrival/Admit Date Discharge/Depart Date Provider(s) Departed Physician/Prov ider Office Visit [facility] October 28, 2024 1:18pm October 28, 2024 2:21pm Vu Hubbard APRN Departed Referred [facility] December 10, 2024 11:22pm December 10, 2024 11:23pm Jesse Franklin MD Recent Diagnosis Onset Date Admit Date Viral URI with cough October 28, 2024 1:18pm Assessments Diagnosis Onset Date Resolution Status Admit Date Viral URI with cough acute Ted h 2024 1:18pm Plan of Treatment Author Margoth Murdock [facility] Authored October 28, 2024 2:2 0pm Patient appears alert, nonto xic. Patient is tachycardic otherwise vitals normal. Pulse ox 97% on room air. Patient was swabbed for COVID, flu, RSV via PCR. Results were negative. Patient was swabbed for strep which was negative. Administered DuoNeb breathing treatment here during the visit for wheezing and shortness of breath with some improvement. Decreased wheezing posttreatment. Plan is to treat for a viral URI with cough. Patient prescribed an albuterol inhaler 2 puffs as needed every 4-6 hours for shortness of breath or wheezing. Patient was also prescribed a Medrol Dosepak to take as directed for the next 6 days. She is to continue with supportive care. Rest, push fluids, take [id number] Tylenol/Motrin as needed for any fever or discomfort. May use [id number]-[id number] cough syrup, cough drops, tea with honey for the cough. May use [id number] nasal saline nasal spray twice a day. Follow-up with primary care provider in 3 to 5 days. May return here if symptoms persist. Patient is to go to the ER for any fever not responding to Tylenol or Motrin, worsening cough, shortness of breath, difficulty breathing, chest pain, palpitations, inability to keep down food or fluids, lethargy. Patient verbalizes understanding and is agreeable to the plan of care at this time. Work note provided. Future Tests Future scheduled test information is unavailable Pending Tests Pending diagnostic test information is unavailable Future Visits Future appointment information is unavailable Referrals to Other Providers Referral information is unavailable Future Procedures Procedure Name Ordered Date Scheduled Date Urine Culture December 11, 2024 1:19pm December 10, 2024 11:22pm Future Medications Future medication information is unavailable Patient Instructions Patient instructions are unavailable
--- OUTSIDE RECORDS SUMMARY | 2024-12-14 12:18 | XMS_ITS | Encounter Summary ---
Author Organization [facility] Address [address] [place] [address] Care Team Providers Care Manager Labor Relations Name Role Phone René Lowery MD Primary Care Provider [phone] Reason for Visit * Reason Comments Miscarriage Pt to ED from home w ith c/o vaginal bleeding d/t miscarriage.Onset of symptoms x5 days ago. Pt reports increased pain and bleeding.Also reports chills, nausea, and vomiting. Vaginal Bleeding Vomiting Nausea Sweats Abdominal Pain Encounter Details Date Type Department Care Team (Late st Contact Info) Description 12/14/2024 12:18 PM EDT - 12/14/2024 5:51 PM EDT Emergency [facility] Department [address] [place] [address] Vivian Zheng MD [address] [place] [id number] Vaginal bleeding (Primary Dx) Discharge Disposition: Home or Self Care Social History Tobacco Use Types Packs/Day Years Used Date Smoking Tobacco: Never Smokeless Tobacco: Never Alcohol Use Standard Drinks/Week Comments Never 0 (1 standard drink = 0.6 oz pur e alcohol) AUDIT-C Answer Date Recorded Q1: How often do you have a drink containing alcohol? Never 12/14/2024 Q2: How many drinks containi ng alcohol do you have on a typical day when you are drinking? Patient does not drink Q3: How often do you have si x or more drinks on one occasion? Never 12/14/2024 Comments No Sex and Gender Information Value Date Recorded Sex Assigned at Not on file Legal Sex Female 5:44 PM EST Gender Identity Not on file Sexual Orientation Not on file documented as of this encounter Last Filed Vital Signs Vital Sign Reading Time Taken Comments Blood Pressure 118/65 12/14/2024 12:26 PM EDT Pulse 85 12/14/2024 12:26 PM EDT Temperature 37.1 C (98.7 F) 12/14/2024 12:26 PM EDT Respiratory Rate 18 12/14/2024 12:26 PM EDT Oxygen Saturation 98% 12/14/2024 12:26 PM EDT Inhaled Oxygen Concentration - - Weight 113.4 kg (250 lb) 12/14/2024 12:26 PM EDT Height 162.6 cm (5' 4 ) 12/14/2024 12:26 PM EDT Body Mass Index 42.91 12/14/2024 12:26 PM EDT documented in this encounter Functional Status documented as of this encounter Discharge Instructions * Discharge Instructions* Vivian Zheng MD - 12/14/2024 5:41 PM EDT Take Motrin as needed for any pelvic cramping. Stay well-hydrated. Rest at home. Follow-up with your RN LONG TERM CARE provider soon as possible call Monday morning to schedule earliest available appointment. Please seek medical attention immediately should you develop any worsening pain fevers chills weakness dizziness lightheadedness or any other acute concerns * Attachments The following attachments cannot be sent through Care Everywhere. * Vaginal Bleeding (Andorran) documented in this encounter Medications at Time of Discharge ARIPiprazole (ABILIFY) 5 MG tablet Take 1.5 tablets by mouth daily 12/13/2024 busPIRone (BUSPAR) 15 MG tablet Take 15 mg by mouth 3 times daily 08/23/2024 sertraline (ZOLOFT) 100 MG tablet Take 2 tablets by mouth daily prazosin (MINIPRESS) 1 MG capsule Take 1 capsule by mouth nightly 08/23/2024 Sertraline HCl (ZOLOFT PO) Take by mouth ondansetron (ZOFRAN-ODT) 4 MG disintegrating tablet Take 1 tablet by mouth 3 times daily as needed for Nausea or Vomiting 21 tablet 09/04/2024 documented as of this encounter Plan of Treatment Not on file documented as of this encounter Procedures Procedure Name Priority Date/Time Associated Diagnosis Comments US NON OB TRANSVAGINAL W DOPPLER STAT 12/14/2024 2:52 PM EDT CBC WITH AUTO DIFFERENTIAL STAT 12/14/2024 1:19 PM EDT PROTIME-INR STAT 12/14/2024 1:19 PM EDT HCG, QUANTITATIVE, STAT 12/14/2024 1:19 PM EDT COMPREHENSIVE METABOLIC PANEL STAT 12/14/2024 1:19 PM EDT documented in this encounter Results * US NON OB TRANSVAGINAL W DOPPLER (12/14/2024 2:52 PM EDT) Anatomical Region Laterality Modality Pelvis Ultrasound 12/14/2024 4:19 PM EDT Impressions 12/14/2024 4:21 PM EDT Unremarkable pelvic sonogram Narrative 12/14/2024 4:21 PM EDT EXAMINATION: TRANSVAGINAL PELVIC ULTRASOUND WITH DOPPLER 12/14/2024 TECHNIQUE: Transvaginal pelvic duplex ultrasound using B-mode/rod scaled imaging and Doppler spectral analysis and color flow was obtained. COMPARISON: None HISTORY: ORDERING SYSTEM PROVIDED HISTORY: Vaginal bleeding, recent miscarriage, left lower quadrant abdominal TECHNOLOGIST PROVIDED HISTORY: Vaginal bleeding, recent miscarriage, left lower quadrant abdominal FINDINGS: Uterus: The uterus is normal in size, shape and echogenicity with normal uterine length of about 8.7 cm. Endometrium: The endometrial stripe is within normal limits measuring 4.3 mm thick. Ovaries: Both ovaries are visualized and appear within normal limits with normal vascularity. The right ovary measures 2.7 x 2.5 x 2.0 cm. The left ovary measures 3.0 x 2.1 x 1.7 cm. Doppler spectral analysis and color flow Doppler was obtained and shows adequate vascularity to both ovaries without evidence of torsion. No free fluid is noted. Nabothian cysts are noted. Procedure Note Juan Asif MD - 12/14/2024 EXAMINATION: TRANSVAGINAL PELVIC ULTRASOUND WITH DOPPLER 12/14/2024 TECHNIQUE: Transvaginal pelvic duplex ultrasound using B-mode/rod scaled imagingand Doppler spectral analysis and color flow was obtained. COMPARISON: None HISTORY: ORDERING SYSTEM PROVIDED HISTORY: Vaginal bleeding, recent miscarriage,left lower quadrant abdominal TECHNOLOGIST PROVIDED HISTORY: Vaginal bleeding, recent miscarriage, left lower quadrant abdominal FINDINGS: Uterus: The uterus is normal in size, shape and echogenicity with normal uterine length of about 8.7 cm. Endometrium: The endometrial stripe is within normal limits measuring 4.3mm thick. Ovaries: Both ovaries are visualized and appear within normal limitswith normal vascularity. The right ovary measures 2.7 x 2.5 x 2.0 cm. Theleft ovary measures 3.0 x 2.1 x 1.7 cm. Doppler spectral analysis and color flow Doppler was obtained and shows adequate vascularity to both ovaries without evidence of torsion. No free fluid is noted. Nabothian cysts are noted. IMPRESSION: Unremarkable pelvic sonogram us Vivian Zheng MD IMG US ORDERABLES Final Result * (ABNORMAL) HCG, Quantitative, (12/14/2024 1:19 PM EDT) hCG Quant 303.0(H) 0 - 7 mIU/mL 12/14/2024 1:19 PM EDT [facility] Comment: Non-preg premeno <=5 Postmeno <=8 Male <=3 If HCG results do not concur with clinical observations, additional testing to confirm results is recommended. BLOOD SPECIMEN / Unknown 12/14/2024 1:19 PM EDT 12/14/2024 1:32 PM EDT us Vivian Zheng MD CHEMISTRY ORDERABLES Final Resul t [facility] [address] [phone] * Protime-INR (12/14/2024 1:19 PM EDT) Protime 12.7 11.7 - 14.1 sec 12/14/2024 1:19 PM EDT [facility] INR 1.0 12/14/2024 1:19 PM EDT [facility] Comment: Therapeutic Range: Moderate Anticoagulant Intensity: INR = 2.0-3.0 High Anticoagulant Intensity: INR = 2.5-3.5 Blood BLOOD SPECIMEN / Unknown 12/14/2024 1:19 PM EDT 12/14/2024 1:31 PM EDT us Vivian Zheng MD HEMATOLOGY ORDERABLES Final Resu lt [facility] [address] [phone] * (ABNORMAL) CMP (12/14/2024 1:19 PM EDT) [facility] Sodium 139 136 - 145 mmol/L 12/14/2024 1:19 PM EDT [facility] Potassium 4.1 3.7 - 5.3 mmol/L 12/14/2024 1:19 PM EDT [facility] Comment: Specimen hemolysis has exceeded the interference as defined by Jaylene. Value may be falsely increased. Suggest recollection if clinically indicated. Chloride 103 98 - 107 mmol/L 12/14/2024 1:19 PM T [facility] CO2 26 20 - 31 mmol/L 12/14/2024 1:19 PM EDT [facility] Anion Gap 10 9 - 16 mmol/L 12/14/2024 1:19 PM T [facility] Glucose 88 74 - 99 mg/dL 12/14/2024 1:19 PM [facility] BUN 13 6 - 20 mg/dL 12/14/2024 1:19 PM [facility] Creatinine 1.1(H) 0.50 - 0.90 mg/dL 12/14/2024 1:19 PM [facility] Est, Glom Filt Rate 67 >60 mL/min/1.7 3m2 12/14/2024 1:19 PM T [facility] Comment: These results are not intended for use in patients <18 years of age. eGFR results are calculated without a race factor using the 2020 CKD-EPI equation. Careful clinical correlation is recommended, particularly when comparing to results calculated using previous equations. The CKD-EPI equation is less accurate in patients with extremes of muscle mass, extra-renal metabolism of creatine, excessive creatine ingestion, or following therapy that affects renal tubular secretion. BUN/Creatinine Ratio 12 9 - 20 12/14/2024 1:19 PM EDT [facility] Calcium 9.0 8.6 - 10.4 mg/dL 12/14/2024 1:19 PM T [facility] Total Protein 6.8 6.6 - 8.7 g/dL 12/14/2024 1:19 PM [facility] Albumin 3.9 3.5 - 5.2 g/dL 12/14/2024 1:19 PM T [facility] Albumin/Globulin Ratio 1.3 1.0 - 2.5 12/14/2024 1:19 PM T [facility] Total Bilirubin <0.2 0.00 - 1.20 mg/dL 12/14/2024 1:19 PM T [facility] Alkaline Phosphatase 67 35 - 104 U/L 12/14/2024 1:19 PM [facility] ALT 49(H) 10 - 35 U/L 12/14/2024 1:19 PM EDT [facility] AST 32 10 - 35 U/L 12/14/2024 1:19 PM T [facility] Blood BLOOD SPECIMEN / Unknown 12/14/2024 1:19 PM EDT 12/14/2024 1:31 PM EDT us Vivian Zheng MD CHEMISTRY ORDERABLES Final Resul t [facility] [address] [phone] * (ABNORMAL) CBC with Auto Differential (12/14/2024 1:19 PM EDT) WBC 9.6 3.5 - 11.3 k/uL 12/14/2024 1:19 PM [facility] RBC 3.98 3.95 - 5.11 m/uL 12/14/2024 1:19 PM [facility] Hemoglobin 12.7 11.9 - 15.1 g/dL 12/14/2024 1:19 PM [facility] Hematocrit 38.5 36.3 - 47.1 % 12/14/2024 1:19 PM [facility] MCV 96.7 82.6 - 102.9 fL 12/14/2024 1:19 PM [facility] MCH 31.9 25.2 - 33.5 pg 12/14/2024 1:19 PM [facility] MCHC 33.0 28.4 - 34.8 g/dL 12/14/2024 1:19 PM [facility] RDW 12.9 11.8 - 14.4 % 12/14/2024 1:19 PM [facility] Platelets 267 138 - 453 k/uL 12/14/2024 1:19 PM [facility] MPV 10.1 8.1 - 13.5 fL 12/14/2024 1:19 PM [facility] NRBC Automated 0.0 0.0 per 100 WBC 12/14/2024 1:19 PM [facility] Neutrophils % 71(H) 36 - 65 % 12/14/2024 1:19 PM [facility] Lymphocytes % 22(L) 24 - 43 % 12/14/2024 1:19 PM [facility] Monocytes % 6 3 - 12 % 12/14/2024 1:19 PM [facility] Eosinophils % 1 1 - 4 % 12/14/2024 1:19 PM [facility] Basophils % 0 0 - 2 % 12/14/2024 1:19 PM EDT [facility] Immature Granulocytes % 0 0 % 12/14/2024 1:19 PM EDT [facility] Neutrophils Absolute 6.74 1.50 - 8.10 k/uL 12/14/2024 1:19 PM EDT [facility] Lymphocytes Absolute 2.10 1.10 - 3.70 k/uL 12/14/2024 1:19 PM EDT [facility] Monocytes Absolute 0.62 0.10 - 1.20 k/uL 12/14/2024 1:19 PM EDT [facility] Eosinophils Absolute 0.10 0.00 - 0.44 k/uL 12/14/2024 1:19 PM EDT [facility] Basophils Absolute 0.04 0.00 - 0.20 k/uL 12/14/2024 1:19 PM EDT [facility] Immature Granulocytes Absolute 0.04 0.00 - 0.30 k/uL 12/14/2024 1:19 PM EDT [facility] Blood BLOOD SPECIMEN / Unknown 12/14/2024 1:19 PM EDT 12/14/2024 1:31 PM EDT us Vivian Zheng MD HEMATOLOGY ORDERABLES Final Resu lt [facility] [address] [phone] documented in this encounter Visit Diagnoses Diagnosis Vaginal bleeding- Primary Other specified noninflammatory disorder of vagina documented in this encounter Administered Medications Inactive Administered Medications - up to 3 most recent administrations Medication Order MAR Action Action Date Dose Rate Site ketorolac (TORADOL) injection 30 mg 30 mg, IntraVENous, ONCE, 1 dose, On 12/14/24 at 1315, Do not administer for more than 5 days. Given 12/14/2024 1:25 PM EDT 30 mg ketorolac (TORADOL) injection 30 mg 30 mg, IntraVENous, ONCE, 1 dose, On 12/14/24 at 1515, Do not administer for more than 5 days. Given 12/14/2024 3:22 PM EDT 30 mg sodium chloride 0.9 % bolus 1,000 mL 1,000 mL (8.82 mL/kg), IntraVENous, at 983.6 mL/hr, Administer over 61 Minutes, ONCE, On 12/14/24 at 1315, For 1 dose New Bag 12/14/2024 1:25 PM EDT 1,000 mLs 983.6 mL/hr documented in this encounter Active and Recently Administered Medications Times are shown in EDT. Scheduled Medication Order 12/12/2024 12/13/2024 12/14/2024 ketorolac (TORADOL) injection 30 mg (COMPLETED) 30 mg, IntraVENous, ONCE, 1 dose, On 12/14/24 at 1315, Do not administer for more than 5 days. 1325 (Given - Provid er: Monica Fung RN) ketorolac (TORADOL) injection 30 mg (COMPLETED) 30 mg, IntraVENous, ONCE, 1 dose, On 12/14/24 at 1515, Do not administer for more than 5 days. 1522 (Given - Provid er: Kena Mckeon RN) sodium chloride 0.9 % bolus 1,000 mL (COMPLETED) 1,000 mL (8.82 mL/kg), IntraVENous, at 983.6 mL/hr, Administer over 61 Minutes, ONCE, On 12/14/24 at 1315, For 1 dose 1325 (New Bag - Prov ider: Monica Fung RN)1426 (Stopped - Provider: Kena Mckeon RN) documented in this encounter Care Teams Manager Labor Relations Relationship Specialty Start Date End Date René Lowery MD PCP - General 04/15/13 documented as of this encounter
--- OUTSIDE RECORDS SUMMARY | 2024-12-17 21:22 | XMS_ITS | Encounter Summary ---
Author Organization [facility] Address [address] [place] [address] Care Team Providers Care Booster Plant Operator Name Role Phone René Lowery MD Primary Care Provider [phone] Reason for Visit * Reason Comments Vaginal Bleeding Pt states she is hav ing a miscarriage (diagnosed here on monday) states she is having increasing abd pain. Scheduled to see her OB tomorrow. Encounter Details Date Type Department Care Team (Late st Contact Info) Description 12/17/2024 9:22 PM EDT - 12/18/2024 3:06 AM EDT Emergency [facility] Emergency Department [address] [place] [address] Nilo Dowell MD [address] [id number] Miscarriage (Primary Dx) Discharge Disposition: Home or Self [...] Sign Reading Time Taken Comments Blood Pressure 108/56 12/18/2024 2:00 AM EDT Pulse 74 12/18/2024 2:00 AM EDT Temperature 36.7 C (98 F) 12/17/2024 10:15 PM EDT Respiratory Rate 17 12/18/2024 2:00 AM EDT Oxygen Saturation 96% 12/18/2024 1:00 AM EDT Inhaled Oxygen Concentration - - Weight 115.7 kg (255 lb) 12/17/2024 9:21 PM EDT Height - - Body Mass Index 43.77 12/14/2024 12:26 PM EDT documented in this encounter Discharge Instructions * Discharge Instructions* Nilo Dowell MD - 12/18/2024 1:[address] of the abdomen did not show any acute process at this time. The hcg is down trending appropriately. You were monitored for your BP as it did lower after the pelvic exam. Your case was discussed with the gas distribution supervisor OBGYN who agreed this is likely vasovagal reaction. BP improved with time, eating. If you begin to feel lightheaded, weak or fatigue, or like you could pass out, please return to the ED for re-evaluation. Tylenol can be taken every 6 hours. Ibuprofen can be taken every 6 hours. It is recommended you alternate the two every three hours. Example pain medication schedule: - 9am: Tylenol (500-1000mg) - 12 pm/noon: Ibuprofen (400-600mg) - 3pm: Tylenol - 6pm: Ibuprofen Maximum dose of tylenol in a 24 hour period is 4000mg. Do not take toradol longer than 5 days and do not take with other NSAIDS (ibuprofen, aleeve) as this medication can cause stomach ulcer. Please follow up with your OB as previously scheduled. Return to ED if bleeding through more than one pad an hour, unable to tolerate oral intake, development of fever, or any other acute concern. documented in this encounter Medications at Time of Discharge ketorolac (TORADOL) 10 MG tablet Take 1 tablet by mouth every 6 hours as needed for Pain 20 tablet 12/18/2024 ARIPiprazole (ABILIFY) 5 MG tablet Take 1.5 [...] Procedure Name Priority Date/Time Associated Diagnosis Comments CT ABDOMEN PELVIS W IV CONTRAST STAT 12/18/2024 12:13 AM EDT C.TRACHOMATIS N.GONORRHOEAE DNA STAT 12/17/2024 10:20 PM EDT WET PREP, GENITAL STAT 12/17/2024 10: 20 PM EDT URINALYSIS WITH REFLEX TO CULTURE STAT 12/17/2024 10:16 PM EDT MICROSCOPIC URINALYSIS Routine 12/17/2024 10:16 PM EDT CBC WITH AUTO DIFFERENTIAL STAT 12/17/2024 10:00 PM EDT HCG, QUANTITATIVE, STAT 12/17/2024 10:00 PM EDT documented in this encounter Results * CT ABDOMEN PELVIS W IV CONTRAST Additional Contrast? None (12/18/2024 12:13 AM EDT) Anatomical Region Laterality Modality Abdomen, Pelvis, Hip Computed To mography 12/18/2024 1:15 AM EDT Impressions 12/18/2024 1:20 AM EDT No acute inflammatory or obstructive process seen in the abdomen or pelvis. Narrative 12/18/2024 1:20 AM EDT EXAMINATION: CT OF THE ABDOMEN AND PELVIS WITH CONTRAST 12/18/2024 12:08 am TECHNIQUE: CT of the abdomen and pelvis was performed with the administration of intravenous contrast. Multiplanar reformatted images are provided for review. Automated exposure control, iterative reconstruction, and/or weight based adjustment of the mA/kV was utilized to reduce the radiation dose to as low as reasonably achievable. COMPARISON: None. HISTORY: ORDERING SYSTEM PROVIDED HISTORY: persistent low abd pain, recent miscarriage, soft BPs TECHNOLOGIST PROVIDED HISTORY: persistent low abd pain, recent miscarriage, soft BPs Decision Support Exception - unselect if not a suspected or confirmed emergency medical condition->Emergency Medical Condition (MA) FINDINGS: Lower chest: The lung bases are clear. EG junction, stomach and duodenal sweep: Unremarkable Liver: Unremarkable Gallbladder: Unremarkable Biliary tree: Unremarkable Pancreas: Unremarkable for patient's age. Spleen: Unremarkable Kidneys and ureters: Unremarkable Adrenal glands: Unremarkable Retroperitoneal structures: Unremarkable Small bowel and colon: Small to moderate amount of stool. No bowel obstruction. Appendix: Visualized and normal Urinary bladder: Unremarkable Free fluid/air: None Lymph nodes: No enlarged lymph nodes Osseus structures: No destructive lesion Vasculature: No aneurysm Other: None Procedure Note Paxton Wade MD - 12/18/2024 EXAMINATION: CT OF THE ABDOMEN AND PELVIS WITH CONTRAST 12/18/2024 12:08 am TECHNIQUE: CT of the abdomen and pelvis was performed with the administration of intravenous contrast. Multiplanar reformatted images are provided forreview. Automated exposure control, iterative reconstruction, and/or weightbased adjustment of the mA/kV was utilized to reduce the radiation dose to aslow as reasonably achievable. COMPARISON: None. HISTORY: ORDERING SYSTEM PROVIDED HISTORY: persistent low abd pain, recent miscarriage, soft BPs TECHNOLOGIST PROVIDED HISTORY: persistent low abd pain, recent miscarriage, soft BPs Decision Support Exception - unselect if not a suspected or confirmed emergency medical condition->Emergency Medical Condition (MA) FINDINGS: Lower chest: The lung bases are clear. EG junction, stomach and duodenal sweep: Unremarkable Liver: Unremarkable Gallbladder: Unremarkable Biliary tree: Unremarkable Pancreas: Unremarkable for patient's age. Spleen: Unremarkable Kidneys and ureters: Unremarkable Adrenal glands: Unremarkable Retroperitoneal structures: Unremarkable Small bowel and colon: Small to moderate amount of stool. No bowel obstruction. Appendix: Visualized and normal Urinary bladder: Unremarkable Free fluid/air: None Lymph nodes: No enlarged lymph nodes Osseus structures: No destructive lesion Vasculature: No aneurysm Other: None IMPRESSION: No acute inflammatory or obstructive process seen in the abdomen orpelvis. Nilo Dowell MD IMG CT ORDERABLES Final R esult * C.trachomatis N.gonorrhoeae DNA (12/17/2024 10:20 PM EDT) Specimen Description .VAGINAL SWAB 12/17/2024 10:20 PM EDT [facility] C. trachomatis DNA NEGATIVE NEGATIVE 12/17/2024 10:20 PM EDT [facility] Comment: CHLAMYDIA TRACHOMATIS DNA not detected by nucleic acid amplification. This test is intended for medical purposes only and is not valid for the evaluation of suspected sexual abuse or for other forensic purposes. In certain contexts, culture may be required to meet applicable laws and regulations for diagnosis of C. trachomatis and N. gonorrhoeae infections. Per 2014 CDC recommendations, this test does not include confirmation of positive results by an alternative nucleic acid target. N. gonorrhoeae DNA NEGATIVE NEGATIVE 12/17/2024 10:20 PM EDT [facility] Comment: NEISSERIA GONORRHOEAE DNA not detected by nucleic acid amplification. This test is intended for medical purposes only and is not valid for the evaluation of suspected sexual abuse or for other forensic purposes. In certain contexts, culture may be required to meet applicable laws and regulations for diagnosis of C. trachomatis and N. gonorrhoeae infections. Per 2014 CDC recommendations, this test does not include confirmation of positive results by an alternative nucleic acid target. SPECIMEN FROM CERVIX OR VAGINA / Unknown 12/17/2024 10:20 PM EDT 12/17/2024 10:25 PM EDT Nilo Dowell MD MICROBIOLOGY - GENERAL OR DERABLES Final Result [facility] [address] [phone] [facility] [address] [place] [address] * Wet prep, genital (12/17/2024 10:20 PM EDT) Specimen Description .VAGINA 12/17/2024 10:20 PM EDT [facility] Direct Exam NO YEAST OBSERVED 12/17/2024 10:20 PM EDT [facility] Direct Exam NO TRICHOMONAS SEEN 12/17/2024 10:20 PM EDT [facility] Direct Exam NO CLUE CELLS SEEN 12/17/2024 10:20 PM EDT [facility] SPECIMEN FROM CERVIX OR VAGINA / Unknown 12/17/2024 10:20 PM EDT 12/17/2024 10:25 PM EDT Nilo Dowell MD MICROBIOLOGY - GENERAL OR DERABLES Final Result [facility] [address] [phone] * (ABNORMAL) Microscopic Urinalysis (12/17/2024 10:16 PM EDT) WBC, UA None 0 - 5 /HPF 12/17/2024 10:16 PM EDT [facility] RBC, UA 2 TO 5 0 - 2 /HPF 12/17/2024 10:16 PM EDT [facility] Epithelial Cells, UA 2 TO 5 0 - 25 /HPF 12/17/2024 10:16 PM EDT [facility] Bacteria, UA 2+(A) None 12/17/2024 10:16 PM EDT [facility] 12/17/2024 10:1 6 PM EDT 12/17/2024 10:18 PM EDT Nilo Dowell MD URINE ORDERABLES Final Re sult Performing Organization Address [facility]/ZIP Co de Phone Number [facility] [address] [id number] [phone] * (ABNORMAL) Urinalysis with Reflex to Culture (12/17/2024 10:16 PM EDT) Color, UA Yellow Yellow 12/17/2024 10:16 PM EDT [facility] Turbidity UA Clear Clear 12/17/2024 10:16 PM EDT [facility] Glucose, Ur NEGATIVE NEGATIVE mg/dL 12/17/2024 10:16 PM EDT [facility] Bilirubin, Urine NEGATIVE NEGATIVE 12/17/2024 10:16 PM EDT [facility] Ketones, Urine NEGATIVE NEGATIVE mg/dL 12/17/2024 10:16 PM EDT [facility] Specific [place], UA 1.015 1.010 - 1.020 12/17/2024 10:16 PM EDT [facility] Urine Hgb 2+(A) NEGATIVE 12/17/2024 10:16 PM EDT [facility] pH, Urine 7.0 5.0 - 9.0 12/17/2024 10:16 PM EDT [facility] Protein, UA NEGATIVE NEGATIVE mg/dL 12/17/2024 10:16 PM EDT [facility] Urobilinogen, Urine Normal 0.0 - 1.0 EU/dL 12/17/2024 10:16 PM EDT [facility] Nitrite, Urine NEGATIVE NEGATIVE 12/17/2024 10:16 PM EDT [facility] Leukocyte Esterase, Urine NEGATIVE NEGATIVE 12/17/2024 10:16 PM EDT [facility] Urine 12/17/2024 10:1 6 PM EDT 12/17/2024 10:18 PM EDT Nilo Dowell MD URINE ORDERABLES Final Re sult Performing Organization Address [facility]/ZIP Co de Phone Number [facility] [address] [phone] * (ABNORMAL) CBC with Auto Differential (12/17/2024 10:00 PM EDT) WBC 9.9 3.5 - 11.3 k/uL 12/17/2024 10:[address] [facility] RBC 3.89(L) 3.95 - 5.11 m/uL 12/17/2024 10:[address] [facility] Hemoglobin 12.3 11.9 - 15.1 g/dL 12/17/2024 10:[address] [facility] Hematocrit 37.2 36.3 - 47.1 % 12/17/2024 10:[address] [facility] MCV 95.6 82.6 - 102.9 fL 12/17/2024 10:[address] [facility] MCH 31.6 25.2 - 33.5 pg 12/17/2024 10:[address] [facility] MCHC 33.1 28.4 - 34.8 g/dL 12/17/2024 10:[address] [facility] RDW 12.7 11.8 - 14.4 % 12/17/2024 10:[address] [facility] Platelets 291 138 - 453 k/uL 12/17/2024 10:[address] [facility] MPV 10.1 8.1 - 13.5 fL 12/17/2024 10:[address] [facility] NRBC Automated 0.0 0.0 per 100 WBC 12/17/2024 10:[address] [facility] Neutrophils % 61 36 - 65 % 12/17/2024 10:[address] [facility] Lymphocytes % 31 24 - 43 % 12/17/2024 10:[address] [facility] Monocytes % 6 3 - 12 % 12/17/2024 10:[address] [facility] Eosinophils % 1 1 - 4 % 12/17/2024 10:00 PM EDT [facility] Basophils % 1 0 - 2 % 12/17/2024 10:00 PM EDT [facility] Immature Granulocytes % 0 0 % 12/17/2024 10:00 PM EDT [facility] Neutrophils Absolute 6.07 1.50 - 8.10 k/uL 12/17/2024 10:00 PM EDT [facility] Lymphocytes Absolute 3.02 1.10 - 3.70 k/uL 12/17/2024 10:00 PM EDT [facility] Monocytes Absolute 0.58 0.10 - 1.20 k/uL 12/17/2024 10:00 PM EDT [facility] Eosinophils Absolute 0.14 0.00 - 0.44 k/uL 12/17/2024 10:00 PM EDT [facility] Basophils Absolute 0.05 0.00 - 0.20 k/uL 12/17/2024 10:00 PM EDT [facility] Immature Granulocytes Absolute 0.03 0.00 - 0.30 k/uL 12/17/2024 10:00 PM T [facility] Blood BLOOD SPECIMEN / Unknown 12/17/2024 10:00 PM EDT 12/17/2024 10:04 PM EDT us Nilo Dowell MD HEMATOLOGY ORDERABLES Fin al Result [facility] [address] [phone] * (ABNORMAL) HCG, Quantitative, (12/17/2024 10:00 PM EDT) hCG Quant 16.0(H) 0 - 7 mIU/mL 12/17/2024 10:00 PM EDT [facility] Comment: Non-preg premeno <=5 Postmeno <=8 Male <=3 If HCG results do not concur with clinical observations, additional testing to confirm results is recommended. BLOOD SPECIMEN / Unknown 12/17/2024 10:00 PM EDT 12/17/2024 10:04 PM EDT us Nilo Dowell MD CHEMISTRY ORDERABLES Naomi andrea Result [facility] [address] [phone], [facility] [phone] documented in this encounter Visit Diagnoses Diagnosis Miscarriage- Primary Unspecified spontaneous without mention of complication documented in this encounter Administered Medications Inactive Administered Medications - up to 3 most recent administrations Medication Order MAR Action Action Date Dose Rate Site acetaminophen (TYLENOL) tablet 1,000 mg 1,000 mg, Oral, ONCE, 1 dose, On Mon12/18/24 at 0115, Maximum dose of acetaminophen is 4000 mg from all sources in 24 hours. Given 12/18/2024 1:06 AM EDT 1,000 mg iopamidol (ISOVUE-370) 76 % injection 75 mL 75 mL, IntraVENous, IMG ONCE PRN, 1 dose, Starting on Mon12/18/24 at 0007, Until Mon12/18/24 at 0013, Other Given 12/18/2024 12:13 AM EDT 75 mLs ketorolac (TORADOL) injection 30 mg 30 mg, IntraVENous, ONCE, 1 dose, On Mon12/17/24 at 2230, Do not administer for more than 5 days. Given 12/17/2024 10:42 PM EDT 30 mg ondansetron (ZOFRAN) injection 4 mg 4 mg, IntraVENous, ONCE, 1 dose, On Mon12/17/24 at 2245 Given 12/17/2024 10:43 PM EDT 4 mg sodium chloride 0.9 % bolus 1,000 mL 1,000 mL (8.64 mL/kg), IntraVENous, at 495.9 mL/hr, Administer over 121 Minutes, ONCE, On Mon12/17/24 at 2245, For 1 dose New Bag 12/17/2024 10:42 PM EDT 1,000 mLs 495.9 mL/hr sodium chloride 0.9 % bolus 1,000 mL 1,000 mL (18.3 mL/kg), IntraVENous, at 1,000 mL/hr, Administer over 1 Hours, ONCE, On Mon12/18/24 at 0000, For 1 dose New Bag 12/17/2024 11:58 PM EDT 1,000 mLs 1000 mL/hr documented in this encounter Active and Recently Administered Medications Times are shown in EDT. Scheduled Medication Order 12/16/2024 12/17/2024 12/18/2024 acetaminophen (TYLENOL) tablet 1,000 mg (COMPLETED) 1,000 mg, Oral, ONCE, 1 dose, On Mon12/18/24 at 0115, Maximum dose of acetaminophen is 4000 mg from all sources in 24 hours. 0106 (Given - Provid er: Mahi Razo RN) ketorolac (TORADOL) injection 30 mg (COMPLETED) 30 mg, IntraVENous, ONCE, 1 dose, On Mon12/17/24 at 2230, Do not administer for more than 5 days. 2242 (Given - Provider: Mahi Razo RN) ondansetron (ZOFRAN) injection 4 mg (COMPLETED) 4 mg, IntraVENous, ONCE, 1 dose, On Mon12/17/24 at 2245 2243 (Given - Provider: Mahi Razo RN) sodium chloride 0.9 % bolus 1,000 mL (COMPLETED) 1,000 mL (8.64 mL/kg), IntraVENous, at 495.9 mL/hr, Administer over 121 Minutes, ONCE, On Mon12/17/24 at 2245, For 1 dose 2242 (New Bag - Provider: Mahi Razo RN)2358 (Stopped - Provider: Mahi Razo RN) sodium chloride 0.9 % bolus 1,000 mL (COMPLETED) 1,000 mL (18.3 mL/kg), IntraVENous, at 1,000 mL/hr, Administer over 1 Hours, ONCE, On Mon12/18/24 at 0000, For 1 dose 2358 (New Bag - Provider: Mahi Razo RN) 0306 (Stopped - Provider: Lynnette Myers, ZAHEER) PRN Medication Order 12/16/2024 12/17/2024 12/18/2024 iopamidol (ISOVUE-370) 76 % injection 75 mL (COMPLETED) 75 mL, IntraVENous, IMG ONCE PRN, 1 dose, Starting on Mon12/18/24 at 0007, Until Mon12/18/24 at 0013, Other 0013 (Given - Provid er: Eliza Khan) documented in this encounter Care Teams Booster Plant Operator Relationship Specialty Start Date End Date René Lowery MD PCP - General 04/15/13 documented as of this encounter
--- OUTSIDE RECORDS SUMMARY | 2024-12-18 15:40 | XMS_ITS | Encounter Summary ---
Author Organization [facility] Address [address] [place] [address] Care Team Providers Care Textile Engraver Name Role Phone Unavailable Primary Care Provider Unavailabl e Reason for Visit * Reason Comments Well Women Visit Encounter Details Date Type Department Care Team (Late st Contact Info) Description 12/18/2024 3:40 PM EDT Office Visit [facility] [address] [place] [id number] Edward Mendez, DO [address] Chaya Dodge, [id number] Follow-up visit after miscarriage Social History Tobacco Use Types Packs/Day Years Used Date Smoking Tobacco: Never Assessed Comments No Sex and Gender Information Value Date Recorded Sex Assigned at Not on file Legal Sex Female 7:26 PM EDT Gender Identity Not on file Sexual Orientation Not on file documented as of this encounter Last Filed Vital Signs Vital Sign Reading Time Taken Comments Blood Pressure 116/70 12/18/2024 3:43 PM EDT Pulse - - Temperature - - Respiratory Rate - - Oxygen Saturation - - Inhaled Oxygen Concentration - - Weight 125 kg (274 lb 8 oz) 12/18/2024 3:43 PM E DT Height - - Body Mass Index 47.12 12/05/2023 3:17 PM EDT documented in this encounter Progress Notes * La Nena Caceres LPN - 12/18/2024 3:40 PM EDT Reason for Appointment: Patient ID: Berna Syed is a 29 y.o. female who presents for Well Women Visit Patient presents today for Acute Visit. MEDICATIONS Current Outpatient Medications Medication Instructions acetaminophen (TYLENOL) 1,000 mg, Every 8 hours PRN ARIPiprazole (ABILIFY) 5 mg, Oral, Every morning busPIRone (BUSPAR) 15 mg, Oral, 3 times daily ketorolac (Toradol) 10 MG tablet Every 6 hours PRN prazosin (MINIPRESS) 1 mg, Oral, Nightly sertraline (ZOLOFT) 200 mg, Oral, Daily ALLERGIES Allergies Allergen Reactions Aspirin Anaphylaxis, Anxiety, Palpitations, Shortness of breath and Swelling Sulfa Antibiotics Swelling Other Reaction(s): Unknown PROBLEMS Active Ambulatory Problems Diagnosis Date Noted No Active Ambulatory Problems Resolved Ambulatory Problems Diagnosis Date Noted No Resolved Ambulatory Problems No Additional Past Medical History HISTORY PAST MEDICAL HISTORY SOCIAL HISTORY No past medical history on file. Social History Tobacco Use Smoking status: Not on file Smokeless tobacco: Not on file Substance Use Topics Alcohol use: Not on file Drug use: Not on file FAMILY HISTORY No family history on file. SURGICAL HISTORY No past surgical history on file. REVIEW OF SYSTEMS Review of Systems: Review of Systems Constitutional: Negative. HENT: Negative. Eyes: Negative. Respiratory: Negative. Cardiovascular: Negative. Gastrointestinal: Negative. Genitourinary: Positive for pelvic pain and vaginal bleeding. Musculoskeletal: Negative. Skin: Negative. Neurological: Negative. All other systems reviewed and are negative. Hematological: Negative. Endocrine: Negative. Allergic/Immunologic: Negative. OBJECTIVE Objective: Physical Exam Constitutional: Appearance: Normal appearance. She is well-developed. Cardiovascular: Rate and Rhythm: Normal rate and regular rhythm. Pulmonary: Effort: Pulmonary effort is normal. Breath sounds: Normal breath sounds. Abdominal: General: Bowel sounds are normal. There is no distension. Palpations: Abdomen is soft. Tenderness: There is no abdominal tenderness. There is no guarding or rebound. Musculoskeletal: General: No swelling. Normal range of motion. Right lower leg: No edema. Left lower leg: No edema. Neurological: Mental Status: She is alert and oriented to person, place, and time. Skin: General: Skin is warm and dry. Psychiatric: Mood and Affect: Mood normal. Behavior: Behavior normal. Vitals and nursing note reviewed. Exam conducted with a robotic machine operator present. Vitals: Estimated body mass index is 47.12 kg/m?? as calculated from the following: Height as of 5/7/24: 5' 4 . Weight as of this encounter: 274 lb 8 oz. BP: 116/70 Patient's last menstrual period was 10/26/2024. ASSESSMENT & PLAN ICD-10-CM 1. Follow-up visit after miscarriage Z51.89 O03.9 Pt presents for miscarriage follow-up, quant is at 16 pt advised to have drawn in one week. Pt given norco for pain- discussed future pregnancies Documented by La Nena Caceres LPN on behalf of: Edward Mendez DO documented in this encounter Plan of Treatment Not on file documented as of this encounter Visit Diagnoses Diagnosis Follow-up visit after miscarriage documented in this encounter
--- OUTSIDE RECORDS SUMMARY | 2024-12-20 10:43 | XMS_ITS | Encounter Summary ---
Author Organization [facility] Address [id number] [place] [address] Care Team Providers Care Fruit Dryer Name Role Phone Echo Conner APRN-WIND TURBINE INSTALLER Primary Care Provid er Encounter Details Date Type Department Care Team (Latest Contact Info) Description 12/17/2024 Travel Social History Tobacco Use Types Packs/Day Years Used Date Smoking Tobacco: Former Cigarettes Smokeless Tobacco: Never Alcohol Use Standard Drinks/Week Comments Never 0 (1 standard drink = 0.6 oz pur e alcohol) Socially. Overall Financial Resource Strain (CARDIA) Answe r Date Recorded How hard is it for you to pa y for the very basics like food, housing, medical care, and heating? Not hard at all 10/14/2024 PHQ-2 Answer Date Recorded Total Score 0 11/20/2024 PRAPARE - Transportation Answer Date Re corded In the past 12 months, has l ack of transportation kept you from medical appointments or from getting medications? No 09/28 In the past 12 months, has l ack of transportation kept you from meetings, work, or from getting things needed for daily living? No 10/14/2024 Housing Instability Answer Date Recorde d Are you worried or concerned that in the next two months you may not have stable housing that you own, rent or stay in as a part of a household? No 10/14/2024 Childcare Answer Date Recorded Childcare Unknown 01/07/2019 Employment Answer Date Recorded Employment Unknown 01/07/2019 Hunger Screening Answer Date Recorded Within the past 12 months we worried whether our food would run out before we got money to buy more. Never True 11/20/2024 Within the past 12 months th e food we bought just didn't last and we didn't have money to get more. Never True 11/20/2024 Purpose - Life Answer Date Recorded Purpose and direction in life Unknown Comments No Sex and Gender Information Value Date Recorded Sex Assigned at Not on file Legal Sex Female 3:04 PM EDT Gender Identity Not on file Sexual Orientation Not on file documented as of this encounter Plan of Treatment Not on file documented as of this encounter Visit Diagnoses Not on filedocumented in this encounter Additional Health Concerns Assessment Noted Time PHQ-9 Depression Total Score: 0 11/21/19 25 2:36 PM EDT A Body Mass Index follow-up plan has been documented for the patient 11/20/2024 3:14 PM EDT documented as of this encounter Care Teams Fruit Dryer Relationship Specialty Start Date End Date Echo Conner, LIGHT ARMORED RECONNAISSANCE OFFICER-WIND TURBINE INSTALLER [address], [place] [address] PCP - General Family Medicine 06/01/21 documented as of this encounter
--- OUTSIDE RECORDS SUMMARY | 2024-12-20 10:43 | XMS_ITS | Encounter Summary ---
Author Organization [employer] Address [id number] [place] [address] Care Team Providers Care Nurse Ob Name Role Phone Echo Conner APRN-GROUNDS SUPERVISOR Primary Care Provid er Encounter Details Date Type Department Care Team (Late st Contact Info) Description 12/11/2024 Orders Only [facility] - Family Medicine [address] [place] [id number] Ref Prov, [place] [address] Social History Tobacco Use Types Packs/Day Years [...] Name Priority Date/Time Associated Diagnosis Comments US PELVIC WITH TRANSVAGINAL Routine 12/10/2024 7:18 AM EDT documented in this encounter Results * Ultrasound pelvic with transvaginal (12/10/2024 7:18 AM EDT) Anatomical Region Laterality Modality Body, Pelvis Ultrasound us Not In System Ref Prov IMG US ORDERABLES Final R esult documented in this encounter Visit Diagnoses Not on filedocumented in this encounter Additional Health Concerns Assessment Noted Time PHQ-9 Depression Total Score: 0 11/21/19 25 2:36 PM EDT A Body Mass Index follow-up plan has been documented for the patient 11/20/2024 3:14 PM EDT documented as of this encounter Care Teams Nurse Ob Relationship Specialty Start Date End Date Echo Conner, PHLEBOTOMY INSTRUCTOR-GROUNDS SUPERVISOR [address], [place] [address] PCP - General Family Medicine 06/01/21 documented as of this encounter
--- OUTSIDE RECORDS SUMMARY | 2024-12-20 10:43 | XMS_ITS | Clinical Summary ---
Author Organization [facility] Address [id number] [place] [address] Care Team Providers Care Pile Driver Name Role Phone Echo Conner APRN-AUTO BODY REPAIR TECHNICIAN Primary Care Provid er Allergies Active Allergy Reactions Criticality Noted Date Comments Aspirin Anxiety,Palpitations ,Shortn ess Of Breath,Swelling High 09/14/2024 Sulfa (Sulfonamide Antibiotics) 02/06/2017 Medications * This document contains information received from the source organization and may not represent a complete record from that organization. ondansetron ODT (ZOFRAN ODT) 4 mg disintegrating tabletIndications :Nausea Dissolve 1 tablet (4 mg total) on tongue every 8 (eight) hours as needed for nausea or vomiting. 10 tablet 10/04/19 24 Active busPIRone (BUSPAR) 15 mg tablet TAKE 1 TABLET BY MOUTH 3 TIMES DAILY 270 tablet 3 08/23/19 25 Active prazosin (MINIPRESS) 1 mg capsuleIndication s:Major depressive disorder, recurrent episode, moderate (CMS-HCC) Take 1 capsule (1 mg total) by mouth nightly. 90 capsule 3 08/23/19 25 Active sertraline (ZOLOFT) 100 mg tablet TAKE 2 TABLETS BY MOUTH IN THE MORNING 60 tablet 1 11/19/19 25 Active albuterol (PROVENTIL HFA;VENTOLIN HFA) 90 mcg/actuation inhaler INHALE 2 PUFFS EVERY 4 TO 6 HOURS NEEDED FOR SHORTNESS OF BREATH OR FOR WHEEZE 10/29/19 25 Active benzonatate (TESSALON PERLES) 100 mg capsuleIndication s:Acute cough Take 1 capsule (100 mg total) by mouth every 6 (six) hours as needed for cough. 30 capsule 11/21/19 25 Active ARIPiprazole (ABILIFY) 5 mg tabletIndications :Major depressive disorder, recurrent episode, moderate (CMS-HCC) Take 1.5 tablets (7.5 mg total) by mouth in the morning. 45 tablet 5 12/14/19 25 Active ARIPiprazole (ABILIFY) 5 mg tabletIndications :Major depressive disorder, recurrent episode, moderate (CMS-HCC) Take 1.5 tablets (7.5 mg total) by mouth in the morning. 45 tablet 5 06/20/20 24 025 Discontinued azithromycin (ZITHROMAX) 250 mg tabletIndications :Upper respiratory tract infection, unspecified type Take 2 tablets the first day, then 1 tablet daily for 4 days. 6 tablet 11/21/19 25 025 predniSONE (DELTASONE) 20 mg tabletIndications :Upper respiratory tract infection, unspecified type Take 1 tablet (20 mg total) by mouth in the morning for 5 days. 5 tablet 11/21/19 25 025 Active Problems Problem Noted Date Diagnosed Date Morbid obesity with BMI of 50.0-59.9, adult 02/0 01/2024 Primary insomnia 11/06/2019 Major depressive disorder, recurrent episode, mo derate 02/17/2017 Generalized anxiety disorder 02/17/2017 Encounters * This document contains information received from the source organization and may not represent a complete record from that organization. Date Type Department Care Team Description 12/17/2024 Travel 12/11/2024 Orders Only [facility] - Family Medicine [address] [place] [address] Ref Prov, Not In System 11/20/2024 2:40 PM EDT Office Visit [facility] - Family Medicine [address] [place] [address] Echo Conner, RN RESEARCH-AUTO BODY REPAIR TECHNICIAN Upper respiratory tract infection, unspecified type (Primary Dx); Sore throat; Acute cough 11/20/2024 Travel 10/15/2024 7:39 PM EDT - 10/15/2024 11:59 PM EDT Hospital Encounter [facility] [address] [place] [address] Blood tests for routine general physical examination Discharge Disposition: Home 10/15/2024 7:40 AM EDT Office Visit [facility] - Family Medicine [address] [place] [address] Echo Conner APRN-CNP Annual physical exam (Primary Dx); Blood tests for routine general physical examination 10/14/2024 6:58 PM EDT - 10/14/2024 7:24 PM EDT Emergency [facility] - Emergency Department [address] [place] [address] Discharge Disposition: Left Without Treatment 10/14/2024 Travel from Last 3 Months Immunizations Immunization Administration Dates Next Due COVID-19 Vaccine, vector-nr, rS-Ad26, PF, 0.5mL 10/07/2020 DTaP, Unspecified 09/05/2001, 8,02/27/1997,12/15,1996 HPV Quadrivalent 01/07/2010,09/29/2009, 9 Hep B, Adjuvanted 07/27/2021 Hep B, Adolescent or Pediatric 06/03/1997,1996,1996 HiB 02/27/1997,1996,1996 Hib (PRP-T) 08/07/1997 IPV 09/05/2001,08/07/1997 Influenza, Injectable, quadr ivalent (PF) 08/12/2020,04/20/2018,04/21/2017 Influenza, Unspecified 05/27/2021 MMR 07/18/2000,11/06/1997 Meningococcal MCV4P 06/24/2009 Polio, Unspecified 1996,1996 Tdap 09/29/2009 Varicella 01/07/2010,11/06/1997 Family History Medical History Relation Name Comments Heart disease Father Hyperlipidemia Father Hypertension Father Abnormal EKG Maternal Grandmother Asthma Maternal Grandmother Asthma Mother Depression Mother Ruben's thyroiditis Mother Ruben's thyroiditis Sister Relation Name Status Comments Brother Alive Half brother Father Alive Maternal Grandmother Alive Mother Alive Sister Alive Half sister Social History Tobacco Use Types Packs/Day Years Used Date Smoking Tobacco: Former Cigarettes Smokeless Tobacco: Never Tobacco Cessation:Counseling Given: Not Answered Alcohol Use Standard Drinks/Week Comments Never 0 [...] on file Sexual Orientation Not on file Last Filed Vital Signs Vital Sign Reading Time Taken Comments Blood Pressure 98/60 11/20/2024 2:37 PM EDT Pulse 98 11/20/2024 2:37 PM EDT Temperature 36.7 C (98.1 F) 11/20/2024 2:37 PM EDT Respiratory Rate 20 11/20/2024 2:37 PM EDT Oxygen Saturation 98% 11/20/2024 2:37 PM EDT Inhaled Oxygen Concentration - - Weight 116.8 kg (257 lb 6.4 oz) 11/20/2024 2:37 PM EDT Height 164.6 cm (5' 4.8 ) 11/20/2024 2:37 PM EDT Body Mass Index 43.09 11/20/2024 2:37 PM EDT Plan of Treatment Health Maintenance Due Date Last Done Comments DTaP,Tdap and Td Vaccines (7 - Td or Tdap) 09/30/2019 09/29/2009, 09/05/2001, 02/06/1998, Additional history exists COVID-19 Vaccine (2023-08 5 season) 2024 10/07/2020 Influenza Vaccine 03/31/2025 05/19/2022, , 08/12/2020, Additional history exists Adult BMI Follow Up Plan 11/20/2025 11/20/2024 Adult BMI Screening 11/20/2025 11/20/2024 Depression Screening 11/20/2025 11/20/2024 Tobacco Screening 12/19/2025 12/19/2024 Pap Smear 12/04/2026 12/05/2023 Medical Devices Not on file Procedures Procedure Name Priority Date/Time Associated Diagnosis Comments US PELVIC WITH TRANSVAGINAL Routine 12/10/2024 7:18 AM EDT POCT INFLUENZA A/INFLUENZA B/SARS-COV-2 VERITOR Routine 11/20/2024 3:10 PM EDT Sore throat POCT RAPID STREP A Routine 11/20/2024 3: 01 PM EDT Sore throat COMPREHENSIVE METABOLIC PANEL Routine 10/15/2024 8:00 AM EDT Blood tests for routine general physical examination CBC WITH AUTO DIFFERENTIAL Routine 10/15/2024 8:00 AM EDT Blood tests for routine general physical examination LIPID PROFILE Routine 10/15/2024 8:00 AM EDT Blood tests for routine general physical examination HEMOGLOBIN A1C Routine 10/15/2024 8:00 AM EDT Blood tests for routine general physical examination from Last 3 Months Results * Ultrasound pelvic with transvaginal (12/10/2024 7:18 AM EDT) Anatomical Region Laterality Modality Body, Pelvis Ultrasound us Not In System Ref Prov IMG US ORDERABLES Final R esult * POCT Influenza A/Influenza B/SARS-COV-2 Veritor (11/20/2024 3:10 PM EDT) External Poct Influenza A Antigen Negative MANUALLY TRANSCRIBED RESULTS External Poct Influenza B Antigen Negative MANUALLY TRANSCRIBED RESULTS External POCT SARS COV 2 Veritor Presumptive Negative MANUALLY TRANSCRIBED RESULTS Swab 11/20/2024 3:10 PM EDT us Echo J Conner RN RESEARCH-AUTO BODY REPAIR TECHNICIAN POINT OF CARE TEST O RDERABLES Final Result Performing Organization Address City/[facility] [employer] Phone Number MANUALLY TRANSCRIBED RESULTS * POCT rapid strep A (11/20/2024 3:01 PM EDT) External Poct Rapid Strep A Negative Negative MANUALLY TRANSCRIBED RESULTS Swab 11/20/2024 3:01 PM EDT us Echo J Conner RN RESEARCH-AUTO BODY REPAIR TECHNICIAN POINT OF CARE TEST O RDERABLES Final Result MANUALLY TRANSCRIBED RESULTS * CBC auto differential (10/15/2024 8:00 AM EDT) White Blood Cells 6.7 4.0 - 11.0 X10E9/L 10/15/2024 8:30 PM EDT [facility] RBC count 4.16 3.80 - 5.20 X10E12/L 10/15/2024 8:30 PM EDT [facility] Hemoglobin 13.1 11.7 - 15.5 g/dL 10/15/2024 8:30 PM EDT [facility] Hematocrit 38.8 35 - 47 % 10/15/2024 8:30 PM EDT [facility] MCV 93 80 - 100 fL 10/15/2024 8:30 PM EDT [facility] MCH 31.5 27 - 34 pg 10/15/2024 8:30 PM EDT [facility] MCHC 33.8 32 - 36 g/dL 10/15/2024 8:30 PM EDT [facility] RDW 13.3 11.5 - 15.0 % 10/15/2024 8:30 PM EDT [facility] Platelets 247 150 - 450 X10E9/L 10/15/2024 8:30 PM EDT [facility] MPV 8.6 7 - 12 fL 10/15/2024 8:30 PM EDT [facility] % neutrophils 64.5 % 10/15/2024 8:30 PM EDT [facility] % lymphocytes 28.9 % 10/15/2024 8:30 PM EDT [facility] % monocytes 4.8 % 10/15/2024 8:30 PM EDT [facility] % eosinophils 1.2 % 10/15/2024 8:30 PM EDT [facility] % Basophils 0.6 % 10/15/2024 8:30 PM EDT [facility] Neutrophils Absolute (A) 4.3 1.5 - 6.6 X10E9/L 10/15/2024 8:30 PM EDT [facility] Lymphocytes Absolute 1.9 1.0 - 3.5 X10E9/L 10/15/2024 8:30 PM EDT [facility] Monocytes Absolute 0.3 0 - 0.9 X10E9/L 10/15/2024 8:30 PM EDT [facility] Eosinophils Absolute 0.1 0.0 - 0.4 X10E9/L 10/15/2024 8:30 PM EDT [facility] Basophils Absolute 0.0 0.0 - 0.2 X10E9/L 10/15/2024 8:30 PM EDT [facility] Blood / Unknown 10/15/2024 8 :00 AM EDT 10/15/2024 8:03 PM EDT us Echo Conner RN RESEARCH-AUTO BODY REPAIR TECHNICIAN LAB BLOOD ORDERABLES Final Result [facility] [address] [place] [address], [address] [place] [address] * Hemoglobin A1c (10/15/2024 8:00 AM EDT) Hemoglobin A1C 5.2 4.4 - 5.6 % 10/15/2024 9:18 PM EDT [facility] Comment: NOTE ADA Guidelines Result HgbA1c Normal : less than 5.7 % Prediabetes : 5.7 % to 6.4 % Diabetes : > 6.4 % Use with caution in patients with abnormal hemoglobin variants as the half-life of red blood cells and in vivo glycation rates are affected. Average glucose 103 mg/dL 9:18 PM EDT [facility] PLASMA 10/15/2024 8:00 AM EDT 10/15/2024 8:03 PM EDT Echo Conner RN RESEARCH-AUTO BODY REPAIR TECHNICIAN LAB BLOOD ORDERABLES Final Result [facility] [address] [place] [address], [address] [place] [address] * (ABNORMAL) Lipid profile (10/15/2024 8:00 AM EDT) Cholesterol 191 150 - 200 mg/dL 10/15/2024 8:28 PM EDT [facility] Triglycerides 157(H) 27 - 150 mg/dL 10/15/2024 8:28 PM EDT [facility] HDL Cholesterol 38(L) >39 mg/dL 8:28 PM EDT [facility] Comment: HDL <40 mg/dL - High Risk HDL > or = 40mg/dL- Desirable HDL >60 mg/dL - Negative Risk VLDL 31(H) 0 - 30 mg/dL 10/15/2024 8:28 PM EDT [facility] LDL (calc) 122 <130 mg/dL 10/15/2024 8:28 PM EDT [facility] Comment: LDL <100 mg/dL - Desirable LDL >160 mg/dL - High Risk Cholesterol:HDL Ratio 5.0 1.0 - 5.0 10/15/2024 8:28 PM EDT [facility] PLASMA 10/15/2024 8:00 AM EDT 10/15/2024 8:03 PM EDT us Echo Conner APRN-[facility] BLOOD ORDERABLES Final Result [facility] [address] [facility], [address] [place] [address] * (ABNORMAL) Comprehensive metabolic panel (10/15/2024 8:00 AM EDT) Sodium 137 134 - 146 mmol/L 10/15/2024 8:28 PM EDT [facility] Potassium, Bld 4.2 3.5 - 5.0 mmol/L 10/15/2024 8:28 PM EDT [facility] Chloride 103 98 - 109 mmol/L 10/15/2024 8:28 PM EDT [facility] CO2 27 22 - 32 mmol/L 10/15/2024 8:28 PM EDT [facility] Anion gap 7 5 - 15 mmol/L 10/15/2024 8:28 PM EDT [facility] BUN 9 5 - 23 mg/dL 10/15/2024 8:28 PM EDT [facility] Creatinine 0.94 0.40 - 1.00 mg/dL 10/15/2024 8:28 PM EDT [facility] Comment:METHOD TRACEABLE TO IDMS STANDARD Glucose 101(H) 65 - 99 mg/dL 10/15/2024 8:28 PM EDT [facility] Calcium 9.8 8.5 - 10.5 mg/dL 10/15/2024 8:28 PM EDT [facility] Total Protein 7.3 6.0 - 8.0 g/dL 10/15/2024 8:28 PM EDT [facility] Albumin 4.2 3.2 - 5.3 g/dL 10/15/2024 8:28 PM EDT [facility] Alkaline Phosphatase 68 39 - 130 U/L 10/15/2024 8:28 PM EDT [facility] AST 21 0 - 41 U/L 10/15/2024 8:28 PM EDT [facility] ALT 23 0 - 31 U/L 10/15/2024 8:28 PM EDT [facility] Total bilirubin 0.2(L) 0.3 - 1.2 mg/dL 10/15/2024 8:28 PM EDT [facility] eGFR (CKD-EPI)non-rac e dependent 85 >59 ml/min/1.7 3sq.m 10/15/2024 8:28 PM EDT [facility] Comment: Reported eGFR is based on the CKD-EPI 2020 equation that does not use a race coefficient. PLASMA 10/15/2024 8:00 AM EDT 10/15/2024 8:03 PM EDT us [facility] BLOOD ORDERABLES Final Result [facility] [address], [address] [place] [address] from Last 3 Months Insurance ANTHEM Care Teams Pile Driver Relationship Specialty Start Date End Date Echo Conner APRN-CNP [address] [place] [address] PCP - General Family Medicine 06/01/21
--- OUTSIDE RECORDS SUMMARY | 2024-12-20 10:43 | XMS_ITS | Clinical Summary ---
Author Organization [facility] Address [address] [place] [address] Care Team Providers Care Cardiology Nurse Name Role Phone René Lowery MD Primary Care Provider [phone] Allergies Active Allergy Reactions Criticality Noted Date Comments Aspirin Anaphylaxis High 12/14/2024 Sulfa Antibiotics 09/04/2024 Medications Sertraline HCl (ZOLOFT PO) Take by mouth Active ondansetron (ZOFRAN-ODT) 4 MG disintegrating tablet Take 1 tablet by mouth 3 times daily as needed for Nausea or Vomiting 21 tablet 5 Active ARIPiprazole (ABILIFY) 5 MG tablet Take 1.5 tablets by mouth daily 5 Active busPIRone (BUSPAR) 15 MG tablet Take 15 mg by mouth 3 times daily 5 Active sertraline (ZOLOFT) 100 MG tablet Take 2 tablets by mouth daily Active prazosin (MINIPRESS) 1 MG capsule Take 1 capsule by mouth nightly 5 Active ketorolac (TORADOL) 10 MG tablet Take 1 tablet by mouth every 6 hours as needed for Pain 20 tablet 5 12/24/19 25 Active Encounters Date Type Department Care Team Description 12/17/2024 9:22 PM EDT - 12/18/2024 3:06 AM EDT Emergency [facility] Emergency Department [address] [id number] Nilo Dowell MD Miscarriage (Primary Dx) Discharge Disposition: Home or Self Care 12/17/2024 Travel 12/14/2024 12:18 PM EDT - 12/14/2024 5:51 PM EDT Emergency [facility] Emergency Department [address] [place] [address] Vivian Zheng MD Vaginal bleeding (Primary Dx) Discharge Disposition: Home or Self Care 12/14/2024 Travel from Last 3 Months Social History Tobacco Use Types Packs/Day Years Used Date Smoking Tobacco: Never Smokeless Tobacco: Never Tobacco Cessation:Counseling Given: Not [...] (255 lb) 12/17/2024 9:21 PM EDT Height 162.6 cm (5' 4 ) 12/14/2024 12:26 PM EDT Body Mass Index 43.77 12/14/2024 12:26 PM EDT Plan of Treatment Health Maintenance Due Date Last Done Comments Depression Screen 2008 HIV screen 2011 Hepatitis C screen 2014 Pap smear 2017 DTaP/Tdap/Td vaccine (7 - Td or Tdap) 09/30/2019 09/29/2009, 09/05/2001, 02/06/1998, Additional history exists COVID-19 Vaccine ( season) 2024 10/07/2020 Flu vaccine (Season Ended) 02/28/202505/19, 05/27/2021, 08/12/2020, Additional history exists Hib vaccine Completed 08/07/1997, 01/30, 1996, Additional history exists Polio vaccine Completed 09/05/2001, 02/1998, 1996, Additional history exists Meningococcal (ACWY) vaccine Aged Out 06/24/2009 No longer eligible based on patient's age to complete this topic HPV vaccine Completed 01/07/2010, 08/2009, 06/24/2009 Varicella vaccine Completed 01/07/2010, 11/06/1997 Hepatitis B vaccine Completed 07/27/2021, 06/03/1997, 1996, Additional history exists Hepatitis A vaccine Aged Out No longe r eligible based on patient's age to complete this topic Meningococcal B vaccine Aged Out No l onger eligible based on patient's age to complete this topic Pneumococcal 0-49 years Vaccine Aged Out No longer eligible based on patient's age to complete this topic Procedures Procedure Name Priority Date/Time Associated Diagnosis Comments CT ABDOMEN PELVIS W IV CONTRAST STAT 12/18/2024 12:13 AM EDT C.TRACHOMATIS N.GONORRHOEAE DNA STAT 12/17/2024 10:20 PM EDT WET PREP, GENITAL STAT 12/17/2024 10: 20 PM EDT MICROSCOPIC URINALYSIS Routine 10:16 PM EDT URINALYSIS WITH REFLEX TO CULTURE STAT 12/17/2024 10:16 PM EDT CBC WITH AUTO DIFFERENTIAL STAT 12/17/2024 10:00 PM EDT HCG, QUANTITATIVE, STAT 12/17/2024 10:00 PM EDT US NON OB TRANSVAGINAL W DOPPLER STAT 12/14/2024 2:52 PM EDT HCG, QUANTITATIVE, STAT 12/14/2024 1:19 PM EDT PROTIME-INR STAT 12/14/2024 1:19 PM EDT COMPREHENSIVE METABOLIC PANEL STAT 12/14/2024 1:19 PM EDT CBC WITH AUTO DIFFERENTIAL STAT 12/14/2024 1:19 PM EDT from Last 3 Months Results * CT ABDOMEN PELVIS W IV [...] Description .VAGINAL SWAB 12/17/2024 10:20 PM EDT [facility] C. trachomatis DNA NEGATIVE NEGATIVE 12/17/2024 10:20 PM EDT [facility] Comment: CHLAMYDIA TRACHOMATIS DNA not detected by [...] DNA NEGATIVE NEGATIVE 12/17/2024 10:20 PM EDT [facility] Comment: NEISSERIA GONORRHOEAE DNA not detected by [...] 10:20 PM EDT 12/17/2024 10:25 PM EDT us Nilo Dowell MD MICROBIOLOGY - GENERAL OR DERABLES Final Result Performing Organization Address [facility]/ZIP Co de Phone Number [facility] [address] [place] [address] [phone] * Wet prep, genital (12/17/2024 10:20 PM EDT) Specimen Description .VAGINA 12/17/2024 10:20 PM EDT [facility] Direct Exam NO YEAST OBSERVED 12/17/2024 10:20 PM EDT [facility] Direct Exam NO TRICHOMONAS SEEN 12/17/2024 10:20 PM EDT [facility] Direct Exam NO CLUE CELLS SEEN 12/17/2024 10:20 PM EDT [facility] SPECIMEN FROM CERVIX OR VAGINA / Unknown 12/17/2024 10:20 PM EDT 12/17/2024 10:25 PM EDT us Nilo Dowell MD MICROBIOLOGY - GENERAL OR DERABLES Final Result Performing Organization Address City/[facility]/ZIP Co de Phone Number [facility] [address] [place] [address] * (ABNORMAL) Urinalysis with Reflex to Culture (12/17/2024 10:16 PM EDT) Color, UA Yellow Yellow 12/17/2024 10:16 PM EDT [facility] Turbidity UA Clear Clear 12/17/2024 10:16 PM EDT [facility] Glucose, Ur NEGATIVE NEGATIVE mg/dL 12/17/2024 10:16 PM EDT [facility] Bilirubin, Urine NEGATIVE NEGATIVE 12/17/2024 10:16 PM EDT [facility] Ketones, Urine NEGATIVE NEGATIVE mg/dL 12/17/2024 10:16 PM EDT [facility] Specific [place], UA 1.015 1.010 - 1.020 12/17/2024 10:16 PM EDT [facility] Urine Hgb 2+(A) NEGATIVE 12/17/2024 10:16 PM EDT [facility] pH, Urine 7.0 5.0 - 9.0 12/17/2024 10:16 PM EDT [facility] Protein, UA NEGATIVE NEGATIVE mg/dL 12/17/2024 10:16 PM EDT [facility] Urobilinogen, Urine Normal 0.0 - 1.0 EU/dL 12/17/2024 10:16 PM EDT [facility] Nitrite, Urine NEGATIVE NEGATIVE 12/17/2024 10:16 PM EDT [facility] Leukocyte Esterase, Urine NEGATIVE NEGATIVE 12/17/2024 10:16 PM EDT [facility] Urine 12/17/2024 10:1 6 PM EDT 12/17/2024 10:18 PM EDT us Nilo Dowell MD URINE ORDERABLES Final Re sult [facility] [address] [id number] [phone] * (ABNORMAL) Microscopic Urinalysis (12/17/2024 10:16 PM EDT) WBC, UA None 0 - 5 /HPF 12/17/2024 10:16 PM EDT [facility] RBC, UA 2 TO 5 0 - 2 /HPF 12/17/2024 10:16 PM EDT [facility] Epithelial Cells, UA 2 TO 5 0 - 25 /HPF 12/17/2024 10:16 PM EDT [facility] Bacteria, UA 2+(A) None 12/17/2024 10:16 PM EDT [facility] 12/17/2024 10:1 6 PM EDT 12/17/2024 10:18 PM EDT us Nilo Dowell MD URINE ORDERABLES Final Re sult [facility] [address] [phone] * (ABNORMAL) CBC with Auto Differential (12/17/2024 10:00 PM EDT) Only the most recent of2 resultswithin the time period is included. WBC 9.9 3.5 - 11.3 k/uL 12/17/2024 10:00 PM EDT [facility] RBC 3.89(L) 3.95 - 5.11 m/uL 12/17/2024 10:00 PM [facility] Hemoglobin 12.3 11.9 - 15.1 g/dL 12/17/2024 10:00 PM EDT [facility] Hematocrit 37.2 36.3 - 47.1 % 12/[facility]24 [facility] MCV 95.6 82.6 - 102.9 fL 12/17/2024 10:00 PM EDT [facility] MCH 31.6 25.2 - 33.5 pg 12/17/2024 10:00 PM EDT [facility] MCHC 33.1 28.4 - 34.8 g/dL 12/17/2024 10:00 PM EDT [facility] RDW 12.7 11.8 - 14.4 % 12/17/2024 10:00 PM [facility] Platelets 291 138 - 453 k/uL 12/17/2024 10:00 PM [facility] MPV 10.1 8.1 - 13.5 fL 12/17/2024 10:00 PM [facility] NRBC Automated 0.0 0.0 per 100 WBC 12/17/2024 10:00 PM [facility] Neutrophils % 61 36 - 65 % 12/17/2024 10:00 PM [facility] Lymphocytes % 31 24 - 43 % 12/17/2024 10:00 PM [facility] Monocytes % 6 3 - 12 % 12/17/2024 10:00 PM [facility] Eosinophils % 1 1 - 4 % 12/17/2024 10:00 PM [facility] Basophils % 1 0 - 2 % 12/17/2024 10:00 PM [facility] Immature Granulocytes % 0 0 % 12/17/2024 10:00 PM [facility] Neutrophils Absolute 6.07 1.50 - 8.10 k/uL 12/17/2024 10:00 PM [facility] Lymphocytes Absolute 3.02 1.10 - 3.70 k/uL 12/17/2024 10:00 PM [facility] Monocytes Absolute 0.58 0.10 - 1.20 k/uL 12/17/2024 10:00 PM [facility] Eosinophils Absolute 0.14 0.00 - 0.44 k/uL 12/17/2024 10:00 PM [facility] Basophils Absolute 0.05 0.00 - 0.20 k/uL 12/17/2024 10:00 PM [facility] Immature Granulocytes Absolute 0.03 0.00 - 0.30 k/uL 12/17/2024 10:00 PM [facility] Blood BLOOD SPECIMEN / Unknown 12/17/2024 10:00 PM EDT 12/17/2024 10:04 PM EDT us Nilo Dowell MD HEMATOLOGY ORDERABLES Fin al Result Performing Organization Address [facility] Co de Phone Number [facility] [address] [place] [address] * (ABNORMAL) HCG, Quantitative, (12/17/2024 10:00 PM EDT) Only the most recent of2 resultswithin the time period is included. hCG Quant 16.0(H) 0 - 7 mIU/mL 12/17/2024 10:00 PM EDT [facility] Comment: Non-preg premeno <=5 Postmeno <=8 Male <=3 If HCG results do not concur with clinical observations, additional testing to confirm results is recommended. BLOOD SPECIMEN / Unknown 12/17/2024 10:00 PM EDT 12/17/2024 10:04 PM EDT us Nilo Dowell MD CHEMISTRY ORDERABLES Naomi l Result Performing Organization Address [facility]/ZIP Co de Phone Number [facility] [address] [place] [address] * US NON OB TRANSVAGINAL W DOPPLER [...] Unremarkable pelvic sonogram us Vivian Zheng MD [facility] US ORDERABLES Final Result * Protime-INR (12/14/2024 1:19 PM EDT) Protime 12.7 11.7 - 14.1 sec 12/14/2024 1:19 PM EDT [facility] INR 1.0 12/14/2024 1:19 PM EDT [facility] Comment: Therapeutic Range: Moderate Anticoagulant Intensity: INR = 2.0-3.0 High Anticoagulant Intensity: INR = 2.5-3.5 Blood BLOOD SPECIMEN / Unknown 12/14/2024 1:19 PM EDT 12/14/2024 1:31 PM EDT us Vivian Zheng MD HEMATOLOGY ORDERABLES Final Resu lt [facility] [address] [id number], [facility] [phone] * (ABNORMAL) CMP (12/14/2024 1:19 PM EDT) Sodium 139 136 - 145 mmol/L 12/14/2024 1:19 PM EDT [facility] Potassium 4.1 3.7 - 5.3 mmol/L 12/14/2024 1:19 PM EDT [facility] Comment: Specimen hemolysis has exceeded the interference as defined by Jaylene. Value may be falsely increased. Suggest recollection if clinically indicated. Chloride 103 98 - 107 mmol/L 12/14/2024 1:19 PM EDT [facility] CO2 26 20 - 31 mmol/L 12/14/2024 1:19 PM EDT [facility] Anion Gap 10 9 - 16 mmol/L 12/14/2024 1:19 PM EDT [facility] Glucose 88 74 - 99 mg/dL 12/14/2024 1:19 PM T [facility] BUN 13 6 - 20 mg/dL 12/14/2024 1:19 PM T [facility] Creatinine 1.1(H) 0.50 - 0.90 mg/dL 12/14/2024 1:19 PM EDT [facility] Est, Glom Filt Rate 67 >60 mL/min/1.7 3m2 12/14/2024 1:19 PM EDT [facility] Comment: These results are not intended [...] 9 - 20 12/14/2024 1:19 PM EDT [facility] Calcium 9.0 8.6 - 10.4 mg/dL 12/14/2024 1:19 PM EDT [facility] Total Protein 6.8 6.6 - 8.7 g/dL 12/14/2024 1:19 PM EDT [facility] Albumin 3.9 3.5 - 5.2 g/dL 12/14/2024 1:19 PM EDT [facility] Albumin/Globulin Ratio 1.3 1.0 - 2.5 12/14/2024 1:19 PM EDT [facility] Total Bilirubin <0.2 0.00 - 1.20 mg/dL 12/14/2024 1:19 PM EDT [facility] Alkaline Phosphatase 67 35 - 104 U/L 12/14/2024 1:19 PM T [facility] ALT 49(H) 10 - 35 U/L 12/14/2024 1:19 PM EDT [facility] AST 32 10 - 35 U/L 12/14/2024 1:19 PM T [facility] Blood BLOOD SPECIMEN / Unknown 12/14/2024 1:19 PM EDT 12/14/2024 1:31 PM EDT us Vivian Zheng MD CHEMISTRY ORDERABLES Final Resul t [facility] [address] [id number] [phone] from Last 3 Months Insurance Care Teams Cardiology Nurse Relationship Specialty Start Date End Date René Lowery MD PCP - General 04/15/13
--- OUTSIDE RECORDS SUMMARY | 2024-12-20 10:44 | XMS_ITS | Encounter Summary ---
Author Organization [facility] Address [address] [place] [address] Care Team Providers Care Orientation And Mobility Instructor Name Role Phone Unavailable Primary Care Provider Unavailabl e Encounter Details Date Type Department Care Team (Late st Contact Info) Description 10/24/2023 Clinisync Result Encounter [facility] Department Unsolicited Maria E Mendez, DO [address] [place] [address] Social History Tobacco Use Types Packs/Day Years [...] Name Priority Date/Time Associated Diagnosis Comments US PELVIS TRANSVAGINAL 4 10:51 AM EDT [facility] PREG QUANT HCG Routine 10/24/2023 10:29 AM EDT MLR HEMOGLOBIN A1C Routine 10/24/2023 10:29 AM EDT ALL THYROXINE (T4) FREE Routine 10/24/19 24 10:29 AM EDT ALL THYROID STIM HORMONE Routine 024 10:29 AM EDT ALL LUTEINIZING HORMONE Routine 10/24/19 24 10:29 AM EDT ALL FOLLICLE STIMULATING HORMONE Routine 10/24/2023 10:29 AM EDT ALL DHEA SULFATE Routine 10/24/2023 10:29 AM EDT ALL DEHYDROEPIANDROSTERONE Routine 10/23 10:29 AM EDT ALL CBC WITH AUTO DIFF Routine 10:29 AM EDT documented in this encounter Results * US PELVIS TRANSVAGINAL (10/24/2023 10:51 AM EDT) Anatomical Region Laterality Modality Other 10/24/2023 10:5 1 AM EDT Narrative 10/24/2023 10:53 [place] [address] Ultrasound Report Signed Patient: BERNA HENRIQEUZ MR#: [id number] : 1995 Acct:[id number] Age/Sex: 28 / F ADM Date: 10/24/23 Loc: [facility] Attending Dr: Maria E Mendez D.O. Ordering Physician: Maria E Mendez D.O. Date of Service: 10/24/23 Procedure(s): US pelvis transvaginal Accession Number(s): [id number] cc: DINA KAUR Corey D.O. [address] [id number] Patient Name: BERNA HENRIQUEZ MRN: [id number] date: 1995 Sex: F Assigned Patient Location: [facility] Current Patient Location: LAB Accession/Order Number: [id number] Exam Date: 10/24/2023 08:58 Report Date: 10/24/2023 10:51 At the request of: MARIA E MENDEZ Procedure: US pelvis transvaginal EXAMINATION: US pelvis transvaginal HISTORY: IUD POSITION COMPARISON: No relevant comparison available. FINDINGS: Transabdominal and transvaginal images The uterus is normal in size, contour and echotexture measuring 8.9 x 3.6 x 5.6 cm. No focal myometrial mass. Linear hyperechogenicity within the endometrial cavity consistent with a normally positioned IUD. The endometrium measures 6 mm, normal. The right ovary is normal measuring 4.2 x 2.4 x 2.5 cm. Normal color Doppler flow. The left ovary measures 2.9 0.6 x 2.7 cm. Normal color flow. Doppler flow could not be obtained No ascites US/US pelvis transvaginal IMPRESSION: Normal position of IUD Electronically authenticated by: FELICIANO SERRANO Date: 10/24/2023 10:51 Dictated By: Feliciano Serrano M.D. Signed By: 10/24/23 1053 DD/ 105 TD/TT: Drawing In Machine Tender: Procedure Note Radiology, Radiologist, MD - 10/24/2023 [place] [address] Ultrasound Report Signed Patient: BERNA HENRIQUEZ MMR#: [id number] : 1995Acct:[id number] Age/Sex: FADM Date: 10/24/23 Loc: [facility] Attending Dr: Maria E Mendez D.O. Ordering Physician: Maria E Mendez D.O. Date of Service: 10/24/23 Procedure(s): US pelvis transvaginal Accession Number(s): [id number] cc: DINA KAUR ; Maria E Mendez D.O. [address] [id number] Patient Name: BERNA HENRIQUEZ MRN: [id number] date: 1995 Sex: F Assigned Patient Location: [facility] Current Patient Location: LAB Accession/Order Number: [id number] Exam Date: 10/24/2023 08:58 Report Date: 10/24/2023 10:51 At the request of: MARIA E MENDEZ Procedure: US pelvis transvaginal EXAMINATION: US pelvis transvaginal HISTORY: IUD POSITION COMPARISON: No relevant comparison available. FINDINGS: Transabdominal and transvaginal images The uterus is normal in size, contour and echotexture measuring 8.9 x 3.6x 5.6 cm. No focal myometrial mass. Linear hyperechogenicity within the endometrial cavity consistent with a normally positioned IUD. The endometrium measures 6 mm, normal. The right ovary is normal measuring 4.2 x 2.4 x 2.5 cm. Normal colorDoppler flow. The left ovary measures 2.9 0.6 x 2.7 cm. Normal color flow. Doppler flow could not be obtained No ascites US/US pelvis transvaginal IMPRESSION: Normal position of IUD Electronically authenticated by: FELICIANO SERRANO Date: 10/24/2023 10:51 Dictated By: Feliciano Serrano M.D. Signed By:10/24/23 1053 DD/ 105 TD/TT: Drawing In Machine Tender: us Maria E Andrea DO [facility] Final Result * (ABNORMAL) ALL DEHYDROEPIANDROSTERONE (10/24/2023 10:29 AM EDT) DHEA, SERUM 812(A) 31 - 701 ng/dL [facility] Comment: This test was developed and its performance characteristics determined by [employer]. It has not been cleared or approved by the Food and Drug Administration. Performed at: [address] [id number] Sample Patternmaker: Raiza Sibley MD, Phone: [phone] 10/24/2023 10:2 9 AM EDT 10/24/2023 10:31 AM EDT Narrative [facility] - 10/28/2023 12:08 AM EDT us Maria E Andrea DO [facility] Final Result [facility] * ALL FOLLICLE STIMULATING HORMONE (10/24/2023 10:29 AM EDT) FSH 2.9 . mIU/mL [facility] Comment: Adult Female Range Follicular phase 3.5 - 12.5 Ovulation phase 4.7 - 21.5 Luteal phase 1.7 - 7.7 Postmenopausal 25.8 - 134.8 Performed at: [facility] Lab[address] [id number] Sample Patternmaker: Andre Young PhD, Phone: [phone] 10/24/2023 10:2 9 AM EDT 10/24/2023 10:31 AM EDT Narrative [facility] - 10/25/2023 4:08 AM EDT Maria E Andrea DO [facility] Final Result Performing Organization Address City/[facility]/ZIP Co de Phone Number [facility] * ALL LUTEINIZING HORMONE (10/24/2023 10:29 AM EDT) Pathologist [facility] LUTEINIZING HORMONE(LH) 6.3 . mIU/mL TB Comment: Adult Female Range Follicular phase 2.4 - 12.6 Ovulation phase 14.0 - 95.6 Luteal phase 1.0 - 11.4 Postmenopausal 7.7 - 58.5 10/24/2023 10:2 9 AM EDT 10/24/2023 10:31 AM EDT Narrative [facility] - 10/25/2023 4:08 AM EDT [facility] [place] [place] Andrea DO [facility] Final Result Performing Organization Address [facility] Co de Phone Number [facility] * (ABNORMAL) ALL DHEA SULFATE (10/24/2023 10:29 AM EDT) Pathologist [facility] DHEA-SULFATE 508.0(A) 84.8 - 378.0 ug/dL TB 10/24/2023 10:2 9 AM EDT 10/24/2023 10:31 AM EDT Narrative [facility] - 10/25/2023 4:08 AM EDT [facility] [place] [place] Andrea DO [facility] Final Result Performing Organization Address [facility] Co de Phone Number [facility] * (ABNORMAL) ALL CBC WITH AUTO DIFF (10/24/2023 10:29 AM EDT) [facility] W[facility] 7.9 4.0 - 11.0 10 3/uL TBH TBH RBC 4.14(L) 4.20 - 5.40 10 6/uL TBH TBH HGB 12.6 12.0 - 16.0 g/dL TB TB HCT 39.5 36.0 - 48.0 % TBH TBH MCV 95.4 81.0 - 99.0 fL TBH TBH MCH 30.4 26.7 - 34.0 pg TBH TB MCHC 31.9 29.9 - 35.2 g/dL TB TBH RDW 12.8 11.0 - 15.0 % TBH TBH PLT 282 150 - 450 10 3/uL TBH TBH MPV 10.8 9.5 - 13.5 fL TBH NEUTROPHILS PERCENT AUTO 68.9 43.0 - 75.0 % TBH LYMPHOCYTES PERCENT AUTO 23.1 20.5 - 60.0 % TB[facility] MONOCYTES PERCENT AUTO 6.2 1.7 - 12.0 % TBH TBH EO % 1.1 0.9 - 7.0 % TB[facility] BASOPHILS PERCENT AUTO 0.6 0.2 - 2.0 % TBH IMMATURE GRANULOCYTES PCT AUTO 0.1 0.0 - 0.5 % TBH NEUTROPHILS ABSOLUTE AUTO 5.4 1.4 - 6.5 10 3/uL TB[facility] LYMPHOCYTES ABSOLUTE AUTO 1.8 1.2 - 3.8 10 3/uL TB[facility] MONOCYTES ABSOLUTE AUTO 0.5 0.3 - 0.8 10 3/uL TBH TBH EO # 0.1 0.0 - 0.7 10 3/uL TBH BASOPHILS ABSOLUTE AUTO 0.1 0.0 - 0.1 10 3/uL [facility] IMMATURE GRANULOCYTES ABS AUTO 0.01 0.00 - 0.03 10 3/uL [facility] 10/24/2023 10:2 9 AM EDT 10/24/2023 10:31 AM EDT Narrative [facility] - 10/24/2023 12:00 PM EDT us Maria E Andrea DO [facility] Final Result [facility] * ALL THYROXINE (T4) FREE (10/24/2023 10:29 AM EDT) FREE T4 0.89 0.76 - 1.46 ng/dL TB 10/24/2023 10:2 9 AM EDT 10/24/2023 10:31 AM EDT Narrative [facility] - 10/24/2023 11:41 AM EDT Maria E Andrea DO [facility] Final Result [facility] * MLR HEMOGLOBIN A1C (10/24/2023 10:29 AM EDT) GLYCOHEMOGLOBIN A1C 5.3 4.5 - 6.2 % [facility] Comment: ADA RECOMMENDED LIMIT 4.0 - 6.0 ADA THERAPEUTIC TARGET < 7.0 ACTION SUGGESTED > 7.0 ESTIMATED AVERAGE GLUCOSE 105 mg/dL TB 10/24/2023 10:2 9 AM EDT 10/24/2023 10:31 AM EDT Narrative [facility] - 10/24/2023 11:24 AM EDT [facility] Final Result Performing Organization Address City/[facility]/ZIP Co de Phone Number [facility] * [facility]H PREG QUANT HCG (10/24/2023 10:29 AM EDT) Pathologist [facility] HCG QUANTITATIVE <1 mIU/mL TB Comment: 5-50 0.2-1 WEEK 50-500 1-2 WEEKS 100-5,000 2-3 WEEKS 500-10,000 3-4 WEEKS 1,000-50,000 4-5 WEEKS 10,000-100,000 5-6 WEEKS 15,000-200,000 6-8 WEEKS 10,000-100,000 2-3 MONTHS 10/24/2023 10:2 9 AM EDT 10/24/2023 10:31 AM EDT Narrative [facility] - 10/24/2023 11:20 AM EDT [facility] Andrea DO [facility] Final Result [facility] * ALL THYROID STIM HORMONE (10/24/2023 10:29 AM EDT) THYROID STIMULATING HORMONE 1.164 0.358 - 3.740 uIU/mL TBH 10/24/2023 10:2 9 AM EDT 10/24/2023 10:31 AM EDT Narrative [facility] - 10/24/2023 11:20 AM EDT us Maria E Andrea DO CLINIS[facility] Final Result [facility] TB documented in this encounter Visit Diagnoses Not on filedocumented in this encounter
--- OUTSIDE RECORDS SUMMARY | 2024-12-20 10:44 | XMS_ITS | Encounter Summary ---
Author Organization [facility] Address [address] [place] [address] Care Team Providers Care Frame Changer Name Role Phone Unavailable Primary Care Provider Unavailabl e Encounter Details Date Type Department Care Team (Late st Contact Info) Description 12/17/2024 Results Follow-Up [facility] [address] [facility] [place] [address] Brie Mendoza LPN [address] [place] [id number] Social History Tobacco Use Types Packs/Day Years Used Date Smoking Tobacco: Never Assessed Comments No Sex and Gender Information Value Date Recorded Sex Assigned at Not on file Legal Sex Female 7:26 PM EDT Gender Identity Not on file Sexual Orientation Not on file documented as of this encounter Miscellaneous Notes * Result Encounter Note - Brie Mendoza LPN - 12/17/2024 8:56 AM EDT Pt notified and verbalizes understanding documented in this encounter Plan of Treatment Not on file documented as of this encounter Visit Diagnoses Not on filedocumented in this encounter
--- OUTSIDE RECORDS SUMMARY | 2024-12-20 10:44 | XMS_ITS | Encounter Summary ---
Author Organization [facility] Address [address] [place] [address] Care Team Providers Care Ship Cleaner Name Role Phone Unavailable Primary Care Provider Unavailabl e Encounter Details Date Type Department Care Team (Late st Contact Info) Description 12/16/2024 Clinisync Result Encounter [facility] External Department Unsolicited Edward Mendez, DO [address] [place] [address] Social History Tobacco Use Types [...] Procedure Name Priority Date/Time Associated Diagnosis Comments [facility] PREG QUANT HCG Routine 12/16/2024 6: 48 AM EDT documented in this encounter Results * TB PREG QUANT HCG (12/16/2024 6:48 AM EDT) HCG QUANTITATIVE 46 mIU/mL [facility] Comment: 5-50 0.2-1 WEEK 50-500 1-2 WEEKS 100-5,000 2-3 WEEKS 500-10,000 3-4 WEEKS 1,000-50,000 4-5 WEEKS 10,000-100,000 5-6 WEEKS 15,000-200,000 6-8 WEEKS 10,000-100,000 2-3 MONTHS 12/16/2024 6:48 AM EDT 12/16/2024 6:48 AM EDT Narrative [facility] - 12/16/2024 7:54 AM EDT us Edward Andrea DO CL[facility] Final Result Performing Organization Address City/State/[facility] Co de Phone Number [facility] documented in this encounter Visit Diagnoses Not on filedocumented in this encounter
--- OUTSIDE RECORDS SUMMARY | 2024-12-20 10:44 | XMS_ITS | Encounter Summary ---
Author Organization [facility] Address [address] [facility] [place] [address] Care Team Providers Care Trustee Of Estate Name Role Phone Unavailable Primary Care Provider Unavailabl e Encounter Details Date Type Department Care Team (Late st Contact Info) Description 10/15/2024 Abstract [facility] OB [address] [facility] [place] [address] Edward Mendez, DO [address] [place], [place] [id number] Social History Tobacco Use Types Packs/Day Years [...]
--- OUTSIDE RECORDS SUMMARY | 2024-12-20 10:44 | XMS_ITS | Encounter Summary ---
Author Organization [facility] Address [id number] [place] [address] Care Team Providers Care Cytogenetics Laboratory Manager Name Role Phone Echo Conner APRN-ENVIRONMENTAL HEALTH MANAGER Primary Care Provid er Encounter Details Date Type Department Care Team (Late st Contact Info) Description 08/31/2023 Telephone [facility] [address] [place] [address] Duke Edwards MD [address] [place], [place] [id number] Social History Tobacco Use Types Packs/Day Years Used Date Smoking Tobacco: Every Day Cigarettes Smokeless Tobacco: Never Alcohol Use Standard Drinks/Week Comments Never 0 (1 standard drink = 0.6 oz pur e alcohol) Socially. Overall Financial Resource Strain (CARDIA) Answe r Date Recorded How hard is it for you to pa y for the very basics like food, housing, medical care, and heating? Not hard at all 06/06/2023 PHQ-2 Answer Date Recorded Total Score 0 08/22/2023 PRAPARE - Transportation Answer Date Re corded In the past 12 months, has l ack of transportation kept you from medical appointments or from getting medications? No 01/2023 In the past 12 months, has l ack of transportation kept you from meetings, work, or from getting things needed for daily living? No 06/06/2023 Housing Instability Answer Date Recorde d Are you worried or concerned that in the next two months you may not have stable housing that you own, rent or stay in as a part of a household? No 06/06/2023 Childcare Answer Date Recorded Childcare Unknown 01/07/2019 Employment Answer Date Recorded Employment Unknown 01/07/2019 Hunger Screening Answer Date Recorded Within the past 12 months we worried whether our food would run out before we got money to buy more. Never True 08/22/2023 Within the past 12 months th e food we bought just didn't last and we didn't have money to get more. Never True 08/22/2023 Purpose - Life Answer Date Recorded Purpose and direction in life Unknown Comments No Sex and Gender Information Value Date Recorded Sex Assigned at Not on file Legal Sex Female 3:04 PM EDT Gender Identity Not on file Sexual Orientation Not on file documented as of this encounter Miscellaneous Notes * Telephone Encounter - ROCIO Martinez - 08/31/2023 10:05 AM EST APPT MADE documented in this encounter Plan of Treatment Not on file documented as of this encounter Visit Diagnoses Not on filedocumented in this encounter Additional Health Concerns Assessment Noted Time PHQ-9 Depression Total Score: 0 08/22/19 24 2:51 PM EST A Body Mass Index follow-up plan has been documented for the patient 08/24/2023 8:22 AM EST documented as of this encounter Care Teams Cytogenetics Laboratory Manager Relationship Specialty Start Date End Date Echo Conner, CLAY MINE CUTTING MACHINE OPERATOR-ENVIRONMENTAL HEALTH MANAGER [address], [place] [address] PCP - General Family Medicine 06/01/21 documented as of this encounter
--- OUTSIDE RECORDS SUMMARY | 2024-12-20 10:44 | XMS_ITS | Encounter Summary ---
Author Organization [facility] Address [address] [facility] [place] [address] Care Team Providers Care Manager Spring Name Role Phone Unavailable Primary Care Provider Unavailabl e Encounter Details Date Type Department Care Team (Late st Contact Info) Description 12/03/2024 Abstract [facility] OB [address] [facility] [place] [address] Edward Mendez, DO [address] [place], [place] [id number] Social History Tobacco Use Types Packs/Day Years [...]
--- OUTSIDE RECORDS SUMMARY | 2024-12-20 10:44 | XMS_ITS | Encounter Summary ---
Author Organization [facility] Address [address] [place] [facility] [address] Care Team Providers Care Bulkhead Carpenter Name Role Phone Unavailable Primary Care Provider Unavailabl e Encounter Details Date Type Department Care Team (Late st Contact Info) Description 12/10/2024 Clinisync Result Encounter [facility] External Department Unsolicited Maria E Mendez, DO [address] [place] [address] Social History Tobacco Use Types [...] Name Priority Date/Time Associated Diagnosis Comments US OB TRANSVAGINAL 12/10/2024 1: 43 PM EDT documented in this encounter Results * US OB TRANSVAGINAL (12/10/2024 1:43 PM EDT) Anatomical Region Laterality Modality Other 12/10/2024 1:43 PM EDT Narrative 12/10/2024 1:45 PM EDT The [address] [address] Ultrasound Report Signed Patient: BERNA SYED MR#: [id number] : 1995 Acct:[id number] Age/Sex: 29 / F ADM Date: 12/10/24 Loc: US Attending Dr: Maria E Mendez D.O. Ordering Physician: Maria E Mendez D.O. Date of Service: 12/10/24 Procedure(s): US OB transvaginal Accession Number(s): [id number] cc: DINA KAUR ; Maria E Mendez D.O. [place] [address] Patient Name: BERNA SYED MRN: [facility]:[id number] date: 1995 Sex: F Assigned Patient Location: US Current Patient Location: US Accession/Order Number: [id number] Exam Date: 12/10/2024 13:39 Report Date: 12/10/2024 13:43 At the request of: MARIA E MENDEZ DO Procedure: US OB transvaginal EXAMINATION TYPE: US OB transvaginal Grayscale, color scale Doppler, vascular duplex analysis of the bilateral ovaries DATE OF EXAM ORDERED: 12/10/2024 1:13 PM HISTORY: Bleeding Early , cramping COMPARISON: NONE TECHNIQUE: Realtime Transvaginal imaging was performed. Transvaginal imaging was utilized to better evaluate the ovaries and the endometrial stripe. Grayscale, color scale Doppler, vascular duplex analysis of the bilateral ovaries was performed to assess blood flow. FINDINGS: The uterus is anteverted is normal in echogenicity. The cervix measures 4.3 cm in length. Endometrium: No evidence of intrauterine . The endometrium is heterogeneous in appearance. Ovaries: The visualized ovaries are within normal limits for songraphic evaluation. Right Ovary measurements: 3.3 x 1.9 x 2.3 cm Left Ovary measurements: 2.4 x 2.5 x 1.5 cm No abnormal adnexal mass is seen. No free fluid in the pelvic cul-de-sac. Vascular duplex analysis of the bilateral ovaries demonstrates normal blood flow without evidence of ovarian ischemia. US/US OB transvaginal IMPRESSION: No intrauterine . No evidence of ovarian ischemia. No adnexal mass. Impression dictated by: René Martinez M.D. 12/10/2024 1:43 PM Dictation Location: [place] [address] Electronically authenticated by: [id number] Y Date: 12/10/2024 13:43 Dictated By: René Martinez M.D. Signed By: 12/10/24 1345 DD/ 1343 TD/TT: Box Office Attendant: Procedure Note Radiology, Radiologist, - 12/10/2024 [place] [address] Ultrasound Report Signed Patient: BERNA SYED MMR#: [id number] : 1995Acct:[id number] Age/Sex: 29 / FADM Date: 12/10/24 Loc: US Attending Dr: Maria E Mendez D.O. Ordering Physician: Maria E Mendez D.O. Date of Service: 12/10/24 Procedure(s): US OB transvaginal Accession Number(s): [id number] cc: DINA KAUR ; Maria E Mendez D.O. The [place] [address] Patient Name: BERNA SYED MRN: [id number] date: 1995 Sex: F Assigned Patient Location: US Current Patient Location: US Accession/Order Number: [id number] Exam Date: 12/10/2024 13:39 Report Date: 12/10/2024 13:43 At the request of: MARIA E MENDEZ DO Procedure: US OB transvaginal EXAMINATION TYPE: US OB transvaginal Grayscale, color scale Doppler,vascular duplex analysis of the bilateral ovaries DATE OF EXAM ORDERED: 12/10/2024 1:13 PM HISTORY: Bleeding Early , cramping COMPARISON: NONE TECHNIQUE: Realtime Transvaginal imaging was performed. Transvaginalimaging was utilized to better evaluate the ovaries and the endometrial stripe. Grayscale, color scale Doppler, vascular duplex analysis of the bilateral ovaries was performed to assess blood flow. FINDINGS: The uterus is anteverted is normal in echogenicity. The cervix measures4.3 cm in length. Endometrium: No evidence of intrauterine . The endometrium is heterogeneous in appearance. Ovaries: The visualized ovaries are within normal limits for songraphic evaluation. Right Ovary measurements: 3.3 x 1.9 x 2.3 cm Left Ovary measurements: 2.4 x 2.5 x 1.5 cm No abnormal adnexal mass is seen. No free fluid in the pelvic cul-de-sac. Vascular duplex analysis of the bilateral ovaries demonstrates normalblood flow without evidence of ovarian ischemia. US/US OB transvaginal IMPRESSION: No intrauterine . No evidence of ovarian ischemia. No adnexal mass. Impression dictated by: René Martinez M.D. 12/10/2024 1:43 PM Dictation Location: [place] [address] Electronically authenticated by: [id number] Y Date: 3:43 Dictated By: René Martinez M.D. Signed By:12/10/24 1345 DD/ 42 TD/TT: Box Office Attendant: us [facility] IMAGING Final Result documented in this encounter Visit Diagnoses Not on filedocumented in this encounter
--- OUTSIDE RECORDS SUMMARY | 2024-12-20 10:44 | XMS_ITS | Encounter Summary ---
Author Organization [facility] tem Address [id number] [place] [address] Care Team Providers Care Land Surveyor Assistant Name Role Phone Echo Conner APRN-MICROCHIP SPECIALIST Primary Care Provid er Encounter Details Date Type Department Care Team (Late st Contact Info) Description 08/23/2021 Orders Only [facility] [address] [place] [address] Henry Laurent CMA Exposure to COVID-19 virus (Primary Dx) Social History Tobacco Use Types Packs/Day Years Used Date Smoking Tobacco: Every Day Cigarettes Smokeless Tobacco: Never Alcohol Use Standard Drinks/Week Comments Yes 0 (1 standard drink = 0.6 oz pur e alcohol) Socially. PHQ-2 Answer Date Recorded Total Score 0 07/29/2021 Childcare Answer Date Recorded Childcare Unknown 01/07/2019 Employment Answer Date Recorded Employment Unknown 01/07/2019 Purpose - Life Answer Date Recorded Purpose and direction in life Unknown Comments Unknown Sex and Gender Information Value Date Recorded Sex Assigned at Not on file Legal Sex Female 3:04 PM EDT Gender Identity Not on file Sexual Orientation Not on file COVID-19 Exposure Response Date Recorded In the last month, have you been in contact with someone who was confirmed or suspected to have Coronavirus / COVID-19? No / Unsure 07/29/2021 10:06 AM EST documented as of this encounter Plan of Treatment Not on file documented as of this encounter Visit Diagnoses Diagnosis Exposure to COVID-19 virus- Primary documented in this encounter Additional Health Concerns Infection Onset Date Last Indicated Resolved Time COVID-19 Rule-Out 08/23/2021 08/23/2021 08/24/2021 4:22 AM EST Assessment Noted Time PHQ-9 Depression Total Score: 0 07/29/20 3:34 PM EST A Body Mass Index follow-up plan has been documented for the patient 07/29/2021 5:21 PM EST documented as of this encounter Care Teams Land Surveyor Assistant Relationship Specialty Start Date End Date Echo Conner, RUBBER STAMP DIE INSPECTOR-MICROCHIP SPECIALIST [address] [place] [address] PCP - General Family Medicine 06/01/21 documented as of this encounter
--- OUTSIDE RECORDS SUMMARY | 2024-12-20 10:44 | XMS_ITS | Encounter Summary ---
Author Organization [facility] Address [address] [place] [address] Care Team Providers Care Fuselage Framer Name Role Phone Unavailable Primary Care Provider Unavailabl e Encounter Details Date Type Department Care Team (Late st Contact Info) Description 12/09/2024 Clinisync Result Encounter [facility] External Department Unsolicited Edward Mendez, DO [address] [place] [address] Social History Tobacco Use Types [...] Procedure Name Priority Date/Time Associated Diagnosis Comments [facility] PREG QUANT HCG Routine 12/09/2024 2: 54 PM EDT documented in this encounter Results * TB PREG QUANT HCG (12/09/2024 2:54 PM EDT) HCG QUANTITATIVE 324 mIU/mL [facility] Comment: 5-50 0.2-1 WEEK 50-500 1-2 WEEKS 100-5,000 2-3 WEEKS 500-10,000 3-4 WEEKS 1,000-50,000 4-5 WEEKS 10,000-100,000 5-6 WEEKS 15,000-200,000 6-8 WEEKS 10,000-100,000 2-3 MONTHS 12/09/2024 2:54 PM EDT 12/09/2024 2:54 PM EDT Narrative [facility] - 12/09/2024 3:39 PM EDT us Edward Andrea DO CLIN[facility] Final Result Performing Organization Address City/State/[facility] Co de Phone Number CLINIS[facility]NC TB documented in this encounter Visit Diagnoses Not on filedocumented in this encounter
--- OUTSIDE RECORDS SUMMARY | 2024-12-20 10:44 | XMS_ITS | Encounter Summary ---
Author Organization [facility] tem Address [id number] [place] [address] Care Team Providers Care Milliner Helper Name Role Phone Echo Conner APRN-CONCRETE BUILDING ASSEMBLER Primary Care Provid er Encounter Details Date Type Department Care Team (Late st Contact Info) Description 07/25/2023 Telephone [facility] Internal Medicine - Family Medicine [address] [place] [address] Sommer Duran CMA Social History Tobacco Use Types Packs/Day Years [...] PHQ-2 Answer Date Recorded Total Score 0 07/25/2023 PRAPARE - Transportation Answer Date Re corded [...] got money to buy more. Never True 07/25/2023 Within the past 12 months th e food we bought just didn't last and we didn't have money to get more. Never True 07/25/2023 Purpose - Life Answer Date Recorded Purpose and direction in life Unknown Comments No Sex and Gender Information Value Date Recorded Sex Assigned at Not on file Legal Sex Female 3:04 PM EDT Gender Identity Not on file Sexual Orientation Not on file documented as of this encounter Miscellaneous Notes * Telephone Encounter - Sommer Duran CMA - 07/25/2023 10:47 AM EST Patient called and stated she needs a note for tomorrow for work and needs to RTW on 07/27/23 * Telephone Encounter - RODNEY Mayers - 07/25/2023 10:47 AM EST done documented in this encounter Plan of Treatment Not on file documented as of this encounter Visit Diagnoses Not on filedocumented in this encounter Additional Health Concerns Assessment Noted Time PHQ-9 Depression Total Score: 0 07/25/20 9:55 AM EST A Body Mass Index follow-up plan has been documented for the patient 07/25/2023 11:57 AM EST documented as of this encounter Care Teams Milliner Helper Relationship Specialty Start Date End Date Echo Conner APRN-CNP [address], [place] [address] PCP - General Family Medicine 06/01/21 documented as of this encounter
--- OUTSIDE RECORDS SUMMARY | 2024-12-20 10:44 | XMS_ITS | Encounter Summary ---
Author Organization [facility] Address [id number] [place] [address] Care Team Providers Care Ammonium Hydroxide Operator Name Role Phone Echo Conner APRN-MACHINIST SUPERVISOR Primary Care Provid er Encounter Details Date Type Department Care Team (Late st Contact Info) Description 2023 Orders Only [facility] - Family Medicine [address] [facility] [place] [phone] External, Scanning Provider Social History Tobacco Use Types Packs/Day Years [...] Time PHQ-9 Depression Total Score: 0 07/25/20 23 9:55 AM EST A Body Mass Index follow-up plan has been documented for the patient 07/25/2023 11:57 AM EST documented as of this encounter Care Teams Ammonium Hydroxide Operator Relationship Specialty Start Date End Date Echo Conner, AMERICAN HISTORY TEACHER-MACHINIST SUPERVISOR [address] [place] [address] PCP - General Family Medicine 06/01/21 documented as of this encounter
--- OUTSIDE RECORDS SUMMARY | 2024-12-20 10:44 | XMS_ITS | Encounter Summary ---
Author Organization [facility] Address [address] [place] [address] Care Team Providers Care Manager Green Name Role Phone Unavailable Primary Care Provider Unavailabl e Encounter Details Date Type Department Care Team (Late st Contact Info) Description 12/09/2024 Telephone [facility] OB [address] [facility] [place] [address] Mine Rao MA Social History Tobacco Use Types Packs/Day Years Used Date Smoking Tobacco: Never Assessed Comments No Sex and Gender Information Value Date Recorded Sex Assigned at Not on file Legal Sex Female 7:26 PM EDT Gender Identity Not on file Sexual Orientation Not on file documented as of this encounter Miscellaneous Notes * Telephone Encounter - Mine Rao MA - 12/10/2024 11:10 AM EDT Pt spoke directly with Dr. Mendez. Pt to have ultrasound drawn [facility] Order faxed * Telephone Encounter - Mine Rao MA - 12/09/2024 2:15 PM EDT Hi, this is Berna ragland. My date of is 1969. I had a question for the nurse. I was having some abdominal cramping yesterday. I would not say it was like severe, but it was definitely uncomfortable. And then today I just went to the bathroom and I am having like some light Brown like discharge, I do not know. If those 2 things are related or what, I am not sure what to do. If you could give me a call back my phone numbers [phone]. Thank you. documented in this encounter Plan of Treatment Scheduled Orders Name Type Priority Associated Diagnoses Orde r Schedule US OB transvaginal Imaging Routine Bleeding in early Expected: 12/10/2024, Expires: 03/12/2025 documented as of this encounter Visit Diagnoses Diagnosis Missed menses Bleeding in early Unspecified hemorrhage in early , unspecified as to episode of care documented in this encounter
--- OUTSIDE RECORDS SUMMARY | 2024-12-20 10:44 | XMS_ITS | Encounter Summary ---
Author Organization [facility] Address [address] [place] [address] Care Team Providers Care Correspondence Specialist Name Role Phone René Lowery MD Primary Care Provider [phone] Encounter Details Date Type Department Care Team [...] Diagnoses Not on filedocumented in this encounter Care Teams Correspondence Specialist Relationship Specialty Start Date End Date René Lowery MD PCP - General 04/15/13 documented as of this encounter
--- OUTSIDE RECORDS SUMMARY | 2024-12-20 10:44 | XMS_ITS | Encounter Summary ---
Author Organization [facility] Address [address] [facility] [place] [address] Care Team Providers Care Business Excellence Leader Name Role Phone Unavailable Primary Care Provider Unavailabl e Encounter Details Date Type Department Care Team (Late st Contact Info) Description 11/22/2023 Abstract [facility] OB [address] [address] Sakina Carrillo LPN [address] [place] [address] Social History Tobacco Use Types Packs/Day Years [...]
--- OUTSIDE RECORDS SUMMARY | 2024-12-20 10:44 | XMS_ITS | Encounter Summary ---
Author Organization [facility] Address [address] [place] [address] Care Team Providers Care Electronic Tech Name Role Phone Unavailable Primary Care Provider Unavailabl e Encounter Details Date Type Department Care Team (Latest Contact Info) Description 12/13/2024 Travel Social History Tobacco Use Types Packs/Day [...]
--- OUTSIDE RECORDS SUMMARY | 2024-12-20 10:44 | XMS_ITS | Encounter Summary ---
Author Organization [facility] Address [id number] [place] [address] Care Team Providers Care Technical Information Specialist Name Role Phone Echo Conner APRN-CLAY DRY PRESS MIXER OPERATOR Primary Care Provid er Encounter Details Date Type Department Care Team (Late st Contact Info) Description 10/09/2023 Orders Only [facility] [address] [place] [address] External, Scanning Provider Social History Tobacco Use [...] Procedure Name Priority Date/Time Associated Diagnosis Comments MULTIPLE LABS Routine 08/06/2023 10:39 AM EST ECG 12-LEAD Routine 08/04/2023 10:41 AM EST documented in this encounter Results * Multiple labs (08/06/2023 10:39 AM EST) us Scanning Provider External ID IMAGING Final Result Performing Organization Address [facility] de Phone Number MANUALLY TRANSCRIBED RESULTS * ECG 12 lead (08/04/2023 10:41 AM EST) us Scanning Provider External ECG ORDERABLES Final Result Performing Organization Address [facility] de Phone Number MANUALLY TRANSCRIBED RESULTS documented in this encounter Visit Diagnoses Not on filedocumented in this encounter Additional Health Concerns Assessment Noted Time PHQ-9 Depression Total Score: 0 08/22/19 24 2:51 PM EST A Body Mass Index follow-up plan has been documented for the patient 10/04/2023 10:55 AM EST documented as of this encounter Care Teams Technical Information Specialist Relationship Specialty Start Date End Date Echo Conner APRN-CLAY DRY PRESS MIXER OPERATOR [address], [place] [phone] PCP - General Family Medicine 11/2/21 documented as of this encounter
--- OUTSIDE RECORDS SUMMARY | 2024-12-20 10:44 | XMS_ITS | Encounter Summary ---
Author Organization [facility] Address [address] [place] [address] [place] [address] Care Team Providers Care Production Leader Name Role Phone Unavailable Primary Care Provider Unavailabl e Encounter Details Date Type Department Care Team (Late st Contact Info) Description 12/18/2024 Godfreyboo flowsheet [facility] B[facility] OB [address] [facility] [place] [address] Edward Mendez, DO [address] [facility] [address] [place], [place] [id number] Social History Tobacco Use Types Packs/Day Years [...]
--- OUTSIDE RECORDS SUMMARY | 2024-12-20 10:44 | XMS_ITS | Encounter Summary ---
Author Organization [employer] Address [id number] [address] [place] [address] Care Team Providers Care Glove Finisher Name Role Phone Echo Conner APRN-COMPUTER HARDWARE DESIGNER Primary Care Provid er Encounter Details Date Type Department Care Team (Late st Contact Info) Description 01/03/2022 Telephone [facility] [address] [place] [address] [address] Mely Hernandez MA Social History Tobacco Use Types Packs/Day Years Used Date Smoking Tobacco: Every Day Cigarettes Smokeless Tobacco: Never Alcohol Use Standard Drinks/Week Comments Yes 0 (1 standard drink = 0.6 oz pur e alcohol) Socially. PHQ-2 Answer Date Recorded Total Score 0 08/30/2021 Childcare Answer Date Recorded Childcare Unknown 01/07/2019 [...] Exposure Response Date Recorded In the last 10 days, have yo u been in contact with someone who was confirmed or suspected to have Coronavirus/COVID-19? No / Unsure 01/06/2022 1:26 PM EDT documented as of this encounter Miscellaneous Notes * Telephone Encounter - Mely Hernandez MA - 01/03/2022 1:48 PM EDT [address] [place] [address] Patient ID: Berna Quiroz is a 26 y.o. female. Transition of Care Diagnosis on Discharge: nausea/ ab pain Name of Discharging Facility: [facility] Date of Facility Discharge: 01/02/22 Date of Interactive Contact and Name of Data Modeling Specialist: self Medication Reconciliation Completed: Pending provider review Medication Reconciliation Questions/Concerns: *Follow Up Appointments with Providers: Primary: RODNEY Mayers Specialty: Dr Najera, GI Specialty: Specialty: Review of Pending Lab/Diagnostic Tests and Plan for Completion: Assessment and Support of Treatment Regimen Adherence and Medication Management: Education Provided by ACN to Support Self-Management, Independent Living and ADLs: Communication with Home Health Agencies and Other Services Utilized/Needed by the Patient: *Additional Questions/Concerns Requiring PCP Follow-Up: Pt called for f/u but hadn't called GI specialist yet. Told her to call them for fu, since GI related. documented in this encounter Plan of Treatment Not on file documented as of this encounter Visit Diagnoses Not on filedocumented in this encounter Additional Health Concerns Assessment Noted Time PHQ-9 Depression Total Score: 0 08/30/19 22 3:33 PM EST A Body Mass Index follow-up plan has been documented for the patient 11/09/2021 5:56 PM EDT documented as of this encounter Care Teams Glove Finisher Relationship Specialty Start Date End Date Echo Conner APRN-CNP [address] [place] [phone] PCP - General Family Medicine 06/01/21 documented as of this encounter
--- OUTSIDE RECORDS SUMMARY | 2024-12-20 10:44 | XMS_ITS | Encounter Summary ---
Author Organization [facility] Address [address] [place] [address] Care Team Providers Care Hogshead Mat Inspector Name Role Phone Unavailable Primary Care Provider Unavailabl e Encounter Details Date Type Department Care Team (Late st Contact Info) Description 12/12/2023 Orders Only [facility] [address] [place] [phone] Sakina Carrillo LPN [address] [place] [address] Social History Tobacco Use Types Packs/Day Years [...] Procedure Name Priority Date/Time Associated Diagnosis Comments PAP SMEAR Routine 12/05/2023 12:00 AM EDT documented in this encounter Results * Pap Smear (12/05/2023 12:00 AM EDT) Swab Cervical swab / Unknown us [facility] Nurse LAB CYTOLOGY ORDERABLES Final Result EXTERNAL LAB documented in this encounter Visit Diagnoses Not on filedocumented in this encounter
--- OUTSIDE RECORDS SUMMARY | 2024-12-20 10:44 | XMS_ITS | Encounter Summary ---
Author Organization [employer] Address [id number] [address] [place] [address] Care Team Providers Care Plasma Center Nurse Name Role Phone Echo Conner APRN-DEBATE DIRECTOR Primary Care Provid er Encounter Details Date Type Department Care Team (Late st Contact Info) Description 10/24/2023 Orders Only [facility] - Family [facility] [address] [phone] External, Scanning Provider Social History Tobacco Use [...] Name Priority Date/Time Associated Diagnosis Comments US TRANSVAGINAL NON OB Routine 10/24/2023 3:10 PM EDT documented in this encounter Results * Ultrasound transvaginal non OB (10/24/2023 3:10 PM EDT) Anatomical Region Laterality Modality Body Ultrasound us Scanning Provider External IMG US ORDERABLES Fin al Result documented in this encounter Visit Diagnoses Not on filedocumented in this encounter Additional Health Concerns Assessment Noted Time PHQ-9 Depression Total Score: 0 08/22/19 24 2:51 PM EST A Body Mass Index follow-up plan has been documented for the patient 10/04/2023 10:55 AM EST documented as of this encounter Care Teams Plasma Center Nurse Relationship Specialty Start Date End Date Echo Conner, CARPET WINDER-DEBATE DIRECTOR [address], [place] [address] PCP - General Family Medicine 06/01/21 documented as of this encounter
--- OUTSIDE RECORDS SUMMARY | 2024-12-20 10:44 | XMS_ITS | Encounter Summary ---
Author Organization [facility] Address [address] [place] [address] Care Team Providers Care Band Lining Bander Name Role Phone Unavailable Primary Care Provider Unavailabl e Encounter Details Date Type Department Care Team (Late st Contact Info) Description 12/20/2024 Abstract [facility] [address] [facility] [place] [address] Edward Mendez, DO [address] [place], [place] [id number] Social History Tobacco Use Types Packs/Day Years [...]
--- OUTSIDE RECORDS SUMMARY | 2024-12-20 10:44 | XMS_ITS | Encounter Summary ---
Author Organization [email or web address] Address [id number] [address] [place] [address] Care Team Providers Care Manager Store Name Role Phone Echo Conner APRN-BRAIDING MACHINE TENDER Primary Care Provid er Encounter Details Date Type Department Care Team (Late st Contact Info) Description 12/12/2023 Orders Only [facility] - Family Medicine [address] [facility] [place] [phone] External, Scanning Provider Social History Tobacco Use [...] 06/06/2023 PHQ-2 Answer Date Recorded Total Score 10 12/04/2023 PRAPARE - Transportation Answer Date Re corded [...] got money to buy more. Never True 12/04/2023 Within the past 12 months th e food we bought just didn't last and we didn't have money to get more. Never True 12/04/2023 Purpose - Life Answer Date Recorded Purpose [...] Diagnosis Comments US PELVIC WITH TRANSVAGINAL Routine 12/09/2023 1:[address] ABDOMEN AND PELVIS W CONT Routine 12/09/2023 1:50 PM EDT documented in this encounter Results * Ultrasound pelvic with transvaginal (12/09/2023 1:52 PM EDT) Anatomical Region Laterality Modality Body, Pelvis Ultrasound us Scanning Provider External IMG US ORDERABLES Fin al Result * CT abdomen and pelvis with contrast (12/09/2023 1:50 PM EDT) Anatomical Region Laterality Modality Body, Abdomen, Body Covera N/A Compu alysa Tomography us Scanning Provider External IMG CT ORDERABLES Fin al Result documented in this encounter Visit Diagnoses Not on filedocumented in this encounter Additional Health Concerns Assessment Noted Time PHQ-9 Depression Total Score: 10 024 11:01 AM EDT A Body Mass Index follow-up plan has been documented for the patient 12/04/2023 11:23 AM EDT documented as of this encounter Care Teams Manager Store Relationship Specialty Start Date End Date Echo Conner, STEM ASSEMBLER-BRAIDING MACHINE TENDER [address], [place] [address] PCP - General Family Medicine 06/01/21 documented as of this encounter
--- OUTSIDE RECORDS SUMMARY | 2024-12-20 10:44 | XMS_ITS | Encounter Summary ---
Author Organization [facility] Address [address] [facility] [place] [address] Care Team Providers Care Completion Engineer Name Role Phone Unavailable Primary Care Provider Unavailabl e Encounter Details Date Type Department Care Team (Late st Contact Info) Description 10/31/2023 Abstract [facility] [address] [place] [address] Sakina Carrillo LPN [address] [place] [address] Social History Tobacco Use Types Packs/Day Years [...]
--- OUTSIDE RECORDS SUMMARY | 2024-12-20 10:44 | XMS_ITS | Encounter Summary ---
Author Organization [facility] Address [address] [place] [address] Care Team Providers Care Systems Support Specialist Name Role Phone René Lowery MD Primary Care Provider [phone] Encounter Details Date Type Department Care Team (Latest Contact Info) Description 12/14/2024 Travel Social History Tobacco Use Types Packs/Day [...] on file documented as of this encounter Functional Status documented as of this encounter Plan of Treatment Not on file documented as of this encounter Visit Diagnoses Not on filedocumented in this encounter Care Teams Systems Support Specialist Relationship Specialty Start Date End Date René Lowery MD PCP - General 04/15/13 documented as of this encounter
--- OUTSIDE RECORDS SUMMARY | 2024-12-20 10:44 | XMS_ITS | Clinical Summary ---
Author Organization [facility] Address [address] [place] [address] Care Team Providers Care Software Technician Name Role Phone Unavailable Primary Care Provider Unavailabl e Allergies Active Allergy Reactions Criticality Noted Date Comments Aspirin Anaphylaxis,Anxiety, Pal pitations,Shortness of breath,Swelling High 09/14/2024 Sulfa Antibiotics Swelling 02/06/2017 Other Reaction(s): Unknown Medications ARIPiprazole (Abilify) 5 MG tablet Take 5 mg by mouth in the morning. Active sertraline (Zoloft) 100 MG tablet Take 200 mg by mouth Daily Active busPIRone (Buspar) 15 MG tablet Take 15 mg by mouth in the morning and 15 mg in the evening and 15 mg before bedtime. Active prazosin (Minipress) 1 MG capsule Take 1 mg by mouth at bedtime 08/29/19 24 Active ketorolac (Toradol) 10 MG tablet Take by mouth every 6 (six) hours if needed for moderate pain Active acetaminophen (Tylenol) 500 MG tablet Take 1,000 mg by mouth every 8 (eight) hours if needed for mild pain Active Levonorgestrel (Mirena, 52 MG,) 20 MCG/DAY intrauterine device 52 mcg by Intrauterine route if needed (every 5 years) 2024 Discontinued cyclobenzaprine (Flexeril) 10 MG tablet TAKE 1 TABLET BY MOUTH THREE TIMES A DAY NEEDED FOR MUSCLE SPASM 09/04/19 25 2024 Discontinued triazolam (Halcion) 0.25 MG tablet 04/03/20 24 2024 Discontinued Encounters Date Type Department Care Team Description 12/20/2024 Abstract [facility] [address] [place] [address] Maria E Mendez, DO 12/18/2024 3:40 PM EDT Office Visit [facility] [address] [place] [address] [place] [address] Maria E Mendez, DO Follow-up visit after miscarriage 12/18/2024 Bamboo flowsheet [facility] [address] [place] [address] [place] [address] Maria E Mendez, DO 12/17/2024 Results Follow-Up [facility] [address] [place] [address] [place] [address] Brie Mendoza LPN 12/16/2024 Clinisync Result Encounter [facility] External Department Unsolicited Maria E Mendez, DO 12/13/2024 Travel 12/10/2024 Clinisync Result Encounter [facility] External Department Unsolicited Maria E Mendez, DO 12/09/2024 Clinisync Result Encounter [facility] External Department Unsolicited Maria E eMndez, DO 12/09/2024 Telephone [facility] [address] [place] [address] [place] [address] Mine Rao, MELANIE 12/05/2024 Telephone [facility] OB [address] [place] [address] [place] [address] Maria E Mendez, DO 12/04/2024 Clinisync Result Encounter [facility] External Department Unsolicited Maria E Mendez, DO 12/03/2024 Abstract [facility] OB [address] [place] [address] [place] [address] Maria E Mendez, DO 12/02/2024 Clinisync Result Encounter [facility] External Department Unsolicited Maria E Mendez, DO 11/30/2024 Clinisync Result Encounter [facility] External Department Unsolicited Maria E Mendez, DO 11/29/2024 Telephone [facility] [address] [place] [address] [place] [address] Maria E Mendez DO 10/23/2024 3:30 PM EDT Procedure Visit [facility] OB [address] [place] [address] Maria E Mendez DO Encounter for IUD removal 10/22/2024 Travel 10/15/2024 Abstract [facility] [address] [place] [address] Maria E Mendez DO from Last 3 Months Social History Tobacco [...] oz) 12/18/2024 3:43 PM E DT Height 162.6 cm (5' 4 ) 12/05/2023 3:17 PM EDT Body Mass Index 47.12 12/05/2023 3:17 PM EDT Plan of Treatment Health Maintenance Due Date Last Done Comments Influenza Vaccine (Season Ended) 2025 05/19/2022, 05/27/2021, 08/12/2020, Additional history exists Procedures Procedure Name Priority Date/Time Associated Diagnosis Comments [facility] PREG QUANT HCG Routine 12/16/2024 6: 48 AM EDT US OB TRANSVAGINAL 12/10/2024 1: 43 PM EDT [facility] PREG QUANT HCG Routine 12/09/2024 2: 54 PM EDT [facility] PREG QUANT HCG Routine 12/04/2024 7: 10 AM EDT [facility] PREG QUANT HCG Routine 12/02/2024 9: 35 AM EDT [facility] PREG QUANT HCG Routine 11/30/2024 8: 15 AM EDT POCT URINALYSIS DIPSTICK Routine 10/23/2024 3:50 PM EDT Encounter for IUD removal from Last 3 Months Results * [facility] PREG QUANT HCG (12/16/2024 6:48 AM EDT) Only the most recent of5 resultswithin the time period is included. Pathologist [facility] HCG QUANTITATIVE 46 mIU/mL [facility] Comment: 5-50 0.2-1 WEEK 50-500 1-2 WEEKS 100-5,000 2-3 WEEKS 500-10,000 3-4 WEEKS 1,000-50,000 4-5 WEEKS 10,000-100,000 5-6 WEEKS 15,000-200,000 6-8 WEEKS 10,000-100,000 2-3 MONTHS 12/16/2024 6:48 AM EDT 12/16/2024 6:48 AM EDT Narrative [facility] - 12/16/2024 7:54 AM EDT us Maria E DAVISISYPAU Final Result [facility] * US OB TRANSVAGINAL (12/10/2024 1:43 PM EDT) Anatomical Region Laterality Modality Other 12/10/2024 1:43 PM EDT Narrative 12/10/2024 1:45 [place] [address] Ultrasound Report Signed Patient: BERNA SYED MR#: [id number] : 1995 Acct:[id number] Age/Sex: 29 / F ADM Date: 12/10/24 Loc: US Attending Dr: Maria E Mendez D.O. Ordering Physician: Maria E Mendez D.O. Date of Service: 12/10/24 Procedure(s): US OB transvaginal Accession Number(s): [id number] cc: DINA KAUR ; Maria E Mendez D.O. [address] [address] Patient Name: BERNA SYED MRN: [id number] date: 1995 Sex: F Assigned Patient Location: US Current Patient Location: US Accession/Order Number: [id number] Exam Date: 12/10/2024 13:39 Report Date: 12/10/2024 [...] Martinez M.D. 12/10/2024 1:43 PM Dictation Location: [place] [address] Electronically authenticated by: [id number] Y Date: 12/10/2024 13:43 Dictated By: René Martinez M.D. Signed By: 12/10/24 1345 DD/ 1343 TD/TT: Technical Sales Associate: Procedure Note Radiology, Radiologist, - 12/10/2024 [facility] [place] [id number] Ultrasound Report Signed Patient: BERNA SYED MMR#: [id number] : 1995Acct:[id number] Age/Sex: 29 / FADM Date: 12/10/24 Loc: US Attending Dr: Maria E Mendez D.O. Ordering Physician: Maria E Mendez D.O. Date of Service: 12/10/24 Procedure(s): US OB transvaginal Accession Number(s): [id number] cc: DINA KAUR ; Maria E Mendez D.O. The [address] [address] Patient Name: BERNA SYED MRN: [id number] date: 1995 Sex: F Assigned Patient Location: US Current Patient Location: US Accession/Order Number: [id number] Exam Date: 12/10/2024 13:39 Report Date: 12/10/2024 [...] normalblood flow without evidence of ovarian ischemia. US/ OB transvaginal IMPRESSION: No intrauterine . No evidence of ovarian ischemia. No adnexal mass. Impression dictated by: René Martinez M.D. 12/10/2024 1:43 PM Dictation Location: [place] [address] Electronically authenticated by: [id number] Y Date: 3:43 Dictated By: René Martinez M.D. Signed By:12/10/24 1345 DD/ 134 TD/TT: Technical Sales Associate: Maria E Andrea DO [facility] Final Result * POCT urinalysis dipstick manually resulted (10/23/2024 3:50 PM EDT) Color, UA Yellow Clarity, UA Clear Glucose, UA Negative Negative - 2000(110) ++++ mg/dL Bilirubin, UA Negative Negative - 4(70) +++ mg/dL Ketones, UA Positive Negative - 160(16) ++++ mg/dL Spec Grav, UA 1.025 1 - 1.03 Blood, UA Negative Negative - 50 Clint/mcL pH, UA 6.0 5 - 9 Protein, UA Negative Negative - 2000(20) ++++ mg/dL Urobilinogen, UA 0.2 0.2 - 12 mg/dL Leukocytes, UA Negative Negative - 500+++ Ashley/mcL Nitrite, UA Negative Negative - Positive Urine 10/23/2024 3:50 PM EDT Maria E Andrea DO POINT OF CARE TEST ENTER/EDIT OR DERABLES Final Result from Last [address] [place] [address] [facility] Member Subscriber Plan / Payer (Ef fective 2023-Present) Name:Berna Syed Relation to Subscriber:Self Name:Berna Syed Payer ID:Not on file Type:Not on file Address: [address] [place] [phone]
[2024-12-20 10:58] LABS: Basophils Percent Auto 0.5 % (0.2-2.0); Eosinophils Absolute Auto 0.1 10^3/uL (0.0-0.7); Eosinophils Percent Auto 1.4 % (0.9-7.0); Hematocrit 38.8 % (36.0-48.0); Hemoglobin 12.5 g/dL (12.0-16.0); Immature Granulocytes Abs Auto 0.02 10^3/uL (0.00-0.03); Immature Granulocytes Pct Auto 0.3 % (0.0-0.5); Lymphocytes Percent Auto 25.4 % (20.5-60.0); Mean Corpuscular HGB Conc 32.2 g/dL (29.9-35.2); Mean Corpuscular Volume 96.3 fL (81.0-99.0); Mean Platelet Volume 9.8 fL (9.5-13.5); Monocytes Absolute Auto 0.4 10^3/uL (0.3-0.8); Monocytes Percent Auto 4.8 % (1.7-12.0); Neutrophils Absolute Auto 5.4 10^3/uL (1.4-6.5); Neutrophils Percent Auto 67.6 % (43.0-75.0); Platelet Count 261 10^3/uL (150-450); Red Blood Count 4.03 10^6/uL (4.20-5.40); Red Cell Distribution Width 12.6 % (11.0-15.0)
[2024-12-20 11:20] VITALS: BP 112/69; TEMP 36.2; O2SAT 100; BMI 46.3
[2024-12-20 11:22] LABS: HCG Quantitative 6 mIU/mL
[2024-12-20] MEDS: LACTATED RINGER'S SOLUTION 1,000 ML 50 ML IV (11:54)
[2024-12-20 12:38] VITALS: BP 111/60; PULSE 69; TEMP 36.7; O2SAT 93
--- NOTE | 2024-12-20 12:40 | PM.ONB ---
Brief Operative Note Date of procedure: 12/20/24 Pre-op diagnosis general: incomplete , first trimester Post-op diagnosis: same as pre-op Procedure: NAME OF PROCEDURE: [D&C suction ] PROCEDURE: The patient was taken back to the OR where she was given general anesthesia without difficulty. She was then placed in dorsal lithotomy position, prepped and draped in the normal sterile fashion. A weighted speculum was placed in the patient's vagina and the anterior lip of the cervix was identified and grasped with a single-tooth tenaculum. The patient was then gently dilated using Hegar dilators after we had sounded roughly to 12 cm. The suction curette was then tested. The suction curette was then placed in the patient's uterus and products of conception were removed using an 10-[place]orese suction curette. ?Excellent hemostasis was noted. The patient tolerated the procedure well. Sponge, lap, and needle counts were correct x 2. All instruments were then removed from the patient's vagina. The patient was taken to the Recovery Room in stable condition. ?? Anesthesia: MAC Surgeon: Edward Mendez Estimated blood loss (mL): 5 Pathology: other (poc) Condition: stable Disposition: PACU Urinary Catheter Management Urinary Catheter Management Straight: Cath placed during this visit: no
[2024-12-20 12:53] VITALS: BP 106/63; PULSE 65; O2SAT 97
[2024-12-20 13:20] VITALS: BP 103/68; PULSE 62; O2SAT 99
== END 2024-12-20 13:20 | disposition home or self-care (01) ==
PROVIDERS: PCP Nurse Practitioner; Visit Provider Obstetrics & Gynecology
PROC: (CPT 1965; principal; 2024-12-20 12:10)
DX: O03.4 Incomplete spontaneous abortion without complication (principal)
CPT/HCPCS: 59812; 36415; 84702; 85025; 86850; 86900; 86901; 88305; J1100; J1885; J2250; J2405; J2704; J3010

== ENCOUNTER 2025-07-02 15:25 | Outpatient (REF) | payer BC, SELFPAY ==
--- OUTSIDE RECORDS SUMMARY | 2025-07-02 10:00 | XMS_ITS | Encounter Summary ---
Author Organization [facility] Address [address] [facility] [place] [address] Care Team Providers Care Home Sales Consultant Name Role Phone Unavailable Primary Care Provider Unavailabl e Reason for Visit * ReasonCommentsGynecologic Exam Encounter Details DateTypeDepartmentCare Team (Latest Contact Info)Jkgupzdwypo89/03/2025 10:00 AM ESTProcedure Visit [facility] [address] [facility] [place] [address] Deb Boggs PA [address] [facility] [address] [facility] [address] [facility] [address] [place], [place] [id number] Well woman exam with routine gynecological exam; Missed menses Social History Tobacco UseTypesPacks/DayYears UsedDateSmoking Tobacco: Never Assessed CommentsNoSex and Gender InformationValueDate RecordedSex Assigned at BirthNot on fileLegal GqkHgqphi40/15/2023 7:26 PM EDTGender IdentityNot on fileSexual OrientationNot on filedocumented as of this encounter Last Filed Vital Signs Vital SignReadingTime TakenCommentsBlood Entwbofa539/7807/02/2025 10:02 AM EST Pulse--Temperature--Respiratory Rate--Oxygen Saturation--Inhaled Oxygen Concentration--Nyloxw276 kg (289 lb)07/02/2025 10:02 AM ESTHeight--Body Mass Index49.6105 3:17 PM EDTdocumented in this encounter Progress Notes * LYNDNO Multani - 07/02/2025 10:00 AM EST Reason for Appointment: Patient ID: Berna Syed is a 29 y.o. female who presents for Gynecologic Exam Patient presents today for Annual Exam. MEDICATIONS Current Outpatient Medications Medication Instructions acetaminophen [...] No family history on file. SURGICAL HISTORY Past Surgical History: Procedure Laterality Date D&C FIRST TRIMESTER / TX INCOMPLETE / MISSED / SEPTIC / INDUCED 12/20/2024 suction REVIEW OF SYSTEMS Review of Systems: Review of Systems Constitutional: Negative. HENT: Negative. Eyes: Negative. Respiratory: Negative. Cardiovascular: Negative. Gastrointestinal: Negative. Genitourinary: Negative. Musculoskeletal: Negative. Skin: Negative. Neurological: Negative. All other systems reviewed and are negative. Hematological: Negative. Endocrine: Negative. Allergic/Immunologic: Negative. OBJECTIVE Objective: Physical Exam Constitutional: Appearance: Normal appearance. She is well-developed. Genitourinary: Vulva normal. Right Adnexa: not tender and no mass present. Left Adnexa: not tender and no mass present. No cervical discharge. Breasts: Breasts are soft. Right: Normal. Left: Normal. HENT: Head: Normocephalic. Nose: Nose normal. Mouth/Throat: Mouth: Mucous membranes are moist. Cardiovascular: Rate and Rhythm: Normal rate and regular rhythm. Pulmonary: Effort: Pulmonary effort is normal. Breath sounds: Normal breath sounds. Abdominal: General: Bowel sounds are normal. There is no distension. Palpations: Abdomen is soft. Tenderness: There is no abdominal tenderness. There is no guarding or rebound. Musculoskeletal: General: No swelling. Normal range of motion. Cervical back: Normal range of motion. Right lower leg: No edema. Left lower leg: No edema. Neurological: General: No focal deficit present. Mental Status: She is alert and oriented to person, place, and time. Skin: General: Skin is warm and dry. Psychiatric: Mood and Affect: Mood normal. Behavior: Behavior normal. Vitals and nursing note reviewed. Exam conducted with a parts counter representative present. Vitals: Estimated body mass index is 49.61 kg/m?? as calculated from the following: Height as of 12/05/23: 5' 4 . Weight as of this encounter: 289 lb. BP: 120/78 Patient's last menstrual period was 05/26/2025 (approximate). Assessment/Plan ICD-10-CM 1. Well woman exam with routine gynecological exam Z01.419 Pap Smear 2. Missed menses N92.6 POCT , urine manually resulted Assessment/Plan Annual Exam: Patient presents today for an annual exam. Patient states she is doing well however, has a complaint of no period. Pt states she has had no period in over 6 weeks. Pt unsure if she may be . Aurine sample and a test was obtained in our office. test came back NEGATIVE. Pap was obtained without difficulty. Discussed Metformin. [facility] [place] Orders Placed This Encounter Procedures POCT , urine manually resulted Follow Up: Patient is to return in one year for annual unless needed otherwise. Documented by Katarina Chavez MA on behalf of: LYNDON Multani documented in this encounter Plan of Treatment DateTypeDepartmentCare Team (Latest Contact Info)Pcalkovazqd54/08/2026 10:00 AM ESTProcedure Visit [facility] [address] [facility] [place] [address] Deb Boggs PA [address] [place] [address] NameTypePriorityAssociated DiagnosesOrder SchedulePap SmearPathology and CytologyRoutine Well woman exam with routine gynecological exam Ordered: 07/02/2025documented as of this encounter Procedures Procedure NamePriorityDate/TimeAssociated DiagnosisCommentsPOCT , URINE Ulaatkf8407/02/2025 10:07 AM EST Missed menses documented in this encounter Results * POCT , urine manually resulted (07/02/2025 10:07 AM EST)Component ValueRef RangeTest MethodAnalysis TimePerformed AtPathologist SignaturePreg Test, UrNegativeNegativeSpecimen (Source)Anatomical Location / Laterality Collection Method / VolumeCollection TimeReceived HicbXsnjs60/03/2025 10:07 AM EST Narrative Authorizing ProviderResult TypeResult StatusAmy [place] PAPOINT OF CARE TEST ENTER/EDIT ORDERABLESFinal Result documented in this encounter Visit Diagnoses Diagnosis Well woman exam with routine gynecological exam Routine gynecological examination Missed menses documented in this encounter
--- OUTSIDE RECORDS SUMMARY | 2025-07-02 15:29 | XMS_ITS | Encounter Summary ---
Author Organization [facility] Address [address] [place] [address] Care Team Providers Care Trade Facilitator Name Role Phone Unavailable Primary Care Provider Unavailabl e Encounter Details DateTypeDepartmentCare Team (Latest Contact Info)Omfsgwezfhl09/03/2025amboo flowsheet [address] [place] [address] Deb Boggs, PA [address] [facility] [address] [place], [facility] Social History Tobacco UseTypesPacks/DayYears UsedDateSmoking Tobacco: Never Assessed CommentsNoSex and Gender InformationValueDate RecordedSex Assigned at BirthNot on fileLegal OabAmuzmb09/15/2023 7:26 PM EDTGender IdentityNot on fileSexual OrientationNot on filedocumented as of this encounter Plan of Treatment DateTypeDepartmentCare Team (Latest Contact Info)Mabgrylvssj12/08/2026 10:00 AM ESTProcedure Visit [facility] [address] [place] [address] Deb Boggs PA [address] [facility] [address] [place], [facility]11 documented as of this encounter Visit Diagnoses Not on filedocumented in this encounter
--- OUTSIDE RECORDS SUMMARY | 2025-07-02 15:29 | XMS_ITS | Clinical Summary ---
Author Organization [facility] tem Address [id number] [place] [address] Care Team Providers Care Public Safety Teacher Name Role Phone No Pcp, No Pcp Primary Care Provider Unavailabl e Allergies Active AllergyReactionsCriticalityNoted DateCommentsAspirinAnxiety,Palpitations, Shortness Of Breath,MvcudtucNpnz37/15/2025Sulfa (Sulfonamide Antibiotics) 02/06/2017 Medications * This document contains information received from the source organization and may not represent a complete record from that organization. MedicationSigDispense QuantityRefillsLast FilledStart DateEnd DateStatus ondansetron ODT (ZOFRAN ODT) 4 mg disintegrating tablet Indications:NauseaDissolve 1 tablet (4 mg total) on tongue every 8 (eight) hours as needed for nausea or vomiting. 10 tablet 4Active busPIRone (BUSPAR) 15 mg tablet TAKE 1 TABLET BY MOUTH 3 TIMES DAILY 270 tablet 5Active prazosin (MINIPRESS) 1 mg capsule Indications:Major depressive disorder, recurrent episode, moderate (CMS-HCC)Take 1 capsule (1 mg total) by mouth nightly. 90 capsule 5Active albuterol (PROVENTIL HFA;VENTOLIN HFA) 90 mcg/actuation inhaler INHALE 2 PUFFS EVERY 4 TO 6 HOURS NEEDED FOR SHORTNESS OF BREATH OR FOR [id number] sertraline (ZOLOFT) 100 mg tablet Take 2 tablets (200 mg total) by mouth in the morning. 180 tablet 5Active hydrOXYzine (VISTARIL) 25 mg capsule Take 1 capsule (25 mg total) by mouth 4 (four) times a day as needed for anxiety. 120 capsule 5Active ARIPiprazole (ABILIFY) 10 mg tablet Indications:Major depressive disorder, recurrent episode, moderate (CMS-HCC)TAKE 1 TABLET BY MOUTH EVERY MORNING 90 tablet 5Active metoclopramide (REGLAN) 10 mg tablet Take 1 tablet (10 mg total) by mouth 3 (three) times a day as needed (nausea or for migraine) for up to 20 doses. 20 tablet 5Active eletriptan (RELPAX) 20 mg tablet Indications:Chronic migraine without aura without status migrainosus, not intractableTake 1 tablet (20 mg total) by mouth 2 (two) times a day as needed for migraine (migraine) for up to 10 doses. May repeat in 2 hours if unresolved. Do not exceed 80 mg in 24 hours. 10 tablet 5Active divalproex (DEPAKOTE) 500 mg EC tablet Take 1 tablet (500 mg total) by mouth 3 (three) times a day.Active topiramate (TOPAMAX) 50 mg tablet Take 1 tablet (50 mg total) by mouth in the morning and 1 tablet (50 mg total) before bedtime.Active semaglutide 0.5 mg/0.1 mL syringe Inject under the skin.Active Active Problems ProblemNoted DateDiagnosed DateBenign intracranial azlhdsbnjsbu58/29/2025 Intractable migraine without status onfxnhlptga49/27/2025Seizure-like activity 04/24/2025Morbid obesity with BMI of 50.0-59.9, adult09/06/2023rimary insomnia 11/06/2019Major depressive disorder, recurrent episode, bhdcjvud90/21/2017 Generalized anxiety weunfned84/21/2017 Encounters * This document contains information received from the source organization and may not represent a complete record from that organization. DateTypeDepartmentCare KtibAbhastujmbr04/28/5134Oqleaj05/21/2025Telephone [facility] Department of [facility] [address] [place] [phone] Susanna Siegel New patient ltujiumlh09/23/2025 9:06 AM EDT - 04/22/2025 10:55 AM EDTEmergency [facility] [address] [place] [address] David Nielsen MD Chronic migraine without aura without status migrainosus, not intractable (Primary Dx) Discharge Disposition: Home04/22/20250454Zgaxgf88/03/2025Travelfrom Last 3 Months Immunizations ImmunizationAdministration DatesNext DueCOVID-19 Vaccine, vector-nr, rS-Ad26, PF, 0.5mL10/07/2020TaP, Fkqujizklnj52/06/2002,02/06/1998,02/27/1997,1996, 1996HPV Kdquntdvpcno16/10/2010,09/29/2009,06/24/2009Hep B, Adjuvanted 07/27/2021Hep B, Adolescent or Lmaclhxsf45/04/1997,1996,1996HiB 02/27/1997,1996,1996Hib (PRP-T)08/07/1997IPV09/05/2001,08/07/1997 Influenza, Injectable, quadrivalent (PF)08/12/2020,04/20/2018,04/21/2017 Influenza, Aksumkdjuim61/28/2848HQZ35/19/2000,11/06/1997Meningococcal MCV4P 06/24/2009Polio, Zzehzuftldh49/18/1997,1996Tdap09/29/2009Varicella 01/07/2010,11/06/1997 Family History Medical HistoryRelationNameCommentsHeart diseaseFatherHyperlipidemiaFather HypertensionFatherAbnormal EKGMaternal GrandmotherAsthmaMaternal Grandmother AsthmaMotherDepressionMotherHashimoto's thyroiditisMotherHashimoto's thyroiditis SisterRelationNameStatusCommentsBrotherAliveHalf brotherFatherAliveMaternal GrandmotherAliveMotherAliveSisterAliveHalf sister Social History Tobacco UseTypesPacks/DayYears UsedDateSmoking Tobacco: FormerCigarettes Smokeless Tobacco: Never Tobacco Cessation:Counseling Given: Not Answered Alcohol UseStandard Drinks/WeekCommentsNever0 (1 standard drink = 0.6 oz pure alcohol)Socially.Overall Financial Resource Strain (CARDIA)AnswerDate Recorded How hard is it for you to pay for the very basics like food, housing, medical care, and heating?Not hard at all10/14/2024PHQ-2AnswerDate RecordedTotal Score0 11/20/2024PRAPARE - TransportationAnswerDate RecordedIn the past 12 months, has lack of transportation kept you from medical appointments or from getting medications?No10/14/2024In the past 12 months, has lack of transportation kept you from meetings, work, or from getting things needed for daily living?No 10/14/2024Housing InstabilityAnswerDate RecordedAre you worried or concerned that in the next two months you may not have stable housing that you own, rent or stay in as a part of a household?No10/14/2024hildcareAnswerDate Recorded PctcygthjUfuxqtj47/10/2019EmploymentAnswerDate RecordedEmploymentUnknown 01/07/2019Hunger ScreeningAnswerDate RecordedWithin the past 12 months we worried whether our food would run out before we got money to buy more.Never True05/27/2025Within the past 12 months the food we bought just didn't last and we didn't have money to get more.Never True05/27/2025Purpose - LifeAnswerDate RecordedPurpose and direction in gpmeAkuxxgy02/29/2021CommentsNoSex and Gender InformationValueDate RecordedSex Assigned at BirthNot on fileLegal Sex Eafmoi5503/03/2015 3:04 PM EDTGender IdentityNot on fileSexual OrientationNot on file Last Filed Vital Signs Vital SignReadingTime TakenCommentsBlood Ewftxeae664/7810 11:22 AM EDT Duavs1625 11:22 AM MJWDjjfdcrxagk63.9 ??C (98.5 ??F)04/22/2025 9:08 AM EDTRespiratory Xtnd659104/22/2025 10:55 AM EDTOxygen Fpwhkgdxcn55%04/22/2025 10:38 AM EDTInhaled Oxygen Concentration--Fzniay390.8 kg (292 lb 12.8 oz)05/27/2025 11:22 AM QVGQkdqjh170.6 cm (5' 4 )04/22/2025 9:08 AM EDTBody Mass Index50.26 04/22/2025 9:08 AM EDT Plan of Treatment DateTypeDepartmentCare Team (Latest Contact Info)Jcrjbaecuoe05/15/2025 3:00 PM ESTTelemedicine [facility] [address] [place] [address] Erasmo Aguilar MD [address] [facility] [place] [address] Health MaintenanceDue DateLast DoneCommentsDTaP,Tdap and Td Vaccines (7 - Td or Tdap), 09/05/2001, 02/06/1998, Additional history exists COVID-19 Vaccine ( season)/04/2021Influenza Vaccine /, 05/27/2021, 08/12/2020, Additional history existsAdult BMI Follow Up Plan/Depression Hbigxpryh02/dult BMI Zuinwpfcc39/Tobacco Xrzdjqxfa03/Pap Smear /01/2024 Medical Devices Not on file Insurance Care Teams Team MemberRelationshipSpecialtyStart DateEnd Date No Pcp, [place] [address] PCP - GeneralFamily Medicine04/22/25
--- OUTSIDE RECORDS SUMMARY | 2025-07-02 15:30 | XMS_ITS | Clinical Summary ---
Author Organization [facility] Address [address] [place] [address] Care Team Providers Care Lockstitch Front Maker Name Role Phone Unavailable Primary Care Provider Unavailabl e Allergies Active AllergyReactionsCriticalityNoted DateCommentsAspirinAnaphylaxis,Anxiety, Palpitations,Shortness of breath,QkrtdvtvRmpz13/15/2025Sulfa AntibioticsSwelling 02/06/2017 Other Reaction(s): Unknown Medications MedicationSigDispense QuantityRefillsLast FilledStart DateEnd DateStatus ARIPiprazole (Abilify) 5 MG tablet Take 5 mg by mouth in the morning.Active sertraline (Zoloft) 100 MG tablet Take 200 mg by mouth DailyActive busPIRone (Buspar) 15 MG tablet Take 15 mg by mouth in the morning and 15 mg in the evening and 15 mg before bedtime.Active prazosin (Minipress) 1 MG capsule Take 1 mg by mouth at mwsdspx6408/29/2023ctive ketorolac (Toradol) 10 MG tablet Take by mouth every 6 (six) hours if needed for moderate painActive acetaminophen (Tylenol) 500 MG tablet Take 1,000 mg by mouth every 8 (eight) hours if needed for mild painActive metFORMIN XR (Glucophage-XR) 500 MG 24 hr tablet Indications:Well woman exam with routine gynecological examTake 1 tablet (500 mg) by mouth in the evening. Take with meals Do not crush, chew, or split. 30 tablet 1115008/01/2025ctive Encounters DateTypeDepartmentCare ApzjLnxdpqfxwhn26/03/2025 10:00 AM ESTProcedure Visit [facility] [address] [place] [address] [place] [phone] Deb Boggs PA Well woman exam with routine gynecological exam; Missed nromod9807/02/2025amboo flowsheet [facility] [place] [address] Deb Boggs PA 06/28/2025Travelfrom Last 3 Months Social History Tobacco UseTypesPacks/DayYears UsedDateSmoking Tobacco: Never Assessed CommentsNoSex and Gender InformationValueDate RecordedSex Assigned at BirthNot on fileLegal QadOzqess47/15/2023 7:26 PM EDTGender IdentityNot on fileSexual OrientationNot on file Last Filed Vital Signs Vital SignReadingTime TakenCommentsBlood Axqnlalu610/7807/02/2025 10:02 AM EST Pulse--Temperature--Respiratory Rate--Oxygen Saturation--Inhaled Oxygen Concentration--Uukdmf153 kg (289 lb)07/02/2025 10:02 AM RLOWjylwj559.6 cm (5' 4 )12/05/2023 3:17 PM EDTBody Mass Index49.61012/05/2023 3:17 PM EDT Plan of Treatment DateTypeDepartmentCare Team (Latest Contact Info)Vrgmetzpekg00/08/2026 10:00 AM ESTProcedure Visit [facility] [place] [address] Deb Boggs PA [address] [facility] [address] [place], [place] [id number] Health MaintenanceDue DateLast DoneCommentsCOVID-19 Vaccine ( season) /04/2021Influenza Vaccine (#1)/, 05/27/2021, 08/12/2020, Additional history existsPneumococcal Vaccine: Pediatrics (0 to 5 Years) and At-Risk Patients (6 to 64 Years)Aged OutNo longer eligible based on patient's age to complete this topic Procedures Procedure NamePriorityDate/TimeAssociated DiagnosisCommentsPOCT , URINE Gfzcerj4707/02/2025 10:07 AM EST Missed menses from Last 3 Months Results * POCT , urine manually resulted (07/02/2025 10:07 AM EST)Component ValueRef RangeTest MethodAnalysis TimePerformed AtPathologist SignaturePreg Test, UrNegativeNegativeSpecimen (Source)Anatomical Location / Laterality Collection Method / VolumeCollection TimeReceived TiygYozzm72/03/2025 10:07 AM EST Narrative Authorizing ProviderResult TypeResult StatusAmy Flakita [facility]PITALOINT OF CARE TEST ENTER/EDIT ORDERABLESFinal Result from Last 3 Months Insurance
--- OUTSIDE RECORDS SUMMARY | 2025-07-02 15:30 | XMS_ITS | Encounter Summary ---
Author Organization [facility] Address [address] [facility] [place] [address] Care Team Providers Care Manager Logistic Name Role Phone Unavailable Primary Care Provider Unavailabl e Encounter Details DateTypeDepartmentCare Team (Latest Contact Info)Awcoitzjxub51/29/2025Travel Social History Tobacco UseTypesPacks/DayYears UsedDateSmoking Tobacco: Never Assessed CommentsNoSex and Gender InformationValueDate RecordedSex Assigned at BirthNot on fileLegal RueZzgcjo28/15/2023 7:26 PM EDTGender IdentityNot on fileSexual OrientationNot on filedocumented as of this encounter Plan of Treatment DateTypeDepartmentCare Team (Latest Contact Info)Xwiuvtgisdh02/08/2026 10:00 AM ESTProcedure Visit [facility]HELLE [facility] [address] [facility] [place] [address] Deb Boggs PA [address] [facility] [address] [place], [facility] documented as of this encounter Visit Diagnoses Not on filedocumented in this encounter
[2025-07-04 10:11] LABS: Age Gdln ACOG Testing Note (.); IGP, rfx Aptima HPV ASCU Note (.)
== END 2025-07-02 15:26 | disposition home or self-care (01) ==
LOC: LAB 15:25
PROVIDERS: PCP Nurse Practitioner; Visit Provider Physician Assistant
DX: Z01.419 Encounter for gynecological examination (general) (routine) without abnormal findings (principal)
CPT/HCPCS: 88175